=== PATIENT | male | born 1970 | race Caucasian/White ===

== ENCOUNTER 2017-04-26 07:30 | Inpatient (IN) | payer MEDICAID, MEDICARE, OTHER ==
[~2017-04-26] VITALS: Ht 188 cm; Wt 86.2 kg
[~2017-04-26 07:30] MED LIST: RISP1 PO; RISP25P IM
[2017-04-26 07:32] VITALS: BP 121/68; PULSE 83; RESP 14; TEMP 98.2; O2SAT 99
[2017-04-26] MEDS ORDERED: FLUO40CA PO (07:51)
[2017-04-26] MEDS ORDERED: PALI1TAB4 PO (07:51)
[2017-04-26] MEDS ORDERED: BENZ0.5T PO (07:51)
[2017-04-26 08:39] LABS: AUTOMATED NEUTROPHIL # 6.3 TH/MM3 (1.8-7.7); BASOPHIL % 0.3 % (0.0-2.0); EOSINOPHIL # 0.1 TH/MM3 (0-0.4); EOSINOPHIL % 0.9 % (0.0-4.0); HEMATOCRIT 38.8 % (39.0-51.0); HEMO FLAGS DIFF FINAL; LYMPH % 25.2 % (9.0-44.0); LYMPHOCYTE # 2.5 TH/MM3 (1.0-4.8); MEAN CELL VOLUME 86.5 FL (80.0-100.0); MEAN CORPUSCULAR HEMOGLOBIN 29.3 PG (27.0-34.0); MEAN CORPUSCULAR HGB CONC 33.8 % (32.0-36.0); MONO % 10.7 % (0.0-8.0); NEUT % 62.9 % (16.0-70.0); PLATELET COUNT 371 TH/MM3 (150-450); RED BLOOD COUNT 4.49 MIL/MM3 (4.50-5.90); RED CELL DISTRIBUTION WIDTH 12.8 % (11.6-17.2); WHITE BLOOD COUNT 10.1 TH/MM3 (4.0-11.0)
[2017-04-26 08:47] LABS: AMPHETAMINE, URINE NEG (NEG); BARBITURATES, URINE NEG (NEG); COCAINE, URINE NEG (NEG)
[2017-04-26 08:59] LABS: ANION GAP 8 MEQ/L (5-15); AST (GOT) 30 U/L (15-37); BLOOD UREA NITROGEN 22 MG/DL (7-18); CHLORIDE 104 MEQ/L (98-107); GLOMERULAR FILTRATION RATE 102 ML/MIN (>89); SODIUM (NA) 138 MEQ/L (136-145)
[2017-04-26 09:00] LABS: ALT (GPT) 32 U/L (12-78)
[2017-04-26 09:02] LABS: ALKALINE PHOSPHATASE 100 U/L (45-117); TOTAL BILIRUBIN ADULT 0.5 MG/DL (0.2-1.0)
--- NOTE | 2017-04-26 09:02 | PD ---
HPI Chief Complaint: Psychiatric Symptoms Time Seen by Provider: 07:52 Travel History International Travel<30 days: No Contact w/Intl Traveler<30days: No Traveled to known affect area: No History of Present Illness HPI 47yo M with PMH of schizoaffective disorder presents to the ED with c/o feeling depressed. Pt has flat affect. Denies any fever, cough, chest pain, sob, n/v, abdominal pain, focal weakness or numbness. Pt denies any alcohol or drug use. Does appear a little stoic. Denies any suicidal or homicidal ideation. Pt is voluntary. PFSH Past Medical History Anxiety: Yes Depression: Yes Chemotherapy: No Diminished Hearing: No Endocrine: No Gastrointestinal Disorders: No Genitourinary: No Immune Disorder: No Implanted Vascular Access Dvce: No Musculoskeletal: No Neurologic: No Psychiatric: Yes (Paranoid Schizophrenia, See EMR) Reproductive: No Respiratory: No Immunizations Current: Yes Radiation Therapy: No Schizophrenia: Yes Sickle Cell Disease: No Thyroid Disease: No Past Surgical History Abdominal Surgery: No AICD: No Arteriovenous Shunt: No Cardiac Surgery: No Ear Surgery: No Endocrine Surgery: No Eye Surgery: Yes (FOREIGN BODY IN LEFT EYE 1994) Genitourinary Surgery: No Gynecologic Surgery: No Insulin Pump: No Joint Replacement: No Neurologic Surgery: No Oral Surgery: No Pacemaker: No Thoracic Surgery: No Tonsillectomy: Yes Other Surgery: Yes (LEFT THUMB AMPUTATION AT 1ST KNUCKLE) Social History Alcohol Use: Yes (SOCIAL) Tobacco Use: Yes (1PPD) Substance Use: No Allergies-Medications (Allergen,Severity, Reaction): Coded Allergies: Seafood (Verified Allergy, Severe, 07/29/16) Amoxicillin (Verified Allergy, Unknown, 07/29/16) Reported Meds & Prescriptions Reported Meds & Active Scripts Active Reported Paliperidone ER 9 Mg Tab 9 Mg PO DAILY Benztropine (Benztropine Mesylate) 0.5 Mg Tab 1 Mg PO DAILY Fluoxetine (Fluoxetine HCl) 40 Mg Cap 40 Cap PO DAILY Review of Systems Except as stated in HPI: all other systems reviewed are Neg Physical Exam Narrative GENERAL: 47yo M not in distress. SKIN: Focused skin assessment warm/dry. HEAD: Atraumatic. Normocephalic. EYES: Pupils equal and round at 5mm bilaterally. No scleral icterus. No injection or drainage. ENT: No nasal bleeding or discharge. Mucous membranes pink and moist. NECK: Trachea midline. No JVD. CARDIOVASCULAR: Regular rate and rhythm. No murmur appreciated. RESPIRATORY: No accessory muscle use. Clear to auscultation. Breath sounds equal bilaterally. GASTROINTESTINAL: Abdomen soft, non-tender, nondistended. MUSCULOSKELETAL: No obvious deformities. No clubbing. No cyanosis. No edema. NEUROLOGICAL: Awake and alert. No obvious cranial nerve deficits. Motor grossly within normal limits. Normal speech. PSYCHIATRIC: Inappropriate mood and affect; poor insight and judgment. Data Data Last Documented VS Vital Signs Date Time Temp Pulse Resp B/P Pulse Ox O2 Delivery O2 Flow Rate FiO2 04/26/17 12:59 97.9 65 18 108/55 98 Room Air Orders Complete Blood Count With Diff (04/26/17 07:51) Comprehensive Metabolic Panel (04/26/17 07:51) Psych Screen (04/26/17 07:51) Drug Screen, Random Urine (04/26/17 07:51) Alcohol (Ethanol) (04/26/17 07:51) Tylenol (Acetaminophen) (04/26/17 07:51) Salicylates (Aspirin) (04/26/17 07:51) Diet Regular Basic (04/26/17 Lunch) Admit Order (Ed Use Only) (04/26/17 ) Admit To Inpatient Psych (04/26/17 ) Vital Signs (Adult) NORMAN.Q12H.E (04/26/17 17:52) Activity Oob Ad Cara (04/26/17 17:52) Level Of Observation (Psych) (04/26/17 17:52) Aims-Abnormal Invol Move Scale ONCE (04/26/17 17:52) Acetaminophen (Tylenol) (04/26/17 18:00) Magnesium Hydroxide Liq (Milk Of Magnesi (04/26/17 18:00) Al-Mag Hy-Si 40-40-4 Mg/Ml Liq (Mag-Al P (04/26/17 18:00) Basic Metabolic Panel (Bmp) (04/27/17 06:00) Lipid Profile (04/27/17 06:00) Hemoglobin (Hgb) A1c (04/27/17 06:00) Labs Laboratory Tests Test 04/26/17 08:15 White Blood Count 10.1 TH/MM3 Red Blood Count 4.49 MIL/MM3 Hemoglobin 13.1 GM/DL Hematocrit 38.8 % Mean Corpuscular Volume 86.5 FL Mean Corpuscular Hemoglobin 29.3 PG Mean Corpuscular Hemoglobin 33.8 % Concent Red Cell Distribution Width 12.8 % Platelet Count 371 TH/MM3 Mean Platelet Volume 8.4 FL Neutrophils (%) (Auto) 62.9 % Lymphocytes (%) (Auto) 25.2 % Monocytes (%) (Auto) 10.7 % Eosinophils (%) (Auto) 0.9 % Basophils (%) (Auto) 0.3 % Neutrophils # (Auto) 6.3 TH/MM3 Lymphocytes # (Auto) 2.5 TH/MM3 Monocytes # (Auto) 1.1 TH/MM3 Eosinophils # (Auto) 0.1 TH/MM3 Basophils # (Auto) 0.0 TH/MM3 CBC Comment DIFF FINAL Differential Comment Sodium Level 138 MEQ/L Potassium Level 4.0 MEQ/L Chloride Level 104 MEQ/L Carbon Dioxide Level 26.0 MEQ/L Anion Gap 8 MEQ/L Blood Urea Nitrogen 22 MG/DL Creatinine 0.81 MG/DL Estimat Glomerular Filtration 102 ML/MIN Rate Random Glucose 104 MG/DL Calcium Level 9.1 MG/DL Total Bilirubin 0.5 MG/DL Aspartate Amino Transf 30 U/L (AST/SGOT) Alanine Aminotransferase 32 U/L (ALT/SGPT) Alkaline Phosphatase 100 U/L Total Protein 7.8 GM/DL Albumin 3.8 GM/DL Salicylates Level 2.3 MG/DL Urine Opiates Screen NEG Acetaminophen Level LESS THAN 2.0 MCG/ML Urine Barbiturates Screen NEG Urine Amphetamines Screen NEG Urine Benzodiazepines Screen NEG Urine Cocaine Screen NEG Urine Cannabinoids Screen NEG Ethyl Alcohol Level LESS THAN 3 MG/DL [facility] Medical Decision Making Medical Screen Exam Complete: Yes Emergency Medical Condition: Yes Differential Diagnosis Psychosis vs. depression Narrative Course 47yo M with schizoaffective disorder here voluntarily for feeling depressed. No signs of trauma. Denies any other complaints. Labs reviewed, unremarkable. Pt is medically clear for psych evaluation. Diagnosis Primary Impression: Paranoid schizophrenia Diana Flores DO Apr 26, 2017 09:02
[2017-04-26 09:04] LABS: ACETAMINOPHEN LESS THAN 2.0 MCG/ML (10.0-30.0)
[2017-04-26 12:59] VITALS: BP 108/55; PULSE 65; RESP 18; TEMP 97.9; O2SAT 98
--- NOTE | 2017-04-26 17:52 | PD ---
History of Present Illness Chief Complaint: Psychiatric Symptoms Time Seen by Provider: 17:30 Travel History International Travel<30 Days: No Contact w/Intl Traveler<30days: No Known affected area: No Legal Status Legal Status: Voluntary History of Present Illness: History of Present Illness HPI 47yo M with PMH of paranoid schizophrenia who presents to the ED on a voluntary status with c/o feeling depressed. Patient was evasive and presented little information to screener. he was monitored in [facility] and he slept for aproximately 4 hours. he tells me that he was up all night last night siting on a bench. EMR is reviewed. He was last hospitalized at [facility] in March 2016 and prior to that he was here in January. Both time she presented floridly psychotic with delusions that he was part of the [facility]. Current toxicology is negative. Patient is alert and oriented. He is disheveled and malodorous. He appears stated age. He is guarded. He hesitates to answer questions and appears to be internally preoccupied. Affect is blunted. He states that he has been walking for many miles and that he " looking for [facility] care" that he does not feel safe outside the hospital, that he " follows the voices I hear" . He does not elaborate on what the voices tell him. He also tell me that he is suicidal and that " I don't have much hope". Patient states that he is medication compliant and that he was seen at [facility] last week . I suspect he may not be taking his medications since he has been homeless. Today he reports that he took his Prozac and he felt dizzy and weak. He also tells me that his medications were changed last week. PFSH Past Medical History Anxiety: Yes Depression: Yes Chemotherapy: No Diminished Hearing: No Endocrine: No Gastrointestinal Disorders: No Genitourinary: No Immune Disorder: No Implanted Vascular Access Dvce: No Musculoskeletal: No Neurologic: No Psychiatric: Yes (Paranoid Schizophrenia, See EMR) Reproductive: No Respiratory: No Immunizations Current: Yes Radiation Therapy: No Schizophrenia: Yes Sickle Cell Disease: No Thyroid Disease: No Past Surgical History Abdominal Surgery: No AICD: No Arteriovenous Shunt: No Cardiac Surgery: No Ear Surgery: No Endocrine Surgery: No Eye Surgery: Yes (FOREIGN BODY IN LEFT EYE 1994) Genitourinary Surgery: No Gynecologic Surgery: No Insulin Pump: No Joint Replacement: No Neurologic Surgery: No Oral Surgery: No Pacemaker: No Thoracic Surgery: No Tonsillectomy: Yes Other Surgery: Yes (LEFT THUMB AMPUTATION AT 1ST KNUCKLE) Psychiatric History Psychiatric History Hx Psychiatric Treatment: Last admission March 2016 [facility] dx paranoid schizophrenia. History of Inpatient Treatment: Yes Guns or firearms in home: No Social History Single male. Homeless. On disability Hx Alcohol Use: Yes (SOCIAL) Hx Tobacco Use: Yes (1PPD) Hx Substance Use: Yes (Denies) Hx of Substance Use Treatment: No Family Psychiatric History Adopted. he does not maintian contact with his family Allergies-Medications (Allergen,Severity, Reaction): Coded Allergies: Seafood (Verified Allergy, Severe, 07/29/16) Amoxicillin (Verified Allergy, Unknown, 07/29/16) Reported Meds & Prescriptions Reported Meds & Active Scripts Active Reported Paliperidone ER 9 Mg Tab 9 Mg PO DAILY Benztropine (Benztropine Mesylate) 0.5 Mg Tab 1 Mg PO DAILY Fluoxetine (Fluoxetine HCl) 40 Mg Cap 40 Cap PO DAILY Review of Systems ROS Limitations: Uncooperative, Psychotic Exam Alert: Yes [place]: Person (ox4) Mood: Depressed Affect: Blunted Speech: Clear (slowed responses) Eye Contact: Indirect Memory Intact: Comment (not tested) Hallucinations: Auditory Delusions: No Suicidal: Ideation (did not elaborate on plan) Homicidal: Ideation (negative) Insight/Judgement poor. poor MDM Medical Decision Making Medical Record Reviewed: Yes Assessment/Plan 47 year old male with hx of schizophrenia who presents to ed on a voluntary status. he is guarded. reports recent medication changes, auditory hallucinations, feeling hopeless, not sleeping, walking for miles, and suicidal ideation. He is requesting admission as he is wanting terminal manager hospitalization. At this time he will be admitted to [facility] fro further observation as well as for medication stabilization. Orders Complete Blood Count With Diff (04/26/17 07:51) Comprehensive Metabolic Panel (04/26/17 07:51) Electrocardiogram (04/26/17 07:51) Psych Screen (04/26/17 07:51) Drug Screen, Random Urine (04/26/17 07:51) Alcohol (Ethanol) (04/26/17 07:51) Tylenol (Acetaminophen) (04/26/17 07:51) Salicylates (Aspirin) (04/26/17 07:51) Diet Regular Basic (04/26/17 Lunch) Results Vital Signs Date Time Temp Pulse Resp B/P Pulse Ox O2 Delivery O2 Flow Rate FiO2 04/26/17 12:59 97.9 65 18 108/55 98 Room Air 04/26/17 07:32 98.2 83 14 121/68 99 Laboratory Tests Test 04/26/17 08:15 White Blood Count 10.1 Red Blood Count 4.49 Hemoglobin 13.1 Hematocrit 38.8 Mean Corpuscular Volume 86.5 Mean Corpuscular Hemoglobin 29.3 Mean Corpuscular Hemoglobin 33.8 Concent Red Cell Distribution Width 12.8 Platelet Count 371 Mean Platelet Volume 8.4 Neutrophils (%) (Auto) 62.9 Lymphocytes (%) (Auto) 25.2 Monocytes (%) (Auto) 10.7 Eosinophils (%) (Auto) 0.9 Basophils (%) (Auto) 0.3 Neutrophils # (Auto) 6.3 Lymphocytes # (Auto) 2.5 Monocytes # (Auto) 1.1 Eosinophils # (Auto) 0.1 Basophils # (Auto) 0.0 CBC Comment DIFF FINAL Differential Comment Sodium Level 138 Potassium Level 4.0 Chloride Level 104 Carbon Dioxide Level 26.0 Anion Gap 8 Blood Urea Nitrogen 22 Creatinine 0.81 Estimat Glomerular Filtration 102 Rate Random Glucose 104 Calcium Level 9.1 Total Bilirubin 0.5 Aspartate Amino Transf 30 (AST/SGOT) Alanine Aminotransferase 32 (ALT/SGPT) Alkaline Phosphatase 100 Total Protein 7.8 Albumin 3.8 Salicylates Level 2.3 Urine Opiates Screen NEG Acetaminophen Level LESS THAN 2.0 Urine Barbiturates Screen NEG Urine Amphetamines Screen NEG Urine Benzodiazepines Screen NEG Urine Cocaine Screen NEG Urine Cannabinoids Screen NEG Ethyl Alcohol Level LESS THAN 3 Diagnosis Primary Impression: Paranoid schizophrenia Admitting Information Admitting Physician Requests: Admit Padmini Mac Apr 26, 2017 17:52
[2017-04-26] MEDS ORDERED: ALUMINUM/MAGNESIUM/SIMETH 30 ML CUP PO PRN (18:00)
[2017-04-26] MEDS ORDERED: ACETAMINOPHEN 325 MG TAB PO PRN (18:00)
[2017-04-26] MEDS ORDERED: MAGNESIUM HYDROXIDE SUSP 30 ML CUP PO PRN (18:00)
[2017-04-26 18:19] VITALS: BP 108/55; PULSE 65; RESP 18; O2SAT 98
[2017-04-26 18:31] VITALS: BP 105/54; PULSE 93; RESP 18; O2SAT 96
[2017-04-26 19:15] VITALS: BP 90/50; PULSE 75; RESP 18; TEMP 98.4; O2SAT 97
--- NOTE | 2017-04-27 12:25 | HHI.HP ---
Provisional Diagnosis Admission Date Apr 26, 2017 at 17:55 Robbins I. 1. Schizophrenia, paranoid type, acute exacerbation Rule out comorbid depressive disorder or perhaps schizoaffective disorder, depressive type Robbins II. Deferred Robbins V. GAF is 35 presently Certification of Person's Competence To Provide Express and Informed Consent I have personally examined Inderjit Byers , a person being served at [facility] on, Apr 27, 2017 12:25. Express and informed consent means consent voluntarily given in writing, by a competent person, after sufficient explanation and disclosure of the subject matter involved to enable the person to make a knowing and willful decision without any element of force, fraud, deceit, duress, or other form of constraint or coercion. This person is 18 years of age or older, is not now known to be incompetent to consent to treatment with a guardian advocate, and does not have a health care surrogate or proxy currently making medical treatment decisions. I have found this person to be one of the following: [x] Competent to provide express and informed consent, as defined above, for voluntary admission to this facility and is competent to provide express and informed consent for treatment. He/she has the consistent capacity to make well reasoned, willful, and knowing decisions concerning his or her medical or mental health treatment. The person fully and consistently understands the purpose of the admission for examination/placement and is fully capable of personally exercising all rights [place] Incompetent to provide express and informed consent to voluntary admission, and this is incompetent to provide express and informed consent to treatment. The person must be transferred to involuntary status and a petition for a guardian advocate filed with the Circuit Court. [] Refusing to provide express and informed consent to voluntary admission but is competent to provide express and informed consent for treatment. The person must be discharged or transferred to involuntary status. Form shall be completed within 24 hours of a person's arrival at the receiving facility and filed in the clinical record of each person: 1. Admitted on a voluntary basis 2. Permitted to provide express and informed consent to his/her own treatment 3. Allowed to transfer from involuntary to voluntary status 4. Prior to permitting a person to consent to his or her own treatment after having been previously found incompetent to consent to treatment. History of Present Illness Capacity: Has Capacity HPI Mr. Byers is a 47-year-old male with a history of schizophrenia who presents voluntarily with complaints of depression. Reviewing the electronic medical record, I note the patient was admitted approximately one year ago here under Dr. Montoya. He was on Risperdal at that time and was also started on Risperdal Consta, which he apparently tolerated well. Patient seen and examined with counselor and nurse. Chart reviewed. Case discussed with nursing staff. On my examination today, the patient presents as fairly tearful and dysphoric. He explains that he has been stressed out because of family issues and feelings of loneliness. He says that he has been off of his psychotropic medications for the last 2 months secondary to being homeless. He does report issues with taking oral medications as a consequence of his homelessness in the past. He endorses auditory hallucinations in the setting of this medication nonadherence. He says that these are chiefly deprecatory but have also been command in the past. He denies any command auditory hallucinations now. He endorses vague suicidal ideation. He is fairly hopeless and anhedonic. Sleep and appetite are reportedly fair. No hypomanic or manic symptoms. No delusional material to me, although he had apparently been making statements regarding the [employer] to nursing staff. The remainder of the psychiatric ROS is negative. Reports some chronic leg and back pain but otherwise no physical complaints at this time. Patient agrees that he did well with the Risperdal and tolerated this medication well without side effects. Past psychiatric history: The patient has a history of schizophrenia. He has followed with [facility] in the past. His most recent psychiatric admission was apparently here under Dr. Montoya. He denies a history of suicide attempts. Family history: The patient reports that he is unsure of his family psychiatric history. Chemical dependency history: The patient reports that he occasionally drinks alcohol but otherwise denies any other substance use. Social history: The patient is homeless. He is single with no children. He is college educated. He collects disability and makes about $1100 a month. He denies any legal history. Denies any history. Denies any access to guns or firearms. Review of Systems Except as stated in HPI: all other systems reviewed are Neg Past Psych History Psychological trauma history No reported trauma history Violence risk - others (6 mos) Lower imminent risk. No homicidal ideation. No known history of violence. Violence risk - self (6 mos) Elevated. Suicidal ideation without specific plan or intent. Psychotic and unpredictable. Substance Abuse History Drugs/Alcohol past 12 months See above Past Family Social History Coded Allergies: Seafood (Verified Allergy, Severe, 07/29/16) Amoxicillin (Verified Allergy, Unknown, 07/29/16) Past Medical History See electronic medical record Reported Medications Paliperidone ER 9 Mg Tab9 Mg PO DAILY #30 TAB Ref 0 04/26/17 Benztropine 0.5 Mg Tab1 Mg PO DAILY #60 TAB Ref 0 04/26/17 Fluoxetine 40 Mg Cap40 Cap PO DAILY #30 CAP Ref 0 04/26/17 Current Medications Medications (Trade) Dose Ordered Sig/Gen Route Start Time Stop Time Status Last Admin (Tylenol) 650 mg Q4H PRN PO 04/26/17 18:00 (Milk Of Magnesia Liq) 30 ml DAILY PRN PO 04/26/17 18:00 (Mag-Al Plus Susp Liq) 30 ml Q6H PRN PO 04/26/17 18:00 Family History See above Social History See above Patient's Strengths (min. 2) In a monitored setting. Verbally fluent. Physical Exam Physical examination completed by ED provider. On my examination today, the patient appears to be fairly well-nourished and well-developed and in no acute physical distress. No abnormal motor movements noted. Laboratories and vital signs reviewed: Vital Signs Vital Signs Date Time Temp Pulse Resp B/P Pulse Ox O2 Delivery O2 Flow Rate FiO2 04/26/17 19:15 98.4 75 18 90/50 97 04/26/17 18:31 Room Air Lab Results Item Value Date Time White Blood Count 10.1 TH/MM3 04/26/17 0815 Hemoglobin 13.1 GM/DL 04/26/17 0815 Platelet Count 371 TH/MM3 04/26/17 0815 Sodium Level 138 MEQ/L 04/26/17 0815 Potassium Level 4.0 MEQ/L 04/26/17 0815 Chloride Level 104 MEQ/L 04/26/17 0815 Carbon Dioxide Level 26.0 MEQ/L 04/26/17 0815 Blood Urea Nitrogen 22 MG/DL H 04/26/17 0815 Creatinine 0.81 MG/DL 04/26/17 0815 Random Glucose 104 MG/DL 04/26/17 0815 Aspartate Amino Transf (AST/SGOT) 30 U/L 04/26/17 0815 Alanine Aminotransferase (ALT/SGPT) 32 U/L 04/26/17 0815 Total Protein 7.8 GM/DL 04/26/17 0815 Alkaline Phosphatase 100 U/L 04/26/17 0815 Albumin 3.8 GM/DL 04/26/17 0815 Mental Status Examination Patient is in hospital attire. He is fairly well groomed. He is awake and alert and oriented to person and hospital at least. No evidence of delirium. No abnormal motor movements noted. Speech is within normal limits for rate, tone and volume. Language and fund of knowledge seem average. Focus and concentration somewhat scattered. Memory seems grossly intact on clinical exam. Mood is depressed and affect is restricted, tearful and dysphoric. Thought process linear. No loosening of associations. No delusional material elicited by me. Endorses deprecatory but not command auditory hallucinations at this time. No other hallucinatory material. Endorses vague suicidal ideation without specific plan or intent. No reported urge to hurt himself on the inpatient psychiatric unit. No homicidal ideation. Insight and judgment are fair. Assessment & Plan Problem List: (1) Paranoid schizophrenia ICD Code: F20.0 Assessment & Plan This is a 47-year-old male with psychiatric history as detailed above who presents on a voluntary basis with psychiatric complaints. On my examination today, the patient reports what sounds like a psychotic decompensation in the setting of medication nonadherence, albeit unintentional apparently. Patient is presently homeless and has difficulty taking his medications in the setting. He previously did well with Risperdal. After discussion of his various options with regards to pharmacotherapy for his condition, we settle on a trial of Invega Sustenna as this agent does not require oral supplementation. Patient is also interested in assisted living placement. Patient requires psychiatric hospitalization at this time for safety , observation and stabilization. Admit inpatient. Voluntary status. Initiate Invega Sustenna 234 mg IM with plans for booster dose later this week. I will also start a small dose of oral Risperdal to temporarily supplement the Invega Sustenna. Ativan as needed for anxiety, Cogentin as needed for EPS, Ambien as needed for sleep. Vitals every shift. Counselor to see. Disposition planning. Estimated length of stay: 7-9 days. Discharge Planning Pending stabilization Request HC Surrog/Guard Advoc?: No Johnny Miller MD Apr 27, 2017 12:25
[2017-04-27] MEDS ORDERED: ZOLPIDEM TARTRATE 5 MG TAB PO PRN (13:45)
[2017-04-27] MEDS ORDERED: BENZTROPINE MESYLATE 1 MG TAB PO PRN (13:45)
[2017-04-27] MEDS ORDERED: BENZTROPINE MESYLATE 2 MG/2 ML VIAL IM PRN (13:45)
[2017-04-27] MEDS ORDERED: LORazepam 2 MG/ML VIAL IM PRN (13:45)
[2017-04-27] MEDS ORDERED: PALIPERIDONE PALMITATE 234 MG/1.5 ML SYRINGE IM ONE (13:45)
[2017-04-27 17:24] VITALS: BP 106/50; PULSE 60; RESP 17; TEMP 98.6; O2SAT 97
[2017-04-27] MEDS: risperiDONE 1 MG TAB PO SCH (21:09)
[2017-04-28] MEDS: LORazepam 1 MG TAB PO PRN (03:24)
[2017-04-28 06:04] VITALS: BP 108/55; PULSE 59; RESP 18; TEMP 98.5; O2SAT 95
--- NOTE | 2017-04-28 07:49 | EKG ---
Date Performed: 04/26/2017 Time Performed: 20:58:51 PTAGE: 47 years EKG: Sinus rhythm NORMAL ECG NO PREVIOUS TRACING DOCTOR: Penny Ovalle Interpretating Date/Time 04/28/2017 07:49:16
[2017-04-28] MEDS: risperiDONE 1 MG TAB PO SCH ×2 (08:42→20:31)
--- NOTE | 2017-04-28 13:45 | HHI.PYPN ---
Subjective Remarks Patient seen and examined with counselor. Chart reviewed. Refused breakfast this morning but accepted lunch. Case discussed with nursing staff who reports patient refused laboratories this morning and was somewhat oppositional generally. He articulated ongoing depression to the nursing staff. Case discussed in treatment team. On my examination today, the patient remains dysphoric. He says that he is dwelling on "thoughts from the past" and "real strange thoughts" but is reluctant to discuss these in any more detail saying " I really rather not be specific." He tells me that these thoughts are not regarding suicide or violence, and he denies suicidal or homicidal ideation at this time. He describes auditory hallucinations but does not verbalize any command auditory hallucinations. He denies side effects from medications. Tolerating Invega Sustenna well. I discussed the option of titrating his oral Risperdal temporarily to manage psychotic symptoms, but he is reluctant to titrate this medication at this time. No physical complaints. Review of Systems ROS Limitations: Psychotic, Poor Historian Except as stated in HPI: all other systems reviewed are Neg Objective Alert: Yes [place]: Person (O x 3) Mood: Depressed Affect: Restricted Memory Intact: Comment (intact on clinical exam) Hallucinations: Auditory (vague) Delusions: No Delusion Type: Other (No delusions) Suicidal: Ideation (Denies SI) Homicidal: Ideation (Denies HI) Insight/Judgment Fair Remarks No motor abnormalities noted. No hand tremor, no dystonia, no dyskinesia. Thought process linear. Grooming and hygiene fair. Labs Labs reviewed. No new labs. Patient refused laboratories this morning. Vitals/IOs Vital Signs Date Time Temp Pulse Resp B/P Pulse Ox O2 Delivery O2 Flow Rate FiO2 04/28/17 06:04 98.5 59 18 108/55 95 04/26/17 18:31 Room Air Assessment & Plan Problem List: (1) Paranoid schizophrenia Assessment & Plan: Rule out schizoaffective disorder, depressive type ICD Code: F20.0 Assessment & Plan Continue oral Risperdal as ordered per patient preference supplementing Invega Sustenna. Plan for booster dose of Invega Sustenna later this week. To consider adding an antidepressant as the patient does remain fairly dysphoric. Continue to monitor on the inpatient unit. Continue other medications and care as ordered. Justification for Cont. Inpt. High risk for decompensation in a less restrictive environment Discharge Planning Patient remains interested an assisted living placement, and the counselor will begin making referrals. Request HC Surrog/Guard Advoc?: No Johnny Miller MD Apr 28, 2017 13:45
--- NOTE | 2017-04-28 15:21 | PD.TTN ---
Present for Treatment Team Treatment Team Staff: Provider (Angela), Nurse (Ashley), Psych Therapist ( Concepción ), Occupational Therapist (Brendon) Patient Problems 1. Discharge planning 2. Medication compliance 3. Knowledge deficit 4. Lack of coping skills Progress Toward Goals Provider Input: Is starting pt on different medication pt is open to get Invega shot Nurse Input: refused labs refused to eat is irritated and states he is really depressed Psych Therapist Input: is very seclusive and is still not feeling well he wants to get better and is still wanting help [facility] Occupational Therapist Input: does not come to groups Concepción Sanchez [facility] Apr 28, 2017 15:21
[2017-04-28 15:23] VITALS: BP 99/50; PULSE 65; RESP 18; TEMP 97.9; O2SAT 99
[2017-04-28 15:25] VITALS: BP 113/64; PULSE 80; RESP 18; TEMP 98.7; O2SAT 95
[2017-04-29 05:55] VITALS: BP 103/59; PULSE 58; RESP 16; TEMP 97.2; O2SAT 99
[2017-04-29] MEDS: risperiDONE 1 MG TAB PO SCH ×2 (09:07→20:20)
[2017-04-29 09:19] LABS: ANION GAP 6 MEQ/L (5-15); BICARBONATE 27.4 MEQ/L (21.0-32.0); BLOOD UREA NITROGEN 13 MG/DL (7-18); CHLORIDE 107 MEQ/L (98-107); GLOMERULAR FILTRATION RATE 115 ML/MIN (>89); POTASSIUM 4.1 MEQ/L (3.5-5.1); SODIUM (NA) 140 MEQ/L (136-145)
[2017-04-29 09:27] LABS: HDL CHOLESTEROL 34.3 MG/DL (40.0-60.0); LDL CHOLESTEROL 102 MG/DL (0-99)
--- NOTE | 2017-04-29 09:50 | HHI.PYPN ---
Subjective Remarks Patient seen and examined with counselor. Chart reviewed. Case discussed with nursing staff. On my examination today, the patient remains fairly dysphoric and anhedonic. He is secluding in his room. He is somewhat hyperverbal and flat. Sleep reportedly somewhat poor. He denies audiovisual hallucinations today. No delusional material. Denies suicidal or homicidal ideation. Denies side effects from medications. No physical complaints. He remains agreeable to assisted living placement, and the counselor informs us both that a loan representative from an assisted living facility, [facility], will be around today to evaluate the patient for possible admission there. Review of Systems ROS Limitations: Poor Historian Except as stated in HPI: all other systems reviewed are Neg Objective Alert: Yes [place]: Person, Place (at least) Mood: Depressed Affect: Restricted Memory Intact: Comment (remains intact) Hallucinations: Other (denies audiovisual hallucinations) Delusions: No Delusion Type: Other (no delusions elicited) Suicidal: Ideation (denies suicidal ideation) Homicidal: Ideation (denies homicidal ideation) Insight/Judgment Fair Remarks No motor abnormalities noted. Thought process linear but slow. Grooming and hygiene fair. Labs Test 04/29/17 07:18 Sodium Level 140 MEQ/L Potassium Level 4.1 MEQ/L Chloride Level 107 MEQ/L Carbon Dioxide Level 27.4 MEQ/L Anion Gap 6 MEQ/L Blood Urea Nitrogen 13 MG/DL Creatinine 0.73 MG/DL Estimat Glomerular Filtration 115 ML/MIN Rate Random Glucose 85 MG/DL Calcium Level 8.9 MG/DL Triglycerides Level 101 MG/DL Cholesterol Level 156 MG/DL LDL Cholesterol 102 MG/DL HDL Cholesterol 34.3 MG/DL Cholesterol/HDL Ratio 4.54 RATIO Labs reviewed. Vitals/IOs Vital Signs Date Time Temp Pulse Resp B/P Pulse Ox O2 Delivery O2 Flow Rate FiO2 04/29/17 05:55 97.2 58 16 103/59 99 04/26/17 18:31 Room Air Assessment & Plan Problem List: (1) Paranoid schizophrenia ICD Code: F20.0 Assessment & Plan Add Remeron 15 mg at bedtime to manage dysphoria. Continue oral Risperdal as ordered. Plan for booster dose of Invega Sustenna later this week. Continue to monitor on the inpatient unit. Continue other medications and care as ordered. Justification for Cont. Inpt. Medication changes in process. Discharge Planning [facility] placement Request HC Surrog/Guard Advoc?: No Johnny Miller MD Apr 29, 2017 09:50
[2017-04-29 18:00] VITALS: BP 99/54; PULSE 52; RESP 16; TEMP 97.6; O2SAT 99
[2017-04-29] MEDS: LORazepam 1 MG TAB PO PRN (20:20)
[2017-04-29] MEDS ORDERED: MIRTAZAPINE 15 MG TAB PO SCH (21:00)
[2017-04-29 21:26] LABS: HEMOGLOBIN A1a 1.1 %; HEMOGLOBIN A1b 1.6 %; HEMOGLOBIN LA1C 1.8 %; HEMOGLOBIN P3 3.5 %
[2017-04-30 05:46] VITALS: BP 93/54; PULSE 64; RESP 16; TEMP 97.3; O2SAT 98
[2017-04-30] MEDS: risperiDONE 1 MG TAB PO SCH ×2 (08:48→21:41)
--- NOTE | 2017-04-30 11:49 | HHI.PYPN ---
Subjective Remarks Patient seen and examined with nurse. Chart reviewed. Case discussed with nursing staff. Patient reportedly complaining to nurse of poor sleep. On my examination today, the patient says "I don't know about the Remeron." He doesn' t really think that he needs an antidepressant and doesn't feel that he is particularly depressed. He describes his mood as "okay." Affect is fairly flat. He denies any audiovisual hallucinations saying "everything is quiet." He does complain of poor sleep and says that he has done well with trazodone in the past and would like to take this medication instead of the Remeron or Ambien. He denies side effects from medications. No physical complaints. Review of Systems ROS Limitations: Poor Historian Except as stated in HPI: all other systems reviewed are Neg Objective Alert: Yes [place]: Person, Place (at least) Mood: Calm Affect: Flat Memory Intact: Comment (intact) Hallucinations: Other (denies AVH) Delusions: No Delusion Type: Other (no delusions) Suicidal: Ideation (no SI) Homicidal: Ideation (no HI) Insight/Judgment Fair Remarks No motor abnormalities noted. Thought processes linear. Grooming and hygiene fair. Labs Labs reviewed. No new labs. Vitals/IOs Vital Signs Date Time Temp Pulse Resp B/P Pulse Ox O2 Delivery O2 Flow Rate FiO2 04/30/17 05:46 97.3 64 16 93/54 98 04/26/17 18:31 Room Air Intake and Output 04/29/17 04/29/17 04/30/17 08:00 16:00 00:00 Intake Total 360 ml Balance 360 ml Assessment & Plan Problem List: (1) Paranoid schizophrenia ICD Code: F20.0 Assessment & Plan Plan to administer booster dose of Invega Sustenna tomorrow, Thursday. It is possible I interpreted negative symptoms of his psychotic illness as depressive symptoms; the patient does not perceive himself as depressed. I will discontinue the Remeron and add the trazodone for sleep as he asks. Continue to monitor on the inpatient unit. Continue other medications and care as ordered. Justification for Cont. Inpt. Medication changes planned. Discharge Planning Patient has been accepted at [facility]. We will plan to transfer him there once we have made medication adjustments. Request HC Surrog/Guard Advoc?: No Johnny Miller MD Apr 30, 2017 11:49
[2017-04-30 18:14] VITALS: BP 106/50; PULSE 60; RESP 17; TEMP 97.5; O2SAT 97
[2017-04-30] MEDS: traZODone HCL 50 MG TAB PO SCH (21:41)
[2017-05-01 05:58] VITALS: BP 97/58; PULSE 73; RESP 16; TEMP 98.5; O2SAT 97
[2017-05-01] MEDS: risperiDONE 1 MG TAB PO SCH ×2 (08:45→20:16)
[2017-05-01] MEDS ORDERED: PALIPERIDONE PALMITATE 156 MG/ML SYRINGE IM ONE (09:00)
--- NOTE | 2017-05-01 12:33 | HHI.PYPN ---
Subjective Remarks Patient seen and examined with counselor. Chart reviewed. Case discussed with nursing staff who reports the patient received a booster dose of Invega Sustenna. He remains seclusive to room with a flat affect. On my examination today, the patient is indeed secluding in his room. He denies any suicidal or homicidal ideation. Denies any audiovisual hallucinations. No evident delusional material. Affect does remain quite flat, and the patient seems to have a lot of negative symptoms from his psychotic illness. Denies side effects from medications. No physical complaints. Remains agreeable to assisted living placement. Counselor and I have called over to his [facility] assisted living, and the patient can go there on Thursday. Review of Systems Except as stated in HPI: all other systems reviewed are Neg Objective Alert: Yes [place]: Person, Place Mood: Calm Affect: Flat (remains flat) Memory Intact: Comment (intact) Hallucinations: Other (denies hallucinations) Delusions: No Delusion Type: Other (no delusions) Suicidal: Ideation (denies SI) Homicidal: Ideation (denies HI) Insight/Judgment Fair Remarks No motor abnormalities noted. Labs Labs reviewed. No new labs. Vitals/IOs Vital Signs Date Time Temp Pulse Resp B/P Pulse Ox O2 Delivery O2 Flow Rate FiO2 05/01/17 05:58 98.5 73 16 97/58 97 Assessment & Plan Problem List: (1) Paranoid schizophrenia ICD Code: F20.0 Assessment & Plan Continue oral Risperdal supplementing Invega Sustenna. Oral Risperdal can likely be discontinued on discharge. Next dose of Invega Sustenna is due . Continue to monitor on the inpatient unit. Continue other medications and care as ordered. Justification for Cont. Inpt. Risk for decompensation in less restrictive environment. Discharge Planning Discharge to assisted living Thursday barring some clinical deterioration. Request HC Surrog/Guard Advoc?: No Johnny Miller MD May 01, 2017 12:33
[2017-05-01 18:00] VITALS: BP 99/56; PULSE 66; RESP 18; TEMP 98.4; O2SAT 95
[2017-05-01] MEDS: traZODone HCL 50 MG TAB PO SCH (20:16)
[2017-05-02 06:05] VITALS: BP 102/58; PULSE 78; RESP 18; TEMP 98; O2SAT 96
[2017-05-02] MEDS: risperiDONE 1 MG TAB PO SCH ×2 (08:31→20:35)
--- NOTE | 2017-05-02 14:00 | HHI.PYPN ---
Subjective Remarks Patient was seen and case discussed with nursing. Objective Alert: Yes [place]: Person, Place Mood: Calm Affect: Flat (remains flat) Memory Intact: Comment (intact) Hallucinations: Other (denies hallucinations) Delusions: No Delusion Type: Other (no delusions) Suicidal: Ideation (denies SI) Homicidal: Ideation (denies HI) Vitals/IOs Vital Signs Date Time Temp Pulse Resp B/P Pulse Ox O2 Delivery O2 Flow Rate FiO2 05/02/17 06:05 98.0 78 18 102/58 96 Assessment & Plan Problem List: (1) Paranoid schizophrenia ICD Code: F20.0 Assessment & Plan Estimated LOS: days Request HC Surrog/Guard Advoc?: No Kenji Ch DO May 02, 2017 14:00
--- NOTE | 2017-05-02 14:47 | HHI.PYPN ---
Subjective Remarks Please ignore the other note from today. It is in draft mode and staff/myself was not able to delete it. Patient was seen and case discussed with nursing. Patient is pleasant and cooperative with exam. Flat affect, disheveled, delayed thought process. Notices an improvement compared to when he came in. Denies auditory or visual hallucinations. Objective Alert: Yes [place]: Person, Place Mood: Calm Affect: Flat (remains flat) Memory Intact: Comment (intact) Hallucinations: Other (denies hallucinations) Delusions: No Delusion Type: Other (no delusions) Suicidal: Ideation (denies SI) Homicidal: Ideation (denies HI) Insight/Judgment poor Vitals/IOs Vital Signs Date Time Temp Pulse Resp B/P Pulse Ox O2 Delivery O2 Flow Rate FiO2 05/02/17 06:05 98.0 78 18 102/58 96 Assessment & Plan Problem List: (1) Paranoid schizophrenia ICD Code: F20.0 Assessment & Plan Continue current treatment plan Justification for Cont. Inpt. Continue current treatment plan, patient would decompensate in a less restrictive setting. Request HC Surrog/Guard Advoc?: No Kenji Ch DO May 02, 2017 14:47
[2017-05-02] MEDS: LORazepam 1 MG TAB PO PRN (17:20)
[2017-05-02 18:12] VITALS: BP 92/50; PULSE 97; RESP 18; TEMP 98.1; O2SAT 99
[2017-05-02] MEDS: traZODone HCL 50 MG TAB PO SCH (20:34)
[2017-05-03 05:52] VITALS: BP 103/53; PULSE 57; RESP 18; TEMP 97.3; O2SAT 98
[2017-05-03] MEDS: risperiDONE 1 MG TAB PO SCH ×2 (08:52→20:48)
--- NOTE | 2017-05-03 13:36 | HHI.PYPN ---
Subjective Remarks Patient was seen and case discussed with nursing. Per nursing, at 5 PM last night patient began screaming his room. When nursing asked him what was wrong, patient said he was screaming at the voices. Today, patient minimizes this episode and claims she is not having auditory hallucinations. He remains seclusive to self but didn't go outside. Remains vigilance and blunted Objective Alert: Yes [place]: Person, Place, Date Mood: Anxious Affect: Blunted Memory Intact: Comment (intact) Hallucinations: Auditory (yesterday per nursing) Delusions: No Delusion Type: Other (no delusions) Suicidal: Ideation (denies SI) Homicidal: Ideation (denies HI) Insight/Judgment Poor Vitals/IOs Vital Signs Date Time Temp Pulse Resp B/P Pulse Ox O2 Delivery O2 Flow Rate FiO2 05/03/17 05:52 97.3 57 18 103/53 98 Assessment & Plan Problem List: (1) Paranoid schizophrenia ICD Code: F20.0 Assessment & Plan Continue current treatment plan Justification for Cont. Inpt. Patient will decompensate in a less restrictive setting Request HC Surrog/Guard Advoc?: No Kenji Ch DO May 03, 2017 13:36
[2017-05-03 17:22] VITALS: BP 115/59; PULSE 82; RESP 18; TEMP 97.8; O2SAT 96
[2017-05-03] MEDS: traZODone HCL 50 MG TAB PO SCH (20:48)
[2017-05-04 06:01] VITALS: BP 125/58; PULSE 96; RESP 18; TEMP 97.6; O2SAT 96
[2017-05-04] MEDS: risperiDONE 1 MG TAB PO SCH (08:06)
--- NOTE | 2017-05-04 13:49 | HHI.DS ---
Psychiatry Discharge Summary Inpatient Psychiatric care?: Yes Advance Directive: No Reason Not Provided: declined Mental Health AdvanceDirective: No Health Care Proxy: No Admission Admission Date Apr 26, 2017 at 17:55 Admission Diagnosis: (1) Paranoid schizophrenia ICD Code: F20.0 Brief History Mr. Byers is a 47-year-old male with a history of schizophrenia who presents voluntarily with complaints of depression. Reviewing the electronic medical record, I note the patient was admitted approximately one year ago here under Dr. Montoya. He was on Risperdal at that time and was also started on Risperdal Consta, which he apparently tolerated well. Patient seen and examined with counselor and nurse. Chart reviewed. Case discussed with nursing staff. On my examination today, the patient presents as fairly tearful and dysphoric. He explains that he has been stressed out because of family issues and feelings of loneliness. He says that he has been off of his psychotropic medications for the last 2 months secondary to being homeless. He does report issues with taking oral medications as a consequence of his homelessness in the past. He endorses auditory hallucinations in the setting of this medication nonadherence. He says that these are chiefly deprecatory but have also been command in the past. He denies any command auditory hallucinations now. He endorses vague suicidal ideation. He is fairly hopeless and anhedonic. Sleep and appetite are reportedly fair. No hypomanic or manic symptoms. No delusional material to me, although he had apparently been making statements regarding the FBI to nursing staff. The remainder of the psychiatric ROS is negative. Reports some chronic leg and back pain but otherwise no physical complaints at this time. Patient agrees that he did well with the Risperdal and tolerated this medication well without side effects. Past psychiatric history: The patient has a history of schizophrenia. He has followed with [facility] in the past. His most recent psychiatric admission was apparently here under Dr. Montoya. He denies a history of suicide attempts. Family history: The patient reports that he is unsure of his family psychiatric history. Chemical dependency history: The patient reports that he occasionally drinks alcohol but otherwise denies any other substance use. Social history: The patient is homeless. He is single with no children. He is college educated. He collects disability and makes about $1100 a month. He denies any legal history. Denies any history. Denies any access to guns or firearms. Tobacco Use In Past 30 Days: No Tobacco Past 30 Days Alcohol Use: Never Hospital Course Participated in individual and group therapies. Compliant with medicines. Reached maximum benefit from this hospitalization. Results Blood Pressure 125 / 58 Vital Signs Date Time Temp Pulse Resp B/P Pulse Ox O2 Delivery O2 Flow Rate FiO2 05/04/17 06:01 97.6 96 18 125/58 96 None. Summary of Procedures None Pending results at discharge: No Medications # of Antipsychotic meds at D/C: 1 Appropriate >1 Antipsych meds?: 1 Approp Antipsych med options 1 - Minimum of three failed multiple trials of monotherapy. 2 - Documented plan to taper to monotherapy due to previous use of multiple meds OR cross-taper in progress at D/C. 3 - Documentation of augmentation of Clozapine. 4 - Justification other than those listed in allowable values 1-3, document here : Discharge Discharge Date: May 04, 2017 Discharge Diagnosis: (1) Paranoid schizophrenia Diagnosis: Principal ICD Code: F20.0 Mental Status Exam at Disch Cognition intact. Verbally efraín for safety. No psychotic symptoms. Patient calm and appropriate. Pt Condition on Discharge: Stable Discharge Disposition: Discharge Home Discharge Instructions Diet Instructions: As Tolerated, No Restrictions Activities you can perform: Regular-No Restrictions Scheduled Appointment: Karan Hernandez Appointment Date: May 06, 2017 Appointment Time: 7:30am Discharge Time <= 30 minutes Discharge/Advance Care Plan Health Problems: (1) Paranoid schizophrenia Goals to promote your health * To prevent worsening of your condition and complications * To maintain your health at the optimal level Directions to meet your goals Take your medications as prescribed Follow your dietary instruction Follow activity as directed Keep your appointments as scheduled Take your immunizations and boosters as scheduled If your symptoms worsen call your PCP, if no PCP go to Urgent Care Center or Emergency Room For 25/05 questions related to your inpatient stay or results of tests pending at discharge, please contact Dr. Bill Rose at Smoking is Dangerous to Your Health. Avoid second hand smoking Bill Rose MD May 04, 2017 13:49
[2017-05-04] MEDS ORDERED: RISP1 PO (13:51)
[2017-05-04] MEDS ORDERED: TRAZ50TA12 PO (13:51)
== END 2017-05-04 15:55 | disposition home or self-care (01) | DRG 885 ==
LOC: NEPE 07:30 → NEDA 17:55 → H260 19:14
PROVIDERS: ADMIT Psychiatry & Neurology Psychiatry; ATTEND Psychiatry & Neurology Psychiatry
DX: F20.0 Paranoid schizophrenia (principal); Z59.0 Homelessness; R45.851 Suicidal ideations; F41.9 Anxiety disorder, unspecified; F17.210 Nicotine dependence, cigarettes, uncomplicated
CPT/HCPCS: 80048; 80053; 80061; 80307; 83036; 85025; 93005; J2426

== ENCOUNTER 2017-08-27 04:10 | Emergency (ER) | payer MEDICARE ==
[~2017-08-27 04:10] MED LIST changes: +BENZ0.5T PO; +FLUO40CA PO; +PALI1TAB4 PO; -RISP25P IM; +TRAZ50TA12 PO
[2017-08-27 04:12] VITALS: BP 136/69; PULSE 92; RESP 16; TEMP 98; O2SAT 98
[2017-08-27] MEDS ORDERED: TETANUS/DIPHTHERIA TOXOID ADULT 0.5 ML VIAL IM ONE ×2 (04:45)
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
[2017-08-27] MEDS: OFLOXACIN 0.3% OPTH SOLN 5 ML BTL LEFT EYE SCH ×16 (06:00→11:51)
[2017-08-27 09:00] VITALS: BP 106/57; PULSE 63; RESP 14; O2SAT 98
[2017-08-31] MEDS ORDERED: RISP25P IM ×2 (02:07)
[2017-09-09] MEDS ORDERED: RISP1 PO ×2 (21:52)
[2017-09-09] MEDS ORDERED: RISP2TAB37 PO ×2 (21:52)
[2017-09-09] MEDS ORDERED: ZOLO50TA PO ×2 (21:53)
== END 2017-08-27 12:11 | disposition left against medical advice (07) ==
LOC: NEPD 04:10
DX: H16.012 Central corneal ulcer, left eye (principal); F17.210 Nicotine dependence, cigarettes, uncomplicated; F20.0 Paranoid schizophrenia; Z23 Encounter for immunization
CPT/HCPCS: 90471; 90714

== ENCOUNTER 2017-08-31 01:40 | Emergency (ER) | payer MEDICARE ==
[~2017-08-31] VITALS: Ht 190.5 cm; Wt 89.0 kg
[~2017-08-31 01:40] MED LIST changes: -FLUO40CA PO; -PALI1TAB4 PO
[2017-08-31 01:42] VITALS: BP 131/75; PULSE 70; RESP 16; TEMP 97.6; O2SAT 95
[2017-08-31] MEDS ORDERED: RISP25P IM (02:07)
[2017-08-31 02:08] VITALS: BP 107/59; PULSE 62; RESP 20; O2SAT 99
--- NOTE | 2017-08-31 03:01 | PD ---
HPI Chief Complaint: Psychiatric Symptoms Time Seen by Provider: 01:58 Travel History International Travel<30 days: No Contact w/Intl Traveler<30days: No Traveled to known affect area: No History of Present Illness HPI 47-year-old white male presents to emergency department on a voluntary basis for psychological evaluation. He states that he is depressed and having suicidal thoughts. He attempted to kill himself by overexerting himself today. He states that when he was running he stumbled and injured his right great toe. He denies syncope. No neck or back pain. He denies any toxic ingestions. No homicidal ideation. PFSH Past Medical History Anxiety: Yes Depression: Yes Cardiovascular Problems: Yes (LOW BP) Chemotherapy: No Diminished Hearing: No Endocrine: No Gastrointestinal Disorders: No Genitourinary: No Immune Disorder: No Implanted Vascular Access Dvce: No Musculoskeletal: No Neurologic: No Psychiatric: Yes (Paranoid Schizophrenia, See EMR) Reproductive: No Respiratory: No Immunizations Current: Yes Radiation Therapy: No Schizophrenia: Yes Sickle Cell Disease: No Thyroid Disease: No Past Surgical History Abdominal Surgery: No AICD: No Arteriovenous Shunt: No Cardiac Surgery: No Ear Surgery: No Endocrine Surgery: No Eye Surgery: Yes (FOREIGN BODY IN LEFT EYE 1994) Genitourinary Surgery: No Gynecologic Surgery: No Insulin Pump: No Joint Replacement: No Neurologic Surgery: No Oral Surgery: No Pacemaker: No Thoracic Surgery: No Tonsillectomy: Yes Other Surgery: Yes (LEFT THUMB AMPUTATION AT 1ST KNUCKLE) Social History Alcohol Use: Yes (OCC.) Tobacco Use: Yes (1PPD) Substance Use: No Allergies-Medications (Allergen,Severity, Reaction): Coded Allergies: Fish Containing Products (Unverified Allergy, Severe, 08/27/17) amoxicillin (Unverified Allergy, Unknown, 08/27/17) Reported Meds & Prescriptions Reported Meds & Active Scripts Active Reported Risperdal Consta Inj (Risperidone) 25 Mg/2 Ml Inj 25 Mg IM Q14D Review of Systems Except as stated in HPI: all other systems reviewed are Neg Psychiatric: Positive: Depression, Suicidal Ideations, Mood Disorder, No: Anxiety, Disorder of Thought, Substance Abuse, Homicidal Ideation Physical Exam Narrative GENERAL: Well-nourished, well-developed patient. SKIN: Warm and dry. HEAD: Normocephalic and atraumatic. EYES: No scleral icterus. Mild injection in the left eye or drainage. Left corneal defect consistent with a posterior ENT: No nasal drainage noted. Mucous membranes pink. Airway patent. NECK: Supple, trachea midline. Moves head freely without obvious discomfort. CARDIOVASCULAR: Regular rate and rhythm without murmurs, gallops, or rubs. RESPIRATORY: Breath sounds equal bilaterally. No accessory muscle use. GASTROINTESTINAL: Abdomen soft, non-tender, nondistended. EXTREMITIES: No cyanosis or edema. BACK: Nontender without obvious deformity. No CVA tenderness. NEURO: Patient is alert and oriented. no sensorimotor deficits. Nonfocal. Normal speech. PSYCH: No delusions. No auditory or visual hallucinations. Data Data Last Documented VS Vital Signs Date Time Temp Pulse Resp B/P (MAP) Pulse Ox O2 Delivery O2 Flow Rate FiO2 08/31/17 02:08 62 20 107/59 (75) 99 Room Air 08/31/17 01:42 97.6 Orders Orders Psych Screen (08/31/17 02:16) MDM Medical Decision Making Medical Screen Exam Complete: Yes Emergency Medical Condition: Yes Medical Record Reviewed: Yes Differential Diagnosis MDM: High Differential diagnoses: Schizophrenia, schizoaffective disorder, bipolar, anxiety, depression, adjustment reaction, mood disorder NOS, ODD, depressive disorder NOS, dementia, dementia with agitation, psychosis NOS, substance induced mood disorder, DMDD, Asperger syndrome, infection,electrolyte abnormality, malingering. Narrative Course Mental health screening discussed with the patient. Psychiatric screen ordered. The patient been medically cleared. Diagnosis Primary Impression: Medical clearance for psychiatric admission Additional Impressions: Central corneal ulcer, left eye Paranoid schizophrenia Noncompliance with medications Condition: Stable Dominic Sanon Aug 31, 2017 03:01
[2017-09-07] MEDS ORDERED: ZOLO50TA PO (10:43)
[2017-09-07] MEDS ORDERED: RISP2TAB2 PO (10:43)
[2017-09-07] MEDS ORDERED: RISP1 PO (10:43)
== END 2017-08-31 12:15 | disposition left against medical advice (07) ==
LOC: NEPD 01:40
DX: Z02.89 Encounter for other administrative examinations (principal); H16.012 Central corneal ulcer, left eye; F20.0 Paranoid schizophrenia; Z91.14 Patient's other noncompliance with medication regimen; R45.851 Suicidal ideations; F32.9 Major depressive disorder, single episode, unspecified; S99.921A Unspecified injury of right foot, initial encounter; Z86.79 Personal history of other diseases of the circulatory system; Z86.59 Personal history of other mental and behavioral disorders; F17.200 Nicotine dependence, unspecified, uncomplicated; W18.40XA Slipping, tripping and stumbling without falling, unspecified, initial encounter; Y93.02 Activity, running
CPT/HCPCS: 99281

== ENCOUNTER 2017-08-31 20:24 | Inpatient (IN) | payer MEDICARE ==
[~2017-08-31] VITALS: Ht 190.5 cm; Wt 82.9 kg
[~2017-08-31 20:24] MED LIST changes: +FLUO40CA PO; +PALI1TAB4 PO; +RISP25P IM
[2017-08-31 20:25] VITALS: BP 121/67; PULSE 91; RESP 16; TEMP 98.2; O2SAT 95
--- NOTE | 2017-08-31 21:10 | PD ---
Physical Exam Date Seen by Provider: Aug 31, 2017 Time Seen by Provider: 21:08 Narrative 47-year-old white male presents to emergency department stating that there is no beds at the [facility]. He states the [facility] has been closer some time. He was notified by the staff earlier this morning when he was being evaluated that he could follow up as stated [facility] and follow-up with [facility] as an outpatient. Patient states he has nowhere to go. He presents the ER because he does not feel safe on the streets. Patient admits to auditory hallucinations. He denies any toxic ingestions. No recent illness. Vital signs reviewed. Pt waiting for bed placement. Data Data Last Documented VS Vital Signs Date Time Temp Pulse Resp B/P (MAP) Pulse Ox O2 Delivery O2 Flow Rate FiO2 08/31/17 20:25 98.2 91 16 121/67 (85) 95 Room Air [facility] Medical Record Reviewed: No Supervised Visit with REENA: Dominic Carrillo Aug 31, 2017 21:10
--- NOTE | 2017-08-31 21:10 | PD ---
Physical Exam Date Seen by Provider: Aug 31, 2017 Time Seen by Provider: 21:08 Narrative 47-year-old white male presents to emergency department stating that there is no beds at the [facility]. He states the [facility] has been closer some time. He was notified by the staff earlier this morning when he was being evaluated that he could follow up as stated [facility] and follow-up with [facility] as an outpatient. Patient states he has nowhere to go. He presents the ER because he does not feel safe on the streets. Patient admits to auditory hallucinations. He denies any toxic ingestions. No recent illness. Vital signs reviewed. Pt waiting for bed placement. Data Data Last Documented VS Vital Signs Date Time Temp Pulse Resp B/P (MAP) Pulse Ox O2 Delivery O2 Flow Rate FiO2 08/31/17 20:25 98.2 91 16 121/67 (85) 95 Room Air [facility] Medical Record Reviewed: No Supervised Visit with REENA: Dominic Carrillo Aug 31, 2017 21:10
--- NOTE | 2017-08-31 21:10 | PD ---
Physical Exam Date Seen by Provider: Aug 31, 2017 Time Seen by Provider: 21:08 Narrative 47-year-old white male presents to emergency department stating that there is no beds at the [facility]. He states the [facility] has been closer some time. He was notified by the staff earlier this morning when he was being evaluated that he could follow up as stated [facility] and follow-up with [facility] as an outpatient. Patient states he has nowhere to go. He presents the ER because he does not feel safe on the streets. Patient admits to auditory hallucinations. He denies any toxic ingestions. No recent illness. Vital signs reviewed. Pt waiting for bed placement. Data Data Last Documented VS Vital Signs Date Time Temp Pulse Resp B/P (MAP) Pulse Ox O2 Delivery O2 Flow Rate FiO2 08/31/17 20:25 98.2 91 16 121/67 (85) 95 Room Air [facility] Medical Record Reviewed: No Supervised Visit with REENA: Dominic Carrillo Aug 31, 2017 21:10
--- NOTE | 2017-08-31 22:05 | PD ---
HPI Chief Complaint: Psychiatric Symptoms Time Seen by Provider: 22:03 Travel History International Travel<30 days: No Contact w/Intl Traveler<30days: No Traveled to known affect area: No History of Present Illness HPI 47-year-old male with history of schizophrenia here because he states he needs psychiatric evaluation. He states he is having visual and auditory hallucinations. He states the voices are telling him to hurt other people. He denies suicidal ideation. He denies alcohol or illicit drug use. No physical complaints other than visual and auditory hallucinations. He is compliant with his Risperdal. PFSH Past Medical History Anxiety: Yes Depression: Yes Cardiovascular Problems: Yes (LOW BP) Chemotherapy: No Diminished Hearing: No Endocrine: No Gastrointestinal Disorders: No Genitourinary: No Immune Disorder: No Implanted Vascular Access Dvce: No Musculoskeletal: No Neurologic: No Psychiatric: Yes (Paranoid Schizophrenia, See EMR) Reproductive: No Respiratory: No Immunizations Current: Yes Radiation Therapy: No Schizophrenia: Yes Sickle Cell Disease: No Thyroid Disease: No Past Surgical History Abdominal Surgery: No AICD: No Arteriovenous Shunt: No Cardiac Surgery: No Ear Surgery: No Endocrine Surgery: No Eye Surgery: Yes (FOREIGN BODY IN LEFT EYE 1994) Genitourinary Surgery: No Gynecologic Surgery: No Insulin Pump: No Joint Replacement: No Neurologic Surgery: No Oral Surgery: No Pacemaker: No Thoracic Surgery: No Tonsillectomy: Yes Other Surgery: Yes (LEFT THUMB AMPUTATION AT 1ST KNUCKLE) Social History Alcohol Use: Yes (OCC.) Tobacco Use: Yes (1 PPD) Substance Use: No Allergies-Medications (Allergen,Severity, Reaction): Coded Allergies: Fish Containing Products (Unverified Allergy, Severe, 08/31/17) amoxicillin (Unverified Allergy, Unknown, 08/31/17) Reported Meds & Prescriptions Reported Meds & Active Scripts Active Reported Risperdal Consta Inj (Risperidone) 25 Mg/2 Ml Inj 25 Mg IM Q14D Review of Systems Except as stated in HPI: all other systems reviewed are Neg Physical Exam Narrative GENERAL: Well-developed, well-nourished, comfortable, no apparent distress. SKIN: Focused skin assessment warm/dry. HEAD: Atraumatic. Normocephalic. EYES: Pupils equal and round. No scleral icterus. No injection or drainage. ENT: Mucous membranes pink and moist. NECK: Trachea midline. No JVD. CARDIOVASCULAR: Regular rate and rhythm. No murmur appreciated. RESPIRATORY: No accessory muscle use. Clear to auscultation. Breath sounds equal bilaterally. GASTROINTESTINAL: Abdomen soft, non-tender, nondistended. MUSCULOSKELETAL: No obvious deformities. No clubbing. No cyanosis. No edema. NEUROLOGICAL: Awake and alert. No obvious cranial nerve deficits. Motor grossly within normal limits. Normal speech. PSYCHIATRIC: Tangential/paranoid thoughts. Data Data Last Documented VS Vital Signs Date Time Temp Pulse Resp B/P (MAP) Pulse Ox O2 Delivery O2 Flow Rate FiO2 08/31/17 20:25 98.2 91 16 121/67 (85) 95 Room Air Orders Orders Complete Blood Count With Diff (08/31/17 22:03) Comprehensive Metabolic Panel (08/31/17 22:03) Psych Screen (08/31/17 22:03) Drug Screen, Random Urine (08/31/17 22:03) Alcohol (Ethanol) (08/31/17 22:03) Labs Laboratory Tests Test 08/31/17 21:40 08/31/17 23:00 White Blood Count 9.7 TH/MM3 Red Blood Count 4.25 MIL/MM3 Hemoglobin 12.8 GM/DL Hematocrit 37.0 % Mean Corpuscular Volume 87.2 FL Mean Corpuscular Hemoglobin 30.1 PG Mean Corpuscular Hemoglobin Concent 34.5 % Red Cell Distribution Width 13.4 % Platelet Count 305 TH/MM3 Mean Platelet Volume 7.7 FL Neutrophils (%) (Auto) 54.8 % Lymphocytes (%) (Auto) 36.3 % Monocytes (%) (Auto) 7.7 % Eosinophils (%) (Auto) 0.8 % Basophils (%) (Auto) 0.4 % Neutrophils # (Auto) 5.3 TH/MM3 Lymphocytes # (Auto) 3.5 TH/MM3 Monocytes # (Auto) 0.8 TH/MM3 Eosinophils # (Auto) 0.1 TH/MM3 Basophils # (Auto) 0.0 TH/MM3 CBC Comment DIFF FINAL Differential Comment Blood Urea Nitrogen 12 MG/DL Creatinine 0.89 MG/DL Random Glucose 88 MG/DL Total Protein 7.4 GM/DL Albumin 3.7 GM/DL Calcium Level 8.8 MG/DL Alkaline Phosphatase 84 U/L Aspartate Amino Transf (AST/SGOT) 9 U/L Alanine Aminotransferase (ALT/SGPT) 23 U/L Total Bilirubin 0.3 MG/DL Sodium Level 138 MEQ/L Potassium Level 3.4 MEQ/L Chloride Level 106 MEQ/L Carbon Dioxide Level 27.6 MEQ/L Anion Gap 4 MEQ/L Estimat Glomerular Filtration Rate 92 ML/MIN Ethyl Alcohol Level LESS THAN 3 MG/DL Urine Opiates Screen NEG Urine Barbiturates Screen NEG Urine Amphetamines Screen NEG Urine Benzodiazepines Screen NEG Urine Cocaine Screen NEG Urine Cannabinoids Screen NEG MDM Medical Decision Making Medical Screen Exam Complete: Yes Emergency Medical Condition: Yes Medical Record Reviewed: Yes Differential Diagnosis Schizophrenia, acute psychosis, paranoia, malingering Narrative Course Vitals and labs reviewed. The patient is medically cleared for psychiatric evaluation and disposition by them. Diagnosis Primary Impression: Medical clearance for psychiatric admission Matthew Hwang MD Aug 31, 2017 22:05
[2017-08-31 22:29] LABS: AUTOMATED NEUTROPHIL # 5.3 TH/MM3 (1.8-7.7); BASOPHIL % 0.4 % (0.0-2.0); EOSINOPHIL # 0.1 TH/MM3 (0-0.4); EOSINOPHIL % 0.8 % (0.0-4.0); HEMOGLOBIN 12.8 GM/DL (13.0-17.0); LYMPH % 36.3 % (9.0-44.0); LYMPHOCYTE # 3.5 TH/MM3 (1.0-4.8); MEAN CELL VOLUME 87.2 FL (80.0-100.0); MEAN CORPUSCULAR HEMOGLOBIN 30.1 PG (27.0-34.0); MEAN CORPUSCULAR HGB CONC 34.5 % (32.0-36.0); MEAN PLATELET VOLUME 7.7 FL (7.0-11.0); MONO % 7.7 % (0.0-8.0); MONOCYTE # 0.8 TH/MM3 (0-0.9); NEUT % 54.8 % (16.0-70.0); PLATELET COUNT 305 TH/MM3 (150-450); RED BLOOD COUNT 4.25 MIL/MM3 (4.50-5.90); RED CELL DISTRIBUTION WIDTH 13.4 % (11.6-17.2); WHITE BLOOD COUNT 9.7 TH/MM3 (4.0-11.0)
[2017-08-31 22:47] LABS: ALBUMIN 3.7 GM/DL (3.4-5.0); ALT (GPT) 23 U/L (12-78); AST (GOT) 9 U/L (15-37); BICARBONATE 27.6 MEQ/L (21.0-32.0); BLOOD UREA NITROGEN 12 MG/DL (7-18); CALCIUM 8.8 MG/DL (8.5-10.1); CHLORIDE 106 MEQ/L (98-107); CREATININE 0.89 MG/DL (0.60-1.30); GLOMERULAR FILTRATION RATE 92 ML/MIN (>89); GLUCOSE,RANDOM 88 MG/DL (74-106); SODIUM (NA) 138 MEQ/L (136-145)
[2017-08-31 22:50] LABS: ALKALINE PHOSPHATASE 84 U/L (45-117); TOTAL BILIRUBIN ADULT 0.3 MG/DL (0.2-1.0); TOTAL PROTEIN 7.4 GM/DL (6.4-8.2)
[2017-09-01 06:11] VITALS: BP 98/56; PULSE 62; RESP 18
[2017-09-01] MEDS ORDERED: LORazepam 1 MG TAB PO PRN ×2 (11:00)
[2017-09-01] MEDS ORDERED: diphenhydrAMINE HCL 50 MG/ML VIAL IM PRN ×2 (11:00)
[2017-09-01] MEDS ORDERED: ALUMINUM/MAGNESIUM/SIMETH 30 ML CUP PO PRN ×2 (11:00)
[2017-09-01] MEDS ORDERED: LORazepam 2 MG/ML VIAL IM PRN ×2 (11:00)
[2017-09-01] MEDS ORDERED: MAGNESIUM HYDROXIDE SUSP 30 ML CUP PO PRN ×2 (11:00)
--- NOTE | 2017-09-01 11:12 | HHI.HP ---
Provisional Diagnosis Admission Date [place]. schizophrenia Certification of Person's Competence To Provide Express and Informed Consent I have personally examined Inderjit Byers , a person being served at [facility] on, Sep 01, 2017 11:05. Express and informed consent means consent voluntarily given in writing, by a competent person, after sufficient explanation and disclosure of the subject matter involved to enable the person to make a knowing and willful decision without any element of force, fraud, deceit, duress, or other form of constraint or coercion. This person is 18 years of age or older, is not now known to be incompetent to consent to treatment with a guardian advocate, and does not have a health care surrogate or proxy currently making medical treatment decisions. I have found this person to be one of the following: [x] Competent to provide express and informed consent, as defined above, for voluntary admission to this facility and is competent to provide express and informed consent for treatment. He/she has the consistent capacity to make well reasoned, willful, and knowing decisions concerning his or her medical or mental health treatment. The person fully and consistently understands the purpose of the admission for examination/placement and is fully capable of personally exercising all rights [place] Incompetent to provide express and informed consent to voluntary admission, and this is incompetent to provide express and informed consent to treatment. The person must be transferred to involuntary status and a petition for a guardian advocate filed with the Circuit Court. [] Refusing to provide express and informed consent to voluntary admission but is competent to provide express and informed consent for treatment. The person must be discharged or transferred to involuntary status. Form shall be completed within 24 hours of a person's arrival at the receiving facility and filed in the clinical record of each person: 1. Admitted on a voluntary basis 2. Permitted to provide express and informed consent to his/her own treatment 3. Allowed to transfer from involuntary to voluntary status 4. Prior to permitting a person to consent to his or her own treatment after having been previously found incompetent to consent to treatment. History of Present Illness Capacity: Has Capacity HPI 47-year-old male with a long history of schizophrenia, presents voluntarily for the third time in the last week, complaining of homicidal ideation at this point. Patient left yesterday after complaining of suicidal ideation. At this point, he states he is hearing voices telling him to hurt other people. He is denying suicidal ideation and his toxicology screen is negative. However, the patient obviously vacillates widely and frequently with regard to both his psychotic symptom complaints and his suicidal/homicidal symptom complaints. Patient has reportedly been compliant with his Risperdal according to the current screening assessment. Yesterday's assessment, however indicated he had been noncompliant with his psychotropic medicines. At this time, the patient states he is willing to be hospitalized voluntarily. Patient does not identify a person that he is feeling homicidal towards. Review of Systems Except as stated in HPI: all other systems reviewed are Neg Past Psych History Psychological trauma history Unknown. Violence risk - others (6 mos) high Violence risk - self (6 mos) high Substance Abuse History Drugs/Alcohol past 12 months negative tox screen and pt. denies. Past Family Social History Coded Allergies: Fish Containing Products (Unverified Allergy, Severe, 08/31/17) amoxicillin (Unverified Allergy, Unknown, 08/31/17) Reported Medications Risperidone Inj (Risperdal Consta Inj) 25 Mg/2 Ml Inj, 25 MG IM Q14D, #2 VIAL 0 Refills 08/31/17 Discontinued Reported Medications Benztropine (Benztropine) 0.5 Mg Tab, 1 MG PO DAILY, #60 TAB 0 Refills 04/26/17 Paliperidone ER (Paliperidone ER) 9 Mg Tab, 9 MG PO DAILY for Schizophrenia, # 30 TAB 0 Refills 04/26/17 Fluoxetine (Fluoxetine) 40 Mg Cap, 40 CAP PO DAILY, #30 CAP 0 Refills 04/26/17 Discontinued Scripts Trazodone (Trazodone) 50 Mg Tab, 50 MG PO HS, #30 TAB Prov:Bill Rose MD 05/04/17 Risperidone (Risperdal) 1 Mg Tab, 1 MG PO Q12HR, #60 TAB Prov:Bill Rose MD 05/04/17 Family Psych History unkonwn patient poor historian Social History Denies alcohol or substance abuse. Unemployed. Minimal family support. Patient's Strengths (min. 2) Verbal and has access to healthcare. Physical Exam GENERAL: SKIN: Warm and dry. HEAD: Normocephalic. EYES: No scleral icterus. No injection or drainage. NECK: Supple, trachea midline. No JVD or lymphadenopathy. CARDIOVASCULAR: Regular rate and rhythm without murmurs, gallops, or rubs. RESPIRATORY: Breath sounds equal bilaterally. No accessory muscle use. GASTROINTESTINAL: Abdomen soft, non-tender, nondistended. MUSCULOSKELETAL: No cyanosis, or edema. BACK: Nontender without obvious deformity. No CVA tenderness. Vital Signs Vital Signs Date Time Temp Pulse Resp B/P (MAP) Pulse Ox O2 Delivery O2 Flow Rate FiO2 09/01/17 06:11 62 18 98/56 (70) 08/31/17 20:25 98.2 95 Room Air Lab Results Test 08/31/17 21:40 08/31/17 23:00 White Blood Count 9.7 TH/MM3 Red Blood Count 4.25 MIL/MM3 Hemoglobin 12.8 GM/DL Hematocrit 37.0 % Mean Corpuscular Volume 87.2 FL Mean Corpuscular Hemoglobin 30.1 PG Mean Corpuscular Hemoglobin Concent 34.5 % Red Cell Distribution Width 13.4 % Platelet Count 305 TH/MM3 Mean Platelet Volume 7.7 FL Neutrophils (%) (Auto) 54.8 % Lymphocytes (%) (Auto) 36.3 % Monocytes (%) (Auto) 7.7 % Eosinophils (%) (Auto) 0.8 % Basophils (%) (Auto) 0.4 % Neutrophils # (Auto) 5.3 TH/MM3 Lymphocytes # (Auto) 3.5 TH/MM3 Monocytes # (Auto) 0.8 TH/MM3 Eosinophils # (Auto) 0.1 TH/MM3 Basophils # (Auto) 0.0 TH/MM3 CBC Comment DIFF FINAL Differential Comment Blood Urea Nitrogen 12 MG/DL Creatinine 0.89 MG/DL Random Glucose 88 MG/DL Total Protein 7.4 GM/DL Albumin 3.7 GM/DL Calcium Level 8.8 MG/DL Alkaline Phosphatase 84 U/L Aspartate Amino Transf (AST/SGOT) 9 U/L Alanine Aminotransferase (ALT/SGPT) 23 U/L Total Bilirubin 0.3 MG/DL Sodium Level 138 MEQ/L Potassium Level 3.4 MEQ/L Chloride Level 106 MEQ/L Carbon Dioxide Level 27.6 MEQ/L Anion Gap 4 MEQ/L Estimat Glomerular Filtration Rate 92 ML/MIN Ethyl Alcohol Level LESS THAN 3 MG/DL Urine Opiates Screen NEG Urine Barbiturates Screen NEG Urine Amphetamines Screen NEG Urine Benzodiazepines Screen NEG Urine Cocaine Screen NEG Urine Cannabinoids Screen NEG Mental Status Examination Appearance: Appropriate Consciousness: Alert Orientation: x4 Motor Activity: Normal gait Speech: Unremarkable Language: Adequate Fund of Knowledge: Adequate Attention and Concentration: Easily Distracted Memory: Impaired Mood: Sad, Anxious Affect: Flat Thought Process & Associations: Loose associations, Circumstantial, Disorganized Thought Content: Bizarre thinking, Delusional Hallucination Type: Auditory, Command Delusion Type: Paranoid Suicidal Ideation: No Suicidal Plan: No Suicidal Intention: No Homicidal Ideation: Yes Homicidal Plan: Yes Homicidal Intention: No Insight: Adequate Judgment: Adequate Assessment & Plan Problem List: (1) Paranoid schizophrenia ICD Codes: F20.0 - Paranoid schizophrenia Status: Acute Assessment & Plan Estimated LOS: days. 47-year-old male came in voluntarily with multiyear history of schizophrenia. Patient was seen recently on 2 previous occasions, both voluntary. He has repeatedly come in with suicidal and/or homicidal ideation as well as psychotic symptoms and a history of previous suicide attempts. On this occasion he is reporting command auditory hallucinations telling him to kill someone else. Although his hallucinations are directing him to kill a random person, they are nevertheless invoking anxiety and dysphoria in him. This physician feels he is at great risk of harm to self and/ or others and he is therefore being admitted voluntarily. This physician has ordered a CBC and comprehensive metabolic panel to determine if any infectious process or metabolic process is causing or contributing to his psychosis. Additionally, the patient is receiving a thyroid-stimulating hormone level, vitamin B-12 level and vitamin D level to determine if deficiencies in these areas are causing or contributing to his psychosis. This physician has also ordered an occupational therapy consult to determine the patient's functionality and ability to live alone or in a senior living setting. This physician has ordered a EKG to determine the patient's cardiac conduction status as this may be altered by psychotropic medicines. Finally, this physician spoke with the patient's nurse, Jean, regarding his recent behavior. Case management will also be involved to assist with further information gathering and disposition planning. Bill Rose MD Sep 01, 2017 11:12
[2017-09-01 14:03] VITALS: BP 108/59; PULSE 84; RESP 18; TEMP 97.5; O2SAT 96
[2017-09-01] MEDS: ACETAMINOPHEN 325 MG TAB PO PRN ×2 (17:54)
[2017-09-02 06:47] VITALS: BP 96/55; PULSE 59; RESP 18; TEMP 98.1; O2SAT 97
[2017-09-02 11:51] LABS: AUTOMATED NEUTROPHIL # 5.4 TH/MM3 (1.8-7.7); BASOPHIL % 0.5 % (0.0-2.0); EOSINOPHIL # 0.1 TH/MM3 (0-0.4); EOSINOPHIL % 0.8 % (0.0-4.0); HEMATOCRIT 39.2 % (39.0-51.0); LYMPHOCYTE # 2.3 TH/MM3 (1.0-4.8); MEAN CELL VOLUME 87.7 FL (80.0-100.0); MEAN CORPUSCULAR HEMOGLOBIN 29.1 PG (27.0-34.0); MEAN CORPUSCULAR HGB CONC 33.2 % (32.0-36.0); MONO % 6.7 % (0.0-8.0); MONOCYTE # 0.6 TH/MM3 (0-0.9); PLATELET COUNT 322 TH/MM3 (150-450); RED BLOOD COUNT 4.47 MIL/MM3 (4.50-5.90); RED CELL DISTRIBUTION WIDTH 13.5 % (11.6-17.2); WHITE BLOOD COUNT 8.3 TH/MM3 (4.0-11.0)
[2017-09-02 12:00] LABS: ALBUMIN 3.2 GM/DL (3.4-5.0); ALT (GPT) 22 U/L (12-78); AST (GOT) 8 U/L (15-37); BICARBONATE 24.6 MEQ/L (21.0-32.0); BLOOD UREA NITROGEN 16 MG/DL (7-18); CALCIUM 8.5 MG/DL (8.5-10.1); CHLORIDE 108 MEQ/L (98-107); CHOLESTEROL 158 MG/DL (120-200); CREATININE 0.67 MG/DL (0.60-1.30); GLOMERULAR FILTRATION RATE 127 ML/MIN (>89); GLUCOSE,RANDOM 92 MG/DL (74-106); SODIUM (NA) 140 MEQ/L (136-145); TRIGLYCERIDES 90 MG/DL (42-150)
[2017-09-02 12:26] LABS: ALKALINE PHOSPHATASE 80 U/L (45-117); CHOLESTEROL/ HDL RATIO 3.39 RATIO; HDL CHOLESTEROL 46.6 MG/DL (40.0-60.0); LDL CHOLESTEROL 93 MG/DL (0-99); TOTAL BILIRUBIN ADULT 0.2 MG/DL (0.2-1.0); TOTAL PROTEIN 7.1 GM/DL (6.4-8.2)
[2017-09-02] MEDS: ACETAMINOPHEN 325 MG TAB PO PRN ×2 (12:51)
[2017-09-02] MEDS: NICOTINE 14 MG/24 HR PATCH T-DERMAL SCH ×2 (15:00)
[2017-09-02] MEDS: risperiDONE 1 MG TAB PO SCH ×4 (15:00→20:20)
--- NOTE | 2017-09-02 15:21 | EKG ---
Date Performed: 09/02/2017 Time Performed: 06:57:55 PTAGE: 47 years EKG: SINUS BRADYCARDIA EARLY REPOLARIZATION BORDERLINE ECG PREVIOUS TRACING : 04/26/2017 20.58 Compared to prior tracing no significant change DOCTOR: Joslyn Haywood Interpretating Date/Time 09/02/2017 15:19:52
[2017-09-02 16:33] LABS: HEMOGLOBIN A1C 5.5 % (4.3-6.0)
--- NOTE | 2017-09-02 16:39 | HHI.PYPN ---
Subjective Remarks Patient is a 47-year-old man, single, no children, homeless, unemployed on disability, with a past psychiatric history of schizophrenia, depression, previous psychiatric hospitalizations no previous suicide attempt or self-injurious behavior who had visited the emergency room 3 times earlier this week voluntarily and most recently due to homicidal ideations and command auditory hallucinations herself and others in the context of noncompliance with medications and was subsequently admitted to the inpatient psychiatry for further evaluation and management. Patient was found lying in hospital bed, superficially cooperative and guarded. Patient states that he had a heart attack earlier this month was discharged to the streets which had upset him, made her feel depressed and sad and reports feeling depressed for the past month with decreased sleep, no change in appetite , decreased energy along with suicide ideations for the past week. Patient states that he also was having homicidal ideations for the past week toward any specific person or persons. Patient reports he was slow last experiencing auditory hallucinations yesterday but none today. When asked about command auditory hallucination he states that he's had had them in the past which didn' t tell him to "eat, not eat, go someplace". Patient denies any command auditory hallucinations aren't himself or others. Patient denies any visual disturbances. He does endorse paranoid ideations and states that it is toward certain people but that would not elaborate who. Patient is a feel safe in the hospital, his mood at this time is "okay" denies any SI or HI or any perceptual disturbances at time of interview but continues to endorse paranoid ideations. Patient reports that he was previously treated with risperidone which she felt was very helpful but has stopped taking the medications 2 months ago. Patient reports he doesn't have an outpatient at the health provider and was last seen at [facility] ago. Review of Systems Except as stated in HPI: all other systems reviewed are Neg Mental Status Examination Appearance: Disheveled, Other (poor eye contact) Consciousness: Alert, Somnolent (slightly) Orientation: x4 Motor Activity: Normal gait Speech: Unremarkable Language: Adequate Fund of Knowledge: Adequate Attention and Concentration: Easily Distracted Memory: Impaired Mood: Oppositional (somewhat), Other Affect: Flat, Other (guarded) Thought Process & Associations: Linear Thought Content: Bizarre thinking, Delusional Hallucination Type: Auditory (denies at this time) Delusion Type: Paranoid Suicidal Ideation: No Suicidal Plan: No Suicidal Intention: No Homicidal Ideation: Yes (denies at this time) Homicidal Plan: Yes (denies at this time) Homicidal Intention: No Insight: Fair Judgment: Impulsive Results Labs Labs reviewed. Test 09/02/17 10:11 09/02/17 10:16 Blood Urea Nitrogen 16 MG/DL Creatinine 0.67 MG/DL Random Glucose 92 MG/DL Total Protein 7.1 GM/DL Albumin 3.2 GM/DL Calcium Level 8.5 MG/DL Alkaline Phosphatase 80 U/L Aspartate Amino Transf (AST/SGOT) 8 U/L Alanine Aminotransferase (ALT/SGPT) 22 U/L Total Bilirubin 0.2 MG/DL Sodium Level 140 MEQ/L Potassium Level 3.9 MEQ/L Chloride Level 108 MEQ/L Carbon Dioxide Level 24.6 MEQ/L Anion Gap 7 MEQ/L Estimat Glomerular Filtration Rate 127 ML/MIN Triglycerides Level 90 MG/DL Cholesterol Level 158 MG/DL LDL Cholesterol 93 MG/DL HDL Cholesterol 46.6 MG/DL Cholesterol/HDL Ratio 3.39 RATIO Vitamin B12 Level 416 PG/ML 25-Hydroxy Vitamin D Total 26.7 ng/ML Thyroid Stimulating Hormone 3rd Gen 0.625 uIU/ML White Blood Count 8.3 TH/MM3 Red Blood Count 4.47 MIL/MM3 Hemoglobin 13.0 GM/DL Hematocrit 39.2 % Mean Corpuscular Volume 87.7 FL Mean Corpuscular Hemoglobin 29.1 PG Mean Corpuscular Hemoglobin Concent 33.2 % Red Cell Distribution Width 13.5 % Platelet Count 322 TH/MM3 Mean Platelet Volume 8.0 FL Neutrophils (%) (Auto) 65.0 % Lymphocytes (%) (Auto) 27.0 % Monocytes (%) (Auto) 6.7 % Eosinophils (%) (Auto) 0.8 % Basophils (%) (Auto) 0.5 % Neutrophils # (Auto) 5.4 TH/MM3 Lymphocytes # (Auto) 2.3 TH/MM3 Monocytes # (Auto) 0.6 TH/MM3 Eosinophils # (Auto) 0.1 TH/MM3 Basophils # (Auto) 0.0 TH/MM3 CBC Comment DIFF FINAL Differential Comment Vitals/IOs Vital Signs Date Time Temp Pulse Resp B/P (MAP) Pulse Ox O2 Delivery O2 Flow Rate FiO2 09/02/17 06:47 98.1 59 18 96/55 (69) 97 08/31/17 20:25 Room Air Assessment & Plan Problem List: (1) Paranoid schizophrenia ICD Codes: F20.0 - Paranoid schizophrenia Status: Acute Assessment & Plan Patient noted to be guarded and suppression cooperative interview today. Patient continues to endorse depressed mood along with perceptual disturbances or paranoid ideations in the context of patient currently homeless and stated that he has run out of his money this month which she has spent previously on staying at hotels. Will start risperidone 1 mg by mouth twice a day with upper titration as needed. Continue to monitor mood and behavior. Discharge planning in progress Justification for Cont. Inpt. At risk for further decompensation if at lower level of care Discharge Planning Patient may be discharged to a homeless [place] [facility] once psychiatrically stable Momo Viveros MD Sep 02, 2017 16:39
[2017-09-02 17:41] VITALS: BP 98/56; PULSE 72; RESP 18; TEMP 97.8; O2SAT 95
[2017-09-03 06:20] VITALS: BP 110/56; PULSE 66; RESP 18; TEMP 97.5; O2SAT 96
[2017-09-03] MEDS: REMOVE OLD PATCH T-DERMAL SCH ×2 (09:00)
[2017-09-03] MEDS: NICOTINE 14 MG/24 HR PATCH T-DERMAL SCH ×2 (09:08)
[2017-09-03] MEDS: risperiDONE 1 MG TAB PO SCH ×2 (09:08)
--- NOTE | 2017-09-03 14:16 | HHI.PYPN ---
Subjective Remarks Patient seen follow, chart review. Patient found lying in hospital bed, cooperative. Patient states that his mood hasn't "down", and but denies any suicide ideations at this time. Patient states that he feels that someone is after him but was unable to specify anyone and specific. Patient states that auditory hallucinations continue to be there but did not elaborate. Patient denies any homicidal ideations at this time patient later approach sql report writer and was asking possible discharge date for a as he states his money from his income will be deposited in his back on the first divorce. Patient states that he plans on returning to [place] to visit his mother after discharge and unclear whether he will return back to [place] to live. Review of Systems Except as stated in HPI: all other systems reviewed are Neg Mental Status Examination Appearance: Disheveled, Other (poor eye contact) Consciousness: Alert Orientation: x4 Motor Activity: Normal gait Speech: Unremarkable Language: Adequate Fund of Knowledge: Adequate Attention and Concentration: Adequate Memory: Impaired Mood: Other ("down") Affect: Flat, Other (guarded) Thought Process & Associations: Linear Thought Content: Delusional Hallucination Type: Auditory Delusion Type: Paranoid Suicidal Ideation: No Suicidal Plan: No Suicidal Intention: No Homicidal Ideation: No Homicidal Plan: No Homicidal Intention: No Insight: Fair Judgment: Impulsive Results Vitals/IOs Vital Signs Date Time Temp Pulse Resp B/P (MAP) Pulse Ox O2 Delivery O2 Flow Rate FiO2 09/03/17 06:20 97.5 66 18 110/56 (74) 96 08/31/17 20:25 Room Air Assessment & Plan Problem List: (1) Paranoid schizophrenia ICD Codes: F20.0 - Paranoid schizophrenia Status: Acute Assessment & Plan Patient at this time endorsing depressive mood, he continued auditory hallucinations but denies any suicidal homicidal ideations. We'll increase risperidone to 1 mg a.m. and 2 mg at bedtime, start sertraline 50 mg by mouth daily for depression. Discharge planning in progress Justification for Cont. Inpt. At risk for further decompensation if at lower level of care Discharge Planning Unclear with the patient will be [facility] to homeless [facility] or he is planning to return back to [place]. Momo Viveros MD Sep 03, 2017 14:15
--- NOTE | 2017-09-03 14:16 | HHI.PYPN ---
Subjective Remarks Patient seen follow, chart review. Patient found lying in hospital bed, cooperative. Patient states that his mood hasn't "down", and but denies any suicide ideations at this time. Patient states that he feels that someone is after him but was unable to specify anyone and specific. Patient states that auditory hallucinations continue to be there but did not elaborate. Patient denies any homicidal ideations at this time patient later approach advertising copy writer and was asking possible discharge date for a as he states his money from his income will be deposited in his back on the first divorce. Patient states that he plans on returning to [place] to visit his mother after discharge and unclear whether he will return back to [place] to live. Review of Systems Except as stated in HPI: all other systems reviewed are Neg Mental Status Examination Appearance: Disheveled, Other (poor eye contact) Consciousness: Alert Orientation: x4 Motor Activity: Normal gait Speech: Unremarkable Language: Adequate Fund of Knowledge: Adequate Attention and Concentration: Adequate Memory: Impaired Mood: Other ("down") Affect: Flat, Other (guarded) Thought Process & Associations: Linear Thought Content: Delusional Hallucination Type: Auditory Delusion Type: Paranoid Suicidal Ideation: No Suicidal Plan: No Suicidal Intention: No Homicidal Ideation: No Homicidal Plan: No Homicidal Intention: No Insight: Fair Judgment: Impulsive Results Vitals/IOs Vital Signs Date Time Temp Pulse Resp B/P (MAP) Pulse Ox O2 Delivery O2 Flow Rate FiO2 09/03/17 06:20 97.5 66 18 110/56 (74) 96 08/31/17 20:25 Room Air Assessment & Plan Problem List: (1) Paranoid schizophrenia ICD Codes: F20.0 - Paranoid schizophrenia Status: Acute Assessment & Plan Patient at this time endorsing depressive mood, he continued auditory hallucinations but denies any suicidal homicidal ideations. We'll increase risperidone to 1 mg a.m. and 2 mg at bedtime, start sertraline 50 mg by mouth daily for depression. Discharge planning in progress Justification for Cont. Inpt. At risk for further decompensation if at lower level of care Discharge Planning Unclear with the patient will be discharged to homeless [facility] or he is planning to return back to [place]. Momo Viveros MD Sep 03, 2017 14:15
--- NOTE | 2017-09-03 14:16 | HHI.PYPN ---
Subjective Remarks Patient seen follow, chart review. Patient found lying in hospital bed, cooperative. Patient states that his mood hasn't "down", and but denies any suicide ideations at this time. Patient states that he feels that someone is after him but was unable to specify anyone and specific. Patient states that auditory hallucinations continue to be there but did not elaborate. Patient denies any homicidal ideations at this time patient later approach lead technical writer and was asking possible discharge date for a as he states his money from his income will be deposited in his back on the first divorce. Patient states that he plans on returning to [place] to visit his mother after discharge and unclear whether he will return back to [place] to live. Review of Systems Except as stated in HPI: all other systems reviewed are Neg Mental Status Examination Appearance: Disheveled, Other (poor eye contact) Consciousness: Alert Orientation: x4 Motor Activity: Normal gait Speech: Unremarkable Language: Adequate Fund of Knowledge: Adequate Attention and Concentration: Adequate Memory: Impaired Mood: Other ("down") Affect: Flat, Other (guarded) Thought Process & Associations: Linear Thought Content: Delusional Hallucination Type: Auditory Delusion Type: Paranoid Suicidal Ideation: No Suicidal Plan: No Suicidal Intention: No Homicidal Ideation: No Homicidal Plan: No Homicidal Intention: No Insight: Fair Judgment: Impulsive Results Vitals/IOs Vital Signs Date Time Temp Pulse Resp B/P (MAP) Pulse Ox O2 Delivery O2 Flow Rate FiO2 09/03/17 06:20 97.5 66 18 110/56 (74) 96 08/31/17 20:25 Room Air Assessment & Plan Problem List: (1) Paranoid schizophrenia ICD Codes: F20.0 - Paranoid schizophrenia Status: Acute Assessment & Plan Patient at this time endorsing depressive mood, he continued auditory hallucinations but denies any suicidal homicidal ideations. We'll increase risperidone to 1 mg a.m. and 2 mg at bedtime, start sertraline 50 mg by mouth daily for depression. Discharge planning in progress Justification for Cont. Inpt. At risk for further decompensation if at lower level of care Discharge Planning Unclear with the [facility] or he is planning to return back to [place]. Momo Viveros MD Sep 03, 2017 14:15
[2017-09-03] MEDS: SERTRALINE HCL 50 MG TAB PO SCH ×2 (15:06)
[2017-09-03 16:13] VITALS: BP 101/50; PULSE 17; RESP 17; TEMP 98.4; O2SAT 99
[2017-09-03] MEDS: risperiDONE 3 MG TAB PO SCH ×2 (21:20)
[2017-09-04 06:26] VITALS: BP 105/60; PULSE 67; RESP 17; TEMP 97; O2SAT 99
[2017-09-04] MEDS: REMOVE OLD PATCH T-DERMAL SCH ×2 (09:34)
[2017-09-04] MEDS: risperiDONE 1 MG TAB PO SCH ×2 (09:34)
[2017-09-04] MEDS: NICOTINE 14 MG/24 HR PATCH T-DERMAL SCH ×2 (09:34)
[2017-09-04] MEDS: SERTRALINE HCL 50 MG TAB PO SCH ×2 (09:34)
--- NOTE | 2017-09-04 16:13 | HHI.PYPN ---
Subjective Remarks Patient seen follow, chart review. Patient states that he's been feeling "good ", reports having slept well, denies any suicidal ideation today. Patient states that he had been feeling still depressed but better than yesterday stated that he thinks about having fallen short in his life had his failures. Patient states that he did not want to go to [place] to visit his mother any more incidents considering stay in [facility] for now. He states that his sister is currently helping him call several places for him to find a place that he can rent to live in. Patient states that his auditory hallucination is have been quite and last time and experienced them a couple of days ago. Patient reports that is considering calling sober living [place] this and accepts being given a package so that he can make phone calls to explore this possibility. Review of Systems Except as stated in HPI: all other systems reviewed are Neg Mental Status Examination Appearance: Disheveled, Other (poor eye contact) Consciousness: Alert Orientation: x4 Motor Activity: Normal gait Speech: Unremarkable Language: Adequate Fund of Knowledge: Adequate Attention and Concentration: Adequate Memory: Impaired Mood: Other ("good") Affect: Other (guarded) Thought Process & Associations: Logical, Goal directed, Linear Thought Content: Appropriate Hallucination Type: Auditory (denied at this time) Delusion Type: Paranoid Suicidal Ideation: No Suicidal Plan: No Suicidal Intention: No Homicidal Ideation: No Homicidal Plan: No Homicidal Intention: No Insight: Fair Judgment: Impulsive Results Vitals/IOs Vital Signs Date Time Temp Pulse Resp B/P (MAP) Pulse Ox O2 Delivery O2 Flow Rate FiO2 09/04/17 06:26 97.0 67 17 105/60 (75) 99 08/31/17 20:25 Room Air Assessment & Plan Problem List: (1) Paranoid schizophrenia ICD Codes: F20.0 - Paranoid schizophrenia Status: Acute Assessment & Plan Patient at this time noted to have improvement in mood, cessation of auditory hallucinations for now continues to have some paranoid delusions. Patient appears goal directed now and is agreeable to call sober living facilities for placement postdischarge. Patient was given resource package by treatment team. Continue current treatment for now. Continue to encourage improvement of hygiene and participate in addition in groups and activities while on the unit. Discharge planning in progress Justification for Cont. Inpt. At risk for further decompensation if at lower level of care Discharge Planning Possible the patient may be discharged to a sober living facility or homicidal to her upon discharge. Momo Viveros MD Sep 04, 2017 16:13
[2017-09-04 18:08] VITALS: BP 103/55; PULSE 61; RESP 17; TEMP 98.8; O2SAT 98
[2017-09-04] MEDS: risperiDONE 3 MG TAB PO SCH ×2 (20:42)
[2017-09-05 06:07] VITALS: BP 110/54; PULSE 54; RESP 16; TEMP 98; O2SAT 98
[2017-09-05] MEDS: NICOTINE 14 MG/24 HR PATCH T-DERMAL SCH ×2 (08:49)
[2017-09-05] MEDS: REMOVE OLD PATCH T-DERMAL SCH ×2 (08:49)
[2017-09-05] MEDS: risperiDONE 1 MG TAB PO SCH ×2 (08:49)
[2017-09-05] MEDS: SERTRALINE HCL 50 MG TAB PO SCH ×2 (08:49)
--- NOTE | 2017-09-05 14:27 | HHI.PYPN ---
Subjective Remarks Pt seen and discussed with staff. He remains isolative to his room with minimal interactions. He continues to c/o of AH that tell him to hurt others. He is compliant [facility] medications. No aggression or agitation on unit. Mental Status Examination Appearance: Disheveled, Malodorous, Other (poor eye contact) Consciousness: Alert Orientation: x4 Motor Activity: Normal gait Speech: Unremarkable Language: Adequate Fund of Knowledge: Adequate Attention and Concentration: Adequate Memory: Impaired Mood: Other ("good") Affect: Other (guarded) Thought Process & Associations: Logical, Goal directed, Linear Thought Content: Appropriate Hallucination Type: Auditory (denied at this time) Delusion Type: Paranoid Suicidal Ideation: No Suicidal Plan: No Suicidal Intention: No Homicidal Ideation: No Homicidal Plan: No Homicidal Intention: No Insight: Fair Judgment: Impulsive Results Vitals/IOs Vital Signs Date Time Temp Pulse Resp B/P (MAP) Pulse Ox O2 Delivery O2 Flow Rate FiO2 09/05/17 06:07 98.0 54 16 110/54 (72) 98 Assessment & Plan Problem List: (1) Paranoid schizophrenia ICD Codes: F20.0 - Paranoid schizophrenia Status: Acute Assessment & Plan Continue current tx plan. Estimated LOS: days Justification for Cont. Inpt. poor self care, risk of decompensation Belen Merrill MD Sep 05, 2017 14:27
--- NOTE | 2017-09-05 14:27 | HHI.PYPN ---
Subjective Remarks Pt seen and discussed with staff. He remains isolative to his room with minimal interactions. He continues to c/o of AH that tell him to hurt others. He is compliant [facility] medications. No aggression or agitation on unit. Mental Status Examination Appearance: Disheveled, Malodorous, Other (poor eye contact) Consciousness: Alert Orientation: x4 Motor Activity: Normal gait Speech: Unremarkable Language: Adequate Fund of Knowledge: Adequate Attention and Concentration: Adequate Memory: Impaired Mood: Other ("good") Affect: Other (guarded) Thought Process & Associations: Logical, Goal directed, Linear Thought Content: Appropriate Hallucination Type: Auditory (denied at this time) Delusion Type: Paranoid Suicidal Ideation: No Suicidal Plan: No Suicidal Intention: No Homicidal Ideation: No Homicidal Plan: No Homicidal Intention: No Insight: Fair Judgment: Impulsive Results Vitals/IOs Vital Signs Date Time Temp Pulse Resp B/P (MAP) Pulse Ox O2 Delivery O2 Flow Rate FiO2 09/05/17 06:07 98.0 54 16 110/54 (72) 98 Assessment & Plan Problem List: (1) Paranoid schizophrenia ICD Codes: F20.0 - Paranoid schizophrenia Status: Acute Assessment & Plan Continue current tx plan. Estimated LOS: days Justification for Cont. Inpt. poor self care, risk of decompensation Belen Merrill MD Sep 05, 2017 14:27
--- NOTE | 2017-09-05 14:27 | HHI.PYPN ---
Subjective Remarks Pt seen and discussed with staff. He remains isolative to his room with minimal interactions. He continues to c/o of AH that tell him to hurt others. He is compliant [facility] medications. No aggression or agitation on unit. Mental Status Examination Appearance: Disheveled, Malodorous, Other (poor eye contact) Consciousness: Alert Orientation: x4 Motor Activity: Normal gait Speech: Unremarkable Language: Adequate Fund of Knowledge: Adequate Attention and Concentration: Adequate Memory: Impaired Mood: Other ("good") Affect: Other (guarded) Thought Process & Associations: Logical, Goal directed, Linear Thought Content: Appropriate Hallucination Type: Auditory (denied at this time) Delusion Type: Paranoid Suicidal Ideation: No Suicidal Plan: No Suicidal Intention: No Homicidal Ideation: No Homicidal Plan: No Homicidal Intention: No Insight: Fair Judgment: Impulsive Results Vitals/IOs Vital Signs Date Time Temp Pulse Resp B/P (MAP) Pulse Ox O2 Delivery O2 Flow Rate FiO2 09/05/17 06:07 98.0 54 16 110/54 (72) 98 Assessment & Plan Problem List: (1) Paranoid schizophrenia ICD Codes: F20.0 - Paranoid schizophrenia Status: Acute Assessment & Plan Continue current tx plan. Estimated LOS: days Justification for Cont. Inpt. poor self care, risk of decompensation Belen Merrill MD Sep 05, 2017 14:27
[2017-09-05 18:28] VITALS: BP 93/54; PULSE 62; RESP 18; TEMP 97.9; O2SAT 97
[2017-09-05] MEDS: risperiDONE 3 MG TAB PO SCH ×2 (20:45)
[2017-09-05] MEDS: diphenhydrAMINE HCL 50 MG CAP PO PRN ×2 (21:00)
[2017-09-06 06:00] VITALS: BP 100/58; PULSE 60; RESP 17; TEMP 97.4; O2SAT 97
[2017-09-06] MEDS: NICOTINE 14 MG/24 HR PATCH T-DERMAL SCH ×2 (09:00)
[2017-09-06] MEDS: risperiDONE 1 MG TAB PO SCH ×2 (09:00)
[2017-09-06] MEDS: SERTRALINE HCL 50 MG TAB PO SCH ×2 (09:00)
[2017-09-06] MEDS: REMOVE OLD PATCH T-DERMAL SCH ×2 (09:00)
--- NOTE | 2017-09-06 14:09 | HHI.PYPN ---
Subjective Remarks Pt seen and discussed with staff. He showered and shaved today. He remains flat and depressed , but has been out of room more today. No SI/HI. No behavioral problems on unit. Mental Status Examination Appearance: Appropriate, Other (poor eye contact) Consciousness: Alert Orientation: x4 Motor Activity: Normal gait Speech: Unremarkable Language: Adequate Fund of Knowledge: Adequate Attention and Concentration: Adequate Memory: Impaired Mood: Sad Affect: Flat Thought Process & Associations: Logical, Goal directed, Linear Thought Content: Appropriate Hallucination Type: Auditory (denied at this time) Delusion Type: Paranoid Suicidal Ideation: No Suicidal Plan: No Suicidal Intention: No Homicidal Ideation: No Homicidal Plan: No Homicidal Intention: No Insight: Fair Judgment: Impulsive Results Vitals/IOs Vital Signs Date Time Temp Pulse Resp B/P (MAP) Pulse Ox O2 Delivery O2 Flow Rate FiO2 09/06/17 06:00 97.4 60 17 100/58 (72) 97 Assessment & Plan Problem List: (1) Paranoid schizophrenia ICD Codes: F20.0 - Paranoid schizophrenia Status: Acute Assessment & Plan Pt improving. Continue current tx plan. Estimated LOS: days Justification for Cont. Inpt. risk of decompensation Belen Merrill MD Sep 06, 2017 14:09
[2017-09-06 17:35] VITALS: BP 120/58; PULSE 64; RESP 16; TEMP 98; O2SAT 98
[2017-09-06] MEDS: risperiDONE 3 MG TAB PO SCH ×2 (20:08)
[2017-09-06] MEDS: diphenhydrAMINE HCL 50 MG CAP PO PRN ×2 (20:08)
[2017-09-07 06:30] VITALS: BP 102/54; PULSE 59; RESP 16; TEMP 97.7; O2SAT 96
[2017-09-07] MEDS: REMOVE OLD PATCH T-DERMAL SCH ×2 (09:00)
[2017-09-07] MEDS: SERTRALINE HCL 50 MG TAB PO SCH ×2 (09:04)
[2017-09-07] MEDS: risperiDONE 1 MG TAB PO SCH ×2 (09:04)
[2017-09-07] MEDS: NICOTINE 14 MG/24 HR PATCH T-DERMAL SCH ×2 (09:04)
[2017-09-07] MEDS ORDERED: RISP2TAB2 PO ×2 (10:43)
[2017-09-07] MEDS ORDERED: RISP1 PO ×2 (10:43)
[2017-09-07] MEDS ORDERED: ZOLO50TA PO ×2 (10:43)
--- NOTE | 2017-09-07 11:32 | PD.TTN ---
Patient Problems 1. Discharge planning 2. Medication compliance 3. Knowledge deficit 4. Lack of coping skills Progress Toward Goals Provider Present: Dr. Evelyn Viveros Provider Input: Dr. Viveros's [facility] team met to discuss patient's treatment plan, medication and discharge plan. Patient is doing better . Patient is ready to leave. Nurse(s) Input: Patient's nurse Anh reports patient is to be discharged today. Patient states he is going to a hotel. Affect flat, takes his medication, no behaviorial problem on unit. Psychiatric Counselors Present: SUSAN KramerShiav Psych Therapist Input: Patient presents clear, cooperative, good eye contact. Patient's speech is clear, organized. Patient's short and rn long term care memory appear to be in tact. Patient does not present internally stimulated or with any delusional content. Patient denies suicidal and homicidal ideation. Patient is medication compliant, has been no behavioral problem on unit. Patient is being discharged today. Patient will be staying at [facility]. Patient has a follow up appointment with [facility]. Group Spec/RT/OT/HERNANDEZ Present: Misha Dorsey OT Group Spec/RT/OT/HERNANDEZ Input: No attendance to groups Gissel Bhardwaj [facility] Sep 07, 2017 11:32
--- NOTE | 2017-09-07 11:32 | PD.TTN ---
Patient Problems 1. Discharge planning 2. Medication compliance 3. Knowledge deficit 4. Lack of coping skills Progress Toward Goals Provider Present: Dr. Evelyn Viveros Provider Input: Dr. Viveros's [facility] team met to discuss patient's treatment plan, medication and discharge plan. Patient is doing better . Patient is ready to leave. Nurse(s) Input: Patient's nurse Anh reports patient is to be discharged today. Patient states he is going to a hotel. Affect flat, takes his medication, no behaviorial problem on unit. Psychiatric Counselors Present: SUSAN KramerShiva Psych Therapist Input: Patient presents clear, cooperative, good eye contact. Patient's speech is clear, organized. Patient's short and termite treater helper memory appear to be in tact. Patient does not present internally stimulated or with any delusional content. Patient denies suicidal and homicidal ideation. Patient is medication compliant, has been no behavioral problem on unit. Patient is being discharged today. Patient will be staying at [facility]. Patient has a follow up appointment with [facility]. Group Spec/RT/OT/HERNANDEZ Present: Misha Dorsey OT Group Spec/RT/OT/HERNANDEZ Input: No attendance to groups Gissel Bhardwaj [facility] Sep 07, 2017 11:32
--- NOTE | 2017-09-07 11:32 | PD.TTN ---
Patient Problems 1. Discharge planning 2. Medication compliance 3. Knowledge deficit 4. Lack of coping skills Progress Toward Goals Provider Present: Dr. Evelyn Viveros Provider Input: Dr. Viveros's [facility] team met to discuss patient's treatment plan, medication and discharge plan. Patient is doing better . Patient is ready to leave. Nurse(s) Input: Patient's nurse Anh reports patient is to be discharged today. Patient states he is going to a hotel. Affect flat, takes his medication, no behaviorial problem on unit. Psychiatric Counselors Present: SUSAN KramerShiva Psych Therapist Input: Patient presents clear, cooperative, good eye contact. Patient's speech is clear, organized. Patient's short and long term care social worker memory appear to be in tact. Patient does not present internally stimulated or with any delusional content. Patient denies suicidal and homicidal ideation. Patient is medication compliant, has been no behavioral problem on unit. Patient is being discharged today. Patient will be staying at [facility]. Patient has a follow up appointment with [facility]. Group Spec/RT/OT/HERNANDEZ Present: Misha Dorsey OT Group Spec/RT/OT/HERNANDEZ Input: No attendance to groups Gissel Bhardwaj [facility] Sep 07, 2017 11:32
--- NOTE | 2017-09-07 15:31 | HHI.DS ---
Psychiatry Discharge Summary Inpatient Psychiatric care?: Yes Advance Directive: No Reason Not Provided: Due to Patient Condition Mental Health AdvanceDirective: No Health Care Proxy: No Admission Admission Date Sep 01, 2017 at 10:58 Admission Diagnosis: (1) Paranoid schizophrenia ICD Code: F20.0 - Paranoid schizophrenia Brief History 47-year-old male with a long history of schizophrenia, presents voluntarily for the third time in the last week, complaining of homicidal ideation at this point. Patient left yesterday after complaining of suicidal ideation. At this point, he states he is hearing voices telling him to hurt other people. He is denying suicidal ideation and his toxicology screen is negative. However, the patient obviously vacillates widely and frequently with regard to both his psychotic symptom complaints and his suicidal/homicidal symptom complaints. Patient has reportedly been compliant with his Risperdal according to the current screening assessment. Yesterday's assessment, however indicated he had been noncompliant with his psychotropic medicines. At this time, the patient states he is willing to be hospitalized voluntarily. Patient does not identify a person that he is feeling homicidal towards. Tobacco Use In Past 30 Days: No Tobacco Past 30 Days Alcohol Use: Never Hospital Course Patient is a 47-year-old man, single, no children, homeless, unemployed on disability, with a past psychiatric history of schizophrenia, depression, previous psychiatric hospitalizations no previous suicide attempt or self-injurious behavior who had visited the emergency room 3 times earlier this week voluntarily and most recently due to homicidal ideations and command auditory hallucinations herself and others in the context of noncompliance with medications and was subsequently admitted to the inpatient psychiatry for further evaluation and management. Patient was admitted to the inpatient psychiatry unit where he was started on risperidone 1mg PO BID and increased to 1mg AM/2mg HS along with sertraline 50mg PO daily for depression which he tolerated well. Patient noted to have improved mood, denied any perceptual disturbances nor suicidal or homicidal ideations since admission. He continued to report improved mood, feeling hopeful, future oriented with plans on continuing to pursue sober living housing and/or substance rehabilitation program. Upon discharge patient reported planning on staying at an extended stay hotel until he finds a more stable living place with the help from his sister. Upon discharge, patient reports feeling well, denies any suicidal ideations and states wanting to live for her family and for herself. Patient stated feeling motivated to continue treatment as well as outpatient follow up appointments for continuity of care. Patient denies SI, HI, AVH or delusions. Supportive psychotherapy provided. Patient advised to return to ED or call 911 in case of emergency. Patient agrees with plan. Results Blood Pressure 102 / 54 Vital Signs Date Time Temp Pulse Resp B/P (MAP) Pulse Ox O2 Delivery O2 Flow Rate FiO2 09/07/17 06:30 97.7 59 16 102/54 (70) 96 Laboratory Results Test 09/02/17 10:11 Cholesterol Level 158 MG/DL (120-200) HDL Cholesterol 46.6 MG/DL (40.0-60.0) Hemoglobin A1c 5.5 % (4.3-6.0) LDL Cholesterol 93 MG/DL (0-99) Triglycerides Level 90 MG/DL (42-150) Summary of Procedures none Pending results at discharge: No Medications # of Antipsychotic meds at D/C: 1 Approp Antipsych med options 1 - Minimum of three failed multiple trials of monotherapy. 2 - Documented plan to taper to monotherapy due to previous use of multiple meds OR cross-taper in progress at D/C. 3 - Documentation of augmentation of Clozapine. 4 - Justification other than those listed in allowable values 1-3, document here : Discharge Discharge Date: Sep 07, 2017 Discharge Diagnosis: (1) Paranoid schizophrenia ICD Code: F20.0 - Paranoid schizophrenia Status: Acute Pt Condition on Discharge: Stable Discharge Disposition: Discharge Home Discharge Instructions Diet Instructions: Heart Healthy Diet Activities you can perform: Regular-No Restrictions Scheduled Appointment: Karan Hernandez Appointment Date: Sep 09, 2017 Appointment Time: 7:30am Discharge Time > 30 minutes Mental Status Examination Appearance: Appropriate, Other (poor eye contact) Consciousness: Alert Orientation: x4 Motor Activity: Normal gait Speech: Unremarkable Language: Adequate Fund of Knowledge: Adequate Attention and Concentration: Adequate Memory: Unremarkable Mood: Appropriate Affect: Appropriate Thought Process & Associations: Logical, Goal directed, Linear Thought Content: Appropriate Hallucination Type: None Delusion Type: None Suicidal Ideation: No Suicidal Plan: No Suicidal Intention: No Homicidal Ideation: No Homicidal Plan: No Homicidal Intention: No Insight: Adequate Judgment: Adequate Discharge/Advance Care Plan Health Problems: (1) Paranoid schizophrenia Goals to promote your health * To prevent worsening of your condition and complications * To maintain your health at the optimal level Directions to meet your goals Take your medications as prescribed Follow your dietary instruction Follow activity as directed Keep your appointments as scheduled Take your immunizations and boosters as scheduled If your symptoms worsen call your PCP, if no PCP go to Urgent Care Center or Emergency Room For 25/05 questions related to your inpatient stay or results of tests pending at discharge, please contact Dr. Momo Viveros at Smoking is Dangerous to Your Health. Avoid second hand smoking Momo Viveros MD Sep 07, 2017 15:31
[2017-09-09] MEDS ORDERED: RISP1 PO ×2 (21:52)
[2017-09-09] MEDS ORDERED: RISP2TAB37 PO ×2 (21:52)
[2017-09-09] MEDS ORDERED: ZOLO50TA PO ×2 (21:53)
== END 2017-09-07 11:45 | disposition home or self-care (01) | DRG 885 ==
LOC: NEPD 20:24 → NEDA 09-01 10:58 → H260 09-01 13:00
PROVIDERS: ADMIT Student in an Organized Health Care Education/Training Program; ATTEND Student in an Organized Health Care Education/Training Program
DX: F20.0 Paranoid schizophrenia (principal); Z91.14 Patient's other noncompliance with medication regimen; R45.851 Suicidal ideations; F17.210 Nicotine dependence, cigarettes, uncomplicated; Z88.0 Allergy status to penicillin; H16.012 Central corneal ulcer, left eye; F32.9 Major depressive disorder, single episode, unspecified; S99.921A Unspecified injury of right foot, initial encounter; Z86.79 Personal history of other diseases of the circulatory system; Z86.59 Personal history of other mental and behavioral disorders; W18.40XA Slipping, tripping and stumbling without falling, unspecified, initial encounter; Y93.02 Activity, running
CPT/HCPCS: 80053; 80061; 80307; 82306; 82607; 83036; 84443; 85025; 93005; Q0163

== ENCOUNTER 2017-09-09 20:30 | Emergency (ER) | payer MEDICARE ==
[~2017-09-09] VITALS: Ht 193 cm; Wt 86.8 kg
[~2017-09-09 20:30] MED LIST changes: -BENZ0.5T PO; -FLUO40CA PO; -PALI1TAB4 PO; +RISP2TAB2 PO; -TRAZ50TA12 PO; +ZOLO50TA PO
[2017-09-09 20:32] VITALS: BP 117/68; PULSE 79; RESP 18; TEMP 97.7; O2SAT 96
[2017-09-09] MEDS ORDERED: RISP1 PO (21:52)
[2017-09-09] MEDS ORDERED: RISP2TAB37 PO (21:52)
[2017-09-09] MEDS ORDERED: ZOLO50TA PO (21:53)
[2017-09-09] MEDS ORDERED: risperiDONE 1 MG TAB PO ONE (22:00)
--- NOTE | 2017-09-09 22:00 | PD ---
History of Present Illness Chief Complaint: Psychiatric Symptoms Time Seen by Provider: 21:30 Travel History International Travel<30 Days: No Contact w/Intl Traveler<30days: No Known affected area: No Legal Status Legal Status: Voluntary History of Present Illness: History of Present Illness HPI 47-year-old male with history of schizophrenia that presents to the ED on a voluntary basis. Patient was brought here for evaluation of possible lesion to his leg. Patient states that he has a laceration. He also reported to the ED provider that he felt that his medications were not working well. Patient was discharged from inpatient psychiatry on Thursday, September 07. He tells me that he has not been able to get his medications since Thursday because he lost his prescriptions. He does not verbalize any suicidal or homicidal ideation. Patient is calm and appropriate in stating his needs. He has been staying at a hotel and will be returning to the hotel upon discharge. He has sounds a new prescription for his medications and will follow up with [facility]. [facility] Past Medical History Anxiety: Yes Depression: Yes Cardiovascular Problems: Yes (LOW BP) Chemotherapy: No Diminished Hearing: No Endocrine: No Gastrointestinal Disorders: No Genitourinary: No Immune Disorder: No Implanted Vascular Access Dvce: No Musculoskeletal: No Neurologic: No Psychiatric: Yes Reproductive: No Respiratory: No Immunizations Current: Yes Radiation Therapy: No Schizophrenia: Yes Sickle Cell Disease: No Thyroid Disease: No Past Surgical History Abdominal Surgery: No AICD: No Arteriovenous Shunt: No Cardiac Surgery: No Ear Surgery: No Endocrine Surgery: No Eye Surgery: Yes (FOREIGN BODY IN LEFT EYE 1994) Genitourinary Surgery: No Gynecologic Surgery: No Insulin Pump: No Joint Replacement: No Neurologic Surgery: No Oral Surgery: No Pacemaker: No Thoracic Surgery: No Tonsillectomy: Yes Other Surgery: Yes (LEFT THUMB AMPUTATION AT 1ST KNUCKLE) Psychiatric History Psychiatric History Hx Psychiatric Treatment: Patient with a hx of paranoid schizophrenia. Last [facility] inpatient admission was September 01 until September 07, 2017. Did not feel prescriptions provided to him upon discharge. History of Inpatient Treatment: Yes Guns or firearms in home: No Social History Single male. Living in a hotel room. Unemployed and on disability. Hx Alcohol Use: Yes (OCC.) Hx Tobacco Use: Yes (1 PPD) Hx Substance Use: No Substance Use Type: Nicotine/Cigarettes Other Substances Used: 1 ppd, past alcohol use Hx of Substance Use Treatment: No Family Psychiatric History None reported Allergies-Medications (Allergen,Severity, Reaction): Coded Allergies: Fish Containing Products (Unverified Allergy, Severe, 08/31/17) amoxicillin (Unverified Allergy, Unknown, 08/31/17) Reported Meds & Prescriptions Reported Meds & Active Scripts Active Zoloft (Sertraline HCl) 50 Mg Tab 50 Mg PO DAILY Risperdal (Risperidone) 2 Mg Tab 2 Mg PO HS Risperdal (Risperidone) 1 Mg Tab 1 Mg PO DAILY Risperidone 2 Mg Tab 2 Mg PO HS Risperdal (Risperidone) 1 Mg Tab 1 Mg PO DAILY 30 Days Zoloft (Sertraline HCl) 50 Mg Tab 50 Mg PO DAILY 30 Days Reported Risperdal Consta Inj (Risperidone) 25 Mg/2 Ml Inj 25 Mg IM Q14D Review of Systems Psychiatric: COMPLAINS OF: Hallucinations Except as stated in HPI: all other systems reviewed are Neg Mental Status Examination Appearance: Disheveled Consciousness: Alert Orientation: x4 Motor Activity: Normal gait Speech: Unremarkable Language: Adequate Fund of Knowledge: Adequate (appears adequate) Attention and Concentration: Adequate Memory: Unremarkable Mood: Appropriate Affect: Appropriate Thought Process & Associations: Linear Thought Content: Hallucinations (reported that he believes he hears voices) Hallucination Type: Auditory Delusion Type: Paranoid (against the government, [place].) Suicidal Ideation: No Suicidal Plan: No Suicidal Intention: No Homicidal Ideation: No Homicidal Plan: No Homicidal Intention: No Insight: Poor Judgment: Adequate MDM Medical Decision Making Medical Record Reviewed: Yes Assessment/Plan 47-year-old male with history of schizophrenia that presents to the ED on a voluntary basis for evaluation of pain in his leg and suspected laceration. He also reported that he did not get his prescriptions filled upon discharge on Thursday. Patient is not presenting any suicidal or homicidal ideation intent or plan. Current presentation is possibly at baseline. He accepts prescriptions for his psychiatric medication. Patient will be give a dose of Risperdal 2 mg before discharge. At this time does not meet criteria for Alatorre act or for inpatient psychiatric hospitalization. Psychoeducation is provided. Psychiatrically clear for discharge from ED To follow up with [facility] for outpatient treatment. Orders Orders Risperidone (Risperdal) (09/09/17 22:00) Results Vital Signs Date Time Temp Pulse Resp B/P (MAP) Pulse Ox O2 Delivery O2 Flow Rate FiO2 09/09/17 20:32 97.7 79 18 117/68 (84) 96 Room Air Diagnosis Primary Impression: Paranoid schizophrenia Psychiatrically Cleared: Yes Med/ Other Pt Specific Info: Prescription(s) given Prescriptions Sertraline (Zoloft) 50 Mg Tab 50 MG PO DAILY for Depression Control, #30 TAB 0 Refills Prov: Padmini Mac Teran DRESS OPERATOR 09/09/17 Risperidone (Risperdal) 2 Mg Tab 2 MG PO HS for Psychosis, #30 TAB 0 Refills Prov: Padmini Mac Teran DRESS OPERATOR 09/09/17 Risperidone (Risperdal) 1 Mg Tab 1 MG PO DAILY for Psychosis, #30 TAB 0 Refills Prov: Padmini Maca DRESS OPERATOR 09/09/17 Disposition: 01 DISCHARGE HOME Condition: Stable Padmini Mac Teran DRESS OPERATOR Sep 09, 2017 22:00
--- NOTE | 2017-09-09 22:45 | PD ---
HPI Chief Complaint: Psychiatric Symptoms Time Seen by Provider: 22:33 Travel History International Travel<30 days: No Contact w/Intl Traveler<30days: No Traveled to known affect area: No History of Present Illness HPI 47-year-old male that presents to the ED for evaluation of psych. Patient was brought here for evaluation of possible lesion to his leg. Patient states that he has a laceration. Patient has a chronic history of schizophrenia has been here multiple times for this. He was just released on September 07 for schizophrenia. He was changing some of medications. Per patient he does not feel his medications or not. He appears to have some hallucinations and denies any homicidal or suicidal ideation. Pain only to the left toe. Denies any injuries. History is somewhat limited because of patient's psychosis. Patient is well known to staff who provided most of the information. PFS Past Medical History Anxiety: Yes Depression: Yes Cardiovascular Problems: Yes (LOW BP) Chemotherapy: No Diminished Hearing: No Endocrine: No Gastrointestinal Disorders: No Genitourinary: No Immune Disorder: No Implanted Vascular Access Dvce: No Musculoskeletal: No Neurologic: No Psychiatric: Yes Reproductive: No Respiratory: No Immunizations Current: Yes Radiation Therapy: No Schizophrenia: Yes Sickle Cell Disease: No Thyroid Disease: No Past Surgical History Abdominal Surgery: No AICD: No Arteriovenous Shunt: No Cardiac Surgery: No Ear Surgery: No Endocrine Surgery: No Eye Surgery: Yes (FOREIGN BODY IN LEFT EYE 1994) Genitourinary Surgery: No Gynecologic Surgery: No Insulin Pump: No Joint Replacement: No Neurologic Surgery: No Oral Surgery: No Pacemaker: No Thoracic Surgery: No Tonsillectomy: Yes Other Surgery: Yes (LEFT THUMB AMPUTATION AT 1ST KNUCKLE) Social History Alcohol Use: Yes (OCC.) Tobacco Use: Yes (1 PPD) Substance Use: No Allergies-Medications (Allergen,Severity, Reaction): Coded Allergies: Fish Containing Products (Unverified Allergy, Severe, 08/31/17) amoxicillin (Unverified Allergy, Unknown, 08/31/17) Reported Meds & Prescriptions Reported Meds & Active Scripts Active Zoloft (Sertraline HCl) 50 Mg Tab 50 Mg PO DAILY Risperdal (Risperidone) 2 Mg Tab 2 Mg PO HS Risperdal (Risperidone) 1 Mg Tab 1 Mg PO DAILY Risperidone 2 Mg Tab 2 Mg PO HS Risperdal (Risperidone) 1 Mg Tab 1 Mg PO DAILY 30 Days Zoloft (Sertraline HCl) 50 Mg Tab 50 Mg PO DAILY 30 Days Reported Risperdal Consta Inj (Risperidone) 25 Mg/2 Ml Inj 25 Mg IM Q14D Review of Systems ROS Limitations: Poor Historian Except as stated in HPI: all other systems reviewed are Neg Physical Exam Exam Limitations: Poor Historian Narrative GENERAL: SKIN: Warm and dry. Patient has a superficial callus to the left fifth toe. No laceration noted. No abrasion noted. No injury noted. Good capillary refill. HEAD: Atraumatic. Normocephalic. EYES: Pupils equal and round. No scleral icterus. No injection or drainage. ENT: No nasal bleeding or discharge. Mucous membranes pink and moist. NECK: Trachea midline. No JVD. CARDIOVASCULAR: Regular rate and rhythm. RESPIRATORY: No accessory muscle use. Clear to auscultation. Breath sounds equal bilaterally. GASTROINTESTINAL: Abdomen soft, non-tender, nondistended. Hepatic and splenic margins not palpable. MUSCULOSKELETAL: Extremities without clubbing, cyanosis, or edema. No obvious deformities. NEUROLOGICAL: Awake and alert. No obvious cranial nerve deficits. Motor grossly within normal limits. Five out of 5 muscle strength in the arms and legs. Normal speech. PSYCHIATRIC: Appropriate mood and affect; insight and judgment normal. Data Data Last Documented VS Vital Signs Date Time Temp Pulse Resp B/P (MAP) Pulse Ox O2 Delivery O2 Flow Rate FiO2 09/09/17 20:32 97.7 79 18 117/68 (84) 96 Room Air Orders Orders Risperidone (Risperdal) (09/09/17 22:00) Psych Screen (09/09/17 22:26) Ed Discharge Order (09/09/17 22:34) [facility] Medical Decision Making Medical Screen Exam Complete: Yes Emergency Medical Condition: Yes Medical Record Reviewed: Yes Differential Diagnosis Depression versus suicidal ideation versus anxiety versus adjustment disorder versus mood disorder versus bipolar disorder versus schizophrenia versus paranoid disorder versus psychosis versus substance abuse versus alcohol abuse versus alcohol induced psychosis versus homicidality addition versus cutting versus personality disorder Narrative Course 47-year-old male that presents to the ED for evaluation of psych. Patient was properly examined and was found to have signs and symptoms consistent psychiatric illness. No sign of acute medical distress. No sign of laceration noted. Patient has a small callus other than that no sign of infection. No sign of laceration. Patient was seen by nurse practitioner for psych and his a correct was lifted. Patient at this time is being medically clear and can be released back to home. Patient agrees with this plan. Patient was given a Band -Aid for his callus. Told to follow closely with PCP. See ED worsening symptoms. Take his medications. Diagnosis Primary Impression: Paranoid schizophrenia Patient Instructions: General Instructions Med/Other Pt SpecificInfo: Prescription(s) given Scripts Sertraline (Zoloft) 50 Mg Tab 50 MG PO DAILY for Depression Control, #30 TAB 0 Refills Prov: AmcIdas Margaret Teran DOOR TO DOOR SALES REPRESENTATIVE 09/09/17 Risperidone (Risperdal) 2 Mg Tab 2 MG PO HS for Psychosis, #30 TAB 0 Refills Prov: MacIdas Margaret Teran DOOR TO DOOR SALES REPRESENTATIVE 09/09/17 Risperidone (Risperdal) 1 Mg Tab 1 MG PO DAILY for Psychosis, #30 TAB 0 Refills Prov: Mac,Padmini Margaret Teran DOOR TO DOOR SALES REPRESENTATIVE 09/09/17 Disposition: 01 DISCHARGE HOME Condition: Stable Destin Heaton Sep 09, 2017 22:45
== END 2017-09-09 23:26 | disposition home or self-care (01) ==
LOC: NEPJ 20:30
DX: F20.0 Paranoid schizophrenia (principal); F32.9 Major depressive disorder, single episode, unspecified; F17.210 Nicotine dependence, cigarettes, uncomplicated
CPT/HCPCS: 99283

== ENCOUNTER 2017-09-10 03:31 | Emergency (ER) | payer MEDICARE ==
[~2017-09-10 03:31] MED LIST changes: +RISP2TAB37 PO
[2017-09-10 03:33] VITALS: BP 127/69; PULSE 89; RESP 16; TEMP 97.8; O2SAT 97
--- NOTE | 2017-09-10 04:12 | PD ---
HPI Chief Complaint: Injury Time Seen by Provider: 04:07 Travel History International Travel<30 days: No Contact w/Intl Traveler<30days: No Traveled to known affect area: No History of Present Illness HPI Patient comes back to the emergency department complaining of continued bilateral foot pain. Patient seen here for this several hours ago for the same , treated, and discharged after being evaluated by psych. Patient states his feet still hurt this needing a place to rest even if it is just for an hour. Patient denies any other medical complaints at this time. Denies any chest pain or shortness breath, fevers, nausea, vomiting, homicidal or suicidal ideations, or radiation of the pain. Describes pain as achy like in nature. Pain is worse with walking. Pain improves with rest. History Past Medical Histgory Hx Chemotherapy: No Hx Radiation Therapy: No Social History Alcohol Use: Yes (OCC.) Tobacco Use: Yes (1 PPD) Allergies-Medications (Allergen,Severity, Reaction): Coded Allergies: Fish Containing Products (Unverified Allergy, Severe, 09/10/17) amoxicillin (Unverified Allergy, Unknown, 09/10/17) Reported Meds & Prescriptions Reported Meds & Active Scripts Active Zoloft (Sertraline HCl) 50 Mg Tab 50 Mg PO DAILY Risperdal (Risperidone) 2 Mg Tab 2 Mg PO HS Risperdal (Risperidone) 1 Mg Tab 1 Mg PO DAILY Risperidone 2 Mg Tab 2 Mg PO HS Risperdal (Risperidone) 1 Mg Tab 1 Mg PO DAILY 30 Days Zoloft (Sertraline HCl) 50 Mg Tab 50 Mg PO DAILY 30 Days Reported Risperdal Consta Inj (Risperidone) 25 Mg/2 Ml Inj 25 Mg IM Q14D Review of Systems Except as stated in HPI: all other systems reviewed are Neg Physical Exam Narrative GENERAL: Well-developed, well nourished, in no acute distress, and non-ill appearing. SKIN: Focused skin assessment warm and dry. Small calluses noted bilateral feet. He reports is tender to palpation. There is no signs of infection. HEAD: Atraumatic. Normocephalic. EYES: Pupils equal and round. EOMI. No scleral icterus. No injection or drainage. ENT: No nasal bleeding or discharge. Mucous membranes pink and moist. NECK: Trachea midline. Supple. No nuclear rigidity. RESPIRATORY: No accessory muscle use. No respiratory distress. MUSCULOSKELETAL: No obvious deformities. No clubbing. No cyanosis. No edema. Full range of motion. NEUROLOGICAL: Awake and alert. No obvious cranial nerve deficits. Motor grossly within normal limits. Normal speech. PSYCHIATRIC: Appropriate mood and affect; insight and judgment normal. Data Data Last Documented VS Vital Signs Date Time Temp Pulse Resp B/P (MAP) Pulse Ox O2 Delivery O2 Flow Rate FiO2 09/10/17 03:33 97.8 89 16 127/69 (88) 97 Room Air MDM Medical Screen Exam Complete: Yes Emergency Medical Condition: No Narrative Course History and physical exam findings are not consistent with an emergent medical condition. He was given the option of receiving additional care, but has declined. Therefore the appropriate counseling recommendations were discussed with the patient and he was instructed to follow-up with his primary care physician as soon as possible for reevaluation. Patient was also informed of community resources from which he can obtain additional care. He is agreeable and verbalizes an understanding of the proposed plan. The patient states he will immediately return to the emergency department if his current complaints do not improve, new symptoms arise, or emergent condition develops. Patient ambulated out of the emergency department without difficulty. Primary Impression: Encounter for medical screening examination Disposition: EDGO-ED USE ONLY Condition: Stable Pro Ojeda Sep 10, 2017 04:12
== END 2017-09-10 04:19 | disposition left against medical advice (07) ==
LOC: NEPD 03:31
DX: M79.672 Pain in left foot (principal); M79.671 Pain in right foot; F17.200 Nicotine dependence, unspecified, uncomplicated; Z79.899 Other long term (current) drug therapy
CPT/HCPCS: 99281

== ENCOUNTER 2017-12-15 07:14 | Emergency (ER) | payer MEDICARE ==
[~2017-12-15] VITALS: Ht 190.5 cm; Wt 80.0 kg
[2017-12-15 07:16] VITALS: BP 123/81; PULSE 93; RESP 18; TEMP 98; O2SAT 97
[2017-12-15] MEDS ORDERED: SODIUM CHLOR 0.9% 1000 ML INJ 1,000 ML IV SCH (07:41)
--- NOTE | 2017-12-15 07:43 | PD ---
HPI Chief Complaint: Pain: Acute or Chronic Time Seen by Provider: 07:23 Travel History International Travel<30 days: No Contact w/Intl Traveler<30days: No Traveled to known affect area: No History of Present Illness HPI 47-year-old homeless male presents the emergency department with bilateral feet pain and redness to both lower extremities. Patient denies fever , chills, or other symptoms. Patient has been walking a lot as he is homeless and trying to get work. He states his been ongoing for approximately 1 week. Patient denies fever, chills, or other symptoms. Pain is about an 8 out of 10. Patient allergic to amoxicillin and fish. PFSH Past Medical History Anxiety: Yes Depression: Yes Cardiovascular Problems: Yes Chemotherapy: No Diminished Hearing: No Endocrine: No Gastrointestinal Disorders: No Genitourinary: No Heparin Induced Thrombocytopen: No Immune Disorder: No Implanted Vascular Access Dvce: No Musculoskeletal: No Neurologic: No Psychiatric: Yes Reproductive: No Respiratory: No Immunizations Current: Yes Radiation Therapy: No Schizophrenia: Yes Sickle Cell Disease: No Thyroid Disease: No Past Surgical History Abdominal Surgery: No AICD: No Arteriovenous Shunt: No Cardiac Surgery: No Ear Surgery: No Endocrine Surgery: No Eye Surgery: Yes (FOREIGN BODY IN LEFT EYE 1994) Genitourinary Surgery: No Gynecologic Surgery: No Insulin Pump: No Joint Replacement: No Neurologic Surgery: No Oral Surgery: No Pacemaker: No Thoracic Surgery: No Tonsillectomy: Yes Other Surgery: Yes (LEFT THUMB AMPUTATION AT 1ST KNUCKLE) Social History Alcohol Use: Yes (OCC.) Tobacco Use: Yes (1 PPD) Substance Use: No Allergies-Medications (Allergen,Severity, Reaction): Coded Allergies: Fish Containing Products (Unverified Allergy, Severe, 12/15/17) amoxicillin (Unverified Allergy, Unknown, 12/15/17) Reported Meds & Prescriptions Reported Meds & Active Scripts Active Bactrim DS (Sulfamethoxazole-Trimethoprim) 800-160 Mg Tab 1 Tab PO BID Zoloft (Sertraline HCl) 50 Mg Tab 50 Mg PO DAILY Risperdal (Risperidone) 2 Mg Tab 2 Mg PO HS Risperdal (Risperidone) 1 Mg Tab 1 Mg PO DAILY Reported Risperdal Consta Inj (Risperidone) 25 Mg/2 Ml Inj 25 Mg IM Q14D Review of Systems ROS Limitations: Poor Historian Except as stated in HPI: all other systems reviewed are Neg General / Constitutional: No: Fever, Chills Eyes: No: Visual changes HENT: No: Headaches Cardiovascular: No: Chest Pain or Discomfort Respiratory: No: Shortness of Breath Gastrointestinal: No: Abdominal Pain Genitourinary: No: Dysuria Musculoskeletal: Positive: Myalgias, No: Pain Skin: Positive Lesions, No Rash Neurologic: No: Weakness Psychiatric: No: Depression Endocrine: No: Polydipsia Hematologic/Lymphatic: No: Easy Bruising Physical Exam Narrative GENERAL: Patient appears disheveled and in mild distress. SKIN: Warm and dry. Generally normal color. Normal turgor. Patient has multiple closed blisters to both feet, and what appears to be mild trench foot bilaterally. Both feet appear erythematous but not swollen. Patient has erythema areas to both lower extremities tracking up to the middle inner thighs. There is no lymphangitis or streaking however. I suspect a cellulitis. There is no open wounds or abrasions noted. HEAD: Atraumatic. Normocephalic. EYES: Pupils equal and round. No scleral icterus. No injection or drainage. ENT: No nasal bleeding or discharge. Mucous membranes pink and moist. NECK: Trachea midline. No JVD. CARDIOVASCULAR: Regular rate and rhythm. RESPIRATORY: No accessory muscle use. Clear to auscultation. Breath sounds equal bilaterally. GASTROINTESTINAL: Abdomen soft, non-tender, nondistended. Hepatic and splenic margins not palpable. MUSCULOSKELETAL: Extremities without clubbing, cyanosis, or edema. No obvious deformities. NEUROLOGICAL: Awake and alert. No obvious cranial nerve deficits. Motor grossly within normal limits. Five out of 5 muscle strength in the arms and legs. Normal speech. PSYCHIATRIC: Appropriate mood and affect; insight and judgment normal. Data Data Last Documented VS Vital Signs Date Time Temp Pulse Resp B/P (MAP) Pulse Ox O2 Delivery O2 Flow Rate FiO2 12/15/17 08:11 80 18 98 12/15/17 07:16 98.0 Room Air Orders Orders Sodium Chlor 0.9% 1000 Ml Inj (Ns 1000 M (12/15/17 07:41) Sodium Chloride 0.9% Flush (Ns Flush) (12/15/17 07:45) Clindamycin 600 Mg/Ns Premix (Cleocin 60 (12/15/17 07:45) Ed Discharge Order (12/15/17 07:55) MDM Medical Decision Making Medical Screen Exam Complete: Yes Emergency Medical Condition: Yes Differential Diagnosis Trench foot. Cellulitis. Allergic reaction. Rash. Narrative Course I was going to order labs on this patient and give him IV clindamycin but the patient refused. Patient was going to leave AMA, but I convinced him to try Bactrim DS twice daily 7 days. Patient will follow up with symptoms do not improve Diagnosis Primary Impression: Cellulitis Qualified Codes: L03.119 - Cellulitis of unspecified part of limb Patient Instructions: Cellulitis (ED), General Instructions Additional Instructions: I was going to order labs on this patient and give him IV clindamycin but the patient refused. Patient was going to leave AMA, but I convinced him to try Bactrim DS twice daily 7 days. Patient will follow up with symptoms do not improve Med/Other Pt SpecificInfo: Prescription(s) given Scripts Sulfamethoxazole-Trimethoprim (Bactrim DS) 800-160 Mg Tab 1 TAB PO BID for Infection, #14 TAB 0 Refills Prov: Kyrie Jernigan MD 12/15/17 Disposition: 01 DISCHARGE HOME Condition: Stable Misha Peoples Dec 15, 2017 07:43
[2017-12-15] MEDS ORDERED: SODIUM CHLORIDE 0.9% FLUSH 10 ML FLUSH IV FLUSH PRN (07:45)
[2017-12-15] MEDS ORDERED: CLINDAMYCIN 600 MG/NS PREMIX 50 ML IV ONE (07:45)
[2017-12-15] MEDS ORDERED: BACT800T5 PO (07:53)
== END 2017-12-15 08:13 | disposition home or self-care (01) ==
LOC: NEPD 07:14
DX: L03.116 Cellulitis of left lower limb (principal); L03.115 Cellulitis of right lower limb; Z59.0 Homelessness; Z72.0 Tobacco use; Z76.5 Malingerer [conscious simulation]
CPT/HCPCS: 99283

== ENCOUNTER 2017-12-15 20:20 | Emergency (ER) | payer MEDICARE ==
[~2017-12-15] VITALS: Ht 190.5 cm; Wt 83.2 kg
[~2017-12-15 20:20] MED LIST changes: +BACT800T5 PO
[2017-12-15 20:25] VITALS: BP 115/72; PULSE 69; RESP 20; TEMP 97.9
[2017-12-15 20:43] VITALS: BP 109/59; PULSE 69; RESP 20; TEMP 97.3; O2SAT 98
--- NOTE | 2017-12-15 22:46 | PD ---
HPI Chief Complaint: Psychiatric Symptoms Time Seen by Provider: 22:33 Travel History International Travel<30 days: No Contact w/Intl Traveler<30days: No Traveled to known affect area: No History of Present Illness HPI 47-year-old white male presents to emergency department requesting a place to sleep. He states that is very tired. He is from [facility]. The patient here states that he suffers from mental illness. He states that he feels people are out after him. He is also hungry and would like something to eat. The patient was seen earlier today and was treated for possible cellulitis. He was given a prescription for Bactrim DS which she has gotten filled. He denies any fever or chills. No chest pain or shortness of breath. He initially denies any suicidal or homicidal ideation. He states that if he is discharged he feels unsafe and feels suicidal. PFSH Past Medical History Anxiety: Yes Depression: Yes Cardiovascular Problems: Yes Chemotherapy: No Diminished Hearing: No Endocrine: No Gastrointestinal Disorders: No Genitourinary: No Heparin Induced Thrombocytopen: No Immune Disorder: No Implanted Vascular Access Dvce: No Musculoskeletal: No Neurologic: No Psychiatric: Yes Reproductive: No Respiratory: No Immunizations Current: Yes Radiation Therapy: No Schizophrenia: Yes Sickle Cell Disease: No Thyroid Disease: No Tetanus Vaccination: < 5 Years Influenza Vaccination: Yes Past Surgical History Abdominal Surgery: No AICD: No Arteriovenous Shunt: No Cardiac Surgery: No Ear Surgery: No Endocrine Surgery: No Eye Surgery: Yes (1994) Genitourinary Surgery: No Gynecologic Surgery: No Insulin Pump: No Joint Replacement: No Neurologic Surgery: No Oral Surgery: No Pacemaker: No Thoracic Surgery: No Tonsillectomy: Yes Other Surgery: Yes (LEFT THUMB AMPUTATION AT 1ST KNUCKLE) Social History Alcohol Use: Yes (OCC.) Tobacco Use: Yes (1 PPD) Substance Use: No Allergies-Medications (Allergen,Severity, Reaction): Coded Allergies: Fish Containing Products (Unverified Allergy, Severe, 12/15/17) amoxicillin (Unverified Allergy, Unknown, 12/15/17) Reported Meds & Prescriptions Reported Meds & Active Scripts Active Bactrim DS (Sulfamethoxazole-Trimethoprim) 800-160 Mg Tab 1 Tab PO BID Zoloft (Sertraline HCl) 50 Mg Tab 50 Mg PO DAILY Risperdal (Risperidone) 2 Mg Tab 2 Mg PO HS Risperdal (Risperidone) 1 Mg Tab 1 Mg PO DAILY Reported Risperdal Consta Inj (Risperidone) 25 Mg/2 Ml Inj 25 Mg IM Q14D Review of Systems Except as stated in HPI: all other systems reviewed are Neg (wAS AT WORK REQUESTED TO HAVE A WARM SALINE) General / Constitutional: No: Fever Eyes: No: Visual changes HENT: No: Headaches Cardiovascular: No: Chest Pain or Discomfort Respiratory: No: Shortness of Breath Gastrointestinal: No: Abdominal Pain Genitourinary: No: Dysuria Musculoskeletal: No: Pain Skin: Positive Rash Neurologic: No: Weakness Psychiatric: Positive: Disorder of Thought, Mood Disorder, Substance Abuse, No : Anxiety, Depression, Suicidal Ideations, Homicidal Ideation Endocrine: No: Polydipsia Hematologic/Lymphatic: No: Easy Bruising Physical Exam Narrative GENERAL: Well-nourished, well-developed patient. The patient is sleeping in examination room. He has a sheet pulled up over his head. He has urinated all over the bed SKIN: Warm and dry. Patient has a vasculitic type rash from the ankles to the pretibial region. I do not believe that this is a true cellulitis. HEAD: Normocephalic and atraumatic. EYES: No scleral icterus. No injection or drainage. ENT: No nasal drainage noted. Mucous membranes pink. Airway patent. NECK: Supple, trachea midline. Moves head freely without obvious discomfort. CARDIOVASCULAR: Regular rate and rhythm without murmurs, gallops, or rubs. RESPIRATORY: Breath sounds equal bilaterally. No accessory muscle use. GASTROINTESTINAL: Abdomen soft, non-tender, nondistended. EXTREMITIES: No cyanosis or edema. BACK: Nontender without obvious deformity. No CVA tenderness. NEURO: Patient is alert and oriented. no sensorimotor deficits. Nonfocal. Normal speech. PSYCH: No delusions. No auditory or visual hallucinations. Data Data Last Documented VS Vital Signs Date Time Temp Pulse Resp B/P (MAP) Pulse Ox O2 Delivery O2 Flow Rate FiO2 12/15/17 20:43 97.3 69 20 109/59 (76) 98 Room Air MDM Medical Decision Making Medical Screen Exam Complete: Yes Emergency Medical Condition: Yes Medical Record Reviewed: Yes Differential Diagnosis MDM: High Differential diagnoses: Schizophrenia, schizoaffective disorder, bipolar, anxiety, depression, adjustment reaction, mood disorder NOS, ODD, depressive disorder NOS, dementia, dementia with agitation, psychosis NOS, substance induced mood disorder, DMDD, Asperger syndrome, infection,electrolyte abnormality, malingering. Narrative Course The patient here denies suicidal ideation initially but states that he was discharged he would feel unsafe and would suicidal. I suspect the patient is malingering. I do not believe that he is truly suicidal the patient appears to be more interested in getting something to eat and sleep. He has urinated all over himself. Patient now appears chronically sober. The patient will be given outpatient treatment information and discharged. Diagnosis Primary Impression: Malingering Referrals: [facility] (Out patient) 1 day [facility] day Patient Instructions: General Instructions Additional Instructions: Rest. Increase fluids. Avoid alcohol. Avoid illegal substances. Follow-up with [facility] for detox. Do not operate a car or any heavy machinery under the influence of alcohol or drugs. Follow-up with a medical doctor this week. Return to the ER for emergencies Disposition: 01 DISCHARGE HOME Condition: Stable Dominic Sanon Dec 15, 2017 22:46
== END 2017-12-15 23:28 | disposition home or self-care (01) ==
LOC: NEPD 20:20
DX: Z76.5 Malingerer [conscious simulation] (principal); Z72.0 Tobacco use
CPT/HCPCS: 99283

== ENCOUNTER 2018-02-07 14:36 | Emergency (ER) | payer MEDICARE ==
[~2018-02-07] VITALS: Ht 193 cm; Wt 93.0 kg
[~2018-02-07 14:36] MED LIST changes: -RISP2TAB2 PO
[2018-02-07 14:58] VITALS: BP 120/66; PULSE 76; RESP 18; TEMP 97.5; O2SAT 97
== END 2018-02-07 17:44 | disposition left against medical advice (07) ==
LOC: NED 14:36
DX: Z03.89 Encounter for observation for other suspected diseases and conditions ruled out (principal)
CPT/HCPCS: 99281

== ENCOUNTER 2018-02-18 20:54 | Emergency (ER) | payer MEDICARE ==
[~2018-02-18] VITALS: Ht 193 cm; Wt 92.0 kg
[2018-02-18 21:31] VITALS: BP 144/60; PULSE 103; RESP 16; TEMP 98.1; O2SAT 97
== END 2018-02-18 23:24 | disposition left against medical advice (07) ==
LOC: NED 20:54
DX: Z04.9 Encounter for examination and observation for unspecified reason (principal)
CPT/HCPCS: 99281

== ENCOUNTER 2018-03-17 22:46 | Inpatient (IN) | END 2018-03-24 11:00 | DRG 885 | DX: F20.0 Paranoid schizophrenia (principal); Z59.0 Homelessness; F32.9 Major depressive disorder, single episode, unspecified; F17.210 Nicotine dependence, cigarettes, uncomplicated; F41.9 Anxiety disorder, unspecified ==

== ENCOUNTER 2018-03-28 13:51 | Emergency (ER) | payer MEDICARE, OTHER ==
[~2018-03-28] VITALS: Ht 190.5 cm; Wt 95.0 kg
[~2018-03-28 13:51] MED LIST changes: -BACT800T5 PO; +PALI234P IM; -RISP1 PO; -RISP25P IM; -RISP2TAB37 PO; +RISP4TAB41 PO
[2018-03-28 14:22] VITALS: BP 135/68; PULSE 104; RESP 20; TEMP 97.6; O2SAT 98
[2018-03-28 15:39] LABS: AUTOMATED NEUTROPHIL # 5.3 TH/MM3 (1.8-7.7); BASOPHIL % 0.4 % (0.0-2.0); EOSINOPHIL # 0.1 TH/MM3 (0-0.4); EOSINOPHIL % 0.6 % (0.0-4.0); HEMATOCRIT 41.2 % (39.0-51.0); HEMOGLOBIN 14.1 GM/DL (13.0-17.0); LYMPH % 31.6 % (9.0-44.0); LYMPHOCYTE # 2.9 TH/MM3 (1.0-4.8); MEAN CELL VOLUME 87.4 FL (80.0-100.0); MEAN CORPUSCULAR HGB CONC 34.4 % (32.0-36.0); MEAN PLATELET VOLUME 7.7 FL (7.0-11.0); MONO % 9.1 % (0.0-8.0); MONOCYTE # 0.8 TH/MM3 (0-0.9); NEUT % 58.3 % (16.0-70.0); PLATELET COUNT 344 TH/MM3 (150-450); RED BLOOD COUNT 4.71 MIL/MM3 (4.50-5.90); RED CELL DISTRIBUTION WIDTH 14.1 % (11.6-17.2); WHITE BLOOD COUNT 9.1 TH/MM3 (4.0-11.0)
[2018-03-28 16:04] LABS: ALBUMIN 3.7 GM/DL (3.4-5.0); ALT (GPT) 31 U/L (12-78); AST (GOT) 15 U/L (15-37); BICARBONATE 25.4 MEQ/L (21.0-32.0); BLOOD UREA NITROGEN 12 MG/DL (7-18); CALCIUM 8.8 MG/DL (8.5-10.1); CHLORIDE 107 MEQ/L (98-107); CREATININE 0.82 MG/DL (0.60-1.30); GLOMERULAR FILTRATION RATE 100 ML/MIN (>89); GLUCOSE,RANDOM 93 MG/DL (74-106); SODIUM (NA) 142 MEQ/L (136-145)
[2018-03-28 16:07] LABS: ALKALINE PHOSPHATASE 100 U/L (45-117); TOTAL BILIRUBIN ADULT 0.2 MG/DL (0.2-1.0); TOTAL PROTEIN 7.9 GM/DL (6.4-8.2)
--- NOTE | 2018-03-28 16:27 | PD ---
HPI Chief Complaint: Suicide Ideation/Attempt Time Seen by Provider: 15:44 (Destin Heaton) Time Seen by Provider: 15:44 (Gato Gilbert MD) Travel History International Travel<30 days: No Contact w/Intl Traveler<30days: No Traveled to known affect area: No (Destin Heaton) History of Present Illness HPI 48-year-old male presents to the ED for evaluation of suicidal ideation. Patient came here voluntarily for evaluation of this. Per patient he was feeling suicidal because he has no hope. Apparently per patient he is also drinking and per patient he has been sober for some time. Per patient he apparently started drinking again yesterday and apparently possibly was intoxicated outside with some some andre to his arms and face. He denies any other medical issues. Unclear if he takes any medications. Patient for the most part is not a good historian appears to be somewhat psychotic. He does go into many tangents. He states that he feels suicidal but denies feeling homicidal. States having hallucinations are telling him to do stuff. He does appear to be interacting with internal stimuli when you talk to him. History is somewhat limited. No other medical issues. Allergies to amoxicillin and fish products. Per medical records he does have a history of schizophrenia. Apparently symptoms have been worsening for the past 2 days. Nothing makes them better. (Destin Heaton) [facility] Past Medical History Anxiety: Yes Depression: Yes Heart Rhythm Problems: Yes (heart attack 2016) Cardiovascular Problems: Yes ([place]) Chemotherapy: No Diabetes: No (See EMR) Diminished Hearing: No Endocrine: No Genitourinary: No Immune Disorder: No Musculoskeletal: No Neurologic: No Psychiatric: Yes Reproductive: No Respiratory: No Immunizations Current: No Radiation Therapy: No Schizophrenia: Yes Seizures: No (See EMR) Sickle Cell Disease: No Thyroid Disease: No Influenza Vaccination: No (Destin Heaton) Past Surgical History Surgical History: No Previous Surgery Abdominal Surgery: No AICD: No Arteriovenous Shunt: No Cardiac Surgery: No Ear Surgery: No Endocrine Surgery: No Eye Surgery: Yes (1994 FOREIGN OBJECT REMOVED) Genitourinary Surgery: No Gynecologic Surgery: No Insulin Pump: No Joint Replacement: No Oral Surgery: No Pacemaker: No Thoracic Surgery: No Tonsillectomy: Yes Other Surgery: Yes (LEFT THUMB AMPUTATION AT 1ST KNUCKLE) (Destin Heaton) Social History Alcohol Use: Yes Tobacco Use: Yes Substance Use: No (Destin Heaton) Allergies-Medications (Allergen,Severity, Reaction): Coded Allergies: Fish Containing Products (Unverified Allergy, Severe, 02/18/18) amoxicillin (Unverified Allergy, Unknown, 02/18/18) Reported Meds & Prescriptions Reported Meds & Active Scripts Active Invega Sustenna Inj (Paliperidone Palmitate) 234 Mg/1.5 Ml Inj 234 Mg IM Q28D Next injection due 04/19 Risperdal (Risperidone) 4 Mg Tab 4 Mg PO HS Zoloft (Sertraline HCl) 50 Mg Tab 50 Mg PO DAILY (Gato Gilbert MD) Review of Systems ROS Limitations: Poor Historian Except as stated in HPI: all other systems reviewed are Neg (Destin Heaton) Physical Exam Exam Limitations: Poor Historian Narrative GENERAL: SKIN: Warm and dry. HEAD: Atraumatic. Normocephalic. EYES: Pupils equal and round. No scleral icterus. No injection or drainage. ENT: No nasal bleeding or discharge. Mucous membranes pink and moist. Tongue is midline. No uvula deviation. NECK: Trachea midline. No JVD. CARDIOVASCULAR: Regular rate and rhythm. RESPIRATORY: No accessory muscle use. Clear to auscultation. Breath sounds equal bilaterally. GASTROINTESTINAL: Abdomen soft, non-tender, nondistended. Hepatic and splenic margins not palpable. MUSCULOSKELETAL: Extremities without clubbing, cyanosis, or edema. No obvious deformities. Full range of motion of the upper and lower extremities bilaterally. 2+ pulses bilaterally. NEUROLOGICAL: Awake and alert. No obvious cranial nerve deficits. Motor grossly within normal limits. Five out of 5 muscle strength in the arms and legs. Normal speech. PSYCHIATRIC: Possibly psychotic mood and affect; insight and judgment normal. (Destin Heaton) Data Data Last Documented VS Vital Signs Date Time Temp Pulse Resp B/P (MAP) Pulse Ox O2 Delivery O2 Flow Rate FiO2 03/28/18 18:24 74 18 133/74 (93) 99 03/28/18 14:22 97.6 (Gato Gilbert MD) Orders Orders Complete Blood Count With Diff (03/28/18 14:54) Comprehensive Metabolic Panel (03/28/18 14:54) Psych Screen (03/28/18 14:54) Drug Screen, Random Urine (03/28/18 14:54) Alcohol (Ethanol) (03/28/18 14:54) Diet Regular Basic (03/28/18 Dinner) Risperidone (Risperdal) (03/28/18 18:45) Diphenhydramine (Benadryl) (03/28/18 18:45) (Gato Gilbert MD) Labs Laboratory Tests Test 03/28/18 14:45 White Blood Count 9.1 TH/MM3 Red Blood Count 4.71 MIL/MM3 Hemoglobin 14.1 GM/DL Hematocrit 41.2 % Mean Corpuscular Volume 87.4 FL Mean Corpuscular Hemoglobin 30.0 PG Mean Corpuscular Hemoglobin Concent 34.4 % Red Cell Distribution Width 14.1 % Platelet Count 344 TH/MM3 Mean Platelet Volume 7.7 FL Neutrophils (%) (Auto) 58.3 % Lymphocytes (%) (Auto) 31.6 % Monocytes (%) (Auto) 9.1 % Eosinophils (%) (Auto) 0.6 % Basophils (%) (Auto) 0.4 % Neutrophils # (Auto) 5.3 TH/MM3 Lymphocytes # (Auto) 2.9 TH/MM3 Monocytes # (Auto) 0.8 TH/MM3 Eosinophils # (Auto) 0.1 TH/MM3 Basophils # (Auto) 0.0 TH/MM3 CBC Comment DIFF FINAL Differential Comment Blood Urea Nitrogen 12 MG/DL Creatinine 0.82 MG/DL Random Glucose 93 MG/DL Total Protein 7.9 GM/DL Albumin 3.7 GM/DL Calcium Level 8.8 MG/DL Alkaline Phosphatase 100 U/L Aspartate Amino Transf (AST/SGOT) 15 U/L Alanine Aminotransferase (ALT/SGPT) 31 U/L Total Bilirubin 0.2 MG/DL Sodium Level 142 MEQ/L Potassium Level 3.4 MEQ/L Chloride Level 107 MEQ/L Carbon Dioxide Level 25.4 MEQ/L Anion Gap 10 MEQ/L Estimat Glomerular Filtration Rate 100 ML/MIN Ethyl Alcohol Level LESS THAN 3 MG/DL (Gato Gilbert MD) [facility] Medical Decision Making Medical Screen Exam Complete: Yes Emergency Medical Condition: Yes Medical Record Reviewed: Yes Interpretation(s) CBC & BMP Diagram 03/28/18 14:45 Total Protein 7.9, Albumin 3.7, Calcium Level 8.8, Alkaline Phosphatase 100, Aspartate Amino Transf (AST/SGOT) 15, Alanine Aminotransferase (ALT/SGPT) 31, Total Bilirubin 0.2 Differential Diagnosis Depression versus suicidal ideation versus anxiety versus adjustment disorder versus mood disorder versus bipolar disorder versus schizophrenia versus paranoid disorder versus psychosis versus substance abuse versus alcohol abuse versus alcohol induced psychosis versus homicidality addition versus cutting versus personality disorder Narrative Course 48-year-old male that presents to the ED for evaluation of psych. Patient was properly examined and was found to have signs and symptoms consistent with psychiatric illness been a significant medical distress. Patient was medically clear. Okay to be seen by psych. Mental health screening was discussed with the patient. (Destin Heaton) Diagnosis Primary Impression: Paranoid schizophrenia Destin Heaton March 28, 2018 16:27 Gato Gilbert MD March 28, 2018 20:18
[2018-03-28 18:24] VITALS: BP 133/74; PULSE 74; RESP 18; O2SAT 99
[2018-03-28] MEDS ORDERED: diphenhydrAMINE HCL 50 MG CAP PO ONE (18:45)
[2018-03-28] MEDS ORDERED: risperiDONE 1 MG TAB PO ONE (18:45)
[2018-03-29 00:55] VITALS: BP 117/59; PULSE 71; RESP 20; TEMP 98.2; O2SAT 98
--- NOTE | 2018-03-29 09:43 | PD.PSY.CON ---
Provisional Diagnosis Admission Date Date of consultation 03/29/18 [place]. 1. Adjustment disorder Suspect malingering for half-way/psychosocial rehabilitation counselor 2. History of schizophrenia, presently stable 3. Polysubstance abuse [place] II. Deferred History of Present Illness Service Psychiatry Consult Requested By Emergency department Reason for Consult Psychiatric evaluation Primary Care Physician No Primary Care Physician [facility] Mr. Byers is a 48-year-old male with a history of schizophrenia who presented to the ED voluntarily for psychiatric evaluation complaining of suicidal ideation. The patient was recently discharged to [facility] from the inpatient psychiatric unit. Electronic medical record reviewed. Patient seen and examined. Chart reviewed. Case discussed with nursing staff. No behavioral issues while under observation in the ED. No evidence of suicidality or homicidality. On my examination today, the patient is a vague and fairly manipulative historian. From what I can gather, the patient went to [facility] but decided he did not want to stay because they would take the entirety of his disability check save a small amount. He left and lived homeless for a few days. He has thought about the matter and decided he would like to go to [facility] after all. He is requesting that we facilitate this. He feels comfortable leaving the ED at this time. He denies any suicidal or homicidal ideation, intent or plan and contracts for safety. He says that he was hearing voices at some point but cannot recall what they were saying. He finally does recall and says that the voices were saying "nobody wants me around." He does not have any command auditory hallucinations presently. I can elicit no delusional material. No issues with mood. Remainder of the psychiatric ROS is negative. No acute physical complaints. Past psychiatric history: Patient has a history of schizophrenia. He is not under the care of a psychiatrist. Most recent psychiatric admission was here at [facility]. He denies a history of suicide attempts. Family history: Patient is unsure of family history as he was adopted. Chemical dependency history: Patient uses powder cocaine and also has a couple of beers a day. Denies any other substance use. Social history: High school educated. On disability. Single with no children. Denies history. Denies legal history. Denies access to guns or firearms. Endorses some restorationist beliefs. No reported history of trauma. Spoke with network coordinator from recent admission, lean, and teleconference with sales representative business courses [facility]. Azalea is willing to give patient another chance but emphasizes that if he leaves [facility] again, he will not be welcome back. I have relayed this information to patient, and he is agreeable to stay at [facility] this time. Review of Systems Except as stated in HPI: all other systems reviewed are Neg Past Family Social History Coded Allergies: Fish Containing Products (Unverified Allergy, Severe, 02/18/18) amoxicillin (Unverified Allergy, Unknown, 02/18/18) Past Medical History See EMR. Active Scripts Paliperidone Palmitate Inj (Invega Sustenna Inj) 234 Mg/1.5 Ml Inj, 234 MG IM Q28D for health, #1 INJECTION 0 Refills Next injection due 04/19 Prov:Cody Elder MD 03/24/18 Risperidone (Risperdal) 4 Mg Tab, 4 MG PO HS for health, #30 TAB 0 Refills Prov:Cody Elder MD 03/24/18 Sertraline (Zoloft) 50 Mg Tab, 50 MG PO DAILY for Depression Control, #30 TAB 0 Refills Prov:Cody Elder MD 03/24/18 Patient's Strengths (min. 2) Able to access clinical care. Verbally fluent. Physical Exam Physical exam completed by ED provider. On my examination today, patient appears to be in no acute physical distress. No motor abnormalities noted. No signs of intoxication or withdrawal noted. Labs and vitals reviewed: Vital Signs Vital Signs Date Time Temp Pulse Resp B/P (MAP) Pulse Ox O2 Delivery O2 Flow Rate FiO2 03/29/18 00:55 98.2 71 20 117/59 (78) 98 Room Air Lab Results Test 03/28/18 14:45 03/29/18 06:28 White Blood Count 9.1 TH/MM3 Red Blood Count 4.71 MIL/MM3 Hemoglobin 14.1 GM/DL Hematocrit 41.2 % Mean Corpuscular Volume 87.4 FL Mean Corpuscular Hemoglobin 30.0 PG Mean Corpuscular Hemoglobin Concent 34.4 % Red Cell Distribution Width 14.1 % Platelet Count 344 TH/MM3 Mean Platelet Volume 7.7 FL Neutrophils (%) (Auto) 58.3 % Lymphocytes (%) (Auto) 31.6 % Monocytes (%) (Auto) 9.1 % Eosinophils (%) (Auto) 0.6 % Basophils (%) (Auto) 0.4 % Neutrophils # (Auto) 5.3 TH/MM3 Lymphocytes # (Auto) 2.9 TH/MM3 Monocytes # (Auto) 0.8 TH/MM3 Eosinophils # (Auto) 0.1 TH/MM3 Basophils # (Auto) 0.0 TH/MM3 CBC Comment DIFF FINAL Differential Comment Blood Urea Nitrogen 12 MG/DL Creatinine 0.82 MG/DL Random Glucose 93 MG/DL Total Protein 7.9 GM/DL Albumin 3.7 GM/DL Calcium Level 8.8 MG/DL Alkaline Phosphatase 100 U/L Aspartate Amino Transf (AST/SGOT) 15 U/L Alanine Aminotransferase (ALT/SGPT) 31 U/L Total Bilirubin 0.2 MG/DL Sodium Level 142 MEQ/L Potassium Level 3.4 MEQ/L Chloride Level 107 MEQ/L Carbon Dioxide Level 25.4 MEQ/L Anion Gap 10 MEQ/L Estimat Glomerular Filtration Rate 100 ML/MIN Ethyl Alcohol Level LESS THAN 3 MG/DL Urine Opiates Screen NEG Urine Barbiturates Screen NEG Urine Amphetamines Screen NEG Urine Benzodiazepines Screen NEG Urine Cocaine Screen POS Urine Cannabinoids Screen NEG Mental Status Examination Appearance: Appropriate Consciousness: Alert Orientation: x4 Motor Activity: Other (No motor abnormalities noted) Speech: Unremarkable Language: Adequate Fund of Knowledge: Adequate Attention and Concentration: Adequate Memory: Unremarkable (Grossly intact on clinical exam) Mood: Appropriate Affect: Blunt Thought Process & Associations: Intact Thought Content: Appropriate Hallucination Type: Other (Vague, possibly malingered, noncommand. Does not appear internally stimulated.) Delusion Type: None Suicidal Ideation: No Suicidal Plan: No Suicidal Intention: No Homicidal Ideation: No Homicidal Plan: No Homicidal Intention: No Mental Status Exam Remarks Insight and judgment are perhaps fair. Assessment & Plan Problem List: (1) Adjustment disorder, unspecified ICD Codes: F43.20 - Adjustment disorder, unspecified (2) Paranoid schizophrenia ICD Codes: F20.0 - Paranoid schizophrenia Status: Acute (3) Polysubstance abuse ICD Codes: F19.10 - Other psychoactive substance abuse, uncomplicated Assessment & Plan 48-year-old male with psychiatric history as detailed above who presents voluntarily for psychiatric evaluation. Malingering for half-way/psychosocial rehabilitation counselor is suspected in the present case. The patient wants us to facilitate getting him back to [facility], and I suspect that this was the goal of his presentation all along. He presently denies suicidal or homicidal ideation. No evidence of severely decompensated mental illness as defined under the Alatorre act. No evidence of significant self-care deficit. The patient does not require inpatient psychiatric services at this time nor does he meet Alatorre act criteria. Working with counselor from the inpatient unit as well as Azalea from [facility] and nurse in the J pod, we have arranged for the patient to be given another chance at [facility]. Since this is the holiday, I will provide him with his Risperdal and Zoloft medication for today prior to leaving the J-pod, and patient has scripts from Dr. Elder that he can fill for these medications going forward. I have recommended outpatient psychiatric follow-up and abstinence from substances of abuse. I have counseled the patient regarding warning signs for need to return to the psychiatric emergency room as part of a general safety plan. Patient is otherwise psychiatrically clear for discharge from the ED with plans to transport [facility]. Thank you very much for this consultation. Problem Qualifiers (1) Adjustment disorder, unspecified: Qualified Codes: F43.20 - Adjustment disorder, unspecified Johnny Miller MD March 29, 2018 09:43
[2018-03-29] MEDS ORDERED: risperiDONE 1 MG TAB PO ONE (09:45)
[2018-03-29] MEDS ORDERED: SERTRALINE HCL 50 MG TAB PO ONE (09:45)
--- NOTE | 2018-03-29 12:02 | PD ---
Physical Exam Date Seen by Provider: March 29, 2018 Narrative 48y male with schizophrenia presents to the ED with Suicidal ideations. He was medically cleared to see psych and evaluated. There was an extensive discussion between [facility] and staff here at [facility] to allow him to return to the facility. Pt is cleared to go to [facility]. Discharged from the ED. Data Data Last Documented VS Vital Signs Date Time Temp Pulse Resp B/P (MAP) Pulse Ox O2 Delivery O2 Flow Rate FiO2 03/29/18 11:43 03/29/18 00:55 98.2 71 20 98 Room Air Orders Orders Complete Blood Count With Diff (03/28/18 14:54) Comprehensive Metabolic Panel (03/28/18 14:54) Psych Screen (03/28/18 14:54) Drug Screen, Random Urine (03/28/18 14:54) Alcohol (Ethanol) (03/28/18 14:54) Diet Regular Basic (03/28/18 Dinner) Risperidone (Risperdal) (03/28/18 18:45) Diphenhydramine (Benadryl) (03/28/18 18:45) Diet Regular Basic (03/29/18 Breakfast) Sertraline (Zoloft) (03/29/18 09:45) Risperidone (Risperdal) (03/29/18 09:45) Ed Discharge Order (03/29/18 12:02) Labs Laboratory Tests Test 03/28/18 14:45 03/29/18 06:28 White Blood Count 9.1 TH/MM3 Red Blood Count 4.71 MIL/MM3 Hemoglobin 14.1 GM/DL Hematocrit 41.2 % Mean Corpuscular Volume 87.4 FL Mean Corpuscular Hemoglobin 30.0 PG Mean Corpuscular Hemoglobin Concent 34.4 % Red Cell Distribution Width 14.1 % Platelet Count 344 TH/MM3 Mean Platelet Volume 7.7 FL Neutrophils (%) (Auto) 58.3 % Lymphocytes (%) (Auto) 31.6 % Monocytes (%) (Auto) 9.1 % Eosinophils (%) (Auto) 0.6 % Basophils (%) (Auto) 0.4 % Neutrophils # (Auto) 5.3 TH/MM3 Lymphocytes # (Auto) 2.9 TH/MM3 Monocytes # (Auto) 0.8 TH/MM3 Eosinophils # (Auto) 0.1 TH/MM3 Basophils # (Auto) 0.0 TH/MM3 CBC Comment DIFF FINAL Differential Comment Blood Urea Nitrogen 12 MG/DL Creatinine 0.82 MG/DL Random Glucose 93 MG/DL Total Protein 7.9 GM/DL Albumin 3.7 GM/DL Calcium Level 8.8 MG/DL Alkaline Phosphatase 100 U/L Aspartate Amino Transf (AST/SGOT) 15 U/L Alanine Aminotransferase (ALT/SGPT) 31 U/L Total Bilirubin 0.2 MG/DL Sodium Level 142 MEQ/L Potassium Level 3.4 MEQ/L Chloride Level 107 MEQ/L Carbon Dioxide Level 25.4 MEQ/L Anion Gap 10 MEQ/L Estimat Glomerular Filtration Rate 100 ML/MIN Ethyl Alcohol Level LESS THAN 3 MG/DL Urine Opiates Screen NEG Urine Barbiturates Screen NEG Urine Amphetamines Screen NEG Urine Benzodiazepines Screen NEG Urine Cocaine Screen POS Urine Cannabinoids Screen NEG MDM Supervised Visit with REENA: No Diagnosis Primary Impression: Paranoid schizophrenia Patient Instructions: General Instructions Departure Forms: Tests/Procedures Disposition: 03 DISCHARGE TO SNF Condition: Stable Shanice Mckeon March 29, 2018 12:02
== END 2018-03-29 12:19 ==
LOC: NEPJ 13:51
DX: F20.0 Paranoid schizophrenia (principal)
CPT/HCPCS: 80053; 80307; 85025; 99283; Q0163

== ENCOUNTER 2018-07-10 01:00 | Inpatient (IN) ==
--- NOTE | 2018-07-10 01:40 | ED ---
HPI General Chief complaint: Psychiatric Symptoms Stated complaint: psych eval Time Seen by Provider: 07/10/18 01:39 Source: patient and police Limitations: no limitations History of Present Illness HPI narrative: 48-year-old male presents emergency department for evaluation under [place] act. Patient states that he is having homicidal thoughts. States he has been under a lot of stress lately. He drove against traffic intentionally trying to harm somebody. Patient has no other symptoms to report. Related Data Home Medications Medication Instructions Recorded Confirmed No Known Home Medications 07/01/18 07/10/18 Allergies Allergy/AdvReac Type Severity Reaction Status Date / Time Fish Containing Products Allergy Severe Unverified 02/18/18 21:33 amoxicillin Allergy Unknown Unverified 02/18/18 21:33 Review of Systems ROS: all other systems reviewed are negative PMFSH History History Provided By: Patient Medical History Medical History Depression (Acute) Hx of schizophrenia (Acute) Surgical History Surgical History Hx of heart artery stent (Acute) Social History Social History Substance History: No History of Abuse Smoking Status: Current every day smoker Tobacco Type: Cigarettes How Often Do You Have a Drink Containing Alcohol: Never Recent Travel in [facility] within the Last 8 Weeks: No Recent Out of Country Travel within the Last 8 Weeks: No Exam Narrative Exam Narrative: GENERAL: Well-nourished male patient, in no acute distress SKIN: Focused skin assessment warm/dry. HEAD: Atraumatic. Normocephalic. EYES: Pupils equal and round. No scleral icterus. No injection or drainage. ENT: No nasal bleeding or discharge. Mucous membranes pink and moist. NECK: Trachea midline. No JVD. CARDIOVASCULAR: Regular rate and rhythm. No murmur appreciated. RESPIRATORY: No accessory muscle use. Clear to auscultation. Breath sounds equal bilaterally. GASTROINTESTINAL: Abdomen soft, non-tender, nondistended. Hepatic and splenic margins not palpable. MUSCULOSKELETAL: No obvious deformities. No clubbing. No cyanosis. No edema. NEUROLOGICAL: Awake and alert. No obvious cranial nerve deficits. Motor grossly within normal limits. Normal speech. Course Initial Documented Vital Signs Pulse Rate 83 09/08/18 01:40 Respiratory Rate 16 07/10/18 01:40 Blood Pressure 111/63 07/10/18 01:40 Pulse Oximetry 97 07/10/18 01:40 Last Documented Vital Signs Pulse Rate 83 07/10/18 01:40 Respiratory Rate 16 07/10/18 01:40 Blood Pressure 111/63 07/10/18 01:40 Pulse Oximetry 97 07/10/18 01:40 Medical Decision Making REENA Attestation REENA supervised visit: No MDM Narrative Medical decision making narrative: 48-year-old male presents emergency department for evaluation. Patient appears without distress. Vital signs are stable. He does report wanting to harm other people. Lab work is reviewed and without acute concern. He is medically cleared to undergo psychiatric screening for further evaluation and disposition. Mental health screening discussed with the patient. Psychiatric screen ordered. Medical Screen Exam Complete: Yes Emergency Medical Condition: Yes Differential Diagnosis Differential Diagnosis: Mood disorder versus personality disorder versus adjustment reaction disorder versus substance abuse Lab Data Lab results reviewed: Yes I reviewed the patient's lab results. Result diagrams: 07/10/18 01:50 07/10/18 01:50 Lab Results 07/10/18 07/10/18 Range/Units 01:50 01:50 WBC 8.2 (4.0-11.0) th/mm3 RBC 4.11 L (4.50-5.90) mil/mm3 Hgb 12.8 L (13.0-17.0) gm/dL Hct 35.9 L (39.0-51.0) % MCV 87.3 (80.0-100.0) fL MCH 31.1 (27.0-34.0) pg MCHC 35.7 (32.0-36.0) % RDW 13.6 (11.6-17.2) % Plt Count 311 (150-450) th/mm3 MPV 7.4 (7.0-11.0) fL Neut % (Auto) 44.3 (16.0-70.0) % Lymph % (Auto) 46.3 H (9.0-44.0) % [place] % (Auto) 7.4 (0.0-8.0) % Eos % (Auto) 1.5 (0.0-4.0) % Baso % (Auto) 0.5 (0.0-2.0) % Neut # (Auto) 3.6 (1.8-7.7) th/mm3 Lymph # (Auto) 3.8 (1.0-4.8) th/mm3 [place] # (Auto) 0.6 (0.0-0.9) th/mm3 Eos # (Auto) 0.1 (0.0-0.4) th/mm3 Baso # (Auto) 0.0 (0.0-0.2) th/mm3 WBC Differential . Differential Comment Auto diff final Sodium 143 (136-145) meq/L Potassium 3.7 (3.5-5.1) meq/L Chloride 108 H (98-107) meq/L Carbon Dioxide 25.7 (21.0-32.0) meq/L Anion Gap 9 (5-15) meq/L BUN 14 (7-18) mg/dL Creatinine 0.82 (0.60-1.30) mg/dL Estimated GFR Greater than 89 (>89) mL/min Random Glucose 95 (74-106) mg/dL Calcium 8.7 (8.5-10.1) mg/dL TSH 2.350 (0.358-3.740) uIU/mL Serum Alcohol Less than 3 (0-5) mg/dL Discharge Plan Discharge Disposition Patient Disposition: 30 Still Patient Discharge Condition Condition: Stable Discharge Details Diagnosis: Homicidal thoughts Physicians Team ED Provider: Keyla Scott ED Midlevel Provider: Miriam Arriaga Primary Care Provider: Primary Care Kelsey Pittman Rxs /Orders / Referrals /Forms Prescriptions: No Action No Known Home Medications RF: 0 Status ED Status: Medically Cleared
[2018-07-10 01:56] LABS: Baso % (Auto) 0.5 % (0.0-2.0); Eos # (Auto) 0.1 th/mm3 (0.0-0.4); Eos % (Auto) 1.5 % (0.0-4.0); Hematocrit 35.9 % (39.0-51.0); Hemoglobin 12.8 gm/dL (13.0-17.0); Lymph # (Auto) 3.8 th/mm3 (1.0-4.8); Lymph % (Auto) 46.3 % (9.0-44.0); Mean Corpuscular HGB Conc 35.7 % (32.0-36.0); Mean Corpuscular Hemoglobin 31.1 pg (27.0-34.0); Mean Corpuscular Volume 87.3 fL (80.0-100.0); Mean Platelet Volume 7.4 fL (7.0-11.0); Mono # (Auto) 0.6 th/mm3 (0.0-0.9); Mono % (Auto) 7.4 % (0.0-8.0); Neut # (Auto) 3.6 th/mm3 (1.8-7.7); Neut % (Auto) 44.3 % (16.0-70.0); Platelet Count 311 th/mm3 (150-450); Red Blood Count 4.11 mil/mm3 (4.50-5.90); Red Cell Distribution Width 13.6 % (11.6-17.2); White Blood Count 8.2 th/mm3 (4.0-11.0)
[2018-07-10 02:31] LABS: Anion Gap 9 meq/L (5-15); Blood Urea Nitrogen 14 mg/dL (7-18); Calcium 8.7 mg/dL (8.5-10.1); Carbon Dioxide 25.7 meq/L (21.0-32.0); Chloride 108 meq/L (98-107); Glomerular Filtration Rate Greater Than 89 mL/min (>89); Glucose,Random 95 mg/dL (74-106); Potassium 3.7 meq/L (3.5-5.1); Sodium 143 meq/L (136-145)
[2018-07-10 09:42] LABS: Amphetamine Screen,Urine Neg (Neg); Barbiturate Screen,Urine Neg (Neg); Cannabinoid Screen,Urine Neg (Neg)
[2018-07-10 09:47] LABS: Opiate Screen,Urine Neg (Neg)
[2018-07-10 09:48] LABS: Cocaine Screen,Urine Neg (Neg)
--- NOTE | 2018-07-11 09:57 | ED ---
HPI - Psych - General Source: patient, old records reviewed, police Mode of arrival: ambulatory Limitations: no limitations - History of Present Illness MD complaint: other (Auditory hallucinations) Onset (ago): day(s) Duration: intermittent History of same: Yes Relieving factors: none Exacerbating factors: other Context: not taking psychiatric medications Associated psychiatric symptoms: depression, homicidal ideation, auditory hallucinations Associated symptoms: denies other symptoms Treatments prior to arrival: none - General Chief Complaint: Psychiatric Symptoms Stated Complaint: psych eval Time Seen by Provider: 07/11/18 09:50 - History of Present Illness HPI Narrative: History of Present Illness HPI narrative: 48-year-old, single, homeless male with history of schizophrenia , previous hospitalizations at [facility], no previous suicide attempt, who presents emergency department for evaluation under [place] act initiated by law enforcement. The report alleges that Inderjit advised the police that he wished to hurt others due to how rough life has been recently. He also told firefighters before the police arrived that he was purposely going the wrong way on the roadway with intentions of harming someone. The patient was monitored in J pod. He had episodes of yelling loudly in response to hallucinations. He was medicated in the emergency department with Geodon and Benadryl. Patient reports he has been without any medication for the past month. Patient seen. Nurses notes reviewed. Record review. Patient's toxicology is negative. This morning the patient continues to endorse auditory hallucinations, non command type. Consisting of many different voices telling him many different things. Patient denies suicidal or homicidal ideation at this time. He appears withdrawn, very disheveled and unkempt. He has been without any psychiatric medication for the past month although he does tell me that he was at a treatment facility last month at [facility]. (Padmini Mac) - Related Data Home Medications Medication Instructions Recorded Confirmed No Known Home Medications 07/01/18 07/10/18 Allergies Allergy/AdvReac Type Severity Reaction Status Date / Time Fish Containing Products Allergy Severe Unverified 02/18/18 21:33 amoxicillin Allergy Unknown Unverified 02/18/18 21:33 PMFSH - History History Provided By: Patient - Medical History Medical History: Medical History (Last Reviewed 07/10/18 @ 04:57 by YANELIS Mayes) Depression Hx of schizophrenia - Surgical History Surgical History: Surgical History (Last Reviewed 07/10/18 @ 04:57 by YANELIS Mayes) Hx of heart artery stent - Tobacco History Tobacco Use In Past 30 Days: Yes Smoking Status: Current every day smoker Tobacco Type: Cigarettes - Alcohol History How Often Do You Have a Drink Containing Alcohol: Never - Substance Use History Substance History: No History of Abuse - Travel History Recent Travel in the [place] Within the Last 8 Weeks: No Recent Travel Out of the Country Within the Last 8 Weeks: No - Immunization History Tetanus Immunization: Unsure Hx Influenza Vaccine This Season: No Psychiatric History - Psychiatric History Psychiatric Treatment History: History of Psychiatric Treatment, History of Hospitalization in a Psychiatric Facility, History of Community Mental Health Treatment History of Inpatient Treatment: Yes Firearms in Home: No - Psychiatric History Patient has had multiple hospitalizations at [facility] psychiatry. His last hospitalization here was in 2018. Patient is currently not receiving outpatient psychiatric treatment. (Padmini Mac) Physical Exam - General Limitations: no limitations Mental Status Examination Appearance: Disheveled, Malodorous Consciousness: Alert Orientation: x4 Motor Activity: Normal gait Speech: Unremarkable Language: Adequate Fund of Knowledge: Adequate Attention and Concentration: Inadequate Memory: Unremarkable Mood: Sad Affect: Blunt Thought Process & Associations: Intact Thought Content: Hallucinations Hallucination Type: Auditory (Noncommand type at this time) Delusion Type: Paranoid (Suspicious of staff wanting to fight him) Suicidal Ideation: No Suicidal Plan: No Suicidal Intention: No Homicidal Ideation: No Homicidal Plan: No Homicidal Intention: No Insight: Poor Judgment: Impulsive Initial Documented Vital Signs Pulse Rate 83 07/10/18 01:40 Respiratory Rate 16 07/10/18 01:40 Blood Pressure 111/63 07/10/18 01:40 Pulse Oximetry 97 07/10/18 01:40 Last Documented Vital Signs Temperature 97.8 F 07/11/18 02:39 Pulse Rate 70 07/11/18 02:39 Respiratory Rate 16 07/11/18 02:39 Blood Pressure 97/54 L 07/11/18 02:39 Pulse Oximetry 97 07/11/18 02:39 MDM - Psych - Diagnosis (1) Schizophrenia Status: Acute - Lab Data Result diagrams: 07/10/18 01:50 07/10/18 01:50 - MDM Narrative Medical decision making narrative: 48-year-old male with history of schizophrenia, poor medication compliance, known to [facility] from prior admissions, who presents under Alatorre act, alleging that he was driving down on the wrong side of the roadway with intention of harming people. Patient also reporting increase in auditory hallucinations. Patient has not been caring for himself. At this time the patient meets criteria for inpatient psychiatric hospitalization for further evaluation, safety, and to initiate medications. (Padmini Mac) - Lab Data Lab Results 07/10/18 07/10/18 07/10/18 Range/Units 01:50 01:50 09:05 WBC 8.2 (4.0-11.0) th/mm3 RBC 4.11 L (4.50-5.90) mil/mm3 Hgb 12.8 L (13.0-17.0) gm/dL Hct 35.9 L (39.0-51.0) % MCV 87.3 (80.0-100.0) fL MCH 31.1 (27.0-34.0) pg MCHC 35.7 (32.0-36.0) % RDW 13.6 (11.6-17.2) % Plt Count 311 (150-450) th/mm3 MPV 7.4 (7.0-11.0) fL Neut % (Auto) 44.3 (16.0-70.0) % Lymph % (Auto) 46.3 H (9.0-44.0) % [place] % (Auto) 7.4 (0.0-8.0) % Eos % (Auto) 1.5 (0.0-4.0) % Baso % (Auto) 0.5 (0.0-2.0) % Neut # (Auto) 3.6 (1.8-7.7) th/mm3 Lymph # (Auto) 3.8 (1.0-4.8) th/mm3 [place] # (Auto) 0.6 (0.0-0.9) th/mm3 Eos # (Auto) 0.1 (0.0-0.4) th/mm3 Baso # (Auto) 0.0 (0.0-0.2) th/mm3 WBC Differential . Differential Comment Auto diff final Sodium 143 (136-145) meq/L Potassium 3.7 (3.5-5.1) meq/L Chloride 108 H (98-107) meq/L Carbon Dioxide 25.7 (21.0-32.0) meq/L Anion Gap 9 (5-15) meq/L BUN 14 (7-18) mg/dL Creatinine 0.82 (0.60-1.30) mg/dL Estimated GFR Greater than 89 (>89) mL/min Random Glucose 95 (74-106) mg/dL Calcium 8.7 (8.5-10.1) mg/dL TSH 2.350 (0.358-3.740) uIU/mL Urine Opiates Screen Neg (Neg) Ur Barbiturates Screen Neg (Neg) Ur Amphetamines Screen Neg (Neg) U Benzodiazepines Scrn Neg (Neg) Urine Cocaine Screen Neg (Neg) U Cannabinoids Screen Neg (Neg) Serum Alcohol Less than 3 (0-5) mg/dL
[2018-07-11] MEDS ORDERED: LORazepam 1 MG Tablet PO PRN (10:15)
[2018-07-11] MEDS ORDERED: Aluminum/Magnesium/Simethacone Susp 30 ML UDC PO PRN (10:15)
[2018-07-11] MEDS: Senna/Docusate Sodium 8.6/50 MG Tablet PO SCH (21:00)
[2018-07-12 09:17] LABS: Calcium 8.6 mg/dL (8.5-10.1); Carbon Dioxide 25.8 meq/L (21.0-32.0)
[2018-07-12 09:21] LABS: Chol/HDL Ratio 5.58 Ratio; HDL Cholesterol 37.8 mg/dL (40.0-60.0)
[2018-07-12] MEDS: Senna/Docusate Sodium 8.6/50 MG Tablet PO SCH ×2 (09:27→20:34)
[2018-07-12] MEDS ORDERED: Aluminum/Magnesium/Simethacone Susp 30 ML UDC PO PRN (15:10)
--- NOTE | 2018-07-12 15:17 | P.HPPSY ---
Provisional Diagnosis Admission Date: July 11, 2018 10:14 [place] I.: Schizophrenia chronic paranoid type Competence Certification of Person's Competence To Provide Express and Informed Consent I have personally examined Inderjit Byers, a person being served at [facility] on, July 12, 2018 1515. Express and informed consent means consent voluntarily given in writing, by a competent person, after sufficient explanation and disclosure of the subject matter involved to enable the person to make a knowing and willful decision without any element of force, fraud, deceit, duress, or other form of constraint or coercion. This person is 18 years of age or older, is not now known to be incompetent to consent to treatment with a guardian advocate, and does not have a health care surrogate or proxy currently making medical treatment decisions. I have found this person to be one of the following: [] Competent to provide express and informed consent, as defined above, for voluntary admission to this facility and is competent to provide express and informed consent for treatment. He/she has the consistent capacity to make well reasoned, willful, and knowing decisions concerning his or her medical or mental health treatment. The person fully and consistently understands the purpose of the admission for examination/placement and is fully capable of personally exercising all rights assured under [place] [] Incompetent to provide express and informed consent to voluntary admission, and this is incompetent to provide express and informed consent to treatment. The person must be transferred to involuntary status and a petition for a guardian advocate filed with the Circuit Court. [xx Refusing to provide express and informed consent to voluntary admission but is competent to provide express and informed consent for treatment. The person must be discharged or transferred to involuntary status. Form shall be completed within 24 hours of a person's arrival at the receiving facility and filed in the clinical record of each person: 1. Admitted on a voluntary basis 2. Permitted to provide express and informed consent to his/her own treatment 3. Allowed to transfer from involuntary to voluntary status 4. Prior to permitting a person to consent to his or her own treatment after having been previously found incompetent to consent to treatment. History of Present Illness Capacity: Lacks capacity (Patient lacks capacity for admission patient has capacity for medication) History of Present Illness: Patient is a 48-year-old white male comes here under Alatorre act by the [facility]'s office dated 07/10/2018 at 12:21 AM stating Inderjit advised law enforcement he wishes to hurt others due to his rough life has been recently Inderjit also told firefighters before our arrival that he was purposely going the wrong way on the roadway patient was seen screen in the ED urine toxicology negative. At the present time patient sitting quietly in his room with RN present throughout session. Patient did recognize me from prior contacts. States after he left here a few months ago he went to [facility] for a week or 2 has been homeless since then. Though he states she has been a Karan Marchman is been taking his injections though he is due for one now. He acknowledges increased auditory hallucinations of a command nature telling him to hurt himself and hurt people. He denies any alcohol or drug use related to this at this time patient is quite distracted with significant thought blocking. However he does wish to be compliant with medications. He does wish we could help him find another placement. Less we will restart his Resporal at 3 mg twice daily, and and the in Muhammad sustain a to 34 mg tomorrow - Inpatient Certification I certify that the inpatient services were ordered in accordance with Medicare regulations governing the order. This includes certification that hospital inpatient services are reasonable and necessary and in the case of services not specified as inpatient-only under 42 CFR 419.22(n), that they are appropriately provided as inpatient services in accordance to with the 2-midnight benchmark under 43 CFR 412.3(e) I certify that inpatient psychiatric hospital services are medically necessary. Evaluation and treatment and/or diagnostic testing are expected to improve the patient's condition. The patient needs on a daily basis, active treatment furnished directly by or requiring the supervision of inpatient psychiatric facility personnel. Estimated Total Length of Stay (Days): 5 Plans for Post Hospital Care: Not yet determined Review of Systems All other systems reviewed negative except as stated in HPI [facility] - History History Provided By: Patient - Medical History Medical History: Medical History (Last Reviewed 07/10/18 @ 04:57 by YANELIS Mayes) Depression Hx of schizophrenia - Surgical History Surgical History: Surgical History (Last Reviewed 07/10/18 @ 04:57 by YANELIS Mayes) Hx of heart artery stent - Tobacco History Second Hand Smoke Exposure: No Tobacco Use In Past 30 Days: Yes Smoking Status: Current every day smoker Tobacco Type: Cigarettes - Alcohol History How Often Do You Have a Drink Containing Alcohol: Never - Substance Use History Substance History: No History of Abuse - Travel History Recent Travel in the USA Within the Last 8 Weeks: No Recent Travel Out of the Country Within the Last 8 Weeks: No - Immunization History Tetanus Immunization: Unsure Hx Influenza Vaccine This Season: No Quality Measures - Psychiatric History Psychological trauma history: Patient denies at this time Violence risk to others in the last 6 months: Patient has had thoughts of harming others Violence risk to self in the last 6 months: He has had auditory hallucinations and thoughts of running his bicycle into traffic - Substance Abuse History Drug or alcohol use in the past 12 months: Patient denies - Patient Strengths Patient's strengths (minimum of 2): Patient verbal able access healthcare Medications and Allergies Active Medications: Active Medications Al Hydrox/Mg Hydrox/Simethicone (Mag-Al Plus Susp Liq) 30 ml PO Q6H PRN PRN Reason: DYSPEPSIA Al Hydrox/Mg Hydrox/Simethicone (Mag-Al Plus Susp Liq) 30 ml PO Q6H PRN PRN Reason: DYSPEPSIA Al Hydroxide/Mg Hydroxide (Milk Of Magnesia Liq) 30 ml PO Q12H PRN PRN Reason: Mild Constipation Al Hydroxide/Mg Hydroxide (Milk Of Magnesia Liq) 30 ml PO Q12H PRN PRN Reason: Mild Constipation Hydroxyzine HCl (Atarax) 50 mg PO Q6H PRN PRN Reason: ANXIETY Nicotine (Habitrol 21 Mg Patch.24 Hr) 1 patch T-DERMAL DAILY [facility] Senna/Docusate Sodium (Priti-Colace) 1 tab PO BID [facility] Last Admin: 07/12/18 09:27 Dose: 1 tab Allergies Allergy/AdvReac Type Severity Reaction Status Date / Time Fish Containing Products Allergy Severe Unverified 02/18/18 21:33 amoxicillin Allergy Unknown Unverified 02/18/18 21:33 Home Medications Medication Instructions Recorded Confirmed Type Risperdal 3 mg PO BID 07/11/18 07/11/18 History Results - Labs CBC & Chem 7: 07/10/18 01:50 07/12/18 08:03 Labs: Laboratory Results - last 24 hr 07/12/18 08:03 Sodium 140 Potassium 4.0 Chloride 107 Carbon Dioxide 25.8 Anion Gap 7 BUN 14 Creatinine 0.94 Estimated GFR 86 L Random Glucose 130 H Calcium 8.6 Triglycerides 150 Cholesterol 211 H LDL Cholesterol, Calc 143 H HDL Cholesterol 37.8 L Cholesterol/HDL Ratio 5.58 Exam Vital signs: Vital Signs 07/12/18 06:06 Pulse Rate 86 Respiratory Rate 18 Blood Pressure 110/69 Pulse Oximetry 94 L Intake & Output 07/11/18 07/12/18 07/12/18 18:59 06:59 18:59 Intake Total 360 / 360 Balance 360 / 360 Weight 91.9 kg 91.9 kg Intake: Oral 360 / 360 Other: Weight On Admission 91.9 kg Narrative: Patient seen sitting quietly in his room with nurse Daniella, patient no acute distress, patient no complaints of chest pain or abdominal pain patient in no respiratory distress. Patient moving all 4 extremities without difficulty Mental Status Examination Appearance: Disheveled, Malodorous Consciousness: Alert Orientation: x4 Motor Activity: Normal gait Speech: Unremarkable Language: Adequate Fund of Knowledge: Adequate Attention and Concentration: Inadequate Memory: Unremarkable Mood: Sad Affect: Other (Decreased range and intensity) Thought Process & Associations: Intact Thought Content: Hallucinations Hallucination Type: Auditory (Noncommand type at this time) Delusion Type: Paranoid (Suspicious of staff wanting to fight him) Suicidal Ideation: No Suicidal Plan: No Suicidal Intention: No Homicidal Ideation: No Homicidal Plan: No Homicidal Intention: No Insight: Poor Judgment: Impulsive Assessment and Plan - Assessment (1) Schizophrenia Code(s): F20.9 - Schizophrenia, unspecified Status: Acute - Plan Plan: Estimated LOS: 5 [] days Patient meets criteria for involuntary psychiatric hospitalization of the Alatorre act I will do first opinion request second opinion. I feel he does have capacity low to sign for medication and treatment. We will restart him on his Resporal 3 mg twice daily and offer him in Muhammad sustain a to 34 mg IM tomorrow we will have counselor work with finding this gentleman a placement [facility] Justification for Continued Inpatient Stay: At this time patient would decompensate a place to the lower level of care Discharge Planning: To be determined Request Healthcare Surrogate/Guardian Advocate?: No
[2018-07-12 15:42] LABS: Hemoglobin A1c 5.6 % (4.3-6.0)
--- NOTE | 2018-07-12 16:24 | ECG ---
Date Performed: 07/12/2018 Time Performed: 10:33:08 PTAGE: 48 years EKG: Sinus rhythm NORMAL ECG PREVIOUS TRACING : 09/02/2017 06.57 DOCTOR: Vitaly Meza Interpretating Date/Time 07/12/2018 16:24:20
[2018-07-13] MEDS ORDERED: Paliperidone Inj 234 MG/1.5 ML Syringe IM SCH (08:00)
--- NOTE | 2018-07-13 08:31 | P.CONPSY ---
Provisional Diagnosis Admission Date: July 11, 2018 10:14 [place] I.: 1. Schizophrenia, paranoid type [place] II.: Deferred History of Present Illness Service: Psychiatry Consult date: 07/13/18 Requesting Physician: Cody Elder Reason for Consult: Second opinion for involuntary psychiatric hospitalization Primary Care Provider: No Primary Care Physician History of Present Illness: From Dr. Elder's H&P: Patient is a 48-year-old white male comes here under Alatorre act by the [facility]'s office dated 07/10/2018 at 12:21 AM stating Inderjit advised law enforcement he wishes to hurt others due to his rough life has been recently Inderjit also told firefighters before our arrival that he was purposely going the wrong way on the roadway patient was seen screen in the ED urine toxicology negative. At the present time patient sitting quietly in his room with RN present throughout session. Patient did recognize me from prior contacts. States after he left here a few months ago he went to [facility] for a week or 2 has been homeless since then. Though he states she has been a Karan Marchman is been taking his injections though he is due for one now. He acknowledges increased auditory hallucinations of a command nature telling him to hurt himself and hurt people. He denies any alcohol or drug use related to this at this time patient is quite distracted with significant thought blocking. However he does wish to be compliant with medications. He does wish we could help him find another placement. Less we will restart his Resporal at 3 mg twice daily, and and the in Muhammad sustain a to 34 mg tomorrow On my examination today, 07/13: Patient seen and examined. Chart reviewed. Case discussed with staff. On my examination today, the patient endorses vague suicidal ideation. He says that he is "trying to work through my thoughts." He denies any audiovisual hallucinations. He says that he has been off of his medications for the last week and a half and "everything has been building up." He says that he has not been sleeping well and has been feeling "full of rage." No renaldo delusional material. No hypomanic or manic symptoms. Affect is fairly flat. Remainder of the psychiatric ROS is negative. No acute physical complaints. Past psychiatric history: The patient has a history of schizophrenia. He says that he has not followed up with outpatient psychiatrist because "it is hard to do." Most recent psychiatric admission was reportedly here at [place]. He denies a history of suicide attempts. Family history: The patient reports that he was adopted. Chemical dependency history: Patient denies any abuse of drugs or alcohol. Social history: The patient says that he has been homeless for 4 years. He says that he was "exceptional" when he was in school. He is . He has no children. Denies any history. Denies any access to guns or firearms. Review of Systems All other systems reviewed negative except as stated in HPI [facility] - History History Provided By: Patient - Medical History Medical History: Medical History (Last Reviewed 07/10/18 @ 04:57 by YANELIS Mayes) Depression Hx of schizophrenia - Surgical History Surgical History: Surgical History (Last Reviewed 07/10/18 @ 04:57 by YANELIS Mayes) Hx of heart artery stent - Tobacco History Second Hand Smoke Exposure: No Tobacco Use In Past 30 Days: Yes Smoking Status: Current every day smoker Tobacco Type: Cigarettes - Alcohol History How Often Do You Have a Drink Containing Alcohol: Never - Substance Use History Substance History: No History of Abuse - Travel History Recent Travel in the USA Within the Last 8 Weeks: No Recent Travel Out of the Country Within the Last 8 Weeks: No - Immunization History Tetanus Immunization: Unsure Hx Influenza Vaccine This Season: No Medications and Allergies Active Medications: Active Medications Al Hydrox/Mg Hydrox/Simethicone (Mag-Al Plus Susp Liq) 30 ml PO Q6H PRN PRN Reason: DYSPEPSIA Al Hydroxide/Mg Hydroxide (Milk Of Magnesia Liq) 30 ml PO Q12H PRN PRN Reason: Mild Constipation Hydroxyzine HCl (Atarax) 50 mg PO Q6H PRN PRN Reason: ANXIETY Last Admin: 07/12/18 21:45 Dose: 50 mg Nicotine (Habitrol 21 Mg Patch.24 Hr) 1 patch T-DERMAL DAILY [facility] Last Admin: 07/12/18 15:45 Dose: 1 patch Paliperidone Palmitate (Invega Sustenna Inj) 234 mg IM Q28D [facility] Patch Removal (Remove Old Patch) 0 each T-DERMAL HS [facility] Last Admin: 07/12/18 21:45 Dose: 1 each Risperidone (Risperdal) 3 mg PO BID [facility] Last Admin: 07/12/18 20:34 Dose: 3 mg Senna/Docusate Sodium (Priti-Colace) 1 tab PO BID [facility] Last Admin: 07/12/18 20:34 Dose: 1 tab Allergies Allergy/AdvReac Type Severity Reaction Status Date / Time Fish Containing Products Allergy Severe Hives Verified 07/12/18 20:39 Home Medications Medication Instructions Recorded Confirmed Type Risperdal 3 mg PO BID 07/11/18 07/11/18 History Exam Vital signs: Vital Signs 07/12/18 18:36 07/13/18 06:15 Temperature 88 F L 97.6 F Pulse Rate 88 76 Respiratory Rate 18 16 Blood Pressure 108/51 L 138/62 Pulse Oximetry 94 L 95 Intake & Output 07/12/18 07/13/18 07/13/18 18:59 06:59 18:59 Intake Total 840 / 840 Balance 840 / 840 Intake: Oral 840 / 840 Narrative: Physical examination was completed by the ED provider. On my examination today , the patient appears to be in no acute physical distress. No motor abnormalities noted. Labs and vital signs reviewed: Laboratory Tests 07/10/18 07/10/18 07/10/18 01:50 01:50 09:05 WBC 8.2 Hgb 12.8 L Plt Count 311 Sodium Potassium Chloride Carbon Dioxide BUN Creatinine Estimated GFR Random Glucose Hemoglobin A1c TSH 2.350 Urine Opiates Screen Neg Ur Barbiturates Screen Neg Ur Amphetamines Screen Neg U Benzodiazepines Scrn Neg Urine Cocaine Screen Neg U Cannabinoids Screen Neg Serum Alcohol Less than 3 07/12/18 07/12/18 08:03 08:03 WBC Hgb Plt Count Sodium 140 Potassium 4.0 Chloride 107 Carbon Dioxide 25.8 BUN 14 Creatinine 0.94 Estimated GFR 86 L Random Glucose 130 H Hemoglobin A1c 5.6 TSH Urine Opiates Screen Ur Barbiturates Screen Ur Amphetamines Screen U Benzodiazepines Scrn Urine Cocaine Screen U Cannabinoids Screen Serum Alcohol Mental Status Examination Appearance: Disheveled Consciousness: Alert Orientation: Person, Place (At least) Motor Activity: Other (No motor abnormalities noted) Speech: Unremarkable Language: Adequate Fund of Knowledge: Adequate Attention and Concentration: Adequate Memory: Unremarkable (Grossly intact on clinical exam) Mood: Other (Dysphoric) Affect: Flat Thought Process & Associations: Intact Thought Content: Preoccupations Hallucination Type: None Delusion Type: None Suicidal Ideation: Yes Suicidal Plan: No Suicidal Intention: No Homicidal Ideation: No Homicidal Plan: No Homicidal Intention: No Insight: Poor Judgment: Impulsive Assessment and Plan - Assessment (1) Schizophrenia Code(s): F20.9 - Schizophrenia, unspecified Status: Acute - Plan Plan: Given the circumstances of the patient's presentation here and his presentation on my examination today, I concur with Dr. Elder that the patient meets criteria for involuntary psychiatric hospitalization under the Alatorre act. Main concern here is for potential risk of harm to self. I have completed the second opinion paperwork. Further care as per Dr. Elder. Thank you very much for this consultation. Signing off. Justification for Continued Inpatient Stay: Per Dr. Elder. Request Healthcare Surrogate/Guardian Advocate?: No (1) Schizophrenia Qualifiers: Schizophrenia type: paranoid schizophrenia Qualified Code(s): F20.0 - Paranoid schizophrenia
[2018-07-13] MEDS: Senna/Docusate Sodium 8.6/50 MG Tablet PO SCH ×2 (10:13→20:40)
--- NOTE | 2018-07-13 12:54 | P.PNPSY ---
Subjective Remarks: Patient seen in his room with nurse past, chart reviewed, patient compliant medication. Patient took his Muhammad sustain injection today without difficulty. Patient is appreciative with the efficiency of our getting him medicated and the injection. He denies voices at the present time does deny suicidality at this time. It appears patient does not have a placement at this time we will have her counselor work with the patient to find placement. For now continue treatment Review of Systems All other systems reviewed negative except as stated in HPI Mental Status Examination Appearance: Disheveled, Malodorous Consciousness: Alert Orientation: x4 Motor Activity: Normal gait Speech: Unremarkable Language: Adequate Fund of Knowledge: Adequate Attention and Concentration: Inadequate Memory: Unremarkable Mood: Sad Affect: Other (Decreased range and intensity) Thought Process & Associations: Intact Thought Content: Hallucinations Hallucination Type: Auditory (Noncommand type at this time) Delusion Type: Paranoid (Suspicious of staff wanting to fight him) Suicidal Ideation: No Suicidal Plan: No Suicidal Intention: No Homicidal Ideation: No Homicidal Plan: No Homicidal Intention: No Insight: Poor Judgment: Impulsive Assessment and Plan - Assessment (1) Schizophrenia Code(s): F20.9 - Schizophrenia, unspecified Status: Acute - Plan Plan: Patient remained psychotic though the auditory hallucinations seem to have diminished he is still somewhat vigilant and isolating. For now continue treatment Justification for Continued Inpatient Stay: At this time patient would decompensate if placed in a lower level of care Discharge Planning: To be determined Request Healthcare Surrogate/Guardian Advocate?: No
--- NOTE | 2018-07-13 15:10 | P.TTN ---
- Patient Problems Problems: 1. Discharge planning 2. Medication compliance 3. Knowledge deficit 4. Lack of coping skills - Progress Toward Goals Provider Present: Dr. Marlon Elder Provider Input: medication being titrated , still in need for further stabilization Nurse Input: per charge nurse meets criteria Psychiatric Counselors Present: Concepción Sanchez LCSW Psychiatric Therapist Input: is homeless and needs stable housing, has a long term care phlebotomist Elidia with [facility] [phone] left her VM in reference to patient and update for placement for the patient , faxed notes to [facility] for referral for [facility]. Group Spec/RT/OT/HERNANDEZ Present: MARY Hobson (attends most groups ) - Documentation Teaching Recipient: Patient
[2018-07-14] MEDS: Senna/Docusate Sodium 8.6/50 MG Tablet PO SCH ×2 (09:31→21:03)
--- NOTE | 2018-07-14 09:49 | P.TTN ---
- Patient Problems Problems: 1. Discharge planning 2. Medication compliance 3. Knowledge deficit 4. Lack of coping skills - Progress Toward Goals Provider Present: Dr. Marlon Elder Provider Input: 07/14 still titrating meds, appears getting better. medication being titrated , still in need for further stabilization Nurse Input: per charge nurse meets criteria Psychiatric Counselors Present: Concepción Sanchez LCSW (07/14 still somewhat manic, rapid thoughts, confused and easily overwhelmed, helpless and homeless ) Psychiatric Therapist Input: is homeless and needs stable housing, has a date night caregiver Elidia with [facility] [phone] left her VM in reference to patient and update for placement for the patient , faxed notes to [facility] for referral for [facility]. Group Spec/RT/OT/HERNANDEZ Present: MARY Hobson (attends most groups ) Group Spec/RT/OT/HERNANDEZ Input: 07/14 attends some or most groups and is social at times, at times aggitated - Documentation Teaching Recipient: Patient
--- NOTE | 2018-07-14 15:01 | P.PNPSY ---
Subjective Remarks: Patient seen in his room with floor staff, chart reviewed, patient discussed with nurse. Patient calm cooperative has been compliant with his medication he now denies voices denies suicidality this is feeling better. However he still remains homeless and at times somewhat volatile. For now continue treatment we will work with counselor over the next 1-2 days related to placement Mental Status Examination Appearance: Disheveled Consciousness: Alert Orientation: Person, Place (At least) Motor Activity: Other (No motor abnormalities noted) Speech: Unremarkable Language: Adequate Fund of Knowledge: Adequate Attention and Concentration: Adequate Memory: Unremarkable (Grossly intact on clinical exam) Mood: Other (Dysphoric) Affect: Flat Thought Process & Associations: Intact Thought Content: Preoccupations (Decreased) Hallucination Type: None Delusion Type: None Suicidal Ideation: Yes (Now denies) Suicidal Plan: No Suicidal Intention: No Homicidal Ideation: No Homicidal Plan: No Homicidal Intention: No Insight: Fair Judgment: Impulsive Assessment and Plan - Assessment (1) Schizophrenia Code(s): F20.9 - Schizophrenia, unspecified Status: Acute - Plan Plan: Patient's psychosis is resolving, is becoming compliant with medications. For now will lift Alatorre act low patient signed voluntary Justification for Continued Inpatient Stay: At this time patient would decompensate if placed in a lower level of care Discharge Planning: To be determined Request Healthcare Surrogate/Guardian Advocate?: No (1) Schizophrenia Qualifiers: Schizophrenia type: paranoid schizophrenia Qualified Code(s): F20.0 - Paranoid schizophrenia
[2018-07-14 18:31] VITALS: RESP 16
[2018-07-15] MEDS: Senna/Docusate Sodium 8.6/50 MG Tablet PO SCH ×2 (10:15→21:51)
--- NOTE | 2018-07-15 12:04 | P.PNPSY ---
Subjective Remarks: Patient seen in the oliva with nurse Luba. Chart reviewed. Patient compliant medication. Patient overall calm cooperative. The staff notes that patient initiated brief episode of increased psychosis. The state. It would come from her dream yelling "u not the castañeda urine off the pole" at this time he is calm cooperative and pleasant. Continue to work on placement issues. Review of Systems All other systems reviewed negative except as stated in HPI Mental Status Examination Appearance: Disheveled Consciousness: Alert Orientation: Person, Place (At least) Motor Activity: Other (No motor abnormalities noted) Speech: Unremarkable Language: Adequate Fund of Knowledge: Adequate Attention and Concentration: Adequate Memory: Unremarkable (Grossly intact on clinical exam) Mood: Other (Dysphoric) Affect: Flat Thought Process & Associations: Intact Thought Content: Preoccupations (Decreased) Hallucination Type: None Delusion Type: None Suicidal Ideation: Yes (Now denies) Suicidal Plan: No Suicidal Intention: No Homicidal Ideation: No Homicidal Plan: No Homicidal Intention: No Insight: Fair Judgment: Impulsive Assessment and Plan - Assessment (1) Schizophrenia Code(s): F20.9 - Schizophrenia, unspecified Status: Acute - Plan Plan: Patient continues psychotic paranoid though somewhat softer. Justification for Continued Inpatient Stay: At this time patient would decompensate a place to a lower level of care Discharge Planning: To be determined Request Healthcare Surrogate/Guardian Advocate?: No (1) Schizophrenia Qualifiers: Schizophrenia type: paranoid schizophrenia Qualified Code(s): F20.0 - Paranoid schizophrenia
[2018-07-16 06:09] VITALS: BP 91/41; PULSE 63; TEMP 97.4; O2SAT 92
[2018-07-16] MEDS: Senna/Docusate Sodium 8.6/50 MG Tablet PO SCH (10:17)
--- NOTE | 2018-07-16 14:17 | P.DSPSY ---
Psychiatry Discharge Summary Inpatient Psychiatric care?: Yes Advance Directives: No Mental Health Advance Directive: No Health Care Proxy: No - Admission Admission Date: July 11, 2018 10:14 - Admission Diagnosis (1) Schizophrenia Code(s): F20.9 - Schizophrenia, unspecified Brief History: Patient is a 48-year-old white male comes here under Alatorre act by the [facility]'s office dated 07/10/2018 at 12:21 AM stating Inderjit advised law enforcement he wishes to hurt others due to his rough life has been recently Inderjit also told firefighters before our arrival that he was purposely going the wrong way on the roadway patient was seen screen in the ED urine toxicology negative. At the present time patient sitting quietly in his room with RN present throughout session. Patient did recognize me from prior contacts. States after he left here a few months ago he went to [facility] for a week or 2 has been homeless since then. Though he states she has been a Karan Marchman is been taking his injections though he is due for one now. He acknowledges increased auditory hallucinations of a command nature telling him to hurt himself and hurt people. He denies any alcohol or drug use related to this at this time patient is quite distracted with significant thought blocking. However he does wish to be compliant with medications. He does wish we could help him find another placement. Less we will restart his Resporal at 3 mg twice daily, and and the in Muhammad sustain a to 34 mg tomorrow Tobacco Use In Past 30 Days: Yes How Often Do You Have a Drink Containing Alcohol: Never Hospital Course: Patient's hospital course was uneventful he showed compliance with medication from day 1. He did not interact significantly with the milieu. He spent much time in his room. The voices have now gone. He denies suicidality homicidality voice or visions. Patient has signed an MARY R. Patient is essentially homeless he is aware of this I have offered him to extend his length of stay on a voluntary basis to work with placement issues with him he declined saying that he has his bicycle and he wishes to take care of himself. At this time but there is no indication of indication for an involuntary placement of a Alatorre act. Thus patient will be discharged to himself with Rx 1 month follow-up Karan Randle act - Discharge Discharge Date: 07/16/18 - Discharge Diagnosis (1) Schizophrenia Code(s): F20.9 - Schizophrenia, unspecified Status: Acute Discharge Disposition: Patient discharge Per ROR homeless - Discharge Instructions Discharge Diet: Regular Diet Activities You Can Perform: Regular- No Restrictions - Discharge Time > 30 minutes Mental Status Examination Appearance: Disheveled Consciousness: Alert Orientation: Person, Place (At least) Motor Activity: Other (No motor abnormalities noted) Speech: Unremarkable Language: Adequate Fund of Knowledge: Adequate Attention and Concentration: Adequate Memory: Unremarkable (Grossly intact on clinical exam) Mood: Other (Dysphoric) Affect: Flat Thought Process & Associations: Intact Thought Content: Preoccupations (Decreased) Hallucination Type: None Delusion Type: None Suicidal Ideation: Yes (Now denies) Suicidal Plan: No Suicidal Intention: No Homicidal Ideation: No Homicidal Plan: No Homicidal Intention: No Insight: Fair Judgment: Impulsive Discharge/Advance Care Plan - Results Vital Signs: Last Vital Signs Temp 97.4 F L 07/16/18 06:07 Pulse 63 07/16/18 06:07 Resp 16 07/16/18 06:07 BP 91/41 L 07/16/18 06:07 Pulse Ox 92 L 07/16/18 06:07 Lab Results: Laboratory Results Hemoglobin A1c 5.6 % (4.3-6.0) 07/12/18 08:03 Triglycerides 150 mg/dL (42-150) 07/12/18 08:03 Cholesterol 211 mg/dL (120-200) H 07/12/18 08:03 LDL Cholesterol, Calc 143 mg/dL (0-99) H 07/12/18 08:03 HDL Cholesterol 37.8 mg/dL (40.0-60.0) L 07/12/18 08:03 TSH 2.350 uIU/mL (0.358-3.740) 07/10/18 01:50 Summary of Procedures: None done Pending Results: None - Medications Number of antipsychotic medications at discharge: 1 - Discharge Care Plan Goals to Promote Your Health: * To prevent worsening of your condition and complications * To maintain your health at the optimal level Directions to Meet Your Goals: Take your medications as prescribed Follow your dietary instruction Follow activity as directed Keep your appointments as scheduled Take your immunizations and boosters as scheduled If your symptoms worsen call your PCP, if no PCP go to Urgent Care Center or Emergency Room For 25/05 questions related to your inpatient stay or results of tests pending at discharge, please contact Dr. Cody Elder MD at Smoking is Dangerous to Your Health. Avoid second hand smoking (1) Schizophrenia Qualifiers: Schizophrenia type: paranoid schizophrenia Qualified Code(s): F20.0 - Paranoid schizophrenia (1) Schizophrenia Qualifiers: Schizophrenia type: paranoid schizophrenia Qualified Code(s): F20.0 - Paranoid schizophrenia
== END 2018-07-16 15:30 | disposition home or self-care (01) ==
LOC: NEPD 01:00 → NEDA 07-11 10:14 → H260 07-11 10:59
PROVIDERS: ADMIT Psychiatry & Neurology Psychiatry; ATTEND Psychiatry & Neurology Psychiatry

== ENCOUNTER 2018-07-19 06:45 | Inpatient (IN) ==
--- NOTE | 2018-07-19 07:48 | ED ---
HPI General Chief Complaint: Psychiatric Symptoms Stated Complaint: psych screen/OBPD Time Seen by Provider: 07/19/18 07:29 Source: patient Mode of arrival: other (ELSI) Limitations: no limitations History of Present Illness HPI Narrative: 48y homeless male with history of schizophrenia, well known to this department for similar episodes, presents to the emergency department for evaluation as a Alatorre act for suicidal ideations. He states about 2 hours ago he began feeling "emotional" and started thinking about loved ones. He says that he would lay on the street to be run over in order to kill himself. Patient states he did not start his medication that he was discharged with a couple of days ago because he lost it at the bus stop. He says that he has an appointment with Karan Randle today at 1130 for evaluation and treatment. He denies fevers or chills. Says he is mild headache otherwise no complaints. He denies illicit drug use or alcohol use. MD complaint: suicidal ideation and feels depressed Onset (ago): hour(s) Duration: constant History of same: Yes Relieving factors: medication Associated psychiatric symptoms: auditory hallucinations Associated symptoms: denies other symptoms If self harm: admits thoughts of self harm and has plan Related Data Previous Rx's Medication Instructions Recorded paliperidone palmitate [Invega 234 mg IM Q28D #1 ml 07/16/18 Sustenna] risperidone [Risperdal] 3 mg PO BID #60 tab 07/16/18 Allergies Allergy/AdvReac Type Severity Reaction Status Date / Time Fish Containing Products Allergy Severe Hives Verified 07/12/18 20:39 Review of Systems ROS: all other systems reviewed are negative PMFSH History History Provided By: Patient Medical History Medical History Depression (Acute) Hx of schizophrenia (Acute) Surgical History Surgical History Hx of heart artery stent (Acute) Social History Social History Substance History: No History of Abuse Second Hand Smoke Exposure: Yes Smoking Status: Heavy tobacco smoker Tobacco Type: Cigarettes How Often Do You Have a Drink Containing Alcohol: 4 or more times a week Recent Travel in [place] within the Last 8 Weeks: No Recent Out of Country Travel within the Last 8 Weeks: No Exam Narrative Exam Narrative: GENERAL: Well-developed, well-nourished in no apparent distress , appears sad SKIN: Focused skin assessment warm/dry. HEAD: Atraumatic. Normocephalic. EYES: Pupils equal and round. No scleral icterus. No injection or drainage. ENT: No nasal bleeding or discharge. Mucous membranes pink and moist. NECK: Trachea midline. No JVD. CARDIOVASCULAR: Regular rate and rhythm. No murmur appreciated. RESPIRATORY: No accessory muscle use. Clear to auscultation. Breath sounds equal bilaterally. GASTROINTESTINAL: Abdomen soft, non-tender, nondistended. Hepatic and splenic margins not palpable. no CVAT MUSCULOSKELETAL: No obvious deformities. No clubbing. No cyanosis. No edema. NEUROLOGICAL: Awake and alert. No obvious cranial nerve deficits. Motor grossly within normal limits. Normal speech. PSYCHIATRIC: Depressed mood and flat affect Course Initial Documented Vital Signs Temperature 97.8 F 07/19/18 07:17 Pulse Rate 74 07/19/18 07:17 Respiratory Rate 18 07/19/18 07:17 Blood Pressure 110/60 07/19/18 07:17 Pulse Oximetry 98 07/19/18 07:17 Last Documented Vital Signs Temperature 97.8 F 07/19/18 15:54 Pulse Rate 63 07/20/18 06:34 Respiratory Rate 16 07/20/18 06:34 Blood Pressure 99/60 L 07/20/18 06:34 Pulse Oximetry 100 07/20/18 06:34 Medical Decision Making MDM Narrative Medical decision making narrative: 48-year-old male with a history of schizophrenia and depression presents to the emergency department as a Alatorre act. His vital signs are stable. Physical exam findings unremarkable. Patient was discharged just a couple of days ago after a 3 day admission for psych evaluation. At the time, he chose to be discharged as his hallucinations and suicidal ideations resolved at that time. Upon my evaluation and discussion with the nurses, I believe that patient could be medically cleared without labs. He admits to medication noncompliance as he said he lost the prescription and his bus stop. He said he tried to recover it however, was unsuccessful. He also states he has an appointment with Karan Randle at 1130. I believe his insight and judgment are fairly reasonable at this point given the information he has given me. I do not feel he requires any treatment or further testing from an ED standpoint. He is medically cleared to see psych. Medical Screen Exam Complete: Yes Emergency Medical Condition: Yes Differential Diagnosis Differential Diagnosis: Suicidal ideations, medication noncompliance, adjustment disorder, malingering Lab Data Lab Results 07/19/18 Range/Units 16:10 Urine Opiates Screen Neg (Neg) Ur Barbiturates Screen Neg (Neg) Ur Amphetamines Screen Neg (Neg) U Benzodiazepines Scrn Neg (Neg) Urine Cocaine Screen Neg (Neg) U Cannabinoids Screen Neg (Neg) Discharge Plan Discharge Disposition Patient Disposition: 30 Still Patient Discharge Condition Condition: Stable Discharge Details Diagnosis: Non compliance w medication regimen, Suicidal ideation, Depressed mood Physicians Team ED Provider: Aster Hester ED Midlevel Provider: Shanice Mckeon Primary Care Provider: Primary Care Kelsey Pittman Attending Provider: Cody Elder Other Providers: Cody Elder Status ED Status: Admitted Patient
[2018-07-19 18:10] LABS: Amphetamine Screen,Urine Neg (Neg); Barbiturate Screen,Urine Neg (Neg); Cannabinoid Screen,Urine Neg (Neg); Cocaine Screen,Urine Neg (Neg)
[2018-07-19 18:23] LABS: Opiate Screen,Urine Neg (Neg)
[2018-07-20] MEDS ORDERED: Bisacodyl 10 MG Supp RECTAL PRN (15:09)
[2018-07-20] MEDS ORDERED: Aluminum/Magnesium/Simethacone Susp 30 ML UDC PO PRN (15:09)
--- NOTE | 2018-07-20 15:18 | P.HPPSY ---
Provisional Diagnosis Admission Date: July 19, 2018 06:45 Dunsmuir I.: Schizophrenia Dunsmuir II.: Deferred Dunsmuir III.: Diabetes Competence Certification of Person's Competence To Provide Express and Informed Consent I have personally examined Inderjit Byers, a person being served at [facility] on, July 20, 2018 1517. Express and informed consent means consent voluntarily given in writing, by a competent person, after sufficient explanation and disclosure of the subject matter involved to enable the person to make a knowing and willful decision without any element of force, fraud, deceit, duress, or other form of constraint or coercion. This person is 18 years of age or older, is not now known to be incompetent to consent to treatment with a guardian advocate, and does not have a health care surrogate or proxy currently making medical treatment decisions. I have found this person to be one of the following: [] Competent to provide express and informed consent, as defined above, for voluntary admission to this facility and is competent to provide express and informed consent for treatment. He/she has the consistent capacity to make well reasoned, willful, and knowing decisions concerning his or her medical or mental health treatment. The person fully and consistently understands the purpose of the admission for examination/placement and is fully capable of personally exercising all rights assured [place] Incompetent to provide express and informed consent to voluntary admission, and this is incompetent to provide express and informed consent to treatment. The person must be transferred to involuntary status and a petition for a guardian advocate filed with the Circuit Court. [x] Refusing to provide express and informed consent to voluntary admission but is competent to provide express and informed consent for treatment. The person must be discharged or transferred to involuntary status. Form shall be completed within 24 hours of a person's arrival at the receiving facility and filed in the clinical record of each person: 1. Admitted on a voluntary basis 2. Permitted to provide express and informed consent to his/her own treatment 3. Allowed to transfer from involuntary to voluntary status 4. Prior to permitting a person to consent to his or her own treatment after having been previously found incompetent to consent to treatment. History of Present Illness Capacity: Has capacity History of Present Illness: The patient is a 48-year-old man, homeless, single, unemployed, supported by [facility], with a psychiatric history of schizophrenia, multiple psychiatric hospitalizations, he denies previous suicide attempts, he was just discharged from [facility] about 4 days ago, discharged on Risperdal 2 mg twice daily, he has medical history of diabetes, well known to this department for similar episodes, presents to the emergency department for evaluation as a Alatorre act for suicidal ideations. He states about 2 hours ago he began feeling "emotional" and started thinking about loved ones. He says that he would lay on the street to be run over in order to kill himself. Patient states he did not start his medication that he was discharged with a couple of days ago because he lost it at the bus stop. He says that he has an appointment with Karan Randle today at 1130 for evaluation and treatment. He denies fevers or chills. Says he is mild headache otherwise no complaints. He denies illicit drug use or alcohol use. Chart was reviewed. The patient was seen for psychiatric reviewed. The patient was seen for psychiatric evaluation in the J pod. The patient is found screaming, agitated, very disorganized, poorly cooperative. The patient reports that he has been hearing very loud voices, telling him to kill himself, to kill other people and making derogatory comments about him. Patient difficult to manage, difficult to redirect, but finally verbally de-escalated. He reports that he has not been taking the medications that were prescribed after discharge. He seems to be quite disorganized, irrational. PPHx: Schizophrenia, multiple psychiatric hospitalizations, he denies previous suicide attempts, he was just discharged from [facility] about 4 days ago, discharged on Risperdal 2 mg twice daily, he has medical history of diabetes, well known to this department for similar episodes, presents to the emergency department for evaluation as a Alatorre act for suicidal ideations. PMHx: Diabetes Family psychiatric Hx: No family psychiatric history Substance Hx: The patient denies the use of illegal drugs and alcohol. Social Hx: The patient was born and raised in [place], he lives in [place], single, unemployed, no kids, supported by [facility]. Review of Systems All other systems reviewed negative except as stated in HPI Psychiatric: Reports abnormal sleep pattern, Reports confusion, Reports irritability, Reports mood swings, Reports paranoia (`), Reports sensing things others do not sense PMFSH - History History Provided By: Patient - Medical History Medical History: Medical History (Last Updated 07/19/18 @ 08:10 by Swathi Perea) Depression (Acute) Hx of schizophrenia (Acute) - Surgical History Surgical History: Surgical History (Last Updated 07/19/18 @ 08:10 by Swathi Perea) Hx of heart artery stent (Acute) - Tobacco History Second Hand Smoke Exposure: Yes Tobacco Use In Past 30 Days: Yes Smoking Status: Heavy tobacco smoker Tobacco Type: Cigarettes - Alcohol History How Often Do You Have a Drink Containing Alcohol: 4 or more times a week - Substance Use History Substance History: No History of Abuse - Travel History Recent Travel in the USA Within the Last 8 Weeks: No Recent Travel Out of the Country Within the Last 8 Weeks: No - Immunization History Tetanus Immunization: >5 Years Hx Influenza Vaccine This Season: No Medications and Allergies Active Medications: Active Medications Al Hydrox/Mg Hydrox/Simethicone (Mag-Al Plus Susp Liq) 30 ml PO Q6H PRN PRN Reason: DYSPEPSIA Al Hydroxide/Mg Hydroxide (Milk Of Magnesia Liq) 30 ml PO Q12H PRN PRN Reason: Mild Constipation Bisacodyl (Dulcolax Supp) 10 mg RECTAL DAILY PRN PRN Reason: SEVERE CONSITIPATION Lactulose (Lactulose Liq) 30 ml PO DAILY PRN PRN Reason: SEVERE CONSITIPATION Risperidone (Risperdal) 1 mg PO BID DANNY Senna/Docusate Sodium (Priti-Colace) 1 tab PO BID DANNY Sennosides (Senokot) 17.2 mg PO Q12H PRN PRN Reason: Moderate Constipation Allergies Allergy/AdvReac Type Severity Reaction Status Date / Time Fish Containing Products Allergy Severe Hives Verified 07/12/18 20:39 Results - Labs Labs: Laboratory Results - last 24 hr 07/19/18 16:10 Urine Opiates Screen Neg Ur Barbiturates Screen Neg Ur Amphetamines Screen Neg U Benzodiazepines Scrn Neg Urine Cocaine Screen Neg U Cannabinoids Screen Neg Exam Vital signs: Vital Signs 07/19/18 15:54 07/19/18 18:20 07/19/18 22:41 Temperature 97.8 F Pulse Rate 78 76 75 Respiratory Rate 17 18 18 Blood Pressure 106/58 L 98/53 L 112/56 L Pulse Oximetry 96 97 98 07/20/18 06:34 Temperature Pulse Rate 63 Respiratory Rate 16 Blood Pressure 99/60 L Pulse Oximetry 100 Intake & Output 07/19/18 07/20/18 07/20/18 18:59 06:59 18:59 Weight 95.254 kg Narrative: No tremors, no EPS, psychomotor agitation present, but no catatonia - Constitutional moderate distress - Routine HEENT Exam Head: Present: normocephalic, atraumatic Eye: Present: EOMI, PERRL ENT: Present: mucous membranes moist Mental Status Examination Appearance: Appropriate Consciousness: Alert Orientation: x4 Motor Activity: Normal gait Speech: Unremarkable Language: Adequate Fund of Knowledge: Adequate Attention and Concentration: Adequate Memory: Unremarkable Mood: Appropriate Affect: Appropriate Thought Process & Associations: Loose associations, Disorganized Thought Content: Bizarre thinking, Racing thoughts Hallucination Type: Auditory, Visual Delusion Type: None Suicidal Ideation: No Suicidal Plan: No Suicidal Intention: No Homicidal Ideation: No Homicidal Plan: No Homicidal Intention: No Insight: Poor Judgment: Poor Assessment and Plan - Plan Plan: Estimated LOS: [] days On psychiatric evaluation I find a patient that is agitated, very disorganized, is screaming to the people that are not present, is stating that he is hearing very loud voices telling him to kill himself and to kill other people, also making derogatory comments about him. Patient has been screaming in the J pod, difficult to redirect, he states that he has not been taking his medications. There is a patient with a psychiatric history of schizophrenia, recently discharged from an inpatient unit, noncompliant with medications. Given his level of psychosis he will be admitted in psychiatry for stabilization. I will restart Risperdal 1 mg twice daily. Patient was able to sign consent. I will consult psychiatry for second opinion. Patient will be transferred to 2700 unit. Justification for Continued Inpatient Stay: Patient needs to be admitted in psychiatry for stabilization
[2018-07-20] MEDS: Senna/Docusate Sodium 8.6/50 MG Tablet PO SCH (21:01)
[2018-07-21 07:43] LABS: Anion Gap 8 meq/L (5-15); Blood Urea Nitrogen 13 mg/dL (7-18); Calcium 8.5 mg/dL (8.5-10.1); Chloride 107 meq/L (98-107); Glomerular Filtration Rate Greater Than 89 mL/min (>89); Glucose,Random 87 mg/dL (74-106); Potassium 3.7 meq/L (3.5-5.1); Sodium 141 meq/L (136-145)
[2018-07-21 07:48] LABS: Chol/HDL Ratio 5.43 Ratio; Cholesterol 198 mg/dL (120-200); HDL Cholesterol 36.4 mg/dL (40.0-60.0); LDL Cholesterol,Calculated 136 mg/dL (0-99); Triglycerides 128 mg/dL (42-150)
[2018-07-21] MEDS: Senna/Docusate Sodium 8.6/50 MG Tablet PO SCH (10:05)
--- NOTE | 2018-07-21 10:16 | P.CONPSY ---
Provisional Diagnosis Admission Date: July 20, 2018 16:55 [place] I.: 1. Schizophrenia, paranoid type, acute exacerbation Rule out component of symptom exaggeration or malingering for senior care [place] II.: Deferred History of Present Illness Service: Psychiatry Consult date: 07/21/18 Requesting Physician: Prashanth Roth Reason for Consult: Second opinion for involuntary psychiatric hospitalization Primary Care Provider: No Primary Care Physician Family Provider: No Primary Care Physician History of Present Illness: From Dr. Roth's H&P: The patient is a 48-year-old man, homeless, single, unemployed, supported by [facility], with a psychiatric history of schizophrenia, multiple psychiatric hospitalizations, he denies previous suicide attempts, he was just discharged from [place] [facility] about 4 days ago, discharged on Risperdal 2 mg twice daily, he has medical history of diabetes, well known to this department for similar episodes, presents to the emergency department for evaluation as a [place] act for suicidal ideations. He states about 2 hours ago he began feeling "emotional" and started thinking about loved ones. He says that he would lay on the street to be run over in order to kill himself. Patient states he did not start his medication that he was discharged with a couple of days ago because he lost it at the bus stop. He says that he has an appointment with Karan Randle today at 1130 for evaluation and treatment. He denies fevers or chills. Says he is mild headache otherwise no complaints. He denies illicit drug use or alcohol use. Chart was reviewed. The patient was seen for psychiatric reviewed. The patient was seen for psychiatric evaluation in the J pod. The patient is found screaming, agitated, very disorganized, poorly cooperative. The patient reports that he has been hearing very loud voices, telling him to kill himself, to kill other people and making derogatory comments about him. Patient difficult to manage, difficult to redirect, but finally verbally de-escalated. He reports that he has not been taking the medications that were prescribed after discharge. He seems to be quite disorganized, irrational. PPHx: Schizophrenia, multiple psychiatric hospitalizations, he denies previous suicide attempts, he was just discharged from [facility] about 4 days ago, discharged on Risperdal 2 mg twice daily, he has medical history of diabetes, well known to this department for similar episodes, presents to the emergency department for evaluation as a Alatorre act for suicidal ideations. PMHx: Diabetes Family psychiatric Hx: No family psychiatric history Substance Hx: The patient denies the use of illegal drugs and alcohol. Social Hx: The patient was born and raised in [place], he lives in [place], single, unemployed, no kids, supported by [facility]. On my examination today, 07/21: Patient seen and examined with nurse. Chart reviewed. Case discussed with nursing staff. On my examination today, the patient says that after leaving the hospital last time "I was sleeping outside without medications. Without medications I get weak out there." He says that he is "without survival skills. " He tells me that he was laying on a bench and that it was not the most comfortable and that he was thinking about the loss of someone close to him. When I ask who he was thinking about he says "I do not know." He says he suddenly had a suicidal impulse and lead in the street. He denies any suicidal or homicidal ideation now. He denies any audiovisual hallucinations. He does endorse some mild paranoia as well as feelings of thought manipulation. There is a somewhat manipulative quality to the patient's presentation and secondary gain cannot be ruled out. Remainder of the psychiatric ROS is negative. No acute physical complaints. Patient denies any abuse of substances. He tells me that he did not follow up psychiatrically after being discharged last time and could not fill his medications because he lost them at a bus stop. Review of Systems All other systems reviewed negative except as stated in HPI [facility] - History History Provided By: Patient - Medical History Medical History: Medical History (Last Updated 07/19/18 @ 08:10 by Swathi Perea) Depression (Acute) Hx of schizophrenia (Acute) - Surgical History Surgical History: Surgical History (Last Updated 07/19/18 @ 08:10 by Swathi Perea) Hx of heart artery stent (Acute) - Tobacco History Second Hand Smoke Exposure: No Tobacco Use In Past 30 Days: Yes Smoking Status: Current every day smoker Tobacco Type: Cigarettes - Alcohol History How Often Do You Have a Drink Containing Alcohol: 4 or more times a week - Substance Use History Substance History: No History of Abuse - Travel History Recent Travel in the [facility] Within the Last 8 Weeks: No Recent Travel Out of the Country Within the Last 8 Weeks: No - Immunization History Tetanus Immunization: Unsure Hx Influenza Vaccine This Season: Unable to Assess Medications and Allergies Active Medications: Active Medications Al Hydrox/Mg Hydrox/Simethicone (Mag-Al Plus Susp Liq) 30 ml PO Q6H PRN PRN Reason: DYSPEPSIA Al Hydroxide/Mg Hydroxide (Milk Of Magnesia Liq) 30 ml PO Q12H PRN PRN Reason: Mild Constipation Bisacodyl (Dulcolax Supp) 10 mg RECTAL DAILY PRN PRN Reason: SEVERE CONSITIPATION Lactulose (Lactulose Liq) 30 ml PO DAILY PRN PRN Reason: SEVERE CONSITIPATION Risperidone (Risperdal) 1 mg PO BID [facility] Last Admin: 07/21/18 10:05 Dose: 1 mg Senna/Docusate Sodium (Priti-Colace) 1 tab PO BID [facility] Last Admin: 07/21/18 10:05 Dose: 1 tab Sennosides (Senokot) 17.2 mg PO Q12H PRN PRN Reason: Moderate Constipation Allergies Allergy/AdvReac Type Severity Reaction Status Date / Time Fish Containing Products Allergy Severe Hives Verified 07/12/18 20:39 Exam Vital signs: Vital Signs 07/20/18 18:35 07/21/18 05:58 Temperature 97.7 F 97.2 F L Pulse Rate 82 77 Respiratory Rate 18 18 Blood Pressure 112/58 L 136/70 Pulse Oximetry 98 99 Intake & Output 07/20/18 07/21/18 07/21/18 18:59 06:59 18:59 Weight 91.8 kg Other: Weight On Admission 91.8 kg Narrative: Physical examination was completed by the ED provider. On my examination today , the patient appears to be in no acute physical distress. No motor abnormalities noted. Labs and vitals reviewed. Laboratory Tests 03/28/18 07/10/18 07/19/18 14:45 01:50 16:10 WBC 8.2 Hgb 12.8 L Plt Count 311 Sodium Potassium Chloride Carbon Dioxide BUN Creatinine Estimated GFR AST 15 ALT 31 Alkaline Phosphatase 100 Urine Opiates Screen Neg Ur Barbiturates Screen Neg Ur Amphetamines Screen Neg U Benzodiazepines Scrn Neg Urine Cocaine Screen Neg U Cannabinoids Screen Neg 07/21/18 05:30 WBC Hgb Plt Count Sodium 141 Potassium 3.7 Chloride 107 Carbon Dioxide 26.0 BUN 13 Creatinine 0.73 Estimated GFR Greater than 89 AST ALT Alkaline Phosphatase Urine Opiates Screen Ur Barbiturates Screen Ur Amphetamines Screen U Benzodiazepines Scrn Urine Cocaine Screen U Cannabinoids Screen Mental Status Examination Appearance: Disheveled (Mild) Consciousness: Alert Orientation: x4 Motor Activity: Normal gait Speech: Unremarkable Language: Adequate Fund of Knowledge: Adequate Attention and Concentration: Adequate Memory: Unremarkable Mood: Appropriate Affect: Blunt Thought Process & Associations: Circumstantial Thought Content: Appropriate Hallucination Type: None Delusion Type: Paranoid Suicidal Ideation: No Suicidal Plan: No Suicidal Intention: No Homicidal Ideation: No Homicidal Plan: No Homicidal Intention: No Insight: Poor Judgment: Poor Assessment and Plan - Assessment (1) Schizophrenia Code(s): F20.9 - Schizophrenia, unspecified Status: Acute - Plan Plan: Patient is presently agreeable to signing into the hospital voluntarily, and I ham curer that he is capacitated to do so. Voluntary status. I will be assuming care of the patient's case. Patient reports that he was unable to take medications after discharge last time because he lost the prescriptions. I note that he was given the initial dose of Invega Sustenna but did not receive the booster dose prior to leaving the hospital last time. I will therefore administer the booster dose of Invega Sustenna 156 mg IM today and monitor. This may be adequate for symptomatic control, but if not we might consider augmenting with another antipsychotic or perhaps an antidepressant as there is a dysphoric component to his presentation. I also wonder about some degree of symptom exaggeration or malingering for senior care. I will plan to observe on the inpatient unit for now. Continue other medications and care as ordered. Justification for Continued Inpatient Stay: Monitoring for impairment in safety Discharge Planning: To be determined Request Healthcare Surrogate/Guardian Advocate?: No (1) Schizophrenia Qualifiers: Schizophrenia type: paranoid schizophrenia Qualified Code(s): F20.0 - Paranoid schizophrenia
[2018-07-21] MEDS ORDERED: Acetaminophen 325 MG Tablet PO PRN (10:19)
[2018-07-21] MEDS ORDERED: Paliperidone Inj 156 MG/ML Syringe IM ONE (12:00)
[2018-07-21 12:04] LABS: Hemoglobin A1c 5.6 % (4.3-6.0)
--- NOTE | 2018-07-22 11:26 | P.PNPSY ---
Subjective Remarks: Patient seen and examined with nurse and counselor. Chart reviewed. Case discussed with nursing staff who suspect malingering. Nurse does note that the patient has been complaining of some chest pain this morning. On my examination today, the patient complains of aching chest pain times 1 hour without associated symptoms of ACS. Hospitalist consultation has been requested and EKG read as normal sinus rhythm. Troponin negative. Patient denies auditory hallucinations. Sleep is reportedly poor. Denies SI or HI. Denies side effects from medications. He does verbalize some willingness for assisted living placement, but the counselor informs me that efforts were made to place the patient last time, and he refused to stay at the facility that was arranged for him. [facility] care administrative tech indicates that efforts are being made outpatient to place patient at [facility], although his historical pattern per care administrative tech is to spend his disability check on motels and prostitutes and then have himself hospitalized for the remainder of the month after his money runs out. No other physical complaints. Vital Signs Temp Pulse Resp BP Pulse Ox 07/22/18 05:59 97.5 F L 71 18 108/59 L 97 07/21/18 17:48 97.5 F L 90 18 111/63 96 Intake and Output 07/22/18 07/22/18 07/22/18 06:59 14:59 22:59 Other: Weight 94 kg Laboratory Results - last 24 hr 07/22/18 12:20 Troponin I Less than 0.02 L Labs reviewed. EKG reviewed; NSR. Review of Systems All other systems reviewed negative except as stated in HPI Mental Status Examination Appearance: Disheveled (Mild) Consciousness: Alert Orientation: x4 Motor Activity: Other (No motor abnormalities noted) Speech: Unremarkable Language: Adequate Fund of Knowledge: Adequate Attention and Concentration: Adequate Memory: Unremarkable Mood: Appropriate Affect: Blunt Thought Process & Associations: Intact Thought Content: Appropriate Hallucination Type: None Delusion Type: None Suicidal Ideation: No Suicidal Plan: No Suicidal Intention: No Homicidal Ideation: No Homicidal Plan: No Homicidal Intention: No Insight: Poor Judgment: Poor Assessment and Plan - Assessment (1) Schizophrenia Code(s): F20.9 - Schizophrenia, unspecified Status: Acute - Plan Plan: Patient tolerating Invega Sustenna well. I do suspect there may have been some degree of malingering at presentation, but the patient does likely have underlying psychotic illness and would benefit from placement if willing. Appreciate hospitalist input. Continue to monitor on the inpatient unit. Continue other care as ordered. Justification for Continued Inpatient Stay: Risk for decompensation in less restrictive environment. Discharge Planning: Possible placement. Request Healthcare Surrogate/Guardian Advocate?: No (1) Schizophrenia Qualifiers: Schizophrenia type: paranoid schizophrenia Qualified Code(s): F20.0 - Paranoid schizophrenia
[2018-07-22] MEDS ORDERED: Aspirin 325 MG Tablet PO ONE (11:30)
--- NOTE | 2018-07-22 11:31 | P.CONIM ---
History of Present Illness Service: [place] Consult date: 07/22/18 Requesting Physician: Johnny Miller Reason for Consult: Aching pain in chest Primary Care Provider: No Primary Care Physician Family Provider: No Primary Care Physician Chief Complaint: chest pain History of Present Illness: 48 y/o with a history of schizophrenia, cad, and depression was seen and examined in the psychiatry department. [place] was consulted for a aching pain in his chest. Patient states the pain is an aching 5/10, to the left lateral chest with no radiation to his jaw or arm, no associated symptoms, and nothing makes it worse or better. Patient does not complain of anything other then the aching sensation. Denies any pain with a deep breath, sob, fever or chills. Review of Systems All other systems reviewed negative except as stated in HPI [facility] - History History Provided By: Patient - Medical History Medical History: Medical History (Last Reviewed 07/22/18 @ 11:31 by YANELIS Shepherd) Depression (Acute) Hx of schizophrenia (Acute) - Surgical History Surgical History: Surgical History (Last Reviewed 07/22/18 @ 11:31 by YANELIS Shepherd) Hx of heart artery stent (Acute) - Family History Family History: Family History (Last Reviewed 07/22/18 @ 11:31 by YANELIS Shepherd) Other Family history unknown - Social History I have reviewed the patient's Social History: Yes - Tobacco History Second Hand Smoke Exposure: No Tobacco Use In Past 30 Days: Yes Smoking Status: Current every day smoker Tobacco Type: Cigarettes - Alcohol History How Often Do You Have a Drink Containing Alcohol: 4 or more times a week - Substance Use History Substance History: No History of Abuse - Travel History Recent Travel in the [place] Within the Last 8 Weeks: No Recent Travel Out of the Country Within the Last 8 Weeks: No - Immunization History Tetanus Immunization: Unsure Hx Influenza Vaccine This Season: Unable to Assess Medications and Allergies Active Medications: Active Medications Acetaminophen (Tylenol) 650 mg PO Q4H PRN PRN Reason: PAIN 1-10 AND/OR FEVER >101F Al Hydrox/Mg Hydrox/Simethicone (Mag-Al Plus Susp Liq) 30 ml PO Q6H PRN PRN Reason: DYSPEPSIA Al Hydroxide/Mg Hydroxide (Milk Of Magnesia Liq) 30 ml PO Q12H PRN PRN Reason: Mild Constipation Hydroxyzine HCl (Atarax) 50 mg PO Q6H PRN PRN Reason: ANXIETY Allergies Allergy/AdvReac Type Severity Reaction Status Date / Time Fish Containing Products Allergy Severe Hives Verified 07/12/18 20:39 Exam Vital signs: Vital Signs 07/21/18 17:48 07/22/18 05:59 Temperature 97.5 F L 97.5 F L Pulse Rate 90 71 Respiratory Rate 18 18 Blood Pressure 111/63 108/59 L Pulse Oximetry 96 97 Intake & Output 07/21/18 07/22/18 07/22/18 18:59 06:59 18:59 Weight 94 kg Narrative: GENERAL: This is a well-nourished, well-developed patient, in no apparent distress. CARDIOVASCULAR: Regular rate and rhythm without murmurs, gallops, or rubs. RESPIRATORY: Clear to auscultation. Breath sounds equal bilaterally. No wheezes , rales, or rhonchi. GASTROINTESTINAL: Abdomen soft, non-tender, nondistended. Normal active bowel sounds MUSCULOSKELETAL: Extremities without clubbing, cyanosis, or edema. NEURO: Alert & Oriented x4 to person, place, time, situation. Moves all ext x4 Results - Labs CBC & Chem 7: 07/21/18 05:30 Labs: Laboratory Results - last 24 hr 07/21/18 05:30 Hemoglobin A1c 5.6 Assessment and Plan - Plan Schizophrenia -Managed by psych Chest pain, sounds muscular in general, r/o ACS -Troponin ordered -EKG ordered -chest x ray ordered -Flexeril po for pain -ASA ordered due to history of CAD DVT prophylaxis: Ambulation Discussed Condition With: Patient and rn l and d Planning: per psych
[2018-07-22] MEDS ORDERED: Methocarbamol 500 MG Tablet PO PRN (15:00)
--- NOTE | 2018-07-22 15:37 | XR ---
EXAM DATE: 07/22/2018 3:33 PM EDT AGE/SEX: 48 years / Male INDICATIONS: Infiltrate. Patient states he's had chest pain for 1 day. CLINICAL DATA: This is the patient's initial encounter. Patient reports that signs and symptoms have been present for 1 day and indicates a pain score of 4/10. MEDICAL/SURGICAL HISTORY: . Schizophrenia. . Coronary artery stent. COMPARISON: [facility] [place], CHEST SINGLE AP, 03/23/2018. . FINDINGS: A single AP view of the chest demonstrates the lungs to be symmetrically aerated without evidence of mass, infiltrate or effusion. The cardiomediastinal contours are unremarkable. Osseous structures a re intact. CONCLUSION: Negative examination. Electronically signed by: Vern De La Rosa MD 07/22/2018 3:36 PM EDT
--- NOTE | 2018-07-22 19:10 | ECG ---
Date Performed: 07/22/2018 Time Performed: 11:43:22 PTAGE: 48 years EKG: Sinus rhythm NORMAL ECG PREVIOUS TRACING : 07/12/2018 10.33 Since the previous tracing, no significant change noted DOCTOR: Vitaly Meza Interpretating Date/Time 07/22/2018 19:08:40
--- NOTE | 2018-07-23 10:28 | P.PNPSY ---
Subjective Remarks: Patient seen and examined with counselor and nurse. Chart reviewed. Case discussed with nursing staff who suspected malingering. Case discussed with counselor who reports that the patient remains on the wait list for [facility]. Case discussed in treatment team. On my examination today, the patient denies SI or HI. Denies AVH. No side effects from medications. He continues to complain of some mild chest discomfort. He was evaluated by the hospitalist who suspects musculoskeletal etiology. No other physical complaints. Vital Signs Temp Pulse Resp BP Pulse Ox 07/23/18 10:05 16 07/23/18 06:15 97.5 F L 96 H 102/53 L 07/22/18 17:52 97.7 F 72 18 101/58 L 96 Labs reviewed. Review of Systems All other systems reviewed negative except as stated in HPI Mental Status Examination Appearance: Appropriate (Fair grooming) Consciousness: Alert Orientation: x4 Motor Activity: Other (No abnormal motor movements noted) Speech: Unremarkable Language: Adequate Fund of Knowledge: Adequate Attention and Concentration: Adequate Memory: Unremarkable Mood: Appropriate Affect: Blunt Thought Process & Associations: Intact Thought Content: Appropriate Hallucination Type: None Delusion Type: None Suicidal Ideation: No Suicidal Plan: No Suicidal Intention: No Homicidal Ideation: No Homicidal Plan: No Homicidal Intention: No Insight: Poor Judgment: Poor Assessment and Plan - Assessment (1) Schizophrenia Code(s): F20.9 - Schizophrenia, unspecified Status: Acute - Plan Plan: Patient received booster dose of Invega Sustenna earlier in the week. Continue to monitor on inpatient unit. Continue other medications and care as ordered. Justification for Continued Inpatient Stay: Risk for decompensation in less restrictive environment. Discharge Planning: Placement Request Healthcare Surrogate/Guardian Advocate?: No (1) Schizophrenia Qualifiers: Schizophrenia type: paranoid schizophrenia Qualified Code(s): F20.0 - Paranoid schizophrenia
--- NOTE | 2018-07-23 12:41 | P.TTN ---
- Patient Problems Problems: 1. Discharge planning 2. Medication compliance 3. Knowledge deficit 4. Lack of coping skills - Progress Toward Goals Psychiatric Counselors Present: Nigel Mcdonald Jr., RCSNELSON (Pt. has limited insight. Malingering for [facility].) Group Spec/RT/OT/HERNANDEZ Present: MARY Roberts (Pt. does not attend groups.) - Documentation Teaching Recipient: Patient
--- NOTE | 2018-07-23 13:40 | P.TTN ---
- Patient Problems Problems: 1. Discharge planning 2. Medication compliance 3. Knowledge deficit 4. Lack of coping skills - Progress Toward Goals Provider Present: Dr. Raymond Miller (07/23/2018 - Titrating medications, needs further stabilization) Psychiatric Counselors Present: Nigel Mcdonald Jr., [facility] (Pt. has limited insight. Malingering for longterm. 07/23/2018 - Titrating medications, needs further stabilization, patient reports he is seeking stable housing, counselor checked with [facility] and [facility], both are at capacity and cannot accept new patients at this time. Patient denies any previous history of substance abuse, which rules out any [facility]-based or residential facility, counselor spoke with patient today about the possibility of seeking longterm at the [facility], patient said he would consider over the weekend and check back with counselor and doctor on Thursday.) Group Spec/RT/OT/HERNANDEZ Present: MARY Roberts (Pt. does not attend groups. July 23, 2018 patient does not attend groups) - Documentation Teaching Recipient: Patient
--- NOTE | 2018-07-24 15:06 | P.PNPSY ---
Subjective Remarks: Pt seen and discussed with staff. He has been compliant with medications. Staff report that pt has been yelling in his room and in the bathroom, "shut up! shut Up!" and no one was there. He has been laying in bed all day and has been guarded and irritable. He c/o of AH. He received Invega Sustena Injection and denies side effects. He is paranoid and states that he thinks there may be "sexual things going on. I haven't led anyone on have I?" Mental Status Examination Appearance: Appropriate (Fair grooming) Consciousness: Alert Orientation: x4 Motor Activity: Other (No abnormal motor movements noted) Speech: Unremarkable Language: Adequate Fund of Knowledge: Adequate Attention and Concentration: Adequate Memory: Unremarkable Mood: Appropriate Affect: Blunt Thought Process & Associations: Intact Thought Content: Bizarre thinking Hallucination Type: Auditory (internally stimulated) Delusion Type: Bizarre Suicidal Ideation: No Suicidal Plan: No Suicidal Intention: No Homicidal Ideation: No Homicidal Plan: No Homicidal Intention: No Insight: Poor Judgment: Poor Assessment and Plan - Assessment (1) Schizophrenia Code(s): F20.9 - Schizophrenia, unspecified Status: Acute - Plan Plan: Continue current tx plan Justification for Continued Inpatient Stay: impairments in reality testing Request Healthcare Surrogate/Guardian Advocate?: No (1) Schizophrenia Qualifiers: Schizophrenia type: paranoid schizophrenia Qualified Code(s): F20.0 - Paranoid schizophrenia
--- NOTE | 2018-07-25 14:05 | P.PNPSY ---
Subjective Remarks: Medical record reviewed and discussed with nursing staff. MARISOL Barrera and I met with patient in his room. Patient states that he continues to hear voices, but denies any visual hallucinations. He received Invega Sustenna 234 mg IM on and then Invega Sustenna 156 mg IM on 07/21/18. Patient is seclusive. He does come out of his room for meals. He is conducting hygiene. He is internally stimulated. Review of Systems All other systems reviewed negative except as stated in HPI Mental Status Examination Appearance: Appropriate (Fair grooming) Consciousness: Alert Orientation: x4 Motor Activity: Other (No abnormal motor movements noted) Speech: Unremarkable Language: Adequate Fund of Knowledge: Adequate Attention and Concentration: Adequate Memory: Unremarkable Mood: Appropriate Affect: Blunt Thought Process & Associations: Intact Thought Content: Bizarre thinking Hallucination Type: Auditory (internally stimulated) Delusion Type: Bizarre Suicidal Ideation: No Suicidal Plan: No Suicidal Intention: No Homicidal Ideation: No Homicidal Plan: No Homicidal Intention: No Insight: Poor Judgment: Poor Assessment and Plan - Assessment (1) Schizophrenia Code(s): F20.9 - Schizophrenia, unspecified Status: Acute - Plan Plan: Continue current tx plan Justification for Continued Inpatient Stay: Moving patient to a less restrictive environment may result in his decompensation. Request Healthcare Surrogate/Guardian Advocate?: No (1) Schizophrenia Qualifiers: Schizophrenia type: paranoid schizophrenia Qualified Code(s): F20.0 - Paranoid schizophrenia
--- NOTE | 2018-07-26 10:02 | P.PNPSY ---
Subjective Remarks: Patient seen and examined with counselor and nurse. Chart reviewed. Case discussed with nursing staff who reports patient had several outbursts over the weekend in response to internal stimulation. With nurse asked the patient about this he said that he was hearing voices asking lots of questions. On my examination today, the patient agrees that he continues to struggle with some auditory hallucinations at times, although he denies audiovisual hallucinations presently. No SI or HI. We discuss augmentation of the patient's Invega Sustenna with a second antipsychotic to manage these reported hallucinations. When I inquire about previous medications that the patient has tried he says of Haldol or Prolixin "I like both of those." No side effects from medications. No physical complaints. Vital Signs Temp Pulse Resp BP Pulse Ox 07/26/18 06:00 98.3 F 86 17 99/60 L 97 07/25/18 17:33 97.9 F 68 18 108/65 99 Intake and Output 07/25/18 07/26/18 07/26/18 22:59 06:59 14:59 Other: Weight 94.3 kg Labs reviewed. No new labs. Review of Systems All other systems reviewed negative except as stated in HPI Mental Status Examination Appearance: Appropriate (Fair) Consciousness: Alert Orientation: x4 Motor Activity: Other (No motoric abnormalities noted) Speech: Unremarkable Language: Adequate Fund of Knowledge: Adequate Attention and Concentration: Adequate Memory: Unremarkable Mood: Appropriate Affect: Blunt Thought Process & Associations: Intact Thought Content: Bizarre thinking Hallucination Type: Auditory (internally stimulated) Delusion Type: None Suicidal Ideation: No Homicidal Ideation: No Insight: Poor Judgment: Poor Assessment and Plan - Assessment (1) Schizophrenia Code(s): F20.9 - Schizophrenia, unspecified Status: Acute - Plan Plan: Add Haldol 2 mg twice a day to augment Invega Sustenna with plans to titrate to effect and as tolerated. Continue to monitor on the inpatient unit. Continue other medications and care as ordered. Justification for Continued Inpatient Stay: Medication changes. Impairment in reality construction. Risk for decompensation in less restrictive environment. Discharge Planning: To be determined. Counselor relates to me that [facility] will not accept the patient, and this had been the discharge plan of the patient's outpatient mental health team. Request Healthcare Surrogate/Guardian Advocate?: No (1) Schizophrenia Qualifiers: Schizophrenia type: paranoid schizophrenia Qualified Code(s): F20.0 - Paranoid schizophrenia
--- NOTE | 2018-07-27 10:05 | P.TTN ---
- Patient Problems Problems: 1. Discharge planning 2. Medication compliance 3. Knowledge deficit 4. Lack of coping skills - Progress Toward Goals Provider Present: Dr. Raymond Miller (07/23/2018 - Titrating medications, needs further stabilization. July 27, 2018 Dr. Miller is starting the patient on Haldol. Patient needs to remain for further stabilization.) Psychiatric Counselors Present: Nigel Mcdonald Jr., [facility] (Pt. has limited insight. Malingering for usp. 07/23/2018 - Titrating medications, needs further stabilization, patient reports he is seeking stable housing, counselor checked with [facility] and [facility], both are at capacity and cannot accept new patients at this time. Patient denies any previous history of substance abuse, which rules out any [facility]-based or residential facility, counselor spoke with patient today about the possibility of seeking usp at the [facility], patient said he would consider over the weekend and check back with counselor and doctor on Thursday. July 27, 2018, patient gives conflicting reports about discharge plan. Patient states he is seeking usp in [place] when counselor spoke to the patient about this discharge plan he now says he cannot leave the critical access hospital due to being on probation. Counselor will explore further discharge options.) Group Spec/RT/OT/HERNANDEZ Present: MARY Roberts (Pt. does not attend groups. July 23, 2018 patient does not attend groups thousand 18 patient does not attend groups) - Documentation Teaching Recipient: Patient
--- NOTE | 2018-07-27 11:48 | P.PNPSY ---
Subjective Remarks: Patient seen and examined with nurse and counselor. Chart reviewed. Case discussed with nurse who reports patient refused his Haldol this morning. Case discussed with counselor. Patient is changing his discharge plans frequently. Today he wants to go to a [facility] in [place], although he later says that he wants to go to [facility] instead. Case discussed in treatment team. On my examination today, the patient says that he refused the Haldol because Sustenna "is all I need." I tried to explain the rationale for the addition of the Haldol and explore whether an alternative might be more palatable, but patient does not wish to discuss this. He denies SI/HI. Denies AVH. No side effects from medications. No physical complaints. Vital Signs Temp Pulse Resp BP Pulse Ox 07/27/18 06:10 98.3 F 56 L 16 122/59 L 98 Labs reviewed. No new labs. Review of Systems All other systems reviewed negative except as stated in HPI Mental Status Examination Appearance: Appropriate (Fair) Consciousness: Alert Orientation: x4 Motor Activity: Other (No abnormal motor movements appreciated) Speech: Unremarkable Language: Adequate Fund of Knowledge: Adequate Attention and Concentration: Adequate Memory: Unremarkable Mood: Appropriate Affect: Blunt Thought Process & Associations: Intact Thought Content: Bizarre thinking Hallucination Type: None Delusion Type: None Suicidal Ideation: No Suicidal Plan: No Suicidal Intention: No Homicidal Ideation: No Homicidal Plan: No Homicidal Intention: No Insight: Poor Judgment: Poor Assessment and Plan - Assessment (1) Schizophrenia Code(s): F20.9 - Schizophrenia, unspecified Status: Acute - Plan Plan: Continue to offer oral Haldol as ordered. Continue to monitor on inpatient unit. Continue other care as ordered. Justification for Continued Inpatient Stay: Risk for decompensation in less restrictive environment Discharge Planning: To be determined. Counselor working with patient on discharge planning. Request Healthcare Surrogate/Guardian Advocate?: No (1) Schizophrenia Qualifiers: Schizophrenia type: paranoid schizophrenia Qualified Code(s): F20.0 - Paranoid schizophrenia
[2018-07-28 05:57] VITALS: BP 100/57; PULSE 77; RESP 17; TEMP 97.1; O2SAT 96
--- NOTE | 2018-07-28 08:57 | P.DSPSY ---
Psychiatry Discharge Summary Inpatient Psychiatric care?: Yes Advance Directives: No Mental Health Advance Directive: No Health Care Proxy: No - Admission Admission Date: July 20, 2018 16:55 - Admission Diagnosis (1) Schizophrenia Code(s): F20.9 - Schizophrenia, unspecified Brief History: The patient is a 48-year-old man, homeless, single, unemployed, supported by [facility], with a psychiatric history of schizophrenia, multiple psychiatric hospitalizations, he denies previous suicide attempts, he was just discharged from [facility] about 4 days ago, discharged on Risperdal 2 mg twice daily, he has medical history of diabetes, well known to this department for similar episodes, presents to the emergency department for evaluation as a Alatorre act for suicidal ideations. He states about 2 hours ago he began feeling "emotional" and started thinking about loved ones. He says that he would lay on the street to be run over in order to kill himself. Patient states he did not start his medication that he was discharged with a couple of days ago because he lost it at the bus stop. He says that he has an appointment with Karan ramey at 1130 for evaluation and treatment. He denies fevers or chills. Says he is mild headache otherwise no complaints. He denies illicit drug use or alcohol use. Chart was reviewed. The patient was seen for psychiatric reviewed. The patient was seen for psychiatric evaluation in the [facility]. The patient is found screaming, agitated, very disorganized, poorly cooperative. The patient reports that he has been hearing very loud voices, telling him to kill himself, to kill other people and making derogatory comments about him. Patient difficult to manage, difficult to redirect, but finally verbally de-escalated. He reports that he has not been taking the medications that were prescribed after discharge. He seems to be quite disorganized, irrational. PPHx: Schizophrenia, multiple psychiatric hospitalizations, he denies previous suicide attempts, he was just discharged from [facility] about 4 days ago, discharged on Risperdal 2 mg twice daily, he has medical history of diabetes, well known to this department for similar episodes, presents to the emergency department for evaluation as a Alatorre act for suicidal ideations. PMHx: Diabetes Family psychiatric Hx: No family psychiatric history Substance Hx: The patient denies the use of illegal drugs and alcohol. Social Hx: The patient was born and raised in [place], he lives in [place], single, unemployed, no kids, supported by [facility]. Tobacco Use In Past 30 Days: Yes How Often Do You Have a Drink Containing Alcohol: Monthly or less Hospital Course: Patient was admitted to a locked, inpatient psychiatric unit. A general medical consultation was obtained. Appropriate precautions were in place throughout patient's hospital stay. Patient was seen and examined on the unit by psychiatry and also visited by counselor. Psychotropic medications were adjusted. The patient was administered booster dose of Invega Sustenna and augmentation with additional haloperidol was offered, but the patient ultimately declined at this. There was no evidence of suicidality or homicidality on the inpatient unit. On the day of discharge: Patient seen and examined with nurse. Chart reviewed. Case discussed with nursing staff. No behavioral issues noted overnight. Patient has completed a right of release set to this morning. On my examination today, the patient continues to insist on discharge from the inpatient psychiatric unit today. He denies any suicidal or homicidal ideation, intent or plan. I can elicit no depressive or hypomanic/manic symptoms and the patient describes his mood as "fine." He denies any audiovisual hallucinations and denies any command auditory hallucinations to hurt self/others, although the patient does appears somewhat internally stimulated following our interview. I can elicit no delusional material. He denies side effects from medications. He continues to refuse additional antipsychotic. Education provided regarding need for subsequent Invega Sustenna injections. No acute physical complaints. Weighing the relevant factors and based on the available evidence, I alley worker that the patient does not presently meet criteria for involuntary psychiatric hospitalization. There is no evidence of imminent risk of harm to self or others, nor is there evidence of self-care deficit to substantiate involuntary psychiatric hospitalization. The patient does continue to exhibit some psychotic symptoms, albeit attenuated versus admission, and I have strongly recommended that he remain for further stabilization on the inpatient unit. He has declined, and having no basis to retain the patient involuntarily, I will discharge him AGAINST MEDICAL ADVICE. I have explained to the patient that he is leaving AGAINST MEDICAL ADVICE. Psychiatric follow-up as arranged by counselor. Patient is also to follow up with primary care. I have counseled the patient to return to the psychiatric emergency room for any concerning symptoms as part of a general safety plan. The present case is complex. 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 - Discharge Discharge Date: 07/28/18 - Discharge Diagnosis (1) Schizophrenia Diagnosis: Principal (Improved versus admission) Code(s): F20.9 - Schizophrenia, unspecified Status: Acute Discharge Disposition: As per counselor's notes - Discharge Instructions Discharge Diet: Regular Diet Activities You Can Perform: Weight Bearing As Tolerat - Discharge Time <= 30 minutes Mental Status Examination Appearance: Appropriate Consciousness: Alert Orientation: x4 Motor Activity: Other (No hand tremor, no dystonia, no dyskinesia, no other motor abnormalities noted) Speech: Unremarkable Language: Adequate Fund of Knowledge: Adequate Attention and Concentration: Adequate Memory: Unremarkable Mood: Appropriate Affect: Blunt Thought Process & Associations: Intact, Logical, Linear Thought Content: Appropriate Hallucination Type: None (Denies AVH but does appears somewhat internally preoccupied) Delusion Type: None Suicidal Ideation: No Suicidal Plan: No Suicidal Intention: No Homicidal Ideation: No Homicidal Plan: No Homicidal Intention: No Insight: Poor Judgment: Poor Mental Status Exam Remarks: Insight and judgment are chronically poor Discharge/Advance Care Plan - Results Vital Signs: Last Vital Signs Temp 97.1 F L 07/28/18 05:57 Pulse 77 07/28/18 05:57 Resp 17 07/28/18 05:57 BP 100/57 L 07/28/18 05:57 Pulse Ox 96 07/28/18 05:57 Lab Results: Laboratory Results Hemoglobin A1c 5.6 % (4.3-6.0) 07/21/18 05:30 Triglycerides 128 mg/dL (42-150) 07/21/18 05:30 Cholesterol 198 mg/dL (120-200) 07/21/18 05:30 LDL Cholesterol, Calc 136 mg/dL (0-99) H 07/21/18 05:30 HDL Cholesterol 36.4 mg/dL (40.0-60.0) L 07/21/18 05:30 Summary of Procedures: None done. Imaging: ITS Impressions Chest X-Ray 07/22/18 00:00 CONCLUSION: Negative examination. Pending Results: None - Medications Number of antipsychotic medications at discharge: 1 - Discharge Care Plan Goals to Promote Your Health: * To prevent worsening of your condition and complications * To maintain your health at the optimal level Directions to Meet Your Goals: Take your medications as prescribed Follow your dietary instruction Follow activity as directed Keep your appointments as scheduled Take your immunizations and boosters as scheduled If your symptoms worsen call your PCP, if no PCP go to Urgent Care Center or Emergency Room For 25/05 questions related to your inpatient stay or results of tests pending at discharge, please contact Dr. Johnny Miller MD at Smoking is Dangerous to Your Health. Avoid second hand smoking (1) Schizophrenia Qualifiers: Schizophrenia type: paranoid schizophrenia Qualified Code(s): F20.0 - Paranoid schizophrenia (1) Schizophrenia Qualifiers: Schizophrenia type: paranoid schizophrenia Qualified Code(s): F20.0 - Paranoid schizophrenia
== END 2018-07-28 13:10 | disposition left against medical advice (07) ==
LOC: NEPD 06:45 → NEDA 07-20 16:55 → H270 07-20 17:36
PROVIDERS: ADMIT Psychiatry & Neurology Psychiatry; ATTEND Psychiatry & Neurology Psychiatry

== ENCOUNTER 2018-07-31 21:17 | Inpatient (IN) ==
[2018-07-31 22:07] LABS: Baso # (Auto) 0.1 th/mm3 (0.0-0.2); Baso % (Auto) 0.7 % (0.0-2.0); Eos # (Auto) 0.1 th/mm3 (0.0-0.4); Eos % (Auto) 0.6 % (0.0-4.0); Hematocrit 39.1 % (39.0-51.0); Lymph # (Auto) 3.8 th/mm3 (1.0-4.8); Lymph % (Auto) 39.1 % (9.0-44.0); Mean Corpuscular HGB Conc 35.7 % (32.0-36.0); Mean Corpuscular Hemoglobin 30.8 pg (27.0-34.0); Mean Corpuscular Volume 86.2 fL (80.0-100.0); Mean Platelet Volume 7.6 fL (7.0-11.0); Mono # (Auto) 0.6 th/mm3 (0.0-0.9); Mono % (Auto) 6.4 % (0.0-8.0); Neut # (Auto) 5.1 th/mm3 (1.8-7.7); Neut % (Auto) 53.2 % (16.0-70.0); Platelet Count 316 th/mm3 (150-450); Red Blood Count 4.54 mil/mm3 (4.50-5.90); Red Cell Distribution Width 13.7 % (11.6-17.2); White Blood Count 9.6 th/mm3 (4.0-11.0)
[2018-07-31 22:09] LABS: Amphetamine Screen,Urine Neg (Neg); Barbiturate Screen,Urine Neg (Neg); Cannabinoid Screen,Urine Neg (Neg); Cocaine Screen,Urine Neg (Neg)
[2018-07-31 22:18] LABS: Albumin 3.7 g/dL (3.4-5.0); Anion Gap 8 meq/L (5-15); Aspartate Aminotransferase 15 U/L (15-37); Blood Urea Nitrogen 12 mg/dL (7-18); Calcium 8.4 mg/dL (8.5-10.1); Carbon Dioxide 23.7 meq/L (21.0-32.0); Chloride 109 meq/L (98-107); Glomerular Filtration Rate Greater Than 89 mL/min (>89); Glucose,Random 96 mg/dL (74-106); Potassium 3.5 meq/L (3.5-5.1); Sodium 141 meq/L (136-145)
[2018-07-31 22:20] LABS: Alanine Aminotransferase 34 U/L (12-78)
[2018-07-31 22:21] LABS: Alkaline Phosphatase 92 U/L (45-117); Total Protein 7.8 g/dL (6.4-8.2)
[2018-07-31 22:23] LABS: Opiate Screen,Urine Neg (Neg)
--- NOTE | 2018-07-31 23:53 | ED ---
HPI General Chief Complaint: Psychiatric Symptoms Stated Complaint: psych eval/obpd Time Seen by Provider: 07/31/18 23:42 Source: patient and police Mode of arrival: ambulatory Limitations: no limitations History of Present Illness HPI Narrative: This is a 48-year-old white male who was just discharged earlier today after being evaluated by the psychiatrist. This patient is well-known to the medical staff and myself. The patient has had multiple, multiple evaluations in the ER in the past month. Patient was contacted by police as he was walking down the road in [place] this afternoon. They asked the patient if he had any thoughts of hurting himself or hurting anyone and he had said yes. He states that he gets upset and thinks about hurting himself when he is hungry and when he does not have a place to stay. He also states that sometimes he thinks about hurting people when he does not have his nicotine. Patient admits to being homeless. He is disabled. He reports that people are attempting to find him a place to stay. He denies any active plan on self- harm. No active plan on homicide. He states that he would like to just to lay down and go to sleep for a while. Related Data Previous Rx's Medication Instructions Recorded paliperidone palmitate [Invega 156 mg IM QMONTH #1 syr 07/28/18 Sustenna] Allergies Allergy/AdvReac Type Severity Reaction Status Date / Time Fish Containing Products Allergy Severe Hives Verified 07/12/18 20:39 Review of Systems ROS: all other systems reviewed are negative [facility] Medical History Medical History Depression (Acute) Hx of schizophrenia (Acute) Surgical History Surgical History Hx of heart artery stent (Acute) Family History Family History Other Family history unknown Social History Social History Substance History: No History of Abuse Second Hand Smoke Exposure: Yes Smoking Status: Current every day smoker Tobacco Type: Cigarettes How Often Do You Have a Drink Containing Alcohol: Monthly or less Recent Travel in [facility] within the Last 8 Weeks: No Recent Out of Country Travel within the Last 8 Weeks: No Immunization History Tetanus Immunization: <5 Years Tetanus Immunization Year if Known: 2018 Hx Influenza Vaccine This Season: No Exam Narrative Exam Narrative: GENERAL: Well-nourished, well-developed patient. SKIN: Warm and dry. HEAD: Normocephalic and atraumatic. EYES: No scleral icterus. No injection or drainage. ENT: No nasal drainage noted. Mucous membranes pink. Airway patent. NECK: Supple, trachea midline. Moves head freely without obvious discomfort. CARDIOVASCULAR: Regular rate and rhythm without murmurs, gallops, or rubs. RESPIRATORY: Breath sounds equal bilaterally. No accessory muscle use. GASTROINTESTINAL: Abdomen soft, non-tender, nondistended. EXTREMITIES: No cyanosis or edema. BACK: Nontender without obvious deformity. No CVA tenderness. NEURO: Patient is alert and oriented. no sensorimotor deficits. Nonfocal. Normal speech. PSYCH: No delusions. No auditory or visual hallucinations. Course Initial Documented Vital Signs Temperature 98.4 F 07/31/18 21:30 Pulse Rate 98 H 07/31/18 21:30 Respiratory Rate 18 07/31/18 21:30 Blood Pressure 118/72 07/31/18 21:30 Pulse Oximetry 100 07/31/18 21:30 Last Documented Vital Signs Temperature 98.4 F 07/31/18 21:30 Pulse Rate 98 H 07/31/18 21:30 Respiratory Rate 18 07/31/18 21:30 Blood Pressure 118/72 07/31/18 21:30 Pulse Oximetry 100 07/31/18 21:30 Medical Decision Making MDM Narrative Medical decision making narrative: The nursing staff had performed protocol on this patient. I see no reason at any laboratory tests should have been ordered. The patient is not truly suicidal or homicidal. He was placed under a Alatorre act by police. I believe the patient's Alatorre act will be lifted in the morning. The patient will be allowed to sleep here in the ER. Medical Screen Exam Complete: Yes Emergency Medical Condition: Yes Lab Data Result diagrams: 07/31/18 21:47 07/31/18 21:47 Lab Results 07/31/18 07/31/18 07/31/18 Range/Units 21:47 21:47 21:47 WBC 9.6 (4.0-11.0) th/mm3 RBC 4.54 (4.50-5.90) mil/mm3 Hgb 14.0 (13.0-17.0) gm/dL Hct 39.1 (39.0-51.0) % MCV 86.2 (80.0-100.0) fL MCH 30.8 (27.0-34.0) pg MCHC 35.7 (32.0-36.0) % RDW 13.7 (11.6-17.2) % Plt Count 316 (150-450) th/mm3 MPV 7.6 (7.0-11.0) fL Neut % (Auto) 53.2 (16.0-70.0) % Lymph % (Auto) 39.1 (9.0-44.0) % [facility] % (Auto) 6.4 (0.0-8.0) % Eos % (Auto) 0.6 (0.0-4.0) % Baso % (Auto) 0.7 (0.0-2.0) % Neut # (Auto) 5.1 (1.8-7.7) th/mm3 Lymph # (Auto) 3.8 (1.0-4.8) th/mm3 [facility] # (Auto) 0.6 (0.0-0.9) th/mm3 Eos # (Auto) 0.1 (0.0-0.4) th/mm3 Baso # (Auto) 0.1 (0.0-0.2) th/mm3 WBC Differential . Differential Comment Auto diff final Sodium 141 (136-145) meq/L Potassium 3.5 (3.5-5.1) meq/L Chloride 109 H (98-107) meq/L Carbon Dioxide 23.7 (21.0-32.0) meq/L Anion Gap 8 (5-15) meq/L BUN 12 (7-18) mg/dL Creatinine 0.85 (0.60-1.30) mg/dL Estimated GFR Greater than 89 (>89) mL/min Random Glucose 96 (74-106) mg/dL Calcium 8.4 L (8.5-10.1) mg/dL Total Bilirubin 0.2 (0.2-1.0) mg/dL AST 15 (15-37) U/L ALT 34 (12-78) U/L Alkaline Phosphatase 92 (45-117) U/L Total Protein 7.8 (6.4-8.2) g/dL Albumin 3.7 (3.4-5.0) g/dL Salicylates 2.2 L (2.8-20.0) mg/dL Urine Opiates Screen (Neg) Acetaminophen Less than 2.0 L (10.0-30.0) mcg/mL Ur Barbiturates Screen (Neg) Ur Amphetamines Screen (Neg) U Benzodiazepines Scrn (Neg) Urine Cocaine Screen (Neg) U Cannabinoids Screen (Neg) 07/31/18 Range/Units 21:50 WBC (4.0-11.0) th/mm3 RBC (4.50-5.90) mil/mm3 Hgb (13.0-17.0) gm/dL Hct (39.0-51.0) % MCV (80.0-100.0) fL MCH (27.0-34.0) pg MCHC (32.0-36.0) % RDW (11.6-17.2) % Plt Count (150-450) th/mm3 MPV (7.0-11.0) fL Neut % (Auto) (16.0-70.0) % Lymph % (Auto) (9.0-44.0) % [facility] % (Auto) (0.0-8.0) % Eos % (Auto) (0.0-4.0) % Baso % (Auto) (0.0-2.0) % Neut # (Auto) (1.8-7.7) th/mm3 Lymph # (Auto) (1.0-4.8) th/mm3 [facility] # (Auto) (0.0-0.9) th/mm3 Eos # (Auto) (0.0-0.4) th/mm3 Baso # (Auto) (0.0-0.2) th/mm3 WBC Differential Differential Comment Sodium (136-145) meq/L Potassium (3.5-5.1) meq/L Chloride (98-107) meq/L Carbon Dioxide (21.0-32.0) meq/L Anion Gap (5-15) meq/L BUN (7-18) mg/dL Creatinine (0.60-1.30) mg/dL Estimated GFR (>89) mL/min Random Glucose (74-106) mg/dL Calcium (8.5-10.1) mg/dL Total Bilirubin (0.2-1.0) mg/dL AST (15-37) U/L ALT (12-78) U/L Alkaline Phosphatase (45-117) U/L Total Protein (6.4-8.2) g/dL Albumin (3.4-5.0) g/dL Salicylates (2.8-20.0) mg/dL Urine Opiates Screen Neg (Neg) Acetaminophen (10.0-30.0) mcg/mL Ur Barbiturates Screen Neg (Neg) Ur Amphetamines Screen Neg (Neg) U Benzodiazepines Scrn Neg (Neg) Urine Cocaine Screen Neg (Neg) U Cannabinoids Screen Neg (Neg) Discharge Plan Discharge Disposition Patient Disposition: 30 Still Patient Discharge Condition Condition: Stable Discharge Details Anticipated Discharge Date: 08/01/18 Physicians Team ED Provider: Matthew Hwang ED Midlevel Provider: Dominic Sanon Rxs /Orders / Referrals /Forms Prescriptions: No Action paliperidone palmitate [Invega Sustenna] 156 mg/mL Syringe 156 mg IM QMONTH Qty: 1 RF: 0 Status ED Status: With Doctor
[2018-08-01] MEDS ORDERED: Aluminum/Magnesium/Simethacone Susp 30 ML UDC PO PRN (11:00)
[2018-08-01] MEDS ORDERED: Acetaminophen 325 MG Tablet PO PRN (11:00)
--- NOTE | 2018-08-01 11:24 | P.HPPSY ---
Provisional Diagnosis Admission Date: July 31, 2018 21:17 [place] I.: Schizophrenia chronic paranoid type Competence Certification of Person's Competence To Provide Express and Informed Consent I have personally examined Inderjit Byers, a person being served at [facility] on, August 01, 2018 1111. Express and informed consent means consent voluntarily given in writing, by a competent person, after sufficient explanation and disclosure of the subject matter involved to enable the person to make a knowing and willful decision without any element of force, fraud, deceit, duress, or other form of constraint or coercion. This person is 18 years of age or older, is not now known to be incompetent to consent to treatment with a guardian advocate, and does not have a health care surrogate or proxy currently making medical treatment decisions. I have found this person to be one of the following: [] Competent to provide express and informed consent, as defined above, for voluntary admission to this facility and is competent to provide express and informed consent for treatment. He/she has the consistent capacity to make well reasoned, willful, and knowing decisions concerning his or her medical or mental health treatment. The person fully and consistently understands the purpose of the admission for examination/placement and is fully capable of personally exercising all rights assured under [place] [] Incompetent to provide express and informed consent to voluntary admission, and this is incompetent to provide express and informed consent to treatment. The person must be transferred to involuntary status and a petition for a guardian advocate filed with the Circuit Court. [xxxx] Refusing to provide express and informed consent to voluntary admission but is competent to provide express and informed consent for treatment. The person must be discharged or transferred to involuntary status. Form shall be completed within 24 hours of a person's arrival at the receiving facility and filed in the clinical record of each person: 1. Admitted on a voluntary basis 2. Permitted to provide express and informed consent to his/her own treatment 3. Allowed to transfer from involuntary to voluntary status 4. Prior to permitting a person to consent to his or her own treatment after having been previously found incompetent to consent to treatment. History of Present Illness Capacity: Lacks capacity (Patient lacks capacity to sign for admission, patient has capacity to sign for medication) History of Present Illness: Patient is a 48-year-old white male well known to us from multiple prior contacts. Comes here under Alatorre act by the [place] [employer] dated 07/31/2018 at 20 1:18 PM that document reviewed stating Enriqueonia O stop me to tell me that he is suicidal and how much he will paranoid schizophrenia unemployed SSI homeless single without previous suicide attempts Resporal 2 mg. Of interest this is the patient's third Alatorre act in 48 hours. I have seen them prior. He was able to present appropriately at that time for discharge at his insistence. However further review of the EMR shows this is patient's fifth hospitalization in the past 6 months. Prior to his discharge yesterday from the ED he did receive an in Muhammad sustain a booster injection of 156 mg. Patient is seen today in his room with nurse Yamilet. Patient is quite intensely malodorous. He can recognize his significant body odor as soon as you walk into his room. He is somewhat irritable and angry. Stating he was attempting to walk to [place] from here when the police stopped him. He is vague about suicidality he is vague about voices. However when reviewing his timeline his multiple admissions and his multiple Alatorre acts I feel the patient does meet criteria for involuntary psychiatric hospitalization. I feel we do need to monitor and treat him for more extended period of time to help prevent further recidivism thus I will do first opinion petition supporting Alatorre act. They feel he does have capacity at this time to sign for medications. We will restart him on Resporal 2 mg twice daily we will refrain from any opiates or benzodiazepines at this time and offer him Atarax and Benadryl. We are strongly encouraging him to improve his hygiene. He is a tall strong gentleman also encouraging him to maintain self-control and discipline since will be admitted to the 2600 unit he is verbalizing a cooperation with that. We need to get further specific information about placement issues with this gentleman. Review of Systems All other systems reviewed negative except as stated in HPI [facility] - History History Provided By: Patient - Medical History Medical History: Medical History (Last Reviewed 08/01/18 @ 11:18 by Cody Elder MD) Depression (Acute) Hx of schizophrenia (Acute) - Surgical History Surgical History: Surgical History (Last Reviewed 08/01/18 @ 11:18 by Cody Elder MD) Hx of heart artery stent (Acute) - Family History Family History: Family History (Last Reviewed 08/01/18 @ 11:18 by Cody Elder MD) Other Family history unknown - Social History I have reviewed the patient's Social History: Yes - Tobacco History Second Hand Smoke Exposure: Yes Tobacco Use In Past 30 Days: Yes Smoking Status: Current every day smoker Tobacco Type: Cigarettes - Alcohol History How Often Do You Have a Drink Containing Alcohol: Monthly or less - Substance Use History Substance History: No History of Abuse - Travel History Recent Travel in the USA Within the Last 8 Weeks: No Recent Travel Out of the Country Within the Last 8 Weeks: No - Immunization History Tetanus Immunization: <5 Years Tetanus Immunization Year if Known: 2017 Hx Influenza Vaccine This Season: No Quality Measures - Psychiatric History Psychological trauma history: Patient denies at this time Violence risk to others in the last 6 months: Low the patient does have a somewhat volatile temper at times Violence risk to self in the last 6 months: Low to moderate - Substance Abuse History Drug or alcohol use in the past 12 months: Denies at this time - Patient Strengths Patient's strengths (minimum of 2): Patient verbal able access healthcare Medications and Allergies Allergies Allergy/AdvReac Type Severity Reaction Status Date / Time Fish Containing Products Allergy Severe Hives Verified 07/12/18 20:39 Results - Labs CBC & Chem 7: 07/31/18 21:47 07/31/18 21:47 Labs: Laboratory Results - last 24 hr 07/31/18 07/31/18 07/31/18 21:47 21:47 21:47 WBC 9.6 RBC 4.54 Hgb 14.0 Hct 39.1 MCV 86.2 MCH 30.8 MCHC 35.7 RDW 13.7 Plt Count 316 MPV 7.6 Neut % (Auto) 53.2 Lymph % (Auto) 39.1 [place] % (Auto) 6.4 Eos % (Auto) 0.6 Baso % (Auto) 0.7 Neut # (Auto) 5.1 Lymph # (Auto) 3.8 [place] # (Auto) 0.6 Eos # (Auto) 0.1 Baso # (Auto) 0.1 WBC Differential . Differential Comment Auto diff final Sodium 141 Potassium 3.5 Chloride 109 H Carbon Dioxide 23.7 Anion Gap 8 BUN 12 Creatinine 0.85 Estimated GFR Greater than 89 Random Glucose 96 Calcium 8.4 L Total Bilirubin 0.2 AST 15 ALT 34 Alkaline Phosphatase 92 Total Protein 7.8 Albumin 3.7 Salicylates 2.2 L Urine Opiates Screen Acetaminophen Less than 2.0 L Ur Barbiturates Screen Ur Amphetamines Screen U Benzodiazepines Scrn Urine Cocaine Screen U Cannabinoids Screen 07/31/18 21:50 WBC RBC Hgb Hct MCV MCH MCHC RDW Plt Count MPV Neut % (Auto) Lymph % (Auto) [place] % (Auto) Eos % (Auto) Baso % (Auto) Neut # (Auto) Lymph # (Auto) [place] # (Auto) Eos # (Auto) Baso # (Auto) WBC Differential Differential Comment Sodium Potassium Chloride Carbon Dioxide Anion Gap BUN Creatinine Estimated GFR Random Glucose Calcium Total Bilirubin AST ALT Alkaline Phosphatase Total Protein Albumin Salicylates Urine Opiates Screen Neg Acetaminophen Ur Barbiturates Screen Neg Ur Amphetamines Screen Neg U Benzodiazepines Scrn Neg Urine Cocaine Screen Neg U Cannabinoids Screen Neg Exam Vital signs: Vital Signs 07/31/18 21:30 08/01/18 00:23 08/01/18 03:03 Temperature 98.4 F 98.2 F 98.2 F Pulse Rate 98 H 71 51 L Respiratory Rate 18 18 18 Blood Pressure 118/72 126/63 99/52 L Pulse Oximetry 100 98 99 Intake & Output 07/31/18 08/01/18 08/01/18 18:59 06:59 18:59 Output Total 650 / 650 Balance -650 / -650 Weight 83.915 kg Output: Urine 650 / 650 Narrative: Patient seen in his room and J pod laying quietly in his bed covers to his chin , he is markedly disheveled with very poor hygiene and very prominent body odor , he is markedly malodorous. He states he did also urinate on himself last night in bed. Though he is laying quietly he is in no acute distress, he is in no respiratory distress, no complaints of chest pain or abdominal pain. Patient moving all 4 extremities without difficulty Mental Status Examination Appearance: Disheveled, Malodorous (Significantly) Consciousness: Alert Orientation: Person, Place Motor Activity: Normal gait Speech: Unremarkable Language: Adequate Fund of Knowledge: Poor Attention and Concentration: Adequate (Poor) Memory: Impaired Mood: Anxious, Irritable Affect: Other (Slight increased range and intensity) Thought Content: Ideas of reference Hallucination Type: None (Denies at this time) Delusion Type: Other (Markedly vigilant) Suicidal Ideation: No Suicidal Plan: No Suicidal Intention: No Homicidal Ideation: No Homicidal Plan: No Homicidal Intention: No Assessment and Plan - Plan Plan: Estimated LOS: [] 5-7 days At this time patient meets Alatorre act criteria for inpatient psychiatric hospitalization on an involuntary basis. I will do first opinion request second opinion. I feel he does have capacity at this time to sign for treatment and medication. We will restart him on his Resporal 2 mg twice daily. We will offer him Atarax and Benadryl. Continue patient's significant recidivism we need to focus somewhat on appropriate placements for this gentleman with a length of stay sufficient to give him a better chance of being successful in the community if that is not possible we may need to look at long- term placement Justification for Continued Inpatient Stay: At this time patient would decompensate a place to a lower level of care Discharge Planning: To be determined Request Healthcare Surrogate/Guardian Advocate?: No
--- NOTE | 2018-08-02 12:31 | P.CONPSY ---
Provisional Diagnosis Admission Date: August 01, 2018 11:18 [place] I.: 1. Schizophrenia, paranoid type [place] II.: Deferred History of Present Illness Service: Psychiatry Consult date: 08/02/18 Requesting Physician: Cody Elder Reason for Consult: Second opinion for involuntary psychiatric hospitalization Primary Care Provider: No Primary Care Physician History of Present Illness: From Dr. Elder's H&P: Patient is a 48-year-old white male well known to us from multiple prior contacts. Comes here under Alatorre act by the [place] [employer] dated 07/31/2018 at 20 1:18 PM that document reviewed stating Apollonia O stop me to tell me that he is suicidal and how much he will paranoid schizophrenia unemployed SSI homeless single without previous suicide attempts Resporal 2 mg. Of interest this is the patient's third Alatorre act in 48 hours. I have seen them prior. He was able to present appropriately at that time for discharge at his insistence. However further review of the EMR shows this is patient's fifth hospitalization in the past 6 months. Prior to his discharge yesterday from the ED he did receive an in Muhammad sustain a booster injection of 156 mg. Patient is seen today in his room with nurse Yamilet. Patient is quite intensely malodorous. He can recognize his significant body odor as soon as you walk into his room. He is somewhat irritable and angry. Stating he was attempting to walk to [place] from here when the police stopped him. He is vague about suicidality he is vague about voices. However when reviewing his timeline his multiple admissions and his multiple Alatorre acts I feel the patient does meet criteria for involuntary psychiatric hospitalization. I feel we do need to monitor and treat him for more extended period of time to help prevent further recidivism thus I will do first opinion petition supporting Alatorre act. They feel he does have capacity at this time to sign for medications. We will restart him on Resporal 2 mg twice daily we will refrain from any opiates or benzodiazepines at this time and offer him Atarax and Benadryl. We are strongly encouraging him to improve his hygiene. He is a tall strong gentleman also encouraging him to maintain self-control and discipline since will be admitted to the 2600 unit he is verbalizing a cooperation with that. We need to get further specific information about placement issues with this gentleman. On my exam today, 08/02: Patient seen and examined with nurse. Chart reviewed. Case discussed with nursing staff. On my examination today, the patient says that he was feeling suicidal prior to admission because "I was out of money and had no food." No ongoing suicidal ideation reported. The patient says that he is feeling sad because he has "no mom, no dad." Affect is flat. He endorses auditory hallucinations "about some things from the past." No reported command auditory hallucinations to hurt self/others. No delusional material elicited. Denies side effects from medications. No physical complaints. Past psychiatric, family, chemical dependency and social history previously obtained, e.g. see my consult note from 07/13. Review of Systems All other systems reviewed negative except as stated in [facility] - History History Provided By: Patient - Medical History Medical History: Medical History (Last Reviewed 08/01/18 @ 11:18 by Cody Elder MD) Depression (Acute) Hx of schizophrenia (Acute) - Surgical History Surgical History: Surgical History (Last Reviewed 08/01/18 @ 11:18 by Cody Elder MD) Hx of heart artery stent (Acute) - Family History Family History: Family History (Last Reviewed 08/01/18 @ 11:18 by Cody Elder MD) Other Family history unknown - Tobacco History Second Hand Smoke Exposure: Yes Tobacco Use In Past 30 Days: Yes Smoking Status: Current every day smoker Tobacco Type: Cigarettes - Alcohol History How Often Do You Have a Drink Containing Alcohol: Monthly or less - Substance Use History Substance History: No History of Abuse - Travel History Recent Travel in the USA Within the Last 8 Weeks: No Recent Travel Out of the Country Within the Last 8 Weeks: No - Immunization History Tetanus Immunization: <5 Years Tetanus Immunization Year if Known: 2018 Hx Influenza Vaccine This Season: No Medications and Allergies Active Medications: Active Medications Acetaminophen (Tylenol) 650 mg PO Q4H PRN PRN Reason: Pain 1-5 or Temp >101F Al Hydrox/Mg Hydrox/Simethicone (Mag-Al Plus Susp Liq) 30 ml PO Q6H PRN PRN Reason: DYSPEPSIA Al Hydroxide/Mg Hydroxide (Milk Of Magnesia Liq) 30 ml PO Q12H PRN PRN Reason: Mild Constipation Diphenhydramine HCl (Benadryl) 50 mg PO HS PRN PRN Reason: INSOMNIA Hydroxyzine HCl (Atarax) 50 mg PO Q6H PRN PRN Reason: ANXIETY Paliperidone Palmitate (Invega Sustenna Inj) 156 mg IM Q30D DANNY Risperidone (Risperdal) 1 mg PO BID DANNY Last Admin: 08/02/18 08:27 Dose: 1 mg Allergies Allergy/AdvReac Type Severity Reaction Status Date / Time Fish Containing Products Allergy Severe Hives Verified 07/12/18 20:39 Exam Vital signs: Vital Signs 08/01/18 13:05 08/02/18 05:57 Temperature 98.6 F 97.9 F Pulse Rate 84 61 Respiratory Rate 17 Blood Pressure 109/75 108/58 L Pulse Oximetry 93 L 96 Intake & Output 08/01/18 08/02/18 08/02/18 18:59 06:59 18:59 Output Total 650 / 650 Balance -650 / -650 Weight 93.5 kg Output: Urine 650 / 650 Other: Weight On Admission 93.5 kg Narrative: Physical examination was completed by the ED provider. On my examination today , the patient appears to be in no acute physical distress. No motor abnormalities noted. Labs and vital signs reviewed. Laboratory Tests 07/31/18 07/31/18 07/31/18 21:47 21:47 21:47 WBC 9.6 RBC 4.54 Hgb 14.0 Hct 39.1 MCV 86.2 MCH 30.8 MCHC 35.7 RDW 13.7 Plt Count 316 MPV 7.6 Neut % (Auto) 53.2 Lymph % (Auto) 39.1 [place] % (Auto) 6.4 Eos % (Auto) 0.6 Baso % (Auto) 0.7 Neut # (Auto) 5.1 Lymph # (Auto) 3.8 [place] # (Auto) 0.6 Eos # (Auto) 0.1 Baso # (Auto) 0.1 WBC Differential . Differential Comment Auto diff final Sodium 141 Potassium 3.5 Chloride 109 H Carbon Dioxide 23.7 Anion Gap 8 BUN 12 Creatinine 0.85 Estimated GFR Greater than 89 Random Glucose 96 Calcium 8.4 L Total Bilirubin 0.2 AST 15 ALT 34 Alkaline Phosphatase 92 Total Protein 7.8 Albumin 3.7 Salicylates 2.2 L Urine Opiates Screen Acetaminophen Less than 2.0 L Ur Barbiturates Screen Ur Amphetamines Screen U Benzodiazepines Scrn Urine Cocaine Screen U Cannabinoids Screen 07/31/18 21:50 WBC RBC Hgb Hct MCV MCH MCHC RDW Plt Count MPV Neut % (Auto) Lymph % (Auto) [place] % (Auto) Eos % (Auto) Baso % (Auto) Neut # (Auto) Lymph # (Auto) [place] # (Auto) Eos # (Auto) Baso # (Auto) WBC Differential Differential Comment Sodium Potassium Chloride Carbon Dioxide Anion Gap BUN Creatinine Estimated GFR Random Glucose Calcium Total Bilirubin AST ALT Alkaline Phosphatase Total Protein Albumin Salicylates Urine Opiates Screen Neg Acetaminophen Ur Barbiturates Screen Neg Ur Amphetamines Screen Neg U Benzodiazepines Scrn Neg Urine Cocaine Screen Neg U Cannabinoids Screen Neg Mental Status Examination Appearance: Disheveled Consciousness: Alert Orientation: Person, Place (At least) Motor Activity: Other (No motor abnormalities noted) Speech: Unremarkable Language: Adequate Fund of Knowledge: Poor Attention and Concentration: Easily distracted Memory: Impaired Mood: Sad Affect: Flat Thought Process & Associations: Intact Thought Content: Hallucinations Hallucination Type: Other (Vague, as above) Delusion Type: None Suicidal Ideation: No Suicidal Plan: No Suicidal Intention: No Homicidal Ideation: No Homicidal Plan: No Homicidal Intention: No Insight: Poor Judgment: Poor Assessment and Plan - Assessment (1) Schizophrenia Code(s): F20.9 - Schizophrenia, unspecified Status: Acute - Plan Plan: Given the circumstances of the patient's presentation here and his presentation on my examination today, I concur with Dr. Elder that the patient meets criteria for involuntary psychiatric hospitalization under the [place]atorre act. Main concern here is for self-care deficit and functional impairment in less restrictive environment as evidenced by recurrent re-hospitalizations. I have completed the second opinion paperwork. I will continue augmentation of patient 's Invega Sustenna with oral Risperdal as ordered by Dr. Elder. Continue to monitor on the inpatient unit. Continue other care as ordered. Justification for Continued Inpatient Stay: High risk for decompensation in less restrictive environment. Discharge Planning: Placement versus state hospitalization Request Healthcare Surrogate/Guardian Advocate?: No (1) Schizophrenia Qualifiers: Schizophrenia type: paranoid schizophrenia Qualified Code(s): F20.0 - Paranoid schizophrenia
--- NOTE | 2018-08-03 15:40 | P.PNPSY ---
Subjective Remarks: Reviewed electronic medical records and discussed case with staff. Follow-up was conducted in patient's room. He was found lying in the bed awake, alert, and oriented. He reports feeling "very sad and a little confused". States that he slept okay in spite of scene shifter reporting he was screaming in his room last night. States that his appetite is okay. He denies auditory hallucinations. He is also denying suicidal ideation at this time. Mental Status Examination Appearance: Disheveled Consciousness: Alert Orientation: Person, Place (At least) Motor Activity: Other (No motor abnormalities noted) Speech: Unremarkable Language: Adequate Fund of Knowledge: Poor Attention and Concentration: Easily distracted Memory: Impaired Mood: Sad Affect: Flat Thought Process & Associations: Intact Thought Content: Hallucinations Hallucination Type: Other (Vague, as above) Delusion Type: None Suicidal Ideation: No Suicidal Plan: No Suicidal Intention: No Homicidal Ideation: No Homicidal Plan: No Homicidal Intention: No Insight: Poor Judgment: Poor Assessment and Plan - Assessment (1) Schizophrenia Code(s): F20.9 - Schizophrenia, unspecified Status: Acute - Plan Plan: Patient will be reevaluated tomorrow by the attending psychiatrist. Continue with current treatment plan. Justification for Continued Inpatient Stay: Moving this patient to a less restrictive environment would likely result in decompensation. Request Healthcare Surrogate/Guardian Advocate?: No (1) Schizophrenia Qualifiers: Schizophrenia type: paranoid schizophrenia Qualified Code(s): F20.0 - Paranoid schizophrenia
--- NOTE | 2018-08-04 11:35 | P.TTN ---
- Patient Problems Problems: 1. Discharge planning 2. Medication compliance 3. Knowledge deficit 4. Lack of coping skills - Progress Toward Goals Provider Present: Dr. Marlon Elder, Dr. Evelyn Viveros Nurse Input: Riaz- Patient is homeless,Brought in by Law [employer] for suicidal ideation and paranoia. Denies current hallucinations. Seclusice, guarded and flat. Complient with medication Psychiatric Counselors Present: Nigel Mcdonald Jr., [facility], Other Psychiatric Therapist Input: Shantel- will need placement- homeless Group Spec/RT/OT/HERNANDEZ Present: Jodi York, GPS, Misha Dorsey, OT Clinical Coordinator: Roselia Barrett [facility] - Documentation Teaching Recipient: Patient
--- NOTE | 2018-08-04 12:09 | P.PNPSY ---
Subjective Remarks: Patient seen and examined with nurse. Chart reviewed. Case discussed with nursing staff. Case discussed with counselor. On my examination today, the patient is somewhat more interactive although he remains fairly seclusive to room. He denies any SI, HI or AVH. No side effects from medications. No physical complaints. He has received notice of Alator[place] act court hearing, and we discussed the patient's legal status. Vital Signs Pulse Resp BP Pulse Ox 08/04/18 06:00 67 16 101/50 L 93 L 08/03/18 18:08 88 17 100/52 L 92 L Labs reviewed. No new labs. Review of Systems All other systems reviewed negative except as stated in HPI Mental Status Examination Appearance: Disheveled Consciousness: Alert Orientation: Person, Place (At least) Motor Activity: Other (No motoric abnormalities noted) Speech: Unremarkable Language: Adequate Fund of Knowledge: Poor Attention and Concentration: Easily distracted Memory: Impaired Mood: Appropriate Affect: Flat Thought Process & Associations: Intact Thought Content: Appropriate Hallucination Type: None Delusion Type: None Suicidal Ideation: No Homicidal Ideation: No Insight: Poor Judgment: Poor Assessment and Plan - Assessment (1) Schizophrenia Code(s): F20.9 - Schizophrenia, unspecified Status: Acute - Plan Plan: Continue with oral Risperdal supplementing Invega Sustenna. Continue to monitor on the inpatient unit. Continue other medications and care as ordered. Justification for Continued Inpatient Stay: High risk for decompensation in less restrictive environment Discharge Planning: Pending outcome of [place] court tomorrow. Anticipate need for placement. Case discussed with counselor. Request Healthcare Surrogate/Guardian Advocate?: No (1) Schizophrenia Qualifiers: Schizophrenia type: paranoid schizophrenia Qualified Code(s): F20.0 - Paranoid schizophrenia
[2018-08-05 05:33] VITALS: BP 107/57; PULSE 61; RESP 16; TEMP 98.1; O2SAT 98
--- NOTE | 2018-08-05 10:12 | P.DSPSY ---
Psychiatry Discharge Summary Inpatient Psychiatric care?: Yes Advance Directives: No Reason for Unknown:: Other Mental Health Advance Directive: No Health Care Proxy: No - Admission Admission Date: August 01, 2018 11:18 - Admission Diagnosis (1) Schizophrenia Code(s): F20.9 - Schizophrenia, unspecified Brief History: Patient is a 48-year-old white male well known to us from multiple prior contacts. Comes here under Alatorre act by the [place] [employer] dated 07/31/2018 at 20 1:18 PM that document reviewed stating Apollonia O stop me to tell me that he is suicidal and how much he will paranoid schizophrenia unemployed SSI homeless single without previous suicide attempts Resporal 2 mg. Of interest this is the patient's third Alatorre act in 48 hours. I have seen them prior. He was able to present appropriately at that time for discharge at his insistence. However further review of the EMR shows this is patient's fifth hospitalization in the past 6 months. Prior to his discharge yesterday from the ED he did receive an in Muhammad sustain a booster injection of 156 mg. Patient is seen today in his room with nurse Yamilet. Patient is quite intensely malodorous. He can recognize his significant body odor as soon as you walk into his room. He is somewhat irritable and angry. Stating he was attempting to walk to [place] from here when the police stopped him. He is vague about suicidality he is vague about voices. However when reviewing his timeline his multiple admissions and his multiple Alatorre acts I feel the patient does meet criteria for involuntary psychiatric hospitalization. I feel we do need to monitor and treat him for more extended period of time to help prevent further recidivism thus I will do first opinion petition supporting Alatorre act. They feel he does have capacity at this time to sign for medications. We will restart him on Resporal 2 mg twice daily we will refrain from any opiates or benzodiazepines at this time and offer him Atarax and Benadryl. We are strongly encouraging him to improve his hygiene. He is a tall strong gentleman also encouraging him to maintain self-control and discipline since will be admitted to the 2600 unit he is verbalizing a cooperation with that. We need to get further specific information about placement issues with this gentleman. Tobacco Use In Past 30 Days: Yes How Often Do You Have a Drink Containing Alcohol: Monthly or less Hospital Course: Patient was admitted to a locked, inpatient psychiatric unit. Appropriate precautions were maintained throughout patient's hospital stay. Patient was seen and examined on the unit by psychiatry and also visited by counselor. Psychotropic medications were adjusted. Patient tolerated medication changes well without side effects. Patient's case was presented to the Alatorre act court today, and the educational therapist has ordered his discharge as per the patient's request. As previously noted, patient is suspected of malingering psychiatric symptoms to gain admission to the unit for detention as he is homeless, although he does have a maddie tracie underlying psychotic disorder. As a consequence of this underlying psychotic disorder, patient's judgment is quite poor on a chronic basis. He would benefit from placement in a structured living environment but is refusing this, saying instead that he will go to stay at a detention in [place]. I fear that he will not be able to arrange for this move and will in all likelihood find his way back to the hospital, possibly malingering psychiatric symptoms once again for admission. The patient will be discharged today AGAINST MEDICAL ADVICE. Psychiatric follow-up as arranged by counselor. Patient is also to follow up with primary care. Patient to return to psychiatric emergency room for any concerning symptoms as part of a general safety plan. - Discharge Discharge Date: 08/05/18 - Discharge Diagnosis (1) Schizophrenia Diagnosis: Principal Code(s): F20.9 - Schizophrenia, unspecified Status: Acute Discharge Disposition: AMA - Discharge Instructions Discharge Diet: Regular Diet Activities You Can Perform: Weight Bearing As Tolerat - Discharge Time <= 30 minutes Mental Status Examination Appearance: Appropriate (Fair) Consciousness: Alert Orientation: Person, Place (At least) Motor Activity: Other (No abnormal motor movements noted) Speech: Unremarkable Language: Adequate Fund of Knowledge: Poor Attention and Concentration: Easily distracted Memory: Impaired Mood: Appropriate Affect: Blunt Thought Process & Associations: Intact Thought Content: Appropriate Hallucination Type: None Delusion Type: None Suicidal Ideation: No Suicidal Plan: No Suicidal Intention: No Homicidal Ideation: No Homicidal Plan: No Homicidal Intention: No Insight: Poor Judgment: Poor Discharge/Advance Care Plan - Results Vital Signs: Last Vital Signs Temp 98.1 F 08/05/18 05:32 Pulse 61 08/05/18 05:32 Resp 16 08/05/18 05:32 BP 107/57 L 08/05/18 05:32 Pulse Ox 98 08/05/18 05:32 Lab Results: Laboratory Tests 07/31/18 07/31/18 07/31/18 21:47 21:47 21:50 WBC 9.6 Hgb 14.0 Plt Count 316 Sodium 141 Potassium 3.5 Chloride 109 H Carbon Dioxide 23.7 Anion Gap 8 BUN 12 Creatinine 0.85 Estimated GFR Greater than 89 Random Glucose 96 AST 15 ALT 34 Alkaline Phosphatase 92 Urine Opiates Screen Neg Ur Barbiturates Screen Neg Ur Amphetamines Screen Neg U Benzodiazepines Scrn Neg Urine Cocaine Screen Neg U Cannabinoids Screen Neg Summary of Procedures: None done. Pending Results: None - Medications Number of antipsychotic medications at discharge: 2 (Invega Sustenna + Risperdal PO.) Appropriate use of more than 1 antipsychotic med: Justification other than those in allowable values 1-3, document here: (Multiple antipsychotics required for symptomatic improvement) - Discharge Care Plan Goals to Promote Your Health: * To prevent worsening of your condition and complications * To maintain your health at the optimal level Directions to Meet Your Goals: Take your medications as prescribed Follow your dietary instruction Follow activity as directed Keep your appointments as scheduled Take your immunizations and boosters as scheduled If your symptoms worsen call your PCP, if no PCP go to Urgent Care Center or Emergency Room For 25/05 questions related to your inpatient stay or results of tests pending at discharge, please contact Dr. Johnny Miller MD at [phone] Smoking is Dangerous to Your Health. Avoid second hand smoking (1) Schizophrenia Qualifiers: Schizophrenia type: paranoid schizophrenia Qualified Code(s): F20.0 - Paranoid schizophrenia (1) Schizophrenia Qualifiers: Schizophrenia type: paranoid schizophrenia Qualified Code(s): F20.0 - Paranoid schizophrenia
[2018-08-18] MEDS ORDERED: Paliperidone Inj 156 MG/ML Syringe IM SCH (09:00)
== END 2018-08-05 12:55 | disposition left against medical advice (07) ==
LOC: NEPD 21:17 → NEDA 08-01 11:18 → H260 08-01 13:01
PROVIDERS: ADMIT Psychiatry & Neurology Psychiatry; ATTEND Psychiatry & Neurology Psychiatry

== ENCOUNTER 2018-09-21 04:44 | Inpatient (IN) ==
--- NOTE | 2018-09-21 05:22 | ED ---
HPI General Chief Complaint: Psychiatric Symptoms Stated Complaint: Psy/OBPD Time Seen by Provider: 09/21/18 05:05 Source: patient and police Mode of arrival: ambulatory Limitations: no limitations History of Present Illness HPI Narrative: Patient presents to our ED under a Alatorre act by police. Currently ran to the police and told him that he wanted to kill himself. Patient placed was placed under a Alatorre act and brought to our hospital immediately. Patient states that he has not been on his depression medication for years and he is homeless. MD complaint: Reports feels depressed Duration: constant History of same: Yes Relieving factors: none Exacerbating factors: none Context: Reports not taking psychiatric medications; Denies recent alcohol abuse and recent drug abuse Associated psychiatric symptoms: Reports depression, suicidal ideation and racing thoughts Associated symptoms: Denies confusion, headache, shortness of breath, nausea and vomiting Treatments prior to arrival: Reports placed on mental health hold Related Data Home Medications Medication Instructions Recorded Confirmed No Known Home Medications 09/21/18 09/21/18 Allergies Allergy/AdvReac Type Severity Reaction Status Date / Time Fish Containing Products Allergy Severe Hives Verified 07/12/18 20:39 Review of Systems ROS: all other systems reviewed are negative [facility] Social History Social History Substance History: No History of Abuse Second Hand Smoke Exposure: Yes Smoking Status: Heavy tobacco smoker Tobacco Type: Cigarettes How Often Do You Have a Drink Containing Alcohol: Never Recent Travel in [facility] within the Last 8 Weeks: No Recent Out of Country Travel within the Last 8 Weeks: No Immunization History Tetanus Immunization Year if Known: 2018 Exam [facility] Head: normocephalic and atraumatic Nose: no nasal discharge and no epistaxis Mouth: moist mucous membranes Eyes Sclera: normal sclerae Pupils: PERRL Neck Neck: trachea midline and no JVD Resp Effort & Inspection: no use of accessory muscles Auscultation: clear to auscultation bilaterally Cardio Rate: regular rate Rhythm: regular rhythm Heart Sounds: no murmurs GI Inspection: non-distended Palpation: soft, no hepatosplenomegaly and nontender Skin General: dry skin (warm) Neuro General: alert and awake Cranial Nerves: other Speech: speech normal Motor: no movement abnormalities noted Extrem General: normal to inspection, no clubbing, no cyanosis and no edema Psych Mood: congruent mood Affect: normal affect Judgment: judgment good Course Initial Documented Vital Signs Temperature 97.9 F 09/21/18 04:51 Pulse Rate 102 H 09/21/18 04:51 Respiratory Rate 18 09/21/18 04:51 Blood Pressure 136/69 09/21/18 04:51 Pulse Oximetry 96 09/21/18 04:51 Last Documented Vital Signs Temperature 97.4 F L 09/22/18 05:35 Pulse Rate 62 09/22/18 05:35 Respiratory Rate 18 09/22/18 05:35 Blood Pressure 94/52 L 09/22/18 05:35 Pulse Oximetry 96 09/22/18 05:35 Medical Decision Making MDM Narrative Medical decision making narrative: Patient presents to our ED under a Alatorre act by police. Currently ran up to the police and told him that he wanted to kill himself. Patient placed was placed under a Alatorre act and brought to our hospital immediately. Patient states that he has not been on his depression medication for years and he is homeless. Patient is no complaints at this time. Vital signs are normal. Blood pressure is 136/69. Pulse is 102 patient's O2 sat is 96 on room air Lab work does show an elevated white count of 20.9 MEdically cleared 0530 awaits psychiatry clearance Medical Screen Exam Complete: Yes Emergency Medical Condition: Yes Lab Data Lab results reviewed: Yes I reviewed the patient's lab results. Result diagrams: 09/21/18 05:14 09/21/18 05:14 Lab Results 09/21/18 09/21/18 09/21/18 Range/Units 05:14 05:14 09:15 WBC 20.9 H (4.0-11.0) th/mm3 RBC 4.41 L (4.50-5.90) mil/mm3 Hgb 13.4 (13.0-17.0) gm/dL Hct 38.5 L (39.0-51.0) % MCV 87.3 (80.0-100.0) fL MCH 30.5 (27.0-34.0) pg MCHC 34.9 (32.0-36.0) % RDW 13.5 (11.6-17.2) % Plt Count 353 (150-450) th/mm3 MPV 7.6 (7.0-11.0) fL Neut % (Auto) 78.9 H (16.0-70.0) % Lymph % (Auto) 12.4 (9.0-44.0) % Mcminn % (Auto) 8.2 H (0.0-8.0) % Eos % (Auto) 0.2 (0.0-4.0) % Baso % (Auto) 0.3 (0.0-2.0) % Neut # (Auto) 16.5 H (1.8-7.7) th/mm3 Lymph # (Auto) 2.6 (1.0-4.8) th/mm3 Mcminn # (Auto) 1.7 H (0.0-0.9) th/mm3 Eos # (Auto) 0.1 (0.0-0.4) th/mm3 Baso # (Auto) 0.1 (0.0-0.2) th/mm3 WBC Differential . Differential Comment Auto diff final Sodium 141 (136-145) meq/L Potassium 3.8 (3.5-5.1) meq/L Chloride 106 (98-107) meq/L Carbon Dioxide 24.6 (21.0-32.0) meq/L Anion Gap 10 (5-15) meq/L BUN 14 (7-18) mg/dL Creatinine 0.99 (0.60-1.30) mg/dL Estimated GFR 81 L (>89) mL/min Random Glucose 107 H (74-106) mg/dL Calcium 8.8 (8.5-10.1) mg/dL Total Bilirubin 0.3 (0.2-1.0) mg/dL AST 20 (15-37) U/L ALT 40 (12-78) U/L Alkaline Phosphatase 95 (45-117) U/L Total Protein 8.2 (6.4-8.2) g/dL Albumin 4.2 (3.4-5.0) g/dL TSH 2.960 (0.358-3.740) uIU/mL Urine Color (Yellw/Straw) Urine Clarity (Clear) Urine pH (5.0-8.5) Ur Specific [place] (1.002-1.035) Urine Protein (Neg-Trace) mg/dL Urine Glucose (UA) (Negative) mg/dL Urine Ketones (Negative) mg/dL Urine Occult Blood (Negative) Urine Nitrate (Negative) Urine Bilirubin (Negative) Urine Urobilinogen (Less than 2) mg/dL Ur Leukocyte Esterase (Negative) Urine RBC (0-3) /hpf Urine WBC (0-5) /hpf Hyaline Casts (0-3) /lpf Urine Mucus (Occasional) /lpf Micro UA Comment Ur Microscopic Review Urine Culture Comments Urine Opiates Screen Neg (Neg) Ur Barbiturates Screen Neg (Neg) Ur Amphetamines Screen Neg (Neg) U Benzodiazepines Scrn Neg (Neg) Urine Cocaine Screen Neg (Neg) U Cannabinoids Screen Neg (Neg) Serum Alcohol Less than 3 (0-5) mg/dL 09/21/18 Range/Units 09:15 WBC (4.0-11.0) th/mm3 RBC (4.50-5.90) mil/mm3 Hgb (13.0-17.0) gm/dL Hct (39.0-51.0) % MCV (80.0-100.0) fL MCH (27.0-34.0) pg MCHC (32.0-36.0) % RDW (11.6-17.2) % Plt Count (150-450) th/mm3 MPV (7.0-11.0) fL Neut % (Auto) (16.0-70.0) % Lymph % (Auto) (9.0-44.0) % Mcminn % (Auto) (0.0-8.0) % Eos % (Auto) (0.0-4.0) % Baso % (Auto) (0.0-2.0) % Neut # (Auto) (1.8-7.7) th/mm3 Lymph # (Auto) (1.0-4.8) th/mm3 Mcminn # (Auto) (0.0-0.9) th/mm3 Eos # (Auto) (0.0-0.4) th/mm3 Baso # (Auto) (0.0-0.2) th/mm3 WBC Differential Differential Comment Sodium (136-145) meq/L Potassium (3.5-5.1) meq/L Chloride (98-107) meq/L Carbon Dioxide (21.0-32.0) meq/L Anion Gap (5-15) meq/L BUN (7-18) mg/dL Creatinine (0.60-1.30) mg/dL Estimated GFR (>89) mL/min Random Glucose (74-106) mg/dL Calcium (8.5-10.1) mg/dL Total Bilirubin (0.2-1.0) mg/dL AST (15-37) U/L ALT (12-78) U/L Alkaline Phosphatase (45-117) U/L Total Protein (6.4-8.2) g/dL Albumin (3.4-5.0) g/dL TSH (0.358-3.740) uIU/mL Urine Color Yellow (Yellw/Straw) Urine Clarity Clear (Clear) Urine pH 8.0 (5.0-8.5) Ur Specific [place] 1.009 (1.002-1.035) Urine Protein Negative (Neg-Trace) mg/dL Urine Glucose (UA) Negative (Negative) mg/dL Urine Ketones Negative (Negative) mg/dL Urine Occult Blood Negative (Negative) Urine Nitrate Negative (Negative) Urine Bilirubin Negative (Negative) Urine Urobilinogen Less than 2 (Less than 2) mg/dL Ur Leukocyte Esterase Negative (Negative) Urine RBC Less than 1 (0-3) /hpf Urine WBC 1 (0-5) /hpf Hyaline Casts 3 (0-3) /lpf Urine Mucus Moderate H (Occasional) /lpf Micro UA Comment Culture not ind Ur Microscopic Review Not Reportable Urine Culture Comments Culture not ind Urine Opiates Screen (Neg) Ur Barbiturates Screen (Neg) Ur Amphetamines Screen (Neg) U Benzodiazepines Scrn (Neg) Urine Cocaine Screen (Neg) U Cannabinoids Screen (Neg) Serum Alcohol (0-5) mg/dL Discharge Plan Discharge Disposition Patient Disposition: 30 Still Patient Discharge Condition Condition: Stable Physicians Team ED Provider: Brionna Meza ED Midlevel Provider: Leslie Ocampo Primary Care Provider: Primary Care Kelsey Pittman Attending Provider: Prashanth Roth Status ED Status: Left Department Discharge Information Discharge Date/Time: 09/21/18 14:12
[2018-09-21 05:44] LABS: Baso # (Auto) 0.1 th/mm3 (0.0-0.2); Baso % (Auto) 0.3 % (0.0-2.0); Eos # (Auto) 0.1 th/mm3 (0.0-0.4); Eos % (Auto) 0.2 % (0.0-4.0); Hematocrit 38.5 % (39.0-51.0); Hemoglobin 13.4 gm/dL (13.0-17.0); Lymph # (Auto) 2.6 th/mm3 (1.0-4.8); Lymph % (Auto) 12.4 % (9.0-44.0); Mean Corpuscular HGB Conc 34.9 % (32.0-36.0); Mean Corpuscular Hemoglobin 30.5 pg (27.0-34.0); Mean Corpuscular Volume 87.3 fL (80.0-100.0); Mean Platelet Volume 7.6 fL (7.0-11.0); Mono # (Auto) 1.7 th/mm3 (0.0-0.9); Mono % (Auto) 8.2 % (0.0-8.0); Neut # (Auto) 16.5 th/mm3 (1.8-7.7); Neut % (Auto) 78.9 % (16.0-70.0); Platelet Count 353 th/mm3 (150-450); Red Blood Count 4.41 mil/mm3 (4.50-5.90); Red Cell Distribution Width 13.5 % (11.6-17.2); White Blood Count 20.9 th/mm3 (4.0-11.0)
[2018-09-21 05:54] LABS: Albumin 4.2 g/dL (3.4-5.0); Anion Gap 10 meq/L (5-15); Aspartate Aminotransferase 20 U/L (15-37); Blood Urea Nitrogen 14 mg/dL (7-18); Calcium 8.8 mg/dL (8.5-10.1); Carbon Dioxide 24.6 meq/L (21.0-32.0); Chloride 106 meq/L (98-107); Glomerular Filtration Rate 81 mL/min (>89); Glucose,Random 107 mg/dL (74-106); Potassium 3.8 meq/L (3.5-5.1); Sodium 141 meq/L (136-145)
[2018-09-21 05:56] LABS: Alanine Aminotransferase 40 U/L (12-78)
[2018-09-21 06:05] LABS: Alkaline Phosphatase 95 U/L (45-117); Total Protein 8.2 g/dL (6.4-8.2)
[2018-09-21 09:46] LABS: Amphetamine Screen,Urine Neg (Neg); Barbiturate Screen,Urine Neg (Neg); Cannabinoid Screen,Urine Neg (Neg); Cocaine Screen,Urine Neg (Neg)
[2018-09-21 09:51] LABS: Opiate Screen,Urine Neg (Neg)
[2018-09-21 11:02] LABS: Bilirubin,Urine Negative (Negative); Clarity,Urine Clear (Clear); Color,Urine Yellow (Yellw/Straw); Glucose,Urine (UA) Negative (Negative); Hyaline Casts,Urine 3 /lpf (0-3); Leukocyte Esterase,Urine Negative (Negative); Mucus,Urine Moderate /lpf (Occasional); Nitrite,Urine Negative (Negative); Specific Gravity,Urine 1.009 (1.002-1.035)
--- NOTE | 2018-09-21 13:11 | P.PNPSY ---
Patient is seen at 1255. CC: Alatorre act alleging that "he flagged down police officers and told him that he suffers from depression and anxiety and that he wanted to kill himself." Electronic medical record is reviewed. Case is discussed with Dr. Johnny Miller who has treated the patient during his last psychiatric admission. Patient is a 48-year-old, , homeless male, with history of schizophrenia, known to this service from multiple visits to the ED. As of the beginning of this year the patient has had 11 visits to the ED and has been admitted to our inpatient unit 4 times. He was discharged on August 052017 and his plan was to relocate to [place], after he refused placement in a structured living environment. However he did not make it there and instead tells me that he went to [place]. Things did not work out for him there he finds himself back here in [place]. The patient is seen. He is asleep but awakens with verbal prompting. His affect is blunted. His speech is of a low tone. Minimal eye contact. Patient states he was not feeling good about his life and that he was thinking about suicide. He also reports he has been experiencing increased symptoms of depression since his discharge from the hospital. He denies current hallucinations. He has not been compliant with his medications. Patient continues to endorse suicidal ideation and time with no verbalized plan. In view of patient's presentation here with continued verbalization of suicidal ideation, inability to care for himself out in the community, noncompliance with psychiatric medication, the patient will be admitted to inpatient psychiatry for stabilization and possible placement upon discharge.
--- NOTE | 2018-09-22 09:17 | P.HPPSY ---
Provisional Diagnosis Admission Date: September 21, 2018 13:28 [place] I.: 1. Schizophrenia, paranoid type 2. Suspect component of malingering for longterm [place] II.: Deferred Competence Certification of Person's Competence To Provide Express and Informed Consent I have personally examined Inderjit Byers, a person being served at [facility] on, September 22, 2018 0917. Express and informed consent means consent voluntarily given in writing, by a competent person, after sufficient explanation and disclosure of the subject matter involved to enable the person to make a knowing and willful decision without any element of force, fraud, deceit, duress, or other form of constraint or coercion. This person is 18 years of age or older, is not now known to be incompetent to consent to treatment with a guardian advocate, and does not have a health care surrogate or proxy currently making medical treatment decisions. I have found this person to be one of the following: [] Competent to provide express and informed consent, as defined above, for voluntary admission to this facility and is competent to provide express and informed consent for treatment. He/she has the consistent capacity to make well reasoned, willful, and knowing decisions concerning his or her medical or mental health treatment. The person fully and consistently understands the purpose of the admission for examination/placement and is fully capable of personally exercising all rights assured under [place] [] Incompetent to provide express and informed consent to voluntary admission, and this is incompetent to provide express and informed consent to treatment. The person must be transferred to involuntary status and a petition for a guardian advocate filed with the Circuit Court. [X] Refusing to provide express and informed consent to voluntary admission but is competent to provide express and informed consent for treatment. The person must be discharged or transferred to involuntary status. Form shall be completed within 24 hours of a person's arrival at the receiving facility and filed in the clinical record of each person: 1. Admitted on a voluntary basis 2. Permitted to provide express and informed consent to his/her own treatment 3. Allowed to transfer from involuntary to voluntary status 4. Prior to permitting a person to consent to his or her own treatment after having been previously found incompetent to consent to treatment. History of Present Illness Capacity: Has capacity (To consent for medications) Chief Complaint: Alatorre act History of Present Illness: Mr. Byers is a 48-year-old male with a history of schizophrenia who presents under a Alatorre act by law enforcement alleging that the patient was having suicidal ideation. He was screened by the psychiatric nurse practitioner in the ED. Patient is well-known to the psychiatric service here from multiple previous ER visits and psychiatric hospitalizations. Reviewing the electronic medical record, I note that the patient was most recently psychiatrically hospitalized under my care in July/August of this year. Patient seen and examined with nurse. Chart reviewed. Case discussed with nursing staff. On my examination today, the patient presents as somewhat dysphoric and withdrawn. He says that after leaving the hospital last time AGAINST MEDICAL ADVICE he went to [place] to look for shelters but found all of the shelters to be "real temporary." He says that there was no long-term housing. He says that he went back to [place] "but they did not want me on the street and so they sent me to [facility] and [facility] sent me here."Presently, the patient endorses vague suicidal ideation with no specific plan or intent. No reported urge to hurt himself on the inpatient unit. No homicidal ideation. Denies audiovisual hallucinations. Some vague paranoia. Mood is depressed and the patient says "life is really pits. It really stinks." No hypomanic or manic symptoms. Remainder of the psychiatric ROS is negative. No physical complaints, although nurse does point out that patient has lesion on right forehead. Past psychiatric history: History of schizophrenia. Patient did not follow up with outpatient mental health provider after discharge from the hospital last time. He reports that he was psychiatrically hospitalized most recently in August of this year at [facility]. He denies any interval suicide attempts. Family history: Patient is unsure of his family psychiatric history. Chemical dependency history: The patient denies any abuse of drugs or alcohol. Social history: Unchanged from previous assessments. Patient denies any access to guns or firearms. - Inpatient Certification I certify that the inpatient services were ordered in accordance with Medicare regulations governing the order. This includes certification that hospital inpatient services are reasonable and necessary and in the case of services not specified as inpatient-only under 42 CFR 419.22(n), that they are appropriately provided as inpatient services in accordance to with the 2-midnight benchmark under 43 CFR 412.3(e) I certify that inpatient psychiatric hospital services are medically necessary. Evaluation and treatment and/or diagnostic testing are expected to improve the patient's condition. The patient needs on a daily basis, active treatment furnished directly by or requiring the supervision of inpatient psychiatric facility personnel. Estimated Total Length of Stay (Days): 14 (10-14) Plans for Post Hospital Care: Not yet determined Review of Systems All other systems reviewed negative except as stated in HPI [facility] - History History Provided By: Patient - Medical History Medical History: Medical History (Last Reviewed 09/21/18 @ 04:56 by Ruel Hector) Depression (Acute) Hx of schizophrenia (Acute) - Surgical History Surgical History: Surgical History (Last Reviewed 09/21/18 @ 04:56 by Ruel Hector) Hx of heart artery stent (Acute) - Family History Family History: Family History (Last Reviewed 08/04/18 @ 10:17 by Vanda Vivas) Other Family history unknown - Tobacco History Second Hand Smoke Exposure: Yes Tobacco Use In Past 30 Days: Yes Smoking Status: Heavy tobacco smoker Tobacco Type: Cigarettes - Alcohol History How Often Do You Have a Drink Containing Alcohol: Never - Substance Use History Substance History: No History of Abuse - Travel History Recent Travel in the USA Within the Last 8 Weeks: No Recent Travel Out of the Country Within the Last 8 Weeks: No - Immunization History Tetanus Immunization: Unable to Assess Tetanus Immunization Year if Known: 2017 Hx Influenza Vaccine This Season: Unable to Assess Quality Measures - Psychiatric History Psychological trauma history: No reported trauma history to me - Patient Strengths Patient's strengths (minimum of 2): In a monitored setting. Verbally fluent. Medications and Allergies Active Medications: Active Medications Al Hydrox/Mg Hydrox/Simethicone (Mag-Al Plus Susp Liq) 30 ml PO Q6H PRN PRN Reason: DYSPEPSIA Al Hydroxide/Mg Hydroxide (Milk Of Magnesia Liq) 30 ml PO Q12H PRN PRN Reason: Mild Constipation Lactulose (Lactulose Liq) 30 ml PO DAILY PRN PRN Reason: SEVERE CONSITIPATION Lorazepam (Ativan Inj) 1 mg IM Q6H PRN PRN Reason: MODERATE TO SEVERE ANXIETY Sennosides (Senokot) 17.2 mg PO Q12H PRN PRN Reason: Moderate Constipation Ziprasidone (Geodon Inj) 10 mg IM Q12H PRN PRN Reason: SEVERE AGITATION Allergies Allergy/AdvReac Type Severity Reaction Status Date / Time Fish Containing Products Allergy Severe Hives Verified 07/12/18 20:39 Home Medications Medication Instructions Recorded Confirmed Type No Known Home Medications 09/21/18 09/21/18 History Results - Labs CBC & Chem 7: 09/21/18 05:14 09/21/18 05:14 Labs: Laboratory Results - last 24 hr 09/21/18 09/21/18 09:15 09:15 Urine Color Yellow Urine Clarity Clear Urine pH 8.0 Ur Specific [place] 1.009 Urine Protein Negative Urine Glucose (UA) Negative Urine Ketones Negative Urine Occult Blood Negative Urine Nitrate Negative Urine Bilirubin Negative Urine Urobilinogen Less than 2 Ur Leukocyte Esterase Negative Urine RBC Less than 1 Urine WBC 1 Hyaline Casts 3 Urine Mucus Moderate H Micro UA Comment Culture not ind Ur Microscopic Review Not Reportable Urine Culture Comments Culture not ind Urine Opiates Screen Neg Ur Barbiturates Screen Neg Ur Amphetamines Screen Neg U Benzodiazepines Scrn Neg Urine Cocaine Screen Neg U Cannabinoids Screen Neg Labs reviewed. Leukocytosis noted. Exam Vital signs: Vital Signs 09/21/18 14:54 09/22/18 05:35 Temperature 97.7 F 97.4 F L Pulse Rate 72 62 Respiratory Rate 18 18 Blood Pressure 99/57 L 94/52 L Pulse Oximetry 95 96 Intake & Output 09/21/18 09/22/18 09/22/18 18:59 06:59 18:59 Weight 94.6 kg Other: Weight On Admission 94.6 kg Narrative: Physical exam completed by ED provider. On my examination today, the patient appears to be in no acute physical distress. No motor abnormalities noted. Labs and vital signs reviewed. Mental Status Examination Appearance: Disheveled Consciousness: Alert Orientation: Person, Place (At least) Motor Activity: Other (No motor abnormalities noted) Speech: Unremarkable Language: Adequate Fund of Knowledge: Adequate Attention and Concentration: Adequate Memory: Unremarkable (Grossly intact on clinical exam) Mood: Sad Affect: Other (Somewhat dysphoric) Thought Process & Associations: Intact Thought Content: Delusional Hallucination Type: None Delusion Type: Paranoid Suicidal Ideation: Yes Suicidal Plan: No Suicidal Intention: No Homicidal Ideation: No Homicidal Plan: No Homicidal Intention: No Insight: Poor Judgment: Poor Assessment and Plan - Assessment (1) Schizophrenia Code(s): F20.9 - Schizophrenia, unspecified Status: Acute - Plan Plan: 48-year-old male with psychiatric history as detailed above who presents under a Alatorre act by law enforcement. On my examination today, the patient endorses vague SI and paranoia. He has been non-adherent with his psychotropic medications. Most recent regimen was Sustenna/Risperdal, but patient remained somewhat symptomatic on this regimen, and so we will pursue an alternative regimen today in hopes of improving symptomatic control. I have discussed options with patient, including clozapine trial, and we settle on a trial of Prolixin. I fear that patient is not functioning well in community setting; he would likely benefit from placement in [facility] (although this has previously proven problematic because of patient refusal) or state hospitalization. Admit inpatient. Involuntary status. I have completed first opinion. Consult for second opinion. Patient retains capacity to consent for medications. Initiate Prolixin 5 mg twice daily with plans to titrate to effect and as tolerated for management of schizophrenia. Atarax as needed for anxiety. Cogentin as needed for EPS. No tenderness needed for sleep. R/B/A for medications discussed with patient. Check CBC to follow-up on leukocytosis. Obtain wound culture of forehead lesion. Obtain hospitalist consultation to follow-up on leukocytosis and forehead lesion. OT evaluation. Vitals every shift. Counselor to see. Disposition planning. Estimated length of stay: 10- 14 days. Justification for Continued Inpatient Stay: High risk for decompensation in less restrictive setting. Medication adjustments. Discharge Planning: Placement versus state hospitalization Request Healthcare Surrogate/Guardian Advocate?: No (1) Schizophrenia Qualifiers: Schizophrenia type: paranoid schizophrenia Qualified Code(s): F20.0 - Paranoid schizophrenia
[2018-09-22] MEDS ORDERED: Benztropine Inj 2 MG/2 ML Ampul IM PRN (12:00)
--- NOTE | 2018-09-22 15:15 | P.CONIM ---
History of Present Illness Reason for Consult: Leukocytosis Primary Care Provider: No Primary Care Physician History of Present Illness: This patient is a 48-year-old male with a diagnosis patient was brought in as a Alatorre act by the police department. There is also documentation the patient was having suicidal ideation. The patient is known to the psychiatric service as he has had multiple previous ER visits and psychiatric hospitalizations. He has a history of leaving the hospital AGAINST MEDICAL ADVICE. The patient was in the hospital being treated for his psychiatric issues. He was found to have a leukocytosis of around 20,000. He also has been having this small boil lateral to his right eyebrow that the nursing staff noticed yesterday. I was consulted to evaluate the patient for leukocytosis. The patient denies any dysuria, no chest pain, no cough. He has slight tenderness of the boil next to his right eyebrow. He does not have any other complaints. Past medical history anxiety, depression Surgical history none Family history noncontributory Social history the patient denies tobacco smoking, alcohol drinking, denies drug use. Review of Systems All other systems reviewed negative except as stated in HPI [facility] - History History Provided By: Patient - Medical History Medical History: Medical History (Last Reviewed 09/21/18 @ 04:56 by Ruel Hector) Depression (Acute) Hx of schizophrenia (Acute) - Surgical History Surgical History: Surgical History (Last Reviewed 09/21/18 @ 04:56 by Ruel Hector) Hx of heart artery stent (Acute) - Family History Family History: Family History (Last Reviewed 08/04/18 @ 10:17 by Vanda Vivas) Other Family history unknown - Tobacco History Second Hand Smoke Exposure: Yes Tobacco Use In Past 30 Days: Yes Smoking Status: Heavy tobacco smoker Tobacco Type: Cigarettes - Alcohol History How Often Do You Have a Drink Containing Alcohol: Never - Substance Use History Substance History: No History of Abuse - Travel History Recent Travel in the [place] Within the Last 8 Weeks: No Recent Travel Out of the Country Within the Last 8 Weeks: No - Immunization History Tetanus Immunization: Unable to Assess Tetanus Immunization Year if Known: 2018 Hx Influenza Vaccine This Season: Unable to Assess Medications and Allergies Active Medications: Active Medications Acetaminophen (Tylenol) 650 mg PO Q4H PRN PRN Reason: PAIN 1-10 AND/OR FEVER >101F Al Hydrox/Mg Hydrox/Simethicone (Mag-Al Plus Susp Liq) 30 ml PO Q6H PRN PRN Reason: DYSPEPSIA Al Hydroxide/Mg Hydroxide (Milk Of Magnesia Liq) 30 ml PO Q12H PRN PRN Reason: Mild Constipation Benztropine Mesylate (Cogentin Inj) 1 mg IM Q12HR PRN PRN Reason: EPS, unable to take PO Benztropine Mesylate (Cogentin) 1 mg PO BID PRN PRN Reason: EXTRA PYRAMIDAL SYMPTOMS Fluphenazine HCl (Prolixin) 5 mg PO BID DANNY Hydroxyzine HCl (Atarax) 50 mg PO Q6H PRN PRN Reason: ANXIETY Melatonin (Melatonin) 5 mg PO HS PRN PRN Reason: INSOMNIA Allergies Allergy/AdvReac Type Severity Reaction Status Date / Time Fish Containing Products Allergy Severe Hives Verified 07/12/18 20:39 Home Medications Medication Instructions Recorded Confirmed Type No Known Home Medications 09/21/18 09/21/18 History Exam Vital signs: Vital Signs 09/22/18 05:35 Temperature 97.4 F L Pulse Rate 62 Respiratory Rate 18 Blood Pressure 94/52 L Pulse Oximetry 96 Intake & Output 09/21/18 09/22/18 09/22/18 18:59 06:59 18:59 Weight 94.6 kg Other: Weight On Admission 94.6 kg Narrative: General patient in no acute distress HEENT extraocular movements are intact, clear oropharyngeal mucosa, P size boil on the lateral aspect of the right eyebrow. Cardiovascular S1-S2 audible, slightly tachycardic Respiratory clear to auscultation bilaterally Abdomen soft, nontender, nondistended, normal bowel sounds Extremities no edema 2+ distal pulses in bilateral upper and lower extremities, no erythema noted in the patient's extremities. Neuro cranial nerves II through XII intact Results - Labs CBC & Chem 7: 09/21/18 05:14 09/21/18 05:14 Assessment and Plan - Plan This patient is a 48-year-old male with a diagnosis patient was brought in as a Alatorre act by the police department. There is also documentation the patient was having suicidal ideation. The patient is known to the psychiatric service as he has had multiple previous ER visits and psychiatric hospitalizations. He has a history of leaving the hospital AGAINST MEDICAL ADVICE. The patient was in the hospital being treated for his psychiatric issues. He was found to have a leukocytosis of around 20,000. He also has been having this small boil lateral to his right eyebrow that the nursing staff noticed yesterday. I was consulted to evaluate the patient for leukocytosis. No complaints of diarrhea. 1. Systemic inflammatory response syndrome The patient has an elevated WBC of 2000 with a left shift. He has been afebrile overnight, the patient was tachycardic earlier today. The source of the patient's leukocytosis is currently unclear. He does have a boil on the lateral aspect of his right eyebrow however I do not believe that this is the cause of the patient's leukocytosis as it does not appear that significant currently. We will continue to monitor the lesion. Blood cultures were drawn, urinalysis, chest x-ray are currently pending. The patient denies any diarrhea. I will follow-up with the imaging as well as the cultures and urinalysis. Patient will be given Rocephin after cultures are drawn and after urinalysis is taken. 2. Psychiatric history Patient is currently in the psych unit. He can continue to follow with care from a psychiatrist. I thank you for this consultation and allowing our hospitalist team part in this patient's care. We will continue to follow the patient.
--- NOTE | 2018-09-22 16:25 | XR ---
EXAM DATE: 09/22/2018 4:18 PM EST AGE/SEX: 48 years / Male INDICATIONS: Left sided chest pain for 24 hours CLINICAL DATA: This is the patient's initial encounter. Patient reports that signs and symptoms have been present for 1 day and indicates a pain score of 5/10. MEDICAL/SURGICAL HISTORY: Cardiovascular disease. Coronary artery stent. COMPARISON: C, CHEST 1V SINGLE AP, 07/22/2018. . FINDINGS: Lungs are hyperaerated with mild diffuse interstitial prominence. There is no evidence of acute airsp moisés disease. There are no suspicious nodular densities or effusions. Heart is normal in size. CONCLUSION: COPD. No evidence of acute cardiopulmonary process. Electronically signed by: Zen Carpenter MD 09/22/2018 4:23 PM EST
[2018-09-22 16:40] LABS: Amorphous Sediment,Urine Rare /hpf; Bacteria,Urine Rare /hpf; Bilirubin,Urine Negative (Negative); Clarity,Urine Cloudy (Clear); Color,Urine Yellow (Yellw/Straw); Glucose,Urine (UA) Negative (Negative); Leukocyte Esterase,Urine Negative (Negative); Mucus,Urine Few /lpf (Occasional); Nitrite,Urine Negative (Negative); Specific Gravity,Urine 1.021 (1.002-1.035)
[2018-09-22 17:14] LABS: Baso # (Auto) 0.1 th/mm3 (0.0-0.2); Baso % (Auto) 0.7 % (0.0-2.0); Eos # (Auto) 0.1 th/mm3 (0.0-0.4); Eos % (Auto) 1.1 % (0.0-4.0); Hematocrit 39.1 % (39.0-51.0); Hemoglobin 13.7 gm/dL (13.0-17.0); Lymph # (Auto) 3.5 th/mm3 (1.0-4.8); Lymph % (Auto) 44.3 % (9.0-44.0); Mean Corpuscular Hemoglobin 31.2 pg (27.0-34.0); Mean Corpuscular Volume 89.2 fL (80.0-100.0); Mean Platelet Volume 7.5 fL (7.0-11.0); Mono # (Auto) 0.5 th/mm3 (0.0-0.9); Mono % (Auto) 6.7 % (0.0-8.0); Neut # (Auto) 3.8 th/mm3 (1.8-7.7); Neut % (Auto) 47.2 % (16.0-70.0); Platelet Count 340 th/mm3 (150-450); Red Blood Count 4.38 mil/mm3 (4.50-5.90); Red Cell Distribution Width 14.1 % (11.6-17.2)
[2018-09-22 17:27] LABS: Calcium 8.5 mg/dL (8.5-10.1); Carbon Dioxide 24.7 meq/L (21.0-32.0)
[2018-09-22 17:29] LABS: Chol/HDL Ratio 5.4 Ratio; HDL Cholesterol 37.9 mg/dL (40.0-60.0)
[2018-09-22 17:39] LABS: Hemoglobin A1c 5.3 % (4.3-6.0)
[2018-09-22] MEDS: Melatonin 5 MG Tablet PO PRN (20:42)
--- NOTE | 2018-09-23 09:24 | P.PNPSY ---
Subjective Chief Complaint: Alatorre act Remarks: Patient seen and examined with nurse. Chart reviewed. Case discussed with nursing staff who reports patient slept well overnight. On my examination today , the patient complains of feeling a little bit tired. He denies audiovisual hallucinations. Denies paranoia. Denies SI or HI. Affect remains blunted. Denies side effects from medications. He has no hand tremor, no cogwheeling, no hypomimia, no dystonia or dyskinesia on exam. No physical complaints. Requesting nicotine patch, which I have ordered. Vital Signs Temp Pulse Resp BP Pulse Ox 09/23/18 06:12 97.7 F 65 17 111/57 L 96 09/22/18 15:46 97.4 F L 58 L 18 109/53 L 98 Intake and Output 09/22/18 09/23/18 09/23/18 22:59 06:59 14:59 Other: Weight 94.9 kg Laboratory Results - last 24 hr 09/22/18 09/22/18 09/22/18 16:10 16:11 16:20 WBC RBC Hgb Hct MCV MCH MCHC RDW Plt Count MPV Neut % (Auto) Lymph % (Auto) Ralls % (Auto) Eos % (Auto) Baso % (Auto) Neut # (Auto) Lymph # (Auto) [place] # (Auto) Eos # (Auto) Baso # (Auto) WBC Differential Differential Comment Sodium 139 Potassium 4.0 Chloride 107 Carbon Dioxide 24.7 Anion Gap 7 BUN 16 Creatinine 0.91 Estimated GFR 89 Random Glucose 95 Hemoglobin A1c 5.3 Calcium 8.5 Triglycerides 194 H Cholesterol 205 H LDL Cholesterol, Calc 128 H HDL Cholesterol 37.9 L Cholesterol/HDL Ratio 5.40 Urine Color Yellow Urine Clarity Cloudy H Urine pH 7.0 Ur Specific [place] 1.021 Urine Protein Negative Urine Glucose (UA) Negative Urine Ketones Negative Urine Occult Blood Negative Urine Nitrate Negative Urine Bilirubin Negative Urine Urobilinogen 2.0 H Ur Leukocyte Esterase Negative Urine RBC 1 Urine WBC Less than 1 Amorphous Sediment Rare H Urine Bacteria Rare H Urine Mucus Few H Micro UA Comment Culture not ind Ur Microscopic Review Not Reportable Urine Culture Comments Culture not ind 09/22/18 16:20 WBC 8.0 RBC 4.38 L Hgb 13.7 Hct 39.1 MCV 89.2 MCH 31.2 MCHC 35.0 RDW 14.1 Plt Count 340 MPV 7.5 Neut % (Auto) 47.2 Lymph % (Auto) 44.3 H Ralls % (Auto) 6.7 Eos % (Auto) 1.1 Baso % (Auto) 0.7 Neut # (Auto) 3.8 Lymph # (Auto) 3.5 [place] # (Auto) 0.5 Eos # (Auto) 0.1 Baso # (Auto) 0.1 WBC Differential . Differential Comment Auto diff final Sodium Potassium Chloride Carbon Dioxide Anion Gap BUN Creatinine Estimated GFR Random Glucose Hemoglobin A1c Calcium Triglycerides Cholesterol LDL Cholesterol, Calc HDL Cholesterol Cholesterol/HDL Ratio Urine Color Urine Clarity Urine pH Ur Specific [place] Urine Protein Urine Glucose (UA) Urine Ketones Urine Occult Blood Urine Nitrate Urine Bilirubin Urine Urobilinogen Ur Leukocyte Esterase Urine RBC Urine WBC Amorphous Sediment Urine Bacteria Urine Mucus Micro UA Comment Ur Microscopic Review Urine Culture Comments Labs reviewed. Leukocytosis resolved. Impressions Chest X-Ray 09/22/18 00:00 CONCLUSION: COPD. No evidence of acute cardiopulmonary process. Microbiology 09/22/18 16:35 Aerobic Blood Culture - Preliminary Blood - Peripheral No growth in 1 day Anaerobic Blood Culture - Preliminary No growth in 1 day 09/22/18 16:20 Aerobic Blood Culture - Preliminary Blood - Peripheral No growth in 1 day Anaerobic Blood Culture - Preliminary No growth in 1 day 09/22/18 15:50 Gram Stain - Final Abscess - Face Review of Systems All other systems reviewed negative except as stated in HPI Mental Status Examination Appearance: Disheveled Consciousness: Alert Orientation: Person, Place (At least) Motor Activity: Other (No abnormal motor movements noted) Speech: Unremarkable Language: Adequate Fund of Knowledge: Adequate Attention and Concentration: Adequate Memory: Unremarkable (Grossly intact on clinical exam) Mood: Other (Calm) Affect: Blunt Thought Process & Associations: Intact Thought Content: Appropriate Hallucination Type: None Delusion Type: None Suicidal Ideation: No Suicidal Plan: No Suicidal Intention: No Homicidal Ideation: No Homicidal Plan: No Homicidal Intention: No Insight: Poor Judgment: Poor Assessment and Plan - Assessment (1) Schizophrenia Code(s): F20.9 - Schizophrenia, unspecified Status: Acute - Plan Plan: Continue Prolixin as ordered. Add nicotine patch. Hospitalist input noted and appreciated. Continue to monitor on the inpatient unit. Continue other medications and care as ordered. Justification for Continued Inpatient Stay: Risk for decompensation and less restrictive environment. Discharge Planning: To be determined. Lik[facility]. Request Healthcare Surrogate/Guardian Advocate?: No (1) Schizophrenia Qualifiers: Schizophrenia type: paranoid schizophrenia Qualified Code(s): F20.0 - Paranoid schizophrenia
--- NOTE | 2018-09-23 12:16 | P.CONPSY ---
Provisional Diagnosis Admission Date: September 21, 2018 13:28 [place] I.: 1. Schizophrenia, paranoid type 2. Suspect component of malingering for alf [place] II.: Deferred History of Present Illness Service: Psychiatry Primary Care Provider: No Primary Care Physician History of Present Illness: The patient is a is a 48-year-old man, well-known by the department, with a psychiatric history of schizophrenia, previous hospitalizations, last hospitalization here in [place] in August, no significant medical history, who presents under a Alatorre act by law enforcement alleging that the patient was having suicidal ideation. He was screened by the psychiatric nurse practitioner in the ED. patient consulted to me for second opinion. On my psychiatric evaluation the patient is found sleeping. He reports feeling very sleepy at this moment. He says that he is very depressed," but I am taking my medications, I want to get better". Patient states that he is not suicidal anymore, that he has been trying to avoid those negative thoughts. He is fully oriented x3, no attention deficit, no filtration of consciousness, no agitation , no aggressive behavior, no prominent paranoia at the moment. [facility] - History History Provided By: Patient - Medical History Medical History: Medical History (Last Reviewed 09/21/18 @ 04:56 by Ruel Hector) Depression (Acute) Hx of schizophrenia (Acute) - Surgical History Surgical History: Surgical History (Last Reviewed 09/21/18 @ 04:56 by Ruel Hector) Hx of heart artery stent (Acute) - Family History Family History: Family History (Last Reviewed 08/04/18 @ 10:17 by Vanda Vivas) Other Family history unknown - Tobacco History Second Hand Smoke Exposure: Yes Tobacco Use In Past 30 Days: Yes Smoking Status: Heavy tobacco smoker Tobacco Type: Cigarettes - Alcohol History How Often Do You Have a Drink Containing Alcohol: Never - Substance Use History Substance History: No History of Abuse - Travel History Recent Travel in the [place] Within the Last 8 Weeks: No Recent Travel Out of the Country Within the Last 8 Weeks: No - Immunization History Tetanus Immunization: Unable to Assess Tetanus Immunization Year if Known: 2017 Hx Influenza Vaccine This Season: Unable to Assess Medications and Allergies Active Medications: Active Medications Acetaminophen (Tylenol) 650 mg PO Q4H PRN PRN Reason: PAIN 1-10 AND/OR FEVER >101F Al Hydrox/Mg Hydrox/Simethicone (Mag-Al Plus Susp Liq) 30 ml PO Q6H PRN PRN Reason: DYSPEPSIA Al Hydroxide/Mg Hydroxide (Milk Of Magnesia Liq) 30 ml PO Q12H PRN PRN Reason: Mild Constipation Benztropine Mesylate (Cogentin Inj) 1 mg IM Q12HR PRN PRN Reason: EPS, unable to take PO Benztropine Mesylate (Cogentin) 1 mg PO BID PRN PRN Reason: EXTRA PYRAMIDAL SYMPTOMS Doxycycline Hyclate (Vibramycin) 100 mg PO BID [facility] Last Admin: 09/23/18 09:31 Dose: 100 mg Fluphenazine HCl (Prolixin) 5 mg PO BID [facility] Last Admin: 09/23/18 09:31 Dose: 5 mg Hydroxyzine HCl (Atarax) 50 mg PO Q6H PRN PRN Reason: ANXIETY Melatonin (Melatonin) 5 mg PO HS PRN PRN Reason: INSOMNIA Last Admin: 09/22/18 20:42 Dose: 5 mg Nicotine (Habitrol 21 Mg Patch.24 Hr) 1 patch T-DERMAL DAILY [facility] Last Admin: 09/23/18 09:33 Dose: 1 patch Patch Removal (Remove Old Patch) 1 each T-DERMAL DAILY [facility] Allergies Allergy/AdvReac Type Severity Reaction Status Date / Time Fish Containing Products Allergy Severe Hives Verified 07/12/18 20:39 Home Medications Medication Instructions Recorded Confirmed Type No Known Home Medications 09/21/18 09/21/18 History Exam Vital signs: Vital Signs 09/22/18 15:46 09/23/18 06:12 Temperature 97.4 F L 97.7 F Pulse Rate 58 L 65 Respiratory Rate 18 17 Blood Pressure 109/53 L 111/57 L Pulse Oximetry 98 96 Intake & Output 09/22/18 09/23/18 09/23/18 18:59 06:59 18:59 Weight 94.9 kg Mental Status Examination Appearance: Disheveled Consciousness: Alert Orientation: x4 Motor Activity: Other (No abnormal motor movements noted) Speech: Unremarkable Language: Adequate Fund of Knowledge: Adequate Attention and Concentration: Adequate Memory: Unremarkable (Grossly intact on clinical exam) Mood: Other (Calm) Affect: Blunt Thought Process & Associations: Intact Thought Content: Appropriate Hallucination Type: None Delusion Type: None Suicidal Ideation: No Suicidal Plan: No Suicidal Intention: No Homicidal Ideation: No Homicidal Plan: No Homicidal Intention: No Insight: Fair Judgment: Impulsive Assessment and Plan - Assessment (1) Schizophrenia Code(s): F20.9 - Schizophrenia, unspecified Status: Acute - Plan Plan: I have seen and examined this patient, reviewed documentation, I completely agree and concur with Dr. Miller assessment and plan. Consult appreciated. Justification for Continued Inpatient Stay: Continue psychiatric admission. Request Healthcare Surrogate/Guardian Advocate?: No (1) Schizophrenia Qualifiers: Schizophrenia type: paranoid schizophrenia Qualified Code(s): F20.0 - Paranoid schizophrenia
--- NOTE | 2018-09-23 15:02 | P.PNIM ---
Subjective Interval history: Follow up boil next to right eyebrow, leukocytosis Patient is resting in bed. He states he didn't eat much for lunch as he did not like what was being offered. He states he feels well overall. Denies abdominal discomfort, nausea or vomiting. Boil improved to right voodoo/eyebrow area. Patient denies cough, fever or chills. No chest pain or shortness of breath. Physical Exam Vital signs: Last Vital Signs Temp 97.7 F 09/23/18 06:12 Pulse 65 09/23/18 06:12 Resp 17 09/23/18 06:12 BP 111/57 L 09/23/18 06:12 Pulse Ox 96 09/23/18 06:12 Intake & Output 09/21/18 09/22/18 09/23/18 09/24/18 06:59 06:59 06:59 06:59 Weight 90.718 kg 94.6 kg 94.9 kg Narrative: General: patient in no acute distress HEENT: extraocular movements are intact, clear oropharyngeal mucosa, pea size boil on the lateral aspect of the right eyebrow. Cardiovascular: S1-S2 audible, heart regular rate and rhythm Respiratory: clear to auscultation bilaterally, no accessory muscle use Abdomen soft, nontender, nondistended Extremities: no edema, no erythema noted in the patient's extremities. Neuro: cranial nerves II through XII intact Results Labs CBC & Chem 7: 09/22/18 16:20 09/22/18 16:10 Labs: Microbiology 09/22/18 15:50 Abscess - Face Gram Stain - Final 09/22/18 15:50 Abscess - Face Wound Culture - Preliminary 09/22/18 16:35 Blood - Peripheral Aerobic Blood Culture - Preliminary No growth in 1 day 09/22/18 16:35 Blood - Peripheral Anaerobic Blood Culture - Preliminary No growth in 1 day 09/22/18 16:20 Blood - Peripheral Aerobic Blood Culture - Preliminary No growth in 1 day 09/22/18 16:20 Blood - Peripheral Anaerobic Blood Culture - Preliminary No growth in 1 day Imaging Imaging: Impressions Chest X-Ray 09/22/18 00:00 CONCLUSION: COPD. No evidence of acute cardiopulmonary process. Assessment and Plan Plan Patient is a 48-year-old male with a psychiatric diagnosis. He was brought in as a Alatorre act by the police department. There is also documentation the patient was having suicidal ideation. The patient is known to the psychiatric service as he has had multiple previous ER visits and psychiatric hospitalizations. He has a history of leaving the hospital AGAINST MEDICAL ADVICE. The patient was in the hospital being treated for his psychiatric issues. He was found to have a leukocytosis of around 20,000. He also has been having this small boil lateral to his right eyebrow that the nursing staff noticed yesterday. I was consulted to evaluate the patient for leukocytosis. No complaints of diarrhea. Systemic inflammatory response syndrome - evaluated 09/23/18, resolved - WBC 20K w/ left shift yesterday, today WBC 8 - afebrile overnight - BCX w/ NGTD after 1 day, UA w/ no evidence of UTI, CXR -> no evidence of acute cardiopulmonary process Leukocytosis, unspecified - reviewed 09/23/18, resolved - repeat CBC in am Boil lateral aspect of his right eyebrow - reviewed 09/23/18, improved - continue to monitor the lesion. - wound cx pending - Doxycycline 100 mg PO BID Psychiatric history - primary mgmt per psych team Patient is currently in the psych unit Progress Note: Quality VTE Deep Vein Thrombosis/Pulmonary Embolism Present on Admission: No
[2018-09-23] MEDS: Melatonin 5 MG Tablet PO PRN (20:46)
--- NOTE | 2018-09-24 07:24 | ECG ---
Date Performed: 09/22/2018 Time Performed: 13:58:37 PTAGE: 48 years EKG: SINUS BRADYCARDIA BORDERLINE ECG PREVIOUS TRACING : 07/22/2018 11.43 Since the previous tracing, no significant change noted DOCTOR: Markus Calderon Interpretating Date/Time 09/24/2018 07:23:49
--- NOTE | 2018-09-24 09:08 | P.TTN ---
- Patient Problems Problems: 1. Discharge planning 2. Medication compliance 3. Knowledge deficit 4. Lack of coping skills - Progress Toward Goals Provider Present: Dr. Raymond Miller (Patient remains for further stabilization.) Psychiatric Counselors Present: Nigel Mcdonald Jr., [facility] (Dr. Miller is seeking [facility] [address] on next week with the discharge plan of state hospitalization. Treatment team will discuss the possibility of patient being transferred to [facility] to await state hospitalization.) Group Spec/RT/OT/HERNANDEZ Present: LYN Weber (Patient does not attend groups at this time.) - Documentation Teaching Recipient: Patient
--- NOTE | 2018-09-24 10:04 | P.PNPSY ---
Subjective Chief Complaint: Alatorre act Remarks: Patient seen and examined with nurse. Chart reviewed. Case discussed with nursing staff. No behavioral issues noted overnight. There was one episode of enuresis. Case discussed in treatment team. On my examination to day, the patient is laying calmly in bed. He reports that he slept poorly overnight secondary to another disruptive patient. No psychotic material. No SI or HI. No side effects from medications. No physical complaints. In particular no urinary complaints. Vital Signs Temp Pulse Resp BP Pulse Ox 09/24/18 05:27 97.7 F 62 18 97/55 L 98 09/23/18 17:22 97.6 F 18 110/66 97 Intake and Output 09/23/18 09/24/18 09/24/18 22:59 06:59 14:59 Intake Total 240 / 240 Balance 240 / 240 Intake: Oral 240 / 240 Labs reviewed. No new labs. Urinalysis was recently checked and was bland. Review of Systems All other systems reviewed negative except as stated in HPI Mental Status Examination Appearance: Disheveled Consciousness: Alert Orientation: x4 Motor Activity: Other (No abnormal motor movements noted) Speech: Unremarkable Language: Adequate Fund of Knowledge: Adequate Attention and Concentration: Adequate Memory: Unremarkable (Grossly intact on clinical exam) Mood: Other (Remains calm) Affect: Blunt Thought Process & Associations: Intact Thought Content: Appropriate Hallucination Type: None Delusion Type: None Suicidal Ideation: No Homicidal Ideation: No Insight: Fair Judgment: Impulsive Assessment and Plan - Assessment (1) Schizophrenia Code(s): F20.9 - Schizophrenia, unspecified Status: Acute - Plan Plan: Continue oral Prolixin as ordered. Continue to monitor on the inpatient unit. Monitor for further episodes of enuresis. Hospitalist input noted and appreciated. Continue other medications and care as ordered. Justification for Continued Inpatient Stay: Patient remains at high risk for decompensation and rehospitalization in a less restrictive setting. Discharge Planning: Likely placement versus state hospitalization. Request Healthcare Surrogate/Guardian Advocate?: No (1) Schizophrenia Qualifiers: Schizophrenia type: paranoid schizophrenia Qualified Code(s): F20.0 - Paranoid schizophrenia
[2018-09-24 16:50] LABS: Baso # (Auto) 0.1 th/mm3 (0.0-0.2); Baso % (Auto) 0.7 % (0.0-2.0); Eos # (Auto) 0.1 th/mm3 (0.0-0.4); Eos % (Auto) 1.2 % (0.0-4.0); Hemoglobin 14.5 gm/dL (13.0-17.0); Lymph # (Auto) 3.9 th/mm3 (1.0-4.8); Lymph % (Auto) 47.2 % (9.0-44.0); Mean Corpuscular HGB Conc 37.3 % (32.0-36.0); Mean Corpuscular Hemoglobin 32.5 pg (27.0-34.0); Mean Corpuscular Volume 87.1 fL (80.0-100.0); Mean Platelet Volume 7.3 fL (7.0-11.0); Mono # (Auto) 0.6 th/mm3 (0.0-0.9); Neut # (Auto) 3.6 th/mm3 (1.8-7.7); Neut % (Auto) 43.9 % (16.0-70.0); Platelet Count 348 th/mm3 (150-450); Red Blood Count 4.47 mil/mm3 (4.50-5.90); Red Cell Distribution Width 13.6 % (11.6-17.2); White Blood Count 8.3 th/mm3 (4.0-11.0)
--- NOTE | 2018-09-24 17:13 | P.PNIM ---
Subjective Interval history: follow up SIRS, leukocytosis Patient reports feeling a "popping" sensation in his chest earlier today. According to staff mechanical engineer symptoms lasted a few seconds to a minute and vital signs were stable. No fevers or chills. Denies shortness of breath or palpitations. Physical Exam Vital signs: Last Vital Signs Temp 98.2 F 09/24/18 16:55 Pulse 78 09/24/18 16:55 Resp 17 09/24/18 16:55 BP 107/65 09/24/18 16:55 Pulse Ox 98 09/24/18 16:55 Intake & Output 09/22/18 09/23/18 09/24/18 09/25/18 06:59 06:59 06:59 06:59 Intake Total 600 / 600 Balance 600 / 600 Weight 94.6 kg 94.9 kg Narrative: General: patient in no acute distress HEENT: extraocular movements are intact, clear oropharyngeal mucosa, pea size boil on the lateral aspect of the right eyebrow. Cardiovascular: S1-S2 audible, heart regular rate and rhythm Respiratory: clear to auscultation bilaterally, no accessory muscle use Abdomen soft, nontender, nondistended Extremities: no edema, no erythema noted in the patient's extremities. Neuro: cranial nerves II through XII intact Results Labs CBC & Chem 7: 09/24/18 16:45 09/22/18 16:10 Labs: Microbiology 09/22/18 15:50 Abscess - Face Gram Stain - Final 09/22/18 15:50 Abscess - Face Wound Culture - Final anaerobic gram pos cocci 09/22/18 16:35 Blood - Peripheral Aerobic Blood Culture - Preliminary No growth in 2 days 09/22/18 16:35 Blood - Peripheral Anaerobic Blood Culture - Preliminary No growth in 2 days 09/22/18 16:20 Blood - Peripheral Aerobic Blood Culture - Preliminary No growth in 2 days 09/22/18 16:20 Blood - Peripheral Anaerobic Blood Culture - Preliminary No growth in 2 days Assessment and Plan (1) Schizophrenia: Code(s): F20.9 - Schizophrenia, unspecified Status: Acute Plan Patient is a 48-year-old male with a psychiatric diagnosis. He was brought in as a Alatorre act by the police department. There is also documentation the patient was having suicidal ideation. The patient is known to the psychiatric service as he has had multiple previous ER visits and psychiatric hospitalizations. He has a history of leaving the hospital AGAINST MEDICAL ADVICE. The patient was in the hospital being treated for his psychiatric issues. He was found to have a leukocytosis of around 20,000. He also has been having this small boil lateral to his right eyebrow that the nursing staff noticed yesterday. I was consulted to evaluate the patient for leukocytosis. No complaints of diarrhea. Systemic inflammatory response syndrome - evaluated 09/24/18, resolved - WBC 20K w/ left shift, now improved - afebrile overnight - BCX w/ NGTD after 1 day, UA w/ no evidence of UTI, CXR -> no evidence of acute cardiopulmonary process Leukocytosis, unspecified - reviewed 09/24/18, resolved - repeat CBC in am Boil lateral aspect of his right eyebrow - reviewed 09/24/18, improved - continue to monitor the lesion. - wound cx, rare growth normal skin livan and moderate growth anaerobic gram pos cocci - Doxycycline 100 mg PO BID x 7 days Psychiatric history - primary mgmt per psych team Patient is currently in the psych unit Progress Note: Quality VTE Deep Vein Thrombosis/Pulmonary Embolism Present on Admission: No _ (1) Schizophrenia Qualifiers: Schizophrenia type: paranoid schizophrenia Qualified Code(s): F20.0 - Paranoid schizophrenia
[2018-09-24 17:14] LABS: Anion Gap 6 meq/L (5-15); Blood Urea Nitrogen 13 mg/dL (7-18); Calcium 8.8 mg/dL (8.5-10.1); Carbon Dioxide 28.3 meq/L (21.0-32.0); Chloride 106 meq/L (98-107); Glomerular Filtration Rate Greater Than 89 mL/min (>89); Glucose,Random 108 mg/dL (74-106); Magnesium 2.2 mg/dL (1.5-2.5); Potassium 3.8 meq/L (3.5-5.1); Sodium 140 meq/L (136-145)
[2018-09-24] MEDS: Melatonin 5 MG Tablet PO PRN (20:23)
--- NOTE | 2018-09-25 16:40 | P.PNPSY ---
Subjective Chief Complaint: Alatorre act Remarks: Reviewed electronic medical records and discussed case with staff. Follow-up was conducted in the day room. His nurse reports that he had a rough night last night. She states that shift supervisor film processing reported he was heard screaming and yelling in his room he initially thought that he was having a fight with his roommate. However, when he entered the room he was found screaming out and yelling to himself. When the topic was broached the patient denied that the events had occurred. His nurse reports he has been compliant with his meds but very seclusive today. Mental Status Examination Appearance: Disheveled Consciousness: Alert Orientation: x4 Motor Activity: Other (No abnormal motor movements noted) Speech: Unremarkable Language: Adequate Fund of Knowledge: Adequate Attention and Concentration: Adequate Memory: Unremarkable (Grossly intact on clinical exam) Mood: Other (Remains calm) Affect: Blunt Thought Process & Associations: Intact Thought Content: Appropriate Hallucination Type: None Delusion Type: None Suicidal Ideation: No Suicidal Plan: No Suicidal Intention: No Homicidal Ideation: No Homicidal Plan: No Homicidal Intention: No Insight: Fair Judgment: Impulsive Assessment and Plan - Assessment (1) Schizophrenia Code(s): F20.9 - Schizophrenia, unspecified Status: Acute - Plan Plan: Patient will be reevaluated by the attending psychiatrist. Continue with current treatment plan. Justification for Continued Inpatient Stay: Moving this patient to a less restrictive environment would likely result in decompensation. Request Healthcare Surrogate/Guardian Advocate?: No (1) Schizophrenia Qualifiers: Schizophrenia type: paranoid schizophrenia Qualified Code(s): F20.0 - Paranoid schizophrenia
--- NOTE | 2018-09-25 17:29 | P.PNIM ---
Subjective Interval history: Follow up SIRS, Leukocytosis Patient resting in bed. He recently took a shower. Boil lateral aspect of eyebrow healing and decreasing in size. No fever, chills. Leukocytosis resolved. No chest "popping" sensation. Physical Exam Vital signs: Last Vital Signs Temp 98.5 F 09/25/18 17:04 Pulse 78 09/25/18 17:04 Resp 17 09/25/18 17:04 BP 113/54 L 09/25/18 17:04 Pulse Ox 99 09/25/18 17:04 Intake & Output 09/23/18 09/24/18 09/25/18 09/26/18 06:59 06:59 06:59 06:59 Intake Total 600 / 600 Balance 600 / 600 Weight 94.9 kg Narrative: General: patient in no acute distress HEENT: extraocular movements are intact, clear oropharyngeal mucosa, pea size boil on the lateral aspect of the right eyebrow. Cardiovascular: S1-S2 audible, heart regular rate and rhythm Respiratory: clear to auscultation bilaterally, no accessory muscle use Abdomen soft, nontender, nondistended Extremities: no edema, no erythema noted in the patient's extremities. Neuro: cranial nerves II through XII intact Results Labs CBC & Chem 7: 09/24/18 16:45 09/24/18 16:45 Labs: Microbiology 09/22/18 16:35 Blood - Peripheral Aerobic Blood Culture - Preliminary No growth in 3 days 09/22/18 16:35 Blood - Peripheral Anaerobic Blood Culture - Preliminary No growth in 3 days 09/22/18 16:20 Blood - Peripheral Aerobic Blood Culture - Preliminary No growth in 3 days 09/22/18 16:20 Blood - Peripheral Anaerobic Blood Culture - Preliminary No growth in 3 days 09/22/18 15:50 Abscess - Face Gram Stain - Final 09/22/18 15:50 Abscess - Face Wound Culture - Final anaerobic gram pos cocci Assessment and Plan Plan Patient is a 48-year-old male with a psychiatric diagnosis. He was brought in as a Alatorre act by the police department. There is also documentation the patient was having suicidal ideation. The patient is known to the psychiatric service as he has had multiple previous ER visits and psychiatric hospitalizations. He has a history of leaving the hospital AGAINST MEDICAL ADVICE. The patient was in the hospital being treated for his psychiatric issues. He was found to have a leukocytosis of around 20,000. He also has been having this small boil lateral to his right eyebrow that the nursing staff noticed yesterday. I was consulted to evaluate the patient for leukocytosis. No complaints of diarrhea. Systemic inflammatory response syndrome - evaluated 09/25/18, resolved - WBC 20K w/ left shift, now improved - afebrile overnight - BCX w/ NGTD, UA w/ no evidence of UTI, CXR -> no evidence of acute cardiopulmonary process Leukocytosis, unspecified - reviewed 09/25/18, resolved Boil lateral aspect of his right eyebrow - reviewed 09/25/18, improving - continue to monitor the lesion. - wound cx, rare growth normal skin livan and moderate growth anaerobic gram pos cocci - Doxycycline 100 mg PO BID x 7 days (stop date ordered) Psychiatric history - schizophrenia - primary mgmt per psych team Patient is medically optimized. We will sign off. Please re-consult if needed. Progress Note: Quality VTE Deep Vein Thrombosis/Pulmonary Embolism Present on Admission: No
[2018-09-25] MEDS: Melatonin 5 MG Tablet PO PRN (20:21)
--- NOTE | 2018-09-26 10:09 | P.PNPSY ---
Subjective Chief Complaint: Alatorre act Remarks: Reviewed electronic medical records and discussed case with staff. Follow-up was conducted in the patient's room. Nursing report patient is seclusive and cooperative. Patient currently denies auditory hallucinations. He is sad with a flat and blunted affect. Patient is asking to shave today. Denies SI/HI. Review of Systems All other systems reviewed negative except as stated in HPI Mental Status Examination Appearance: Disheveled Consciousness: Alert Orientation: x4 Motor Activity: Other (No abnormal motor movements noted) Speech: Unremarkable Language: Adequate Fund of Knowledge: Adequate Attention and Concentration: Adequate Memory: Unremarkable (Grossly intact on clinical exam) Mood: Sad, Other (Remains calm) Affect: Flat, Blunt Thought Process & Associations: Intact Thought Content: Appropriate Hallucination Type: None Delusion Type: None Suicidal Ideation: No Suicidal Plan: No Suicidal Intention: No Homicidal Ideation: No Homicidal Plan: No Homicidal Intention: No Insight: Fair Judgment: Impulsive Assessment and Plan - Assessment (1) Schizophrenia Code(s): F20.9 - Schizophrenia, unspecified Status: Acute - Plan Plan: Patient will be reevaluated by the attending psychiatrist. Continue with current treatment plan. Justification for Continued Inpatient Stay: Moving patient to less restrictive environment may result in his decompensation. Request Healthcare Surrogate/Guardian Advocate?: No (1) Schizophrenia Qualifiers: Schizophrenia type: paranoid schizophrenia Qualified Code(s): F20.0 - Paranoid schizophrenia
[2018-09-26] MEDS: Aluminum/Magnesium/Simethacone Susp 30 ML UDC PO PRN (11:15)
[2018-09-26] MEDS: Melatonin 5 MG Tablet PO PRN (20:07)
--- NOTE | 2018-09-27 09:06 | P.PNPSY ---
Subjective Chief Complaint: [place] act Remarks: Patient seen and examined with nurse. Chart reviewed. Case discussed with nursing staff. Patient noted to be flat and blunted by nursing staff. On my examination today, the patient is seclusive to room. He says that he slept poorly overnight secondary to disruptive roommate. Affect is somewhat dysphoric. The patient denies subjective issues with mood and declines an antidepressant. He denies SI or HI. Denies hallucinations. Suspect some negative psychotic symptoms. No side effects from medications. No physical complaints. Vital Signs Temp Pulse Resp BP Pulse Ox 09/27/18 06:00 98.1 F 68 17 90/48 L 95 09/26/18 17:03 98.0 F 84 18 104/64 98 Intake and Output 09/26/18 09/27/18 09/27/18 22:59 06:59 14:59 Other: Weight 95.9 kg Labs reviewed. No new labs. Microbiology 09/22/18 16:35 Aerobic Blood Culture - Final Blood - Peripheral No growth in 5 days Anaerobic Blood Culture - Final No growth in 5 days 09/22/18 16:20 Aerobic Blood Culture - Final Blood - Peripheral No growth in 5 days Anaerobic Blood Culture - Final No growth in 5 days 09/22/18 15:50 Gram Stain - Final Abscess - Face Wound Culture - Final anaerobic gram pos cocci Review of Systems All other systems reviewed negative except as stated in HPI Mental Status Examination Appearance: Disheveled Consciousness: Alert Orientation: x4 Motor Activity: Other (No motoric abnormalities noted) Speech: Unremarkable Language: Adequate Fund of Knowledge: Adequate Attention and Concentration: Adequate Memory: Unremarkable (Grossly intact on clinical exam) Mood: Other (Calm) Affect: Blunt, Other (Dysphoric) Thought Process & Associations: Intact Thought Content: Appropriate Hallucination Type: None Delusion Type: None Suicidal Ideation: No Suicidal Plan: No Suicidal Intention: No Homicidal Ideation: No Homicidal Plan: No Homicidal Intention: No Insight: Poor Judgment: Poor Assessment and Plan - Assessment (1) Schizophrenia Code(s): F20.9 - Schizophrenia, unspecified Status: Acute - Plan Plan: Continue Prolixin as ordered. To consider long-acting injectable antipsychotic. Hospitalist input noted and appreciated. Continue other medications and care as ordered. Continue to monitor on the inpatient unit. Justification for Continued Inpatient Stay: Risk for decompensation and less restrictive environment. Discharge Planning: Placement versus [facility] referral. Request Healthcare Surrogate/Guardian Advocate?: No (1) Schizophrenia Qualifiers: Schizophrenia type: paranoid schizophrenia Qualified Code(s): F20.0 - Paranoid schizophrenia
[2018-09-27] MEDS: Melatonin 5 MG Tablet PO PRN (21:03)
[2018-09-28] MEDS: Acetaminophen 325 MG Tablet PO PRN (00:06)
--- NOTE | 2018-09-28 09:51 | P.TTN ---
- Patient Problems Problems: 1. Discharge planning 2. Medication compliance 3. Knowledge deficit 4. Lack of coping skills - Progress Toward Goals Provider Present: Dr. Raymond Miller (Patient needs to remain for further stabilization.) Psychiatric Counselors Present: Nigel Mcdonald Jr., [facility] (Patient will attend [place] on with the intent of obtaining involuntary placement order and subsequently completing state packet for state hospitalization.) Group Spec/RT/OT/HERNANDEZ Present: LYN Weber (Patient isolates and does not attend groups.) - Documentation Teaching Recipient: Patient
--- NOTE | 2018-09-28 11:16 | P.PNPSY ---
Subjective Chief Complaint: [place] act Remarks: Patient seen and examined with nurse. Chart reviewed. Case discussed with nursing staff who reports patient was frankly responding to internal stimuli yesterday afternoon/evening. Case discussed in treatment team where therapists indicate the same. On my examination today, the patient says that he slept poorly overnight. I discuss report from staff of ongoing internal stimulation, although patient is somewhat dismissive of this report. Affect is somewhat dysphoric. He denies SI or HI. No side effects from medications. No physical complaints. Vital Signs Temp Pulse Resp BP Pulse Ox 09/28/18 06:04 98.1 F 100 H 19 103/61 94 L 09/27/18 15:56 98.1 F 63 18 109/67 98 Labs reviewed. No new labs. Review of Systems All other systems reviewed negative except as stated in HPI (Limitation: Poor historian) Mental Status Examination Appearance: Disheveled Consciousness: Alert Orientation: x4 Motor Activity: Other (No abnormal motor movements noted) Speech: Unremarkable Language: Adequate Fund of Knowledge: Adequate Attention and Concentration: Adequate Memory: Unremarkable (Grossly intact on clinical exam) Mood: Other (Somewhat dysphoric) Affect: Blunt, Other (Restricted) Thought Process & Associations: Intact Thought Content: Appropriate Hallucination Type: Other (Some internal stimulation) Delusion Type: None Suicidal Ideation: No Homicidal Ideation: No Insight: Poor Judgment: Poor Assessment and Plan - Assessment (1) Schizophrenia Code(s): F20.9 - Schizophrenia, unspecified Status: Acute - Plan Plan: Titrate Prolixin to 5 mg in the morning and 10 mg at bedtime to target residual psychiatric symptoms. Continue to monitor on the inpatient unit. Continue other medications and care as ordered. Justification for Continued Inpatient Stay: Risk for decompensation and less restrictive environment. Medication changes. Impairment in reality construction. Discharge Planning: Placement versus [facility] Request Healthcare Surrogate/Guardian Advocate?: No (1) Schizophrenia Qualifiers: Schizophrenia type: paranoid schizophrenia Qualified Code(s): F20.0 - Paranoid schizophrenia
--- NOTE | 2018-09-28 13:59 | P.TTN ---
- Patient Problems Problems: 1. Discharge planning 2. Medication compliance 3. Knowledge deficit 4. Lack of coping skills - Progress Toward Goals Provider Present: Dr. Raymond Miller (Patient needs to remain for further stabilization.) Provider Input: 09/28/18: Pt continues to present with behaviors that require titration of his medications. pt is internally stimulated, meeting in-pt criteria. Nigel, counselor agrees that pt will be appropriate to attend court for consideration regarding pt continuation as in-pt or his disposition. Psychiatric Counselors Present: Nigel Mcdonald Jr., [facility] (Patient will attend [place] on with the intent of obtaining involuntary placement order and subsequently completing state packet for state hospitalization.) Group Spec/RT/OT/HERNANDEZ Present: LYN Weber (Patient isolates and does not attend groups.), Misha Dorsey, OT Group Spec/RT/OT/HERNANDEZ Input: 09/28/18: Pt very rarely attends groups Occupational Therapist Input: 09/28/18: OT notes updated, pt remains internally stimulated, distractable, impulsive and exercises limited interactions in social situations. - Discharge Plan 09/28/18: yvonne Manningor agrees that pt will be appropriate to attend court for consideration regarding pt continuation as in-pt or his disposition. - Documentation Teaching Recipient: Patient
--- NOTE | 2018-09-29 10:07 | P.PNPSY ---
Subjective Chief Complaint: [place] act Remarks: Patient seen and examined with nurse. Chart reviewed. Case discussed with nursing staff who reports patient has ongoing struggles with internal stimulation. Prior to the interview, the patient can be overheard on the unit yelling to himself in his room. He is more open regarding his AH in our conversation today. He tells me, "I'm having some problems with voices. These people [i.e. the voices] are very revengeful. They don't want me in [place]." He believes that he is receiving these voices through a police channel monitor. He denies SI/HI. Says that meds are making him feel "more anxious." No reported akathisia symptoms. No physical complaints. Vital Signs Temp Pulse Resp BP Pulse Ox 09/29/18 11:20 91 H 12 114/66 95 09/29/18 05:37 97.3 F L 72 18 91/54 L 96 09/28/18 18:36 98.7 F 82 17 123/61 97 Intake and Output 09/28/18 09/29/18 09/29/18 22:59 06:59 14:59 Other: Date of Last Bowel Movement 09/28/18 Labs reviewed. Review of Systems All other systems reviewed negative except as stated in HPI Mental Status Examination Appearance: Other (Grooming is improved) Consciousness: Alert Orientation: x4 Motor Activity: Other (No motor abnormalities noted) Speech: Unremarkable Language: Adequate Fund of Knowledge: Adequate Attention and Concentration: Adequate Memory: Unremarkable (Grossly intact on clinical exam) Mood: Other (Somewhat dysphoric) Affect: Blunt Thought Process & Associations: Intact Thought Content: Hallucinations, Delusional Hallucination Type: Auditory Delusion Type: Paranoid Suicidal Ideation: No Suicidal Plan: No Suicidal Intention: No Homicidal Ideation: No Homicidal Plan: No Homicidal Intention: No Insight: Poor Judgment: Poor Assessment and Plan - Assessment (1) Schizophrenia Code(s): F20.9 - Schizophrenia, unspecified Status: Acute - Plan Plan: Extensive discussion with patient regarding pharmacotherapeutic options for management of current psychiatric symptoms. We discuss: no change, titration of Prolixin, augmentation of Prolixin with a second antipsychotic, replacement of Prolixin with a different antipsychotic. Patient prefers to titrate Prolixin even though, as noted above, he thinks it is making him feel more anxious. Titrate Prolixin to 5/5/10mg to target psychosis. Continue to monitor on the inpatient unit. Continue other medications and care as ordered. Justification for Continued Inpatient Stay: Medication changes. Impairment in reality construction. Risk for decompensation in less restrictive environment. Discharge Planning: Pending psychiatric stabilization. [place] tomorrow. Possible state hospital referral if retained by the court. Request Healthcare Surrogate/Guardian Advocate?: No (1) Schizophrenia Qualifiers: Schizophrenia type: paranoid schizophrenia Qualified Code(s): F20.0 - Paranoid schizophrenia
--- NOTE | 2018-09-29 12:30 | ECG ---
Date Performed: 09/29/2018 Time Performed: 11:50:50 PTAGE: 48 years EKG: Sinus rhythm NORMAL ECG PREVIOUS TRACING : 09/22/2018 13.58 DOCTOR: Black Ochoa Interpretating Date/Time 09/29/2018 12:29:38
[2018-09-29] MEDS: Melatonin 5 MG Tablet PO PRN (20:54)
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
[2018-09-30] MEDS: Acetaminophen 325 MG Tablet PO PRN ×2 (10:23→15:45)
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
[2018-09-30] MEDS: Melatonin 5 MG Tablet PO PRN (20:12)
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
[2018-10-01] MEDS: Acetaminophen 325 MG Tablet PO PRN ×2 (09:46→20:36)
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
--- NOTE | 2018-10-01 12:04 | P.TTN ---
- Patient Problems Problems: 1. Discharge planning 2. Medication compliance 3. Knowledge deficit 4. Lack of coping skills - Progress Toward Goals Provider Present: Dr. Raymond Miller (Increased patients prolixin.) Provider Input: 09/28/18: Pt continues to present with behaviors that require titration of his medications. pt is internally stimulated, meeting in-pt criteria. Nigel, counselor agrees that pt will be appropriate to attend court for consideration regarding pt continuation as in-pt or his disposition. Psychiatric Counselors Present: Nigel Mcdonald Jr., [facility] (Patient will attend [place] on with the intent of obtaining involuntary placement order and subsequently completing state packet for state hospitalization.) Group Spec/RT/OT/HERNANDEZ Present: LYN Weber (Patient isolates and does not attend groups.), Misha Dorsey, OT, MARY Roberts (Pt. attends select groups) Group Spec/RT/OT/HERNANDEZ Input: 09/28/18: Pt very rarely attends groups Occupational Therapist Input: 09/28/18: OT notes updated, pt remains internally stimulated, distractable, impulsive and exercises limited interactions in social situations. - Discharge Plan 09/28/18: yvonne Manningor agrees that pt will be appropriate to attend court for consideration regarding pt continuation as in-pt or his disposition. - Documentation Teaching Recipient: Patient
[2018-10-02] MEDS: Acetaminophen 325 MG Tablet PO PRN ×2 (15:09→23:29)
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
[2018-10-02] MEDS: Melatonin 5 MG Tablet PO PRN (20:17)
[2018-10-03] MEDS: Aluminum/Magnesium/Simethacone Susp 30 ML UDC PO PRN (11:09)
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
[2018-10-03] MEDS: Acetaminophen 325 MG Tablet PO PRN ×2 (13:25→21:18)
--- NOTE | 2018-10-04 10:33 | P.PNPSY ---
Subjective Chief Complaint: Alatorre act Remarks: Patient seen and examined with nurse. Chart reviewed. Case discussed with nursing staff. No further behavioral incident through the weekend. On my exam , patient is somewhat seclusive to room. He denies any further issues with any peers. No SI or HI. Denies AVH. Denies paranoia. Denies side effects from medications. No physical complaints. Vital Signs Temp Pulse Resp BP Pulse Ox 10/04/18 05:50 97.6 F 65 16 103/55 L 99 10/03/18 17:01 98.0 F 69 18 124/60 100 10/03/18 15:08 0 L Intake and Output 10/03/18 10/04/18 10/04/18 22:59 06:59 14:59 Other: Weight 97.2 kg Labs reviewed. Review of Systems All other systems reviewed negative except as stated in HPI Mental Status Examination Appearance: Appropriate Consciousness: Alert Orientation: x4 Motor Activity: Other (No abnormal motor movements noted) Speech: Unremarkable Language: Adequate Fund of Knowledge: Adequate Attention and Concentration: Adequate Memory: Unremarkable (Grossly intact on clinical exam) Mood: Appropriate Affect: Blunt (Remains blunted) Thought Process & Associations: Intact Thought Content: Appropriate Hallucination Type: None Delusion Type: None Suicidal Ideation: No Homicidal Ideation: No Insight: Poor Judgment: Poor Assessment and Plan - Assessment (1) Schizophrenia Code(s): F20.9 - Schizophrenia, unspecified Status: Acute - Plan Plan: Continue Prolixin as ordered. To consider initiation of Prolixin decanoate. Continue to monitor on the inpatient unit. Continue other medications and care as ordered. Justification for Continued Inpatient Stay: High risk for decompensation in less restrictive environment. Discharge Planning: [facility] Request Healthcare Surrogate/Guardian Advocate?: No (1) Schizophrenia Qualifiers: Schizophrenia type: paranoid schizophrenia Qualified Code(s): F20.0 - Paranoid schizophrenia
[2018-10-04] MEDS: Acetaminophen 325 MG Tablet PO PRN ×2 (14:08→21:00)
[2018-10-04] MEDS: Melatonin 5 MG Tablet PO PRN (21:00)
--- NOTE | 2018-10-05 10:03 | P.PNPSY ---
Subjective Chief Complaint: Alatorre act Remarks: Patient seen and examined with nurse. Chart reviewed. I note that patient was documented to be responding to internal stimuli overnight. Patient also removed splint on right hand, and I have consulted the rn orthopaedic to come replace it. Case discussed with nursing staff. Case discussed in treatment team. On my examination today, the patient admits to ongoing hallucinations. He attributes this to distress at watching the ceremonies for President Panda Mazariegos on television yesterday evening. 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 No SI/HI and patient remains calm and without behavioral incident today. Denies side effects from medications. No physical complaints. Vital Signs Temp Pulse Resp BP Pulse Ox 10/05/18 05:47 98.0 F 73 18 104/55 L 97 10/04/18 17:04 97.5 F L 78 18 112/67 99 10/04/18 15:01 2 L Labs reviewed. Review of Systems All other systems reviewed negative except as stated in HPI Mental Status Examination Appearance: Appropriate Consciousness: Alert Orientation: x4 Motor Activity: Other (No motor abnormalities noted) Speech: Unremarkable Language: Adequate Fund of Knowledge: Adequate Attention and Concentration: Adequate Memory: Unremarkable (Grossly intact on clinical exam) Mood: Appropriate Affect: Blunt Thought Process & Associations: Intact Thought Content: Hallucinations Hallucination Type: Auditory Delusion Type: None Suicidal Ideation: No Homicidal Ideation: No Insight: Poor Judgment: Poor Assessment and Plan - Assessment (1) Schizophrenia Code(s): F20.9 - Schizophrenia, unspecified Status: Acute - Plan Plan: Titrate Prolixin to 10 mg 3 times daily to target residual psychiatric symptoms. Continue to monitor on the high acuity unit. Continue other care as ordered. Justification for Continued Inpatient Stay: Medication changes. Impairment in reality construction. High risk for decompensation in less restrictive environment. Discharge Planning: [facility] referral. Request Healthcare Surrogate/Guardian Advocate?: No (1) Schizophrenia Qualifiers: Schizophrenia type: paranoid schizophrenia Qualified Code(s): F20.0 - Paranoid schizophrenia
[2018-10-05] MEDS: Acetaminophen 325 MG Tablet PO PRN ×2 (16:21→20:49)
[2018-10-05] MEDS: Melatonin 5 MG Tablet PO PRN (20:49)
--- NOTE | 2018-10-06 08:22 | P.PNPSY ---
Subjective Chief Complaint: Alatorre act Remarks: Patient seen and examined with nurse. Chart reviewed. Case discussed with nursing staff. Some ongoing internal preoccupation noted. On my exam, patient insists that this internal preoccupation simply represents him planning or "contemplating my thoughts." However, patient has been noted to be quite animated, even yelling in response to internal stimuli. Patient concedes that he may still be struggling with some degree of AH. Denies side effects from medications. Complains of some nausea and reports 1 episode of emesis yesterday. Also complains of isolated episode of palpitation overnight; we will check EKG. No other physical complaints. Vital Signs Temp Pulse Resp BP Pulse Ox 10/06/18 05:57 97.5 F L 95 H 18 112/78 93 L 10/05/18 18:35 97.3 F L 64 17 108/63 96 Labs reviewed. EKG obtained today read as sinus rhythm with QTc 433ms. No evidence of ectopy or other arrhythmia. Review of Systems All other systems reviewed negative except as stated in HPI Mental Status Examination Appearance: Appropriate Consciousness: Alert Orientation: x4 Motor Activity: Other (No abnormal motor movements noted) Speech: Unremarkable Language: Adequate Fund of Knowledge: Adequate Attention and Concentration: Adequate Memory: Unremarkable (Grossly intact on clinical exam) Mood: Appropriate Affect: Blunt Thought Process & Associations: Intact Thought Content: Hallucinations Hallucination Type: Auditory Delusion Type: None Suicidal Ideation: No Suicidal Plan: No Suicidal Intention: No Homicidal Ideation: No Homicidal Plan: No Homicidal Intention: No Insight: Poor Judgment: Poor Assessment and Plan - Assessment (1) Schizophrenia Code(s): F20.9 - Schizophrenia, unspecified Status: Acute - Plan Plan: Continue Prolixin as ordered for now. EKG results as noted above. Add Zofran as needed for nausea and monitor. Nurse to call [employer] to follow up on my consultation. Continue other medications and care as ordered. Continue to monitor on the inpatient unit. Justification for Continued Inpatient Stay: Impairment in reality construction. High risk for decompensation in less restrictive environment. Discharge Planning[facility] Request Healthcare Surrogate/Guardian Advocate?: No (1) Schizophrenia Qualifiers: Schizophrenia type: paranoid schizophrenia Qualified Code(s): F20.0 - Paranoid schizophrenia
[2018-10-06] MEDS: Acetaminophen 325 MG Tablet PO PRN (15:31)
--- NOTE | 2018-10-06 16:48 | ECG ---
Date Performed: 10/06/2018 Time Performed: 10:06:49 PTAGE: 48 years EKG: SINUS TACHYCARDIA ABNORMAL RHYTHM ECG PREVIOUS TRACING : 09/29/2018 11.50 Compared to previous tracing, rate faster DOCTOR: Joslyn Haywood Interpretating Date/Time 10/06/2018 16:47:23
[2018-10-06 19:56] LABS: Creatine Kinase 51 U/L (39-308)
[2018-10-06] MEDS: Melatonin 5 MG Tablet PO PRN (20:53)
--- NOTE | 2018-10-07 11:50 | P.PNPSY ---
Subjective Chief Complaint: Alatorre act Remarks: Patient seen and examined with nurse. Chart reviewed. Case discussed with nursing staff. Patient complained of episode of chest discomfort overnight and on-call psychiatrist ordered EKG, read as normal sinus rhythm with normal intervals, and cardiac enzymes x1 which were negative. On my examination today , the patient does not complain of any ongoing chest discomfort or palpitation. He does complain of "pissing a lot" and also of ongoing nausea. He attributes these symptoms as well as his chest discomfort overnight to his Prolixin and is now resistant to taking this medication. He did in fact refuse his Prolixin last night. He denies AVH. No SI/HI. No other physical complaints. Vital Signs Temp Pulse Resp BP Pulse Ox 10/07/18 05:57 97.8 F 87 16 109/67 98 10/06/18 21:36 93 H 126/59 L 10/06/18 16:11 98.8 F 125 H 18 98/65 L 96 Intake and Output 10/06/18 10/07/18 10/07/18 22:59 06:59 14:59 Other: Date of Last Bowel Movement 10/06/18 10/06/18 Weight 96.2 kg Laboratory Results - last 24 hr 10/06/18 19:13 Total Creatine Kinase 51 Troponin I Less than 0.02 L Labs reviewed. Review of Systems All other systems reviewed negative except as stated in HPI Mental Status Examination Appearance: Appropriate Consciousness: Alert Orientation: x4 Motor Activity: Other (No motor abnormalities noted) Speech: Unremarkable Language: Adequate Fund of Knowledge: Adequate Attention and Concentration: Adequate Memory: Unremarkable (Grossly intact on clinical exam) Mood: Other (Somewhat dysphoric) Affect: Blunt Thought Process & Associations: Intact Thought Content: Delusional (Possible) Hallucination Type: None Delusion Type: Other (?Somatic) Suicidal Ideation: No Homicidal Ideation: No Insight: Poor Judgment: Poor Assessment and Plan - Assessment (1) Schizophrenia Code(s): F20.9 - Schizophrenia, unspecified Status: Acute - Plan Plan: Unclear if current physical complaints are maddie tracie or reflect somatic preoccupation or simply resistance to treatment. I will request hospitalist consultation to further evaluate patient's physical complaints. I think it is less likely that these symptoms are related to Prolixin as he has tolerated this medication fine up to this point without side effects. I will therefore continue his Prolixin as ordered, but we could consider altering therapy particularly if adherence is threatened by patient's belief that his physical complaints are related to Prolixin therapy. Continue to monitor on inpatient unit. Continue other care as ordered. Justification for Continued Inpatient Stay: Risk for decompensation in less restrictive environment. Discharge Planning: [facility] referral. Request Healthcare Surrogate/Guardian Advocate?: No (1) Schizophrenia Qualifiers: Schizophrenia type: paranoid schizophrenia Qualified Code(s): F20.0 - Paranoid schizophrenia
[2018-10-07 16:12] LABS: Baso % (Auto) 0.4 % (0.0-2.0); Eos # (Auto) 0.1 th/mm3 (0.0-0.4); Eos % (Auto) 1.1 % (0.0-4.0); Hematocrit 38.6 % (39.0-51.0); Hemoglobin 13.6 gm/dL (13.0-17.0); Lymph # (Auto) 2.8 th/mm3 (1.0-4.8); Lymph % (Auto) 35.6 % (9.0-44.0); Mean Corpuscular HGB Conc 35.2 % (32.0-36.0); Mean Corpuscular Hemoglobin 31.1 pg (27.0-34.0); Mean Corpuscular Volume 88.5 fL (80.0-100.0); Mean Platelet Volume 7.5 fL (7.0-11.0); Mono # (Auto) 0.8 th/mm3 (0.0-0.9); Mono % (Auto) 9.9 % (0.0-8.0); Neut # (Auto) 4.2 th/mm3 (1.8-7.7); Platelet Count 302 th/mm3 (150-450); Red Blood Count 4.36 mil/mm3 (4.50-5.90); Red Cell Distribution Width 13.2 % (11.6-17.2)
[2018-10-07 16:26] LABS: Anion Gap 6 meq/L (5-15); Blood Urea Nitrogen 11 mg/dL (7-18); Calcium 8.7 mg/dL (8.5-10.1); Carbon Dioxide 26.4 meq/L (21.0-32.0); Chloride 105 meq/L (98-107); Glomerular Filtration Rate Greater Than 89 mL/min (>89); Glucose,Random 101 mg/dL (74-106); Magnesium 2.5 mg/dL (1.5-2.5); Sodium 137 meq/L (136-145)
--- NOTE | 2018-10-07 17:16 | P.CONIM ---
History of Present Illness Service: [facility] Consult date: 10/07/18 Requesting Physician: Johnny Miller Reason for Consult: palpitations, nausea Primary Care Provider: No Primary Care Physician Chief Complaint: palpitations, shortness of breath, nausea History of Present Illness: Patient is a pleasant 48 year old male with a past medical history significant for schizophrenia and depression. He was brought in by the police department under a Alatorre Act. It was documented that patient exhibited suicidal ideation. Patient has had multiple ER visits in the past for psychiatric related issues. The hospitalist team has evaluated the patient previously for a boil that was located on the lateral aspect of his right eyebrow which is now completely healed status post antibiotics. The hospitalist team has been reconsulted as patient is complaining of intermittent episodes of nausea, palpitations and shortness of breath. Patient denies chest pain, orthopnea, dyspnea with exertion or lower extremity pain/edema. At time of evaluation he denies palpitations or shortness of breath. He states that he does feel anxious whenever he gets short of breath. According to RN patient is awaiting State approval for transfer and may be anxious about having to leave this facility. Patient is asking if examiner can put in a good word for him so that he may be able to get released. Educated patient that he is under the psychiatrist care and he would have to discuss discharge/ transfer with his primary care team. Lab work was ordered and reviewed and grossly unremarkable. An EKG was completed and reviewed and shows normal sinus rhythm. No acute distress noted at present time. Review of Systems ROS Unobtainable: other (except as documented all other systems reviewed and negative) PMFSH History History Provided By: Patient and Medical Record Medical History Medical History Depression (Acute) Hx of schizophrenia (Acute) Surgical History Surgical History Hx of heart artery stent (Acute) Family History Family History Other Family history unknown Social History Social History Substance History: No History of Abuse Second Hand Smoke Exposure: Yes Smoking Status: Heavy tobacco smoker Tobacco Type: Cigarettes How Often Do You Have a Drink Containing Alcohol: Never Recent Travel in [facility] within the Last 8 Weeks: No Recent Out of Country Travel within the Last 8 Weeks: No Immunization History Tetanus Immunization: <5 Years Tetanus Immunization Year if Known: 2017 Hx Influenza Vaccine This Season: No Medications and Allergies Allergies Allergy/AdvReac Type Severity Reaction Status Date / Time Fish Containing Products Allergy Severe Hives Verified 07/12/18 20:39 Home Medications Medication Instructions Recorded Confirmed Type No Known Home Medications 09/21/18 09/21/18 History Active Medications: Active Medications Acetaminophen (Tylenol) 650 mg PO Q4H PRN PRN Reason: PAIN 1-10 AND/OR FEVER >101F Last Admin: 10/06/18 15:31 Dose: 650 mg Al Hydrox/Mg Hydrox/Simethicone (Mag-Al Plus Susp Liq) 30 ml PO Q6H PRN PRN Reason: DYSPEPSIA Last Admin: 10/03/18 11:09 Dose: 30 ml Al Hydroxide/Mg Hydroxide (Milk Of Magnesia Liq) 30 ml PO Q12H PRN PRN Reason: Mild Constipation Benztropine Mesylate (Cogentin Inj) 1 mg IM Q12HR PRN PRN Reason: EPS, unable to take PO Benztropine Mesylate (Cogentin) 1 mg PO BID PRN PRN Reason: EXTRA PYRAMIDAL SYMPTOMS Fluphenazine HCl (Prolixin) 10 mg PO HS [facility] Last Admin: 10/06/18 20:53 Dose: Not Given Fluphenazine HCl (Prolixin) 10 mg PO DAILY@09,15 [facility] Last Admin: 10/07/18 15:20 Dose: Not Given Hydroxyzine HCl (Atarax) 50 mg PO Q6H PRN PRN Reason: ANXIETY Last Admin: 10/01/18 14:29 Dose: 50 mg Melatonin (Melatonin) 5 mg PO HS PRN PRN Reason: INSOMNIA Last Admin: 10/06/18 20:53 Dose: 5 mg Miscellaneous (Pill Splitter) 1 each OTHER UNSCH [facility] Nicotine (Habitrol 21 Mg Patch.24 Hr) 1 patch T-DERMAL DAILY [facility] Last Admin: 10/07/18 08:10 Dose: 1 patch Ondansetron HCl (Zofran Odt) 4 mg PO Q4H PRN PRN Reason: Nausea/vomiting Last Admin: 10/06/18 11:00 Dose: 4 mg Patch Removal (Remove Old Patch) 1 each T-DERMAL DAILY [facility] Last Admin: 10/07/18 08:11 Dose: 1 each Physical Exam Vital signs: Last Vital Signs Temp 97.9 F 10/07/18 16:56 Pulse 73 10/07/18 16:56 Resp 16 10/07/18 16:56 BP 119/69 10/07/18 16:56 Pulse Ox 98 10/07/18 16:56 Intake & Output 10/05/18 10/06/18 10/07/18 10/08/18 06:59 06:59 06:59 06:59 Weight 96.2 kg Narrative: General: patient in no acute distress HEENT: extraocular movements are intact, clear oropharyngeal mucosa, pea size boil on the lateral aspect of the right eyebrow. Cardiovascular: S1-S2 audible, heart regular rate and rhythm Respiratory: clear to auscultation bilaterally, no accessory muscle use Abdomen soft, nontender, nondistended Extremities: no edema, no erythema noted in the patient's extremities. Neuro: cranial nerves II through XII intact Results Labs CBC & Chem 7: 10/07/18 15:45 10/07/18 15:45 Assessment and Plan Plan Patient is a 48-year-old male with a psychiatric diagnosis of schizophrenia. He was brought in as a Alatorre act by the police department. There is also documentation the patient was having suicidal ideation. The patient is known to the psychiatric service as he has had multiple previous ER visits and psychiatric hospitalizations. He has a history of leaving the hospital AGAINST MEDICAL ADVICE. The patient was in the hospital being treated for his psychiatric issues. He was found to have a leukocytosis of around 20,000. He also has been having this small boil lateral to his right eyebrow that the nursing staff noticed yesterday. I was consulted to evaluate the patient for leukocytosis. No complaints of diarrhea. Persistent nausea -pt w/ no symptoms at present time. He completed his dinner and is tolerating this well. -Zofran PRN -CBC & BMP reviewed and unremarkable -may be side effect of Fluphenazine Palpitations, likely secondary to anxiety -EKG shows normal sinus rhythm -HR 70-80's today -continue hydroxyzine PRN for anxiety Psychiatric history - schizophrenia - primary mgmt per psych team We will continue to follow. Thank you for this consultation. Discussed Condition With: RN, patient
--- NOTE | 2018-10-07 17:37 | ECG ---
Date Performed: 10/06/2018 Time Performed: 19:24:59 PTAGE: 48 years EKG: Sinus rhythm NORMAL ECG PREVIOUS TRACING : 10/06/2018 10.06 Since the previous tracing, no significant change noted DOCTOR: Filomena Easton Interpretating Date/Time 10/07/2018 17:35:09
[2018-10-07] MEDS: Melatonin 5 MG Tablet PO PRN (20:33)
--- NOTE | 2018-10-08 09:48 | P.TTN ---
- Patient Problems Problems: 1. Discharge planning 2. Medication compliance 3. Knowledge deficit 4. Lack of coping skills - Progress Toward Goals Provider Present: Dr. Raymond Miller (Patient refused to take his Prolixin, patient needs to remain for further stabilization with the intent of state hospitalization.) Provider Input: 09/28/18: Pt continues to present with behaviors that require titration of his medications. pt is internally stimulated, meeting in-pt criteria. yvonne Manningor agrees that pt will be appropriate to attend court for consideration regarding pt continuation as in-pt or his disposition. Psychiatric Counselors Present: Nigel Mcdonald Jr., [facility] (Counselor completed [facility] packet on Thursday, October 06, 2018, patient will go to the [facility] when accepted.) Group Spec/RT/OT/HERNANDEZ Present: LYN Weber (Patient isolates and does not attend groups.), MARY Hobson (Patient attends select groups and is appropriate.), Misha Dorsey, OT, MARY Roberts (Pt. attends select groups) Group Spec/RT/OT/HERNANDEZ Input: 09/28/18: Pt very rarely attends groups Occupational Therapist Input: 09/28/18: OT notes updated, pt remains internally stimulated, distractable, impulsive and exercises limited interactions in social situations. - Discharge Plan 09/28/18: counselor Nigel agrees that pt will be appropriate to attend court for consideration regarding pt continuation as in-pt or his disposition. - Documentation Teaching Recipient: Patient
--- NOTE | 2018-10-08 10:35 | P.PNPSY ---
Subjective Chief Complaint: Alatorre act Remarks: Patient seen and examined with nurse. Chart reviewed. Case discussed with nursing staff. Patient noted to be seclusive to room. Patient has continued to refuse Prolixin. Case discussed in treatment team. Therapists note that the patient continues to espouse delusional material, such as saying that he is employed by the [employer] and [employer]. On my examination today, the patient reports resolution of nausea and palpitations of which she had previously been complaining. He remains resistant to taking Prolixin. He denies any suicidal ideation. He does say that he had a violent thought in the bathroom yesterday evening but denies any ongoing violent ideation. He says that there was no specific victim as part of this violent ideation. He denies any hallucinations. No physical complaints. Wants to return to [facility]. Vital Signs Temp Pulse Resp BP Pulse Ox 10/08/18 06:00 97.6 F 87 18 113/55 L 96 10/07/18 16:56 97.9 F 73 16 119/69 98 Intake and Output 10/07/18 10/08/18 10/08/18 22:59 06:59 14:59 Other: Date of Last Bowel Movement 10/06/18 Laboratory Results - last 24 hr 10/07/18 10/07/18 15:45 15:45 WBC 8.0 RBC 4.36 L Hgb 13.6 Hct 38.6 L MCV 88.5 MCH 31.1 MCHC 35.2 RDW 13.2 Plt Count 302 MPV 7.5 Neut % (Auto) 53.0 Lymph % (Auto) 35.6 Garden % (Auto) 9.9 H Eos % (Auto) 1.1 Baso % (Auto) 0.4 Neut # (Auto) 4.2 Lymph # (Auto) 2.8 Garden # (Auto) 0.8 Eos # (Auto) 0.1 Baso # (Auto) 0.0 WBC Differential . Differential Comment Auto diff final Sodium 137 Potassium 4.0 Chloride 105 Carbon Dioxide 26.4 Anion Gap 6 BUN 11 Creatinine 0.81 Estimated GFR Greater than 89 Random Glucose 101 Calcium 8.7 Magnesium 2.5 Labs reviewed. CBC unremarkable. BMP unremarkable. Review of Systems All other systems reviewed negative except as stated in HPI Mental Status Examination Appearance: Appropriate Consciousness: Alert Orientation: x4 Motor Activity: Other (No abnormal motor movements noted) Speech: Unremarkable Language: Adequate Fund of Knowledge: Adequate Attention and Concentration: Adequate Memory: Unremarkable (Grossly intact on clinical exam) Mood: Other (Mildly dysphoric) Affect: Blunt Thought Process & Associations: Intact Thought Content: Delusional Hallucination Type: None Delusion Type: Paranoid Suicidal Ideation: No Homicidal Ideation: No (Presently denies violent ideation) Insight: Poor Judgment: Poor Assessment and Plan - Assessment (1) Schizophrenia Code(s): F20.9 - Schizophrenia, unspecified Status: Acute - Plan Plan: Discontinue Prolixin. I have spoken with patient's GA and have obtained consent for Risperdal. Since patient is not naive to this medication, will start Risperdal at dose of 2mg BID with plan to titrate to effect and as tolerated. Hospitalist input appreciated. Continue to monitor on the inpatient unit. Continue other care as ordered. Justification for Continued Inpatient Stay: High risk for decompensation and less restrictive environment. Medication changes. Discharge Planning: [facility] referral Request Healthcare Surrogate/Guardian Advocate?: No (1) Schizophrenia Qualifiers: Schizophrenia type: paranoid schizophrenia Qualified Code(s): F20.0 - Paranoid schizophrenia
--- NOTE | 2018-10-08 17:52 | P.PNIM ---
Subjective Interval history: Follow up palpitations, shortness of breath, nausea Patient states his medication was changed and he is no longer having shortness of breath, palpitations or nausea. Patient denies chest pain. Physical Exam Vital signs: Last Vital Signs Temp 97.6 F 10/08/18 06:00 Pulse 87 10/08/18 06:00 Resp 18 10/08/18 06:00 BP 113/55 L 10/08/18 06:00 Pulse Ox 96 10/08/18 06:00 Intake & Output 10/06/18 10/07/18 10/08/18 10/09/18 06:59 06:59 06:59 06:59 Weight 96.2 kg Narrative: General: patient in no acute distress HEENT: extraocular movements are intact, clear oropharyngeal mucosa, pea size boil on the lateral aspect of the right eyebrow. Cardiovascular: S1-S2 audible, heart regular rate and rhythm Respiratory: clear to auscultation bilaterally, no accessory muscle use Abdomen soft, nontender, nondistended Extremities: no edema, no erythema noted in the patient's extremities. Neuro: cranial nerves II through XII intact Results Labs CBC & Chem 7: 10/07/18 15:45 10/07/18 15:45 Assessment and Plan (1) Schizophrenia: Code(s): F20.9 - Schizophrenia, unspecified Status: Acute Plan Patient is a 48-year-old male with a psychiatric diagnosis of schizophrenia. He was brought in as a Alatorre act by the police department. There is also documentation the patient was having suicidal ideation. The patient is known to the psychiatric service as he has had multiple previous ER visits and psychiatric hospitalizations. He has a history of leaving the hospital AGAINST MEDICAL ADVICE. The patient was in the hospital being treated for his psychiatric issues. He was found to have a leukocytosis of around 20,000. He also has been having this small boil lateral to his right eyebrow that the nursing staff noticed yesterday. I was consulted to evaluate the patient for leukocytosis. No complaints of diarrhea. Persistent nausea - resolved -asymptomatic -Zofran PRN -CBC & BMP reviewed and unremarkable -may be side effect of Fluphenazine, this was discontinued and patient started on risperdal per psych Palpitations, likely secondary to anxiety - resolved -EKG shows normal sinus rhythm -HR 70-80's -continue hydroxyzine PRN for anxiety Psychiatric history - schizophrenia - primary mgmt per psych team Thank you for this consult. Patient appears to be medically stable and no changes to the existing medical plan are needed. Hospitalist service will sign off at this time. please reconsult if there are additional concerns. Progress Note: Quality VTE Deep Vein Thrombosis/Pulmonary Embolism Present on Admission: No _ (1) Schizophrenia Qualifiers: Schizophrenia type: paranoid schizophrenia Qualified Code(s): F20.0 - Paranoid schizophrenia
[2018-10-08] MEDS: Melatonin 5 MG Tablet PO PRN (20:35)
--- NOTE | 2018-10-09 15:28 | P.PNPSY ---
Subjective Chief Complaint: Alatorre act Remarks: Pt seen and discussed with staff. He remains delusional with poor insight into illness. He was restarted on risperidone yesterday and is tolerating medication change without side effects. No SI/HI. He has been actively responding to internal stimuli and having intense conversations with unseen entities. Mental Status Examination Appearance: Appropriate Consciousness: Alert Orientation: x4 Motor Activity: Other (No abnormal motor movements noted) Speech: Unremarkable Language: Adequate Fund of Knowledge: Adequate Attention and Concentration: Adequate Memory: Unremarkable (Grossly intact on clinical exam) Mood: Other (Mildly dysphoric) Affect: Blunt Thought Process & Associations: Intact Thought Content: Delusional Hallucination Type: None Delusion Type: Paranoid Suicidal Ideation: No Suicidal Plan: No Suicidal Intention: No Homicidal Ideation: No (denies) Homicidal Plan: No Homicidal Intention: No Insight: Poor Judgment: Poor Assessment and Plan - Assessment (1) Schizophrenia Code(s): F20.9 - Schizophrenia, unspecified Status: Acute - Plan Plan: Continue current tx plan Justification for Continued Inpatient Stay: psychosis Request Healthcare Surrogate/Guardian Advocate?: No (1) Schizophrenia Qualifiers: Schizophrenia type: paranoid schizophrenia Qualified Code(s): F20.0 - Paranoid schizophrenia
[2018-10-09] MEDS: Melatonin 5 MG Tablet PO PRN (20:33)
[2018-10-09] MEDS: Acetaminophen 325 MG Tablet PO PRN (20:36)
[2018-10-10] MEDS ORDERED: Haloperidol Inj 5 MG/ML Ampul IM ONE (14:00)
--- NOTE | 2018-10-10 14:22 | P.PNPSY ---
Subjective Chief Complaint: Alatorre act Remarks: Reviewed electronic record and discussed with nursing staff. Rounded with MARISOL Cabrera. Patient experiencing severe auditory hallucinations. He is in bed holding he ears and internally stimulated. Escalated when trying to talk to him. Nursing reports that this morning he was yelling in the bathroom and in his room and no one was present. Will order Haldol 5mg x one , IM. Review of Systems All other systems reviewed negative except as stated in HPI Mental Status Examination Appearance: Appropriate Consciousness: Alert Orientation: x4 Motor Activity: Other (No abnormal motor movements noted) Speech: Unremarkable Language: Adequate Fund of Knowledge: Adequate Attention and Concentration: Adequate Memory: Unremarkable (Grossly intact on clinical exam) Mood: Other (Mildly dysphoric) Affect: Blunt Thought Process & Associations: Intact Thought Content: Delusional Hallucination Type: None Delusion Type: Paranoid Suicidal Ideation: No Suicidal Plan: No Suicidal Intention: No Homicidal Ideation: No (denies) Homicidal Plan: No Homicidal Intention: No Insight: Poor Judgment: Poor Assessment and Plan - Assessment (1) Schizophrenia Code(s): F20.9 - Schizophrenia, unspecified Status: Acute - Plan Plan: Continue current tx plan Justification for Continued Inpatient Stay: Moving patient to a less restrictive environment may result in his decompensation. Request Healthcare Surrogate/Guardian Advocate?: No (1) Schizophrenia Qualifiers: Schizophrenia type: paranoid schizophrenia Qualified Code(s): F20.0 - Paranoid schizophrenia
[2018-10-10] MEDS: Acetaminophen 325 MG Tablet PO PRN (21:58)
[2018-10-10] MEDS: Melatonin 5 MG Tablet PO PRN (21:58)
--- NOTE | 2018-10-11 09:38 | P.PNPSY ---
Subjective Chief Complaint: Alatorre act Remarks: Patient seen and examined. Chart reviewed. Patient medicated yesterday with Haldol IM x 1 due to AH. Case discussed with nursing staff. On my exam, patient is seclusive to room. He tells me that he was not hearing voices yesterday but was merely speaking "in a raised voice." He denies AVH now. Denies SI/HI. Denies side effects from scheduled meds. No EPS on exam. Had 1 episode of enuresis overnight, which patient blames on the Haldol. No other physical complaints. Vital Signs Temp Pulse Resp BP Pulse Ox 10/11/18 06:00 97.6 F 62 16 106/46 L 100 10/10/18 17:04 98.6 F 82 18 99/54 L 99 Intake and Output 10/10/18 10/11/18 10/11/18 22:59 06:59 14:59 Other: Date of Last Bowel Movement 10/06/18 Weight 98 kg Labs reviewed. Review of Systems All other systems reviewed negative except as stated in HPI Mental Status Examination Appearance: Appropriate Consciousness: Alert Orientation: x4 Motor Activity: Other (No motor abnormalities noted.) Speech: Unremarkable Language: Adequate Fund of Knowledge: Adequate Attention and Concentration: Adequate Memory: Unremarkable (Grossly intact on clinical exam) Mood: Other (Somewhat dysphoric) Affect: Blunt (tending towards flat.) Thought Process & Associations: Intact Thought Content: Delusional Hallucination Type: None (Denies AVH but may be some ongoing internal stimulation) Delusion Type: Paranoid Suicidal Ideation: No Suicidal Plan: No Suicidal Intention: No Homicidal Ideation: No Homicidal Plan: No Homicidal Intention: No Insight: Poor Judgment: Poor Assessment and Plan - Assessment (1) Schizophrenia Code(s): F20.9 - Schizophrenia, unspecified Status: Acute - Plan Plan: Titrate Risperdal to 3mg BID to target residual psychiatric symptoms. Continue to monitor on inpatient unit. Continue other meds and care as ordered. Justification for Continued Inpatient Stay: Medication changes. Impairment in reality construction. High risk for decompensation in less restrictive environment. Discharge Planning: [facility] referral. Request Healthcare Surrogate/Guardian Advocate?: No (1) Schizophrenia Qualifiers: Schizophrenia type: paranoid schizophrenia Qualified Code(s): F20.0 - Paranoid schizophrenia
[2018-10-11] MEDS: Melatonin 5 MG Tablet PO PRN (20:11)
--- NOTE | 2018-10-12 10:37 | P.PNPSY ---
Subjective Chief Complaint: Alatorre act Remarks: Patient seen and examined with nurse. Chart reviewed. Case discussed with nursing staff who reports patient was perseverative yesterday that the chicken that he was given for dinner was in fact fish, to which he is reportedly allergic, although there is no evidence that the patient was in fact provided with the wrong meal. Case discussed in treatment team. Counselor informs me that the patient has completed a writ of habeas corpus. Patient is attending select groups and is reportedly fairly appropriate in groups. Prior to my evaluation, I observed the patient from the nursing station pacing around the unit frankly responding to internal stimuli in a fairly agitated manner. When I discussed these observations with the patient, he downplays this and says that he was only speaking loudly to himself. He denies any hallucinations but remains somewhat internally preoccupied. He denies any suicidal or homicidal ideation. Denies any side effects from medications and says that the Risperdal makes him "feel wonderful." No physical complaints. No complaints of hand pain. Vital Signs Temp Pulse Resp BP Pulse Ox 10/12/18 05:51 97.1 F L 67 17 103/57 L 96 10/11/18 15:30 98.8 F 119 H 18 127/84 100 Intake and Output 10/11/18 10/12/18 10/12/18 22:59 06:59 14:59 Other: Date of Last Bowel Movement 10/11/18 Labs reviewed. No new labs. Review of Systems All other systems reviewed negative except as stated in HPI Mental Status Examination Appearance: Appropriate Consciousness: Alert Orientation: x4 Motor Activity: Other (No abnormal motor movements noted.) Speech: Unremarkable Language: Adequate Fund of Knowledge: Adequate Attention and Concentration: Adequate Memory: Unremarkable (Grossly intact on clinical exam) Mood: Appropriate (at time of my evaluation) Affect: Blunt (at time of my evaluation. Appeared fairly angry when observed on the unit earlier as noted above.) Thought Process & Associations: Intact Thought Content: Delusional Hallucination Type: None (Denies AVH but noted to be frankly internally stimulated on the unit) Delusion Type: Paranoid Suicidal Ideation: No Suicidal Plan: No Suicidal Intention: No Homicidal Ideation: No Homicidal Plan: No Homicidal Intention: No Insight: Poor Judgment: Poor Assessment and Plan - Assessment (1) Schizophrenia Code(s): F20.9 - Schizophrenia, unspecified Status: Acute - Plan Plan: Titrate Risperdal to 4 mg twice daily for management of psychotic symptoms. I have recommended to the patient that we return to Prolixin as this agent seemed more efficacious or select a different antipsychotic as patient does not appear to be having adequate response to Risperdal. However, the patient is insistent on giving Risperdal a longer trial. Continue to monitor on the high acuity unit. Continue other care as ordered. Justification for Continued Inpatient Stay: Medication changes. Impairment in reality construction. High risk for decompensation in less restrictive environment. Discharge Planning: [facility] referral. Request Healthcare Surrogate/Guardian Advocate?: No (1) Schizophrenia Qualifiers: Schizophrenia type: paranoid schizophrenia Qualified Code(s): F20.0 - Paranoid schizophrenia
--- NOTE | 2018-10-12 11:29 | P.TTN ---
- Patient Problems Problems: 1. Discharge planning 2. Medication compliance 3. Knowledge deficit 4. Lack of coping skills - Progress Toward Goals Provider Present: Dr. Raymond Miller (Patient needs to remain for further stabilization.) Provider Input: 09/28/18: Pt continues to present with behaviors that require titration of his medications. pt is internally stimulated, meeting in-pt criteria. yvonne Manningor agrees that pt will be appropriate to attend court for consideration regarding pt continuation as in-pt or his disposition. Psychiatric Counselors Present: Nigel Mcdonald Jr., [facility] (Patient is a state referral. There are no plans to divert the patient from the [facility] list at this time.) Group Spec/RT/OT/HERNANDEZ Present: LYN Weber (Patient isolates and does not attend groups.), MARY Hobson (Patient attends groups and presents with good insight.), Misha Dorsey, OT, MARY Roberts (Pt. attends select groups) Group Spec/RT/OT/HERNANDEZ Input: 09/28/18: Pt very rarely attends groups Occupational Therapist Input: 09/28/18: OT notes updated, pt remains internally stimulated, distractable, impulsive and exercises limited interactions in social situations. - Discharge Plan 09/28/18: yvonne Manningor agrees that pt will be appropriate to attend court for consideration regarding pt continuation as in-pt or his disposition. - Documentation Teaching Recipient: Patient
[2018-10-12] MEDS: Melatonin 5 MG Tablet PO PRN (20:32)
--- NOTE | 2018-10-13 10:18 | P.PNPSY ---
Subjective Chief Complaint: Alatorre act Remarks: Patient seen and examined. Chart reviewed. Case discussed with nursing staff. On my exam, patient is sleeping in his room. He awakens readily for interview. His affect is quite flat. He denies AVH. No SI/HI. Denies side effects from medications and says that meds have "calmed me down." No physical complaints. Vital Signs Temp Pulse Resp BP Pulse Ox 10/13/18 05:21 97.6 F 84 18 95/56 L 98 10/12/18 18:42 98.7 F 75 19 111/58 L 98 Intake and Output 10/12/18 10/13/18 10/13/18 22:59 06:59 14:59 Other: Date of Last Bowel Movement 10/12/18 Labs reviewed. Review of Systems All other systems reviewed negative except as stated in HPI (Limitation: Poor historian.) Mental Status Examination Appearance: Appropriate Consciousness: Alert Orientation: x4 Motor Activity: Other (No motor abnormalities noted.) Speech: Unremarkable Language: Adequate Fund of Knowledge: Adequate Attention and Concentration: Adequate Memory: Unremarkable (Grossly intact on clinical exam) Mood: Other (Calm) Affect: Flat Thought Process & Associations: Intact Thought Content: Delusional Hallucination Type: None (Denies AVH) Delusion Type: Paranoid (mild today) Suicidal Ideation: No Homicidal Ideation: No Insight: Poor Judgment: Poor Assessment and Plan - Assessment (1) Schizophrenia Code(s): F20.9 - Schizophrenia, unspecified Status: Acute - Plan Plan: Continue Risperdal as ordered for management of psychosis. Continue to monitor on the high acuity unit. Continue other care as ordered. Justification for Continued Inpatient Stay: Risk for decompensation in less restrictive setting. Discharge Planning: [facility] hospital referral. Request Healthcare Surrogate/Guardian Advocate?: No (1) Schizophrenia Qualifiers: Schizophrenia type: paranoid schizophrenia Qualified Code(s): F20.0 - Paranoid schizophrenia
[2018-10-13] MEDS: Melatonin 5 MG Tablet PO PRN (20:32)
--- NOTE | 2018-10-14 10:18 | P.PNPSY ---
Subjective Chief Complaint: Alatorre act Remarks: Patient seen and examined with nurse. Chart reviewed. Case discussed with nursing staff who reports patient continues to have episodes of yelling out. On my exam, patient continues to insist that these episodes are not in response to internal stimulation. Rather, patient notes "I have these thoughts. I raise my voice. I'm talking to myself." Patient says he has a lot on his mind , citing ongoing hospitalization and finances as stressors. He says that he would normally smoke a cigarette to calm down. He finds current nicotine patch insufficient (he is on the 21mg dose), and we discuss strategies for augmentation of the patch for nicotine craving. He says that he struggles with nicotine gum because of his dentition. However, I have checked with the pharmacy, and gum formulation is the only alternative on formulary to the patch. He denies any violent ideation. He has completed another writ of [employer]. He tells me that his family is working on some sort of placement and gives me his sister's number (Demetrio, ); I have forwarded this to the counselor. He denies side effects from medications. He likes how the Risperdal works for him and is resistant to changing this. He is resistant to altering therapy. He has no physical complaints. Vital Signs Temp Pulse Resp BP Pulse Ox 10/14/18 06:20 97.4 F L 71 16 104/53 L 98 10/13/18 17:02 98.0 F 72 18 147/70 H 98 Labs reviewed. Review of Systems All other systems reviewed negative except as stated in HPI Mental Status Examination Appearance: Appropriate Consciousness: Alert Orientation: x4 Motor Activity: Other (None noted) Speech: Unremarkable Language: Adequate Fund of Knowledge: Adequate Attention and Concentration: Adequate Memory: Unremarkable (Grossly intact on clinical exam) Mood: Anxious Affect: Blunt Thought Process & Associations: Intact Thought Content: Hallucinations Hallucination Type: None (Denies AVH but evidence of ongoing internal stimulation noted by staff.) Suicidal Ideation: No Homicidal Ideation: No Insight: Poor Judgment: Poor Assessment and Plan - Assessment (1) Schizophrenia Code(s): F20.9 - Schizophrenia, unspecified Status: Acute - Plan Plan: Continue Risperdal 4mg BID as ordered. This agent does not seem to be as efficacious as the Prolixin, although patient may accrue further benefit from the Risperdal from ongoing treatment. I have encouraged patient to consider a return to Prolixin or a different antipsychotic that might prove more efficacious than the Risperdal. If this is unacceptable, I have encouraged patient to consider augmenting Risperdal with a different antipsychotic. Patient remains resistant to considering any of these options. I feel that any effort on my part to unilaterally adjust regimen without patient buy-in would be deleterious to long-term adherence to therapy. Add nicotine gum to augment nicotine patch with orders to discontinue if evidence of nicotine toxicity. Continue to monitor on inpatient unit. Continue other care as ordered. Justification for Continued Inpatient Stay: High risk for decompensation in less restrictive setting. Discharge Planning: [facility] referral. Request Healthcare Surrogate/Guardian Advocate?: No (1) Schizophrenia Qualifiers: Schizophrenia type: paranoid schizophrenia Qualified Code(s): F20.0 - Paranoid schizophrenia
[2018-10-14] MEDS: Acetaminophen 325 MG Tablet PO PRN (20:11)
[2018-10-14] MEDS: Melatonin 5 MG Tablet PO PRN (20:12)
--- NOTE | 2018-10-15 11:05 | P.PNPSY ---
Subjective Chief Complaint: Alatorre act Remarks: Patient seen and examined with counselor. Chart reviewed. Case discussed with nursing staff. Case discussed with treatment team. Counselor has left a voicemail for patient's sister. On my examination today, the patient reports that he had one episode of calling out yesterday, reportedly in response to something he saw on television. He remains paranoid. He tells me that he was passing by a peer in the [place] and received a static electric shock. He believes that some "alien" force was conveyed through this shock. He also becomes paranoid about his guardian advocate when I explain that I will be reaching out to her to discuss his case. No SI or HI. No side effects from medications. It is patient's preference to begin GALLARDO (either Consta or Sustenna ) and continue oral Risperdal supplementation instead of selecting a different oral agent. No physical complaints. I left [facility] for patient's GA through [facility] with callback number. Vital Signs Temp Pulse Resp BP Pulse Ox 10/15/18 06:00 97.2 F L 70 18 101/56 L 97 10/14/18 16:51 97.5 F L 104 H 18 129/80 96 Labs reviewed. Review of Systems All other systems reviewed negative except as stated in HPI (Limitation: Poor historian) Mental Status Examination Appearance: Appropriate Consciousness: Alert Orientation: x4 Motor Activity: Other (No motor abnormalities noted) Speech: Unremarkable Language: Adequate Fund of Knowledge: Adequate Attention and Concentration: Adequate Memory: Unremarkable (Grossly intact on clinical exam) Mood: Anxious Affect: Blunt Thought Process & Associations: Intact Thought Content: Delusional Hallucination Type: Other (Denies AVH but appears internally stimulated) Delusion Type: Paranoid Suicidal Ideation: No Homicidal Ideation: No Insight: Poor Judgment: Poor Assessment and Plan - Assessment (1) Schizophrenia Code(s): F20.9 - Schizophrenia, unspecified Status: Acute - Plan Plan: Continue oral Risperdal for now pending conversation with healthcare surrogate. We might consider initiation of long-acting injectable as the patient prefers , as oral supplementation of long-acting injectable Risperdal or paliperidone might afford some additional benefit to oral Risperdal alone. Continue to monitor on the inpatient unit. Continue other care as ordered. Justification for Continued Inpatient Stay: Risk for decompensation in less restrictive setting. Impairment in reality construction. Discharge Planning: [facility] referral. Request Healthcare Surrogate/Guardian Advocate?: No (1) Schizophrenia Qualifiers: Schizophrenia type: paranoid schizophrenia Qualified Code(s): F20.0 - Paranoid schizophrenia
--- NOTE | 2018-10-15 14:49 | P.TTN ---
- Patient Problems Problems: 1. Discharge planning 2. Medication compliance 3. Knowledge deficit 4. Lack of coping skills - Progress Toward Goals Provider Present: Dr. Raymond Miller (Patient needs to remain for further stabilization.) Provider Input: 09/28/18: Pt continues to present with behaviors that require titration of his medications. pt is internally stimulated, meeting in-pt criteria. yvonne Manningor agrees that pt will be appropriate to attend court for consideration regarding pt continuation as in-pt or his disposition. Psychiatric Counselors Present: Nigel Mcdonald Jr., [facility] (Patient is a state referral. There are no plans to divert the patient from the [facility] list at this time.), Debi Cano, [facility] Group Spec/RT/OT/HERNANDEZ Present: LYN Weber (Patient isolates and does not attend groups.), MARY Hobson (Patient attends select groups.), Misha Dorsey, OT, MARY Roberts (Pt. attends select groups) Group Spec/RT/OT/HERNANDEZ Input: 09/28/18: Pt very rarely attends groups Occupational Therapist Input: 09/28/18: OT notes updated, pt remains internally stimulated, distractable, impulsive and exercises limited interactions in social situations. - Discharge Plan 09/28/18: counselor Nigel agrees that pt will be appropriate to attend court for consideration regarding pt continuation as in-pt or his disposition. - Documentation Teaching Recipient: Patient
[2018-10-15] MEDS: Melatonin 5 MG Tablet PO PRN (20:40)
[2018-10-15] MEDS: Acetaminophen 325 MG Tablet PO PRN (20:40)
--- NOTE | 2018-10-16 14:40 | P.PNPSY ---
Subjective Chief Complaint: Alatorre act Remarks: Reviewed electronic medical records and discussed case with staff. Follow-up was conducted in the patient's room with MARISOL Cabrera present. His nurse reports he still responding to internal stimuli but has been compliant with his medications and no behavioral issues. He remains on the state list. Patient states that he could be better saying that he is "sad about the holidays". He reports that he is sleeping and eating well and denies having any suicidal ideation he does say that he has racing thoughts and ruminates about his concerns. He goes on to try to explain away his internal stimulation stating, "if you heard me talking to myself I was just trying to work things through". Mental Status Examination Appearance: Appropriate Consciousness: Alert Orientation: x4 Motor Activity: Other (No motor abnormalities noted) Speech: Unremarkable Language: Adequate Fund of Knowledge: Adequate Attention and Concentration: Adequate Memory: Unremarkable (Grossly intact on clinical exam) Mood: Anxious Affect: Blunt Thought Process & Associations: Intact Thought Content: Delusional Hallucination Type: Other (Denies AVH but appears internally stimulated) Delusion Type: Paranoid Suicidal Ideation: No Suicidal Plan: No Suicidal Intention: No Homicidal Ideation: No Homicidal Plan: No Homicidal Intention: No Insight: Poor Judgment: Poor Assessment and Plan - Assessment (1) Schizophrenia Code(s): F20.9 - Schizophrenia, unspecified Status: Acute - Plan Plan: Patient will be reevaluated by the attending psychiatrist. Continue with current treatment plan. Justification for Continued Inpatient Stay: Moving this patient to a less restrictive environment would likely result in decompensation. Request Healthcare Surrogate/Guardian Advocate?: No (1) Schizophrenia Qualifiers: Schizophrenia type: paranoid schizophrenia Qualified Code(s): F20.0 - Paranoid schizophrenia
--- NOTE | 2018-10-17 11:14 | P.PNPSY ---
Subjective Chief Complaint: Alatorre act Remarks: Patient seen and examined with nurse, Ashley. Chart reviewed. Case discussed with nursing staff who reports that SLY guardian will be around to see the patient today. On my examination today, the patient is somewhat more animated and interactive. He complains of some anxiety in the evenings and says that he talks out loud to himself during these times. He denies any suicidal or homicidal ideation side effects from medications. No physical complaints. Vital Signs Temp Pulse Resp BP Pulse Ox 10/17/18 06:00 97.1 F L 99 H 18 124/89 10/16/18 18:07 97.8 F 92 H 17 98/60 L 96 Intake and Output 10/16/18 10/17/18 10/17/18 22:59 06:59 14:59 Other: Date of Last Bowel Movement 10/14/18 Labs reviewed. Review of Systems All other systems reviewed negative except as stated in HPI Mental Status Examination Appearance: Appropriate Consciousness: Alert Orientation: x4 Motor Activity: Other (No abnormal motor movements noted) Speech: Unremarkable Language: Adequate Fund of Knowledge: Adequate Attention and Concentration: Adequate Memory: Unremarkable (Grossly intact on clinical exam) Mood: Anxious Affect: Blunt (More reactive today) Thought Process & Associations: Intact Thought Content: Delusional Hallucination Type: Other (Denies AVH but appears internally stimulated) Delusion Type: Paranoid (Decreased) Suicidal Ideation: No Suicidal Plan: No Suicidal Intention: No Homicidal Ideation: No Homicidal Plan: No Homicidal Intention: No Insight: Poor Judgment: Poor Assessment and Plan - Assessment (1) Schizophrenia Code(s): F20.9 - Schizophrenia, unspecified Status: Acute - Plan Plan: Continue oral Risperdal as ordered. Plan to follow-up with S[facility] guardian after the weekend regarding further medication changes. Continue to monitor on the inpatient unit. Continue other medications and care as ordered. Justification for Continued Inpatient Stay: Risk for decompensation in less restrictive environment. Discharge Planning: [facility] referral Request Healthcare Surrogate/Guardian Advocate?: No (1) Schizophrenia Qualifiers: Schizophrenia type: paranoid schizophrenia Qualified Code(s): F20.0 - Paranoid schizophrenia
[2018-10-17] MEDS: Melatonin 5 MG Tablet PO PRN (20:30)
--- NOTE | 2018-10-18 08:37 | P.PNPSY ---
Subjective Chief Complaint: Alatorre act Remarks: Patient seen and examined. Chart reviewed. Case discussed with nursing staff. One episode of shouting out overnight but otherwise no behavioral disturbance. On my examination today, patient reports that he has met with S[facility] guardian to discuss medications. He is agreeable to taking additional psychotropic medications, although he cannot remember exactly what they discussed. Denies SI/HI. Denies AVH. He reports that he does not recall shouting out last night and so cannot provide any context for this. Tolerating medications well without side effects. No physical complaints. I tried to reach [facility] OR and left [facility] requesting a call back. Vital Signs Temp Pulse Resp BP Pulse Ox 10/18/18 06:00 98.8 F 78 18 129/75 97 10/17/18 15:56 98.7 F 95 H 18 120/72 96 Intake and Output 10/17/18 10/18/18 10/18/18 22:59 06:59 14:59 Other: Weight 100.3 kg Labs reviewed. Review of Systems All other systems reviewed negative except as stated in HPI Mental Status Examination Appearance: Appropriate Consciousness: Alert Orientation: x4 Motor Activity: Other (No motor abnormalities noted.) Speech: Unremarkable Language: Adequate Fund of Knowledge: Adequate Attention and Concentration: Adequate Memory: Unremarkable (Grossly intact on clinical exam) Mood: Appropriate Affect: Blunt Thought Process & Associations: Intact Thought Content: Appropriate Hallucination Type: None (Denies AVH. Some degree of ongoing internal stimulation is suspected.) Delusion Type: None Suicidal Ideation: No Suicidal Plan: No Suicidal Intention: No Homicidal Ideation: No Homicidal Plan: No Homicidal Intention: No Insight: Poor Judgment: Poor Assessment and Plan - Assessment (1) Schizophrenia Code(s): F20.9 - Schizophrenia, unspecified Status: Acute - Plan Plan: Continue oral Risperdal as ordered pending further discussion with patient's S[facility] guardian. Continue to monitor on the inpatient unit. Continue other care as ordered. I have continued my discussion with patient regarding transition of care in advance of this provider's departure 10/19. 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 High risk for decompensation in less restrictive environment. Discharge Planning: Counts include 234 beds at the [facility] referral Request Healthcare Surrogate/Guardian Advocate?: No (1) Schizophrenia Qualifiers: Schizophrenia type: paranoid schizophrenia Qualified Code(s): F20.0 - Paranoid schizophrenia
[2018-10-18] MEDS: QUEtiapine 25 MG Tablet PO SCH (20:11)
--- NOTE | 2018-10-19 09:36 | P.PNPSY ---
Subjective Chief Complaint: Alatorre act Remarks: Patient seen and examined. Chart reviewed. Case discussed with nursing staff who reports patient has not had any yelling outbursts so far today. Case discussed in treatment team. Therapists will encourage groups and suggest transitioning the patient to lower acuity unit to facilitate group participation. I have discussed such as transition with the patient himself, and he has supportive of it. He complains of somewhat poor sleep overnight. Denies any hallucinations. No SI/HI. Affect is blunted. Denies side effects from medications. Complains of mild nausea without emesis. He is moving his bowels regularly. He denies any lightheadedness, dizziness, chest pain or shortness of breath. No other physical complaints. Vital Signs Temp Pulse Resp BP Pulse Ox 10/19/18 06:00 97.1 F L 87 18 99/54 L 94 L 10/18/18 17:11 98.7 F 117 H 18 120/68 95 Intake and Output 10/18/18 10/19/18 10/19/18 22:59 06:59 14:59 Other: Date of Last Bowel Movement 10/14/18 Labs reviewed. Review of Systems All other systems reviewed negative except as stated in HPI Mental Status Examination Appearance: Appropriate Consciousness: Alert Orientation: x4 Motor Activity: Other (No abnormal motor movements noted) Speech: Unremarkable Language: Adequate Fund of Knowledge: Adequate Attention and Concentration: Adequate Memory: Unremarkable (Grossly intact on clinical exam) Mood: Appropriate Affect: Blunt (Remains blunted) Thought Process & Associations: Intact Thought Content: Appropriate Hallucination Type: None Delusion Type: None Suicidal Ideation: No Homicidal Ideation: No Insight: Poor Judgment: Poor Assessment and Plan - Assessment (1) Schizophrenia Code(s): F20.9 - Schizophrenia, unspecified Status: Acute - Plan Plan: Continue Seroquel augmenting Risperdal as ordered. To consider titration of Seroquel if needed to manage psychotic symptoms. Transfer to 2600 unit. Monitor nausea. Continue other medications and care as ordered. I have discussed with patient that this is my last day at [place] and that new psychiatric provider will be assuming care of his case tomorrow. Justification for Continued Inpatient Stay: High risk for decompensation in less restrictive environment. Discharge Planning: Count includes the [facility] referral. Request Healthcare Surrogate/Guardian Advocate?: No (1) Schizophrenia Qualifiers: Schizophrenia type: paranoid schizophrenia Qualified Code(s): F20.0 - Paranoid schizophrenia
--- NOTE | 2018-10-19 09:56 | P.TTN ---
- Patient Problems Problems: 1. Discharge planning 2. Medication compliance 3. Knowledge deficit 4. Lack of coping skills - Progress Toward Goals Provider Present: Dr. Raymond Miller (Dr. Miller is increasing medication Risperdal, patient remains for further stabilization.) Provider Input: 09/28/18: Pt continues to present with behaviors that require titration of his medications. pt is internally stimulated, meeting in-pt criteria. Nigel, counselor agrees that pt will be appropriate to attend court for consideration regarding pt continuation as in-pt or his disposition. Psychiatric Counselors Present: Nigel Mcdonald Jr., [facility] (Patient will be discharged to the [facility] for further stabilization.), Debi Cano, [facility] Group Spec/RT/OT/HERNANDEZ Present: LYN Weber (Patient isolates and does not attend groups.), MARY Hobson (Patient attends select groups.), Misha Dorsey, OT, MARY Roberts (Patient attends select groups.) Group Spec/RT/OT/HERNANDEZ Input: 09/28/18: Pt very rarely attends groups Occupational Therapist Input: 09/28/18: OT notes updated, pt remains internally stimulated, distractable, impulsive and exercises limited interactions in social situations. - Discharge Plan 09/28/18: counselor Nigel agrees that pt will be appropriate to attend court for consideration regarding pt continuation as in-pt or his disposition. - Documentation Teaching Recipient: Patient
[2018-10-19] MEDS: Melatonin 5 MG Tablet PO PRN (20:21)
[2018-10-19] MEDS: QUEtiapine 25 MG Tablet PO SCH (20:21)
--- NOTE | 2018-10-20 15:16 | P.PNPSY ---
Subjective Chief Complaint: Alatorre act Remarks: October 20, 2018 Subjective: Patient seen reviewed chart and discussed patient with nurse. Nursing staff present during the interview. Patient complained that he was ready to go home and appeared apprised that he was on a hold pending transfer to [facility]. He indicated he had absolutely no complaints that he was doing very well and felt that he could survive on his own on discharge with the help of the [facility] he claims gives him usp as he needs it. Mental Status Examination Appearance: Appropriate Consciousness: Alert Orientation: x4 Motor Activity: Other (No abnormal motor movements noted) Speech: Unremarkable Language: Adequate Fund of Knowledge: Adequate Attention and Concentration: Adequate Memory: Unremarkable (Grossly intact on clinical exam) Mood: Appropriate Affect: Blunt (Remains blunted) Thought Process & Associations: Intact Thought Content: Appropriate Hallucination Type: None Delusion Type: None Suicidal Ideation: No Suicidal Plan: No Suicidal Intention: No Homicidal Ideation: No Homicidal Plan: No Homicidal Intention: No Insight: Poor Judgment: Poor Assessment and Plan - Assessment (1) Schizophrenia Code(s): F20.9 - Schizophrenia, unspecified Status: Acute - Plan Plan: Continue Seroquel augmenting Risperdal as ordered. To consider titration of Seroquel if needed to manage psychotic symptoms. Transfer to 2600 unit. Monitor nausea. Continue other medications and care as ordered. I have discussed with patient that this is my last day at [place] and that new psychiatric provider will be assuming care of his case tomorrow. Justification for Continued Inpatient Stay: Patient is on a hold for transfer to the [facility]. Request Healthcare Surrogate/Guardian Advocate?: No (1) Schizophrenia Qualifiers: Schizophrenia type: paranoid schizophrenia Qualified Code(s): F20.0 - Paranoid schizophrenia
[2018-10-20] MEDS: Melatonin 5 MG Tablet PO PRN (20:11)
[2018-10-20] MEDS: QUEtiapine 25 MG Tablet PO SCH (20:11)
[2018-10-20] MEDS: Aluminum/Magnesium/Simethacone Susp 30 ML UDC PO PRN (23:59)
--- NOTE | 2018-10-21 14:13 | P.PNPSY ---
Subjective Chief Complaint: Alatorre act Remarks: October 21, 2018 Subjective: Patient seen chart reviewed discussed with nursing staff. Patient relates a fantastic story of education and some of the major universities in the [place] and insists he has a PhD in theology from [employer]. Without so much as a hesitation he describes his doctorate committee by name. Patient is concerned about being held for transfer to the [facility] and directs most of his efforts at [facility] in the indication of a need for this. Mental Status Examination Appearance: Appropriate Consciousness: Alert Orientation: x4 Motor Activity: Other (No abnormal motor movements noted) Speech: Unremarkable Language: Adequate Fund of Knowledge: Adequate Attention and Concentration: Adequate Memory: Unremarkable (Grossly intact on clinical exam) Mood: Appropriate Affect: Blunt (Remains blunted) Thought Process & Associations: Intact Thought Content: Appropriate Hallucination Type: None Delusion Type: None Suicidal Ideation: No Suicidal Plan: No Suicidal Intention: No Homicidal Ideation: No Homicidal Plan: No Homicidal Intention: No Insight: Poor Judgment: Poor Assessment and Plan - Assessment (1) Schizophrenia Code(s): F20.9 - Schizophrenia, unspecified Status: Acute - Plan Plan: Continue Seroquel augmenting Risperdal as ordered. To consider titration of Seroquel if needed to manage psychotic symptoms. Transfer to 2600 unit. Monitor nausea. Continue other medications and care as ordered. I have discussed with patient that this is my last day at [place] and that new psychiatric provider will be assuming care of his case tomorrow. October 21, 2018 Patient is on wait list for this [facility] psychiatric facility because he has a long history of admissions to inpatient services without any evidence of change in his pattern. Justification for Continued Inpatient Stay: As noted the patient has a long history of deterioration and an outpatient environment and could benefit from state hospitalization with all that they might provide detention houses etc. Request Healthcare Surrogate/Guardian Advocate?: No (1) Schizophrenia Qualifiers: Schizophrenia type: paranoid schizophrenia Qualified Code(s): F20.0 - Paranoid schizophrenia
[2018-10-21] MEDS: QUEtiapine 25 MG Tablet PO SCH (20:48)
[2018-10-21] MEDS: Melatonin 5 MG Tablet PO PRN (20:49)
--- NOTE | 2018-10-22 10:50 | P.PNPSY ---
Subjective Chief Complaint: Alatorre act Remarks: October 22, 2018 Objective: Patient seen record reviewed discussed with nursing staff patient behavior unchanged on the unit. Patient still has manipulating to avoid transfer to the [facility] psychiatric facility. Mental Status Examination Appearance: Appropriate Consciousness: Alert Orientation: x4 Motor Activity: Other (No abnormal motor movements noted) Speech: Unremarkable Language: Adequate Fund of Knowledge: Adequate Attention and Concentration: Adequate Memory: Unremarkable (Grossly intact on clinical exam) Mood: Appropriate Affect: Blunt (Remains blunted) Thought Process & Associations: Intact Thought Content: Appropriate Hallucination Type: None Delusion Type: None Suicidal Ideation: No Suicidal Plan: No Suicidal Intention: No Homicidal Ideation: No Homicidal Plan: No Homicidal Intention: No Insight: Poor Judgment: Poor Assessment and Plan - Assessment (1) Schizophrenia Code(s): F20.9 - Schizophrenia, unspecified Status: Acute - Plan Plan: Continue Seroquel augmenting Risperdal as ordered. To consider titration of Seroquel if needed to manage psychotic symptoms. Transfer to 2600 unit. Monitor nausea. Continue other medications and care as ordered. I have discussed with patient that this is my last day at [place] and that new psychiatric provider will be assuming care of his case tomorrow. October 21, 2018 Patient is on wait list for this [facility] psychiatric facility because he has a long history of admissions to inpatient services without any evidence of change in his pattern. October 22, 2018 Patient facility as noted above. Justification for Continued Inpatient Stay: Patient has demonstrated an inability to function outside an inpatient facility. He is on a waiting list for transfer to the [facility]. Request Healthcare Surrogate/Guardian Advocate?: No (1) Schizophrenia Qualifiers: Schizophrenia type: paranoid schizophrenia Qualified Code(s): F20.0 - Paranoid schizophrenia
[2018-10-22] MEDS: Melatonin 5 MG Tablet PO PRN (21:57)
[2018-10-22] MEDS: Acetaminophen 325 MG Tablet PO PRN (21:57)
[2018-10-22] MEDS: QUEtiapine 25 MG Tablet PO SCH (21:58)
--- NOTE | 2018-10-23 13:16 | P.PNPSY ---
Subjective Chief Complaint: Alatorre act Remarks: Patient seen for follow-up, chart reviewed, patient discussed with nursing staff ; we reviewed the patient's mood, thoughts, and behaviors from overnight and this morning. Nursing reports that the patient slept 9 hours overnight and has been calm and quiet and cooperative on the unit. He denies suicidal ideations. The patient had a pleasant demeanor during interactions with the provider. He reports that he does not want to go to the [facility] and believes he is not a risk to self or others. He denies any auditory or visual hallucinations. 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 He was pleased to share his coloring book projects and reports that it helps him stay calm. He expressed satisfaction with his current medication and denies side effects. Review of Systems All other systems reviewed negative except as stated in HPI Mental Status Examination Appearance: Appropriate Consciousness: Alert Orientation: x4 Motor Activity: Other (No abnormal motor movements noted) Speech: Unremarkable Language: Adequate Fund of Knowledge: Adequate Attention and Concentration: Adequate Memory: Unremarkable (Grossly intact on clinical exam) Mood: Appropriate Affect: Blunt (Remains blunted) Thought Process & Associations: Intact Thought Content: Appropriate Hallucination Type: None Delusion Type: None Suicidal Ideation: No Suicidal Plan: No Suicidal Intention: No Homicidal Ideation: No Homicidal Plan: No Homicidal Intention: No Insight: Poor Judgment: Impulsive Assessment and Plan - Assessment (1) Schizophrenia Code(s): F20.9 - Schizophrenia, unspecified Status: Acute - Plan Plan: Continue Seroquel augmenting Risperdal as ordered. To consider titration of Seroquel if needed to manage psychotic symptoms. Transfer to 2600 unit. Monitor nausea. Continue other medications and care as ordered. I have discussed with patient that this is my last day at [place] and that new psychiatric provider will be assuming care of his case tomorrow. October 21, 2018 Patient is on wait list for this [facility] psychiatric facility because he has a long history of admissions to inpatient services without any evidence of change in his pattern. October 22, 2018 Patient facility as noted above. October 23, 2018 Good response to treatment, the patient is reporting stable mood and nurses reports stable behavior with no signs of internal stimuli. Continue current inpatient treatment plan which includes melatonin 5 mg at bedtime, Seroquel 25 mg at bedtime, and Risperdal 4 mg twice a day. Justification for Continued Inpatient Stay: Patient remains an elevated risk for self-harm by self neglect and will require further inpatient stabilization and preparation of a safe discharge plan. Moving patient to a less restrictive environment at this time may result in decompensation. Request Healthcare Surrogate/Guardian Advocate?: No (1) Schizophrenia Qualifiers: Schizophrenia type: paranoid schizophrenia Qualified Code(s): F20.0 - Paranoid schizophrenia
[2018-10-23] MEDS: QUEtiapine 25 MG Tablet PO SCH (20:27)
[2018-10-23] MEDS: Melatonin 5 MG Tablet PO PRN (20:27)
--- NOTE | 2018-10-24 07:58 | P.PNPSY ---
Subjective Chief Complaint: Alatorre act Remarks: Reviewed electronic medical record and discussed with staff. Rounded with MARISOL Brewer. Patient in his room in bed. He states that he is sleeping well . Staff report that he is medication compliant with a cooperative and calm demeanor. Patient states that he prefers not to go to a state facility and wants to discuss this with the new psychiatrist that has been assigned to him. He states that he went to [facility] ([facility] for adjustment in his medications and they sent him to [facility]. After Daniella and Shiva left the room the patient was talking to himself and very internally stimulated. Denies SI/HI. Sleeping and eating well. Will increase Seroquel from 25 mg to 100 mg qhs due to help manage psychotic symptoms. Review of Systems All other systems reviewed negative except as stated in HPI Mental Status Examination Appearance: Appropriate Consciousness: Alert Orientation: x4 Motor Activity: Other (No abnormal motor movements noted) Speech: Unremarkable Language: Adequate Fund of Knowledge: Adequate Attention and Concentration: Adequate Memory: Unremarkable (Grossly intact on clinical exam) Mood: Appropriate Affect: Blunt (Remains blunted) Thought Process & Associations: Intact Thought Content: Appropriate Hallucination Type: Auditory (internally stimulated, talking to himself. ) Delusion Type: None Suicidal Ideation: No Suicidal Plan: No Suicidal Intention: No Homicidal Ideation: No Homicidal Plan: No Homicidal Intention: No Insight: Poor Judgment: Impulsive Assessment and Plan - Assessment (1) Schizophrenia Code(s): F20.9 - Schizophrenia, unspecified Status: Acute - Plan Plan: Will increase Serquel from 25mg to 100 mg to continue to manage psychotic symptoms. Continue current treatment plan. Justification for Continued Inpatient Stay: Moving patient to a less restrictive environment may result in his decompensation. Request Healthcare Surrogate/Guardian Advocate?: No (1) Schizophrenia Qualifiers: Schizophrenia type: paranoid schizophrenia Qualified Code(s): F20.0 - Paranoid schizophrenia
[2018-10-24] MEDS: Melatonin 5 MG Tablet PO PRN (20:17)
[2018-10-24] MEDS: QUEtiapine 100 MG Tablet PO SCH (20:17)
--- NOTE | 2018-10-25 11:30 | P.PNPSY ---
Subjective Chief Complaint: Alatorre act Remarks: October 25, 2018 Subjective: Patient was sleeping when interviewed with his RN. Record reviewed. Nurse reports the patient has been psychotic at night screaming at a discharge. 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 He continues to minimize his psychotic productions and to ask for discharge. Patient does not appear to be internally directed at this time. Mental Status Examination Appearance: Appropriate Consciousness: Alert Orientation: x4 Motor Activity: Other (No abnormal motor movements noted) Speech: Unremarkable Language: Adequate Fund of Knowledge: Adequate Attention and Concentration: Adequate Memory: Unremarkable (Grossly intact on clinical exam) Mood: Appropriate Affect: Blunt (Remains blunted) Thought Process & Associations: Intact Thought Content: Bizarre thinking Hallucination Type: Auditory (internally stimulated, talking to himself. ) Delusion Type: None Suicidal Ideation: No Suicidal Plan: No Suicidal Intention: No Homicidal Ideation: No Homicidal Plan: No Homicidal Intention: No Insight: Poor Judgment: Poor (Patient has some control over his psychosis to the extent that he can present a more appropriate presentation.) Assessment and Plan - Assessment (1) Schizophrenia Code(s): F20.9 - Schizophrenia, unspecified Status: Acute - Plan Plan: Will increase Serquel from 25mg to 100 mg to continue to manage psychotic symptoms. Continue current treatment plan. Justification for Continued Inpatient Stay: October 25, 2018 Patient remains psychotic and has history of repeated hospitalizations. He is currently awaiting transfer to [facility]. Request Healthcare Surrogate/Guardian Advocate?: No (1) Schizophrenia Qualifiers: Schizophrenia type: paranoid schizophrenia Qualified Code(s): F20.0 - Paranoid schizophrenia
[2018-10-25] MEDS: QUEtiapine 100 MG Tablet PO SCH (20:45)
[2018-10-25] MEDS: Acetaminophen 325 MG Tablet PO PRN (20:45)
[2018-10-25] MEDS: Melatonin 5 MG Tablet PO PRN (20:45)
--- NOTE | 2018-10-26 11:24 | P.PNPSY ---
Subjective Chief Complaint: Alatorre act Remarks: October 26, 2018 Subjective: Patient seen [id number] with the nurse in attendance records reviewed. Nurse reports that the patient has been good all the previous day after the nursing staff had reported his actions of the previous day. Patient told the nurse that she had ratted him out and he was going to be good all day today. Mental Status Examination Appearance: Appropriate Consciousness: Alert Orientation: x4 Motor Activity: Other (No abnormal motor movements noted) Speech: Unremarkable Language: Adequate Fund of Knowledge: Adequate Attention and Concentration: Adequate Memory: Unremarkable (Grossly intact on clinical exam) Mood: Appropriate Affect: Blunt (Remains blunted) Thought Process & Associations: Intact Thought Content: Bizarre thinking Hallucination Type: Auditory (internally stimulated, talking to himself. ) Delusion Type: None Suicidal Ideation: No Suicidal Plan: No Suicidal Intention: No Homicidal Ideation: No Homicidal Plan: No Homicidal Intention: No Insight: Poor Judgment: Poor (Patient has some control over his psychosis to the extent that he can present a more appropriate presentation.) Assessment and Plan - Assessment (1) Schizophrenia Code(s): F20.9 - Schizophrenia, unspecified Status: Acute - Plan Plan: Will increase Serquel from 25mg to 100 mg to continue to manage psychotic symptoms. Continue current treatment plan. Justification for Continued Inpatient Stay: Patient is awaiting transfer to the [facility] for chronic condition that has resulted in multiple admissions with only brief improvements and with the danger of deterioration if placed in the lower level of care Request Healthcare Surrogate/Guardian Advocate?: No (1) Schizophrenia Qualifiers: Schizophrenia type: paranoid schizophrenia Qualified Code(s): F20.0 - Paranoid schizophrenia
[2018-10-26] MEDS: Melatonin 5 MG Tablet PO PRN (20:33)
[2018-10-26] MEDS: QUEtiapine 100 MG Tablet PO SCH (20:33)
--- NOTE | 2018-10-27 11:24 | P.PNPSY ---
Subjective Chief Complaint: Alatorre act Remarks: October 27, 2018 Subjective: Patient continues to spend much of his day sleeping. Discussed with nursing staff and reviewed the record. Patient is awaiting transfer to the [facility]. He has been on his best behavior hoping to dissuade the transfer so that he can resume his homeless life punctuated by monthly admissions to the hospital once his disability check is spent. Mental Status Examination Appearance: Appropriate Consciousness: Alert Orientation: x4 Motor Activity: Other (No abnormal motor movements noted) Speech: Unremarkable Language: Adequate Fund of Knowledge: Adequate Attention and Concentration: Adequate Memory: Unremarkable (Grossly intact on clinical exam) Mood: Appropriate Affect: Blunt (Remains blunted) Thought Process & Associations: Intact Thought Content: Bizarre thinking Hallucination Type: Auditory (internally stimulated, talking to himself. ) Delusion Type: None Suicidal Ideation: No Suicidal Plan: No Suicidal Intention: No Homicidal Ideation: No Homicidal Plan: No Homicidal Intention: No Insight: Poor Judgment: Poor (Patient has some control over his psychosis to the extent that he can present a more appropriate presentation.) Assessment and Plan - Assessment (1) Schizophrenia Code(s): F20.9 - Schizophrenia, unspecified Status: Acute - Plan Plan: Will increase Serquel from 25mg to 100 mg to continue to manage psychotic symptoms. Continue current treatment plan. October 27, 2018: Continue current plan for transfer to [facility]. Justification for Continued Inpatient Stay: October 27, 2018 Patient has the compensated on a monthly basis and required rehospitalization in acute care. The current plan of transfer to [facility] may hopefully resolve some of this recidivism Request Healthcare Surrogate/Guardian Advocate?: No (1) Schizophrenia Qualifiers: Schizophrenia type: paranoid schizophrenia Qualified Code(s): F20.0 - Paranoid schizophrenia
--- NOTE | 2018-10-27 17:12 | P.PN ---
Subjective Interval history: complains of no pain mild stiffness Physical Exam Vital signs: Vital Signs 10/27/18 05:28 Temperature 97.8 F Pulse Rate 79 Respiratory Rate 17 Blood Pressure 93/53 L Pulse Oximetry 95 Intake & Output 10/26/18 10/27/18 10/27/18 18:59 06:59 18:59 Other: Date of Last Bowel Movement 10/14/18 Narrative: right hand: no splint slight prominence over the dorsal aspect of the 5th metacarpal neck able to make a full fist terminal degrees of extension at the MP joint 5th finger limited no tenderness Results - Labs CBC & Chem 7: 10/07/18 15:45 10/07/18 15:45 Assessment and Plan - Assessment (1) Fracture of neck of fifth metacarpal bone of right hand Code(s): S62.336A - Displaced fracture of neck of fifth metacarpal bone, right hand, initial encounter for closed fracture Status: Acute Plan: Patient has been off the splint for the past one week he is almost a month since injury with no tenderness advised regarding range of motion exercises no active management needed at present time follow up as needed (1) Fracture of neck of fifth metacarpal bone of right hand Qualifiers: Encounter type: subsequent encounter Fracture type: closed Fracture alignment: nondisplaced Fracture healing: with routine healing Qualified Code( s): S62.366D - Nondisplaced fracture of neck of fifth metacarpal bone, right hand, subsequent encounter for fracture with routine healing
[2018-10-27] MEDS: Melatonin 5 MG Tablet PO PRN (20:36)
[2018-10-27] MEDS: QUEtiapine 100 MG Tablet PO SCH (20:36)
[2018-10-28] MEDS: Aluminum/Magnesium/Simethacone Susp 30 ML UDC PO PRN (00:39)
--- NOTE | 2018-10-28 13:32 | P.PNPSY ---
Subjective Chief Complaint: Alatorre act Remarks: D October 28, 2018 Subjective: Patient continues interacting as directed with only an occasional scream at night. He does not appear to be preoccupied with internal stimuli. He says he makes it to all meals that he accepts all of his medication and would like us to reconsider his transfer to the [facility]. I explained to the patient is recidivism has reached a point where it is not felt the patient can be adequately treated with the prospect of his not having to return each month. Met with nurse who reports patient has not demonstrated any serious side effects from his medication and has generally been cooperative only crying at briefly last evening. Mental Status Examination Appearance: Appropriate Consciousness: Alert Orientation: x4 Motor Activity: Other (No abnormal motor movements noted) Speech: Unremarkable Language: Adequate Fund of Knowledge: Adequate Attention and Concentration: Adequate Memory: Unremarkable (Grossly intact on clinical exam) Mood: Appropriate Affect: Blunt (Remains blunted) Thought Process & Associations: Intact Thought Content: Bizarre thinking Hallucination Type: Auditory (internally stimulated, talking to himself. ) Delusion Type: None Suicidal Ideation: No Suicidal Plan: No Suicidal Intention: No Homicidal Ideation: No Homicidal Plan: No Homicidal Intention: No Insight: Poor Judgment: Poor (Patient has some control over his psychosis to the extent that he can present a more appropriate presentation.) Assessment and Plan - Assessment (1) Schizophrenia Code(s): F20.9 - Schizophrenia, unspecified Status: Acute - Plan Plan: Will increase Serquel from 25mg to 100 mg to continue to manage psychotic symptoms. Continue current treatment plan. October 27, 2018: Continue current plan for transfer to [facility]. Justification for Continued Inpatient Stay: Patient is waiting transfer to [facility] after multiple monthly admissions secondary to poor compliance with treatment. Request Healthcare Surrogate/Guardian Advocate?: No (1) Schizophrenia Qualifiers: Schizophrenia type: paranoid schizophrenia Qualified Code(s): F20.0 - Paranoid schizophrenia
[2018-10-28] MEDS: QUEtiapine 100 MG Tablet PO SCH (21:11)
[2018-10-28] MEDS: Acetaminophen 325 MG Tablet PO PRN (21:12)
[2018-10-28] MEDS: Melatonin 5 MG Tablet PO PRN (21:12)
--- NOTE | 2018-10-29 13:54 | P.PNPSY ---
Subjective Chief Complaint: Alatorre act Remarks: October 29, 2018 Subjective: Discussed with staff and reviewed the record. Discussed with his aids social worker who may be able to transfer the patient to [facility], pending his transfer to the [facility]. Patient described having tried to make amends with his father but was arrested when he knocked on his father's store because of in [place]. All this information has been communicated previously. Mental Status Examination Appearance: Appropriate Consciousness: Alert Orientation: x4 Motor Activity: Other (No abnormal motor movements noted) Speech: Unremarkable Language: Adequate Fund of Knowledge: Adequate Attention and Concentration: Adequate Memory: Unremarkable (Grossly intact on clinical exam) Mood: Appropriate Affect: Blunt (Remains blunted) Thought Process & Associations: Intact Thought Content: Bizarre thinking Hallucination Type: Auditory (internally stimulated, talking to himself. ) Delusion Type: None Suicidal Ideation: No Suicidal Plan: No Suicidal Intention: No Homicidal Ideation: No Homicidal Plan: No Homicidal Intention: No Insight: Poor Judgment: Poor (Patient has some control over his psychosis to the extent that he can present a more appropriate presentation.) Assessment and Plan - Assessment (1) Schizophrenia Code(s): F20.9 - Schizophrenia, unspecified Status: Acute - Plan Plan: Will increase Serquel from 25mg to 100 mg to continue to manage psychotic symptoms. Continue current treatment plan. October 27, 2018: Continue current plan for transfer to [facility]. October 29, 2018 No real changes patient does spend a lot of time in bed. There being no response from the [facility] at this point. business services manager will help with discharge and the patient to [facility], pending transfer to the [facility]. Justification for Continued Inpatient Stay: October 29, [address] Hopefully the patient can be managed in a less restrictive environment without decompensation. Likelihood is that this might be accomplished if patient is accepted for housing at [facility], pending his transfer to [facility]. Request Healthcare Surrogate/Guardian Advocate?: No (1) Schizophrenia Qualifiers: Schizophrenia type: paranoid schizophrenia Qualified Code(s): F20.0 - Paranoid schizophrenia
[2018-10-29] MEDS: QUEtiapine 100 MG Tablet PO SCH (21:06)
[2018-10-29] MEDS: Melatonin 5 MG Tablet PO PRN (21:07)
--- NOTE | 2018-10-30 12:54 | P.PNPSY ---
Subjective Chief Complaint: Alatorre act Remarks: Reviewed electronic medical records and discussed case with staff. Follow-up was conducted in the patient's room with MARISOL Irby present. The patient is awaiting state placement. His nurse reports he has been seclusive but compliant and cooperative. When asked how he feels the patient states ", it is just another day". States he sleeping okay and his appetite's been good. He reports his mood is up and down stating that he gets and a bit of a "flat mood when I think about going to the [facility]". He is hopeful to avoid that trip. He reports that his medications are "100% I feel much better". Mental Status Examination Appearance: Appropriate Consciousness: Alert Orientation: x4 Motor Activity: Other (No abnormal motor movements noted) Speech: Unremarkable Language: Adequate Fund of Knowledge: Adequate Attention and Concentration: Adequate Memory: Unremarkable (Grossly intact on clinical exam) Mood: Appropriate Affect: Blunt (Remains blunted) Thought Process & Associations: Intact Thought Content: Bizarre thinking Hallucination Type: Auditory (internally stimulated, talking to himself. ) Delusion Type: None Suicidal Ideation: No Suicidal Plan: No Suicidal Intention: No Homicidal Ideation: No Homicidal Plan: No Homicidal Intention: No Insight: Poor Judgment: Poor (Patient has some control over his psychosis to the extent that he can present a more appropriate presentation.) Assessment and Plan - Assessment (1) Schizophrenia Code(s): F20.9 - Schizophrenia, unspecified Status: Acute - Plan Plan: Patient will be reevaluated by the attending psychiatrist. Continue with current treatment plan. Justification for Continued Inpatient Stay: Moving this patient to a less restrictive environment would likely result in decompensation. Request Healthcare Surrogate/Guardian Advocate?: No (1) Schizophrenia Qualifiers: Schizophrenia type: paranoid schizophrenia Qualified Code(s): F20.0 - Paranoid schizophrenia
[2018-10-30] MEDS: QUEtiapine 100 MG Tablet PO SCH (21:38)
[2018-10-30] MEDS: Melatonin 5 MG Tablet PO PRN (21:40)
--- NOTE | 2018-10-31 10:48 | P.PNPSY ---
Subjective Chief Complaint: Alatorre act Remarks: Reviewed electronic medical records and discussed case with staff. Follow-up was conducted in the patient's room with MARISOL Irby present. His nurse reports he has been compliant and cooperative with his treatment plan. The patient states that he is doing good. Reports that he slept well and his appetite's been good. He goes off on a tangent about his recent weight gain stating that he has been unable to exercise and use some of his "coping mechanisms". Although, I did get the distinct impression he was perseverating on this in order to build a case against going to state as that was our primary discussion yesterday. Mental Status Examination Appearance: Appropriate Consciousness: Alert Orientation: x4 Motor Activity: Other (No abnormal motor movements noted) Speech: Unremarkable Language: Adequate Fund of Knowledge: Adequate Attention and Concentration: Adequate Memory: Unremarkable (Grossly intact on clinical exam) Mood: Appropriate Affect: Blunt (Remains blunted) Thought Process & Associations: Intact Thought Content: Bizarre thinking Hallucination Type: Auditory (internally stimulated, talking to himself. ) Delusion Type: None Suicidal Ideation: No Suicidal Plan: No Suicidal Intention: No Homicidal Ideation: No Homicidal Plan: No Homicidal Intention: No Insight: Poor Judgment: Poor (Patient has some control over his psychosis to the extent that he can present a more appropriate presentation.) Assessment and Plan - Assessment (1) Schizophrenia Code(s): F20.9 - Schizophrenia, unspecified Status: Acute - Plan Plan: Patient will be reevaluated by the attending psychiatrist. Continue with current treatment plan. Patient continues to await placement at a state run facility. Justification for Continued Inpatient Stay: Moving this patient to a less restrictive environment would likely result in decompensation. Request Healthcare Surrogate/Guardian Advocate?: No (1) Schizophrenia Qualifiers: Schizophrenia type: paranoid schizophrenia Qualified Code(s): F20.0 - Paranoid schizophrenia
[2018-10-31] MEDS: QUEtiapine 100 MG Tablet PO SCH (20:27)
[2018-10-31] MEDS: Melatonin 5 MG Tablet PO PRN (21:19)
[2018-11-01] MEDS: Acetaminophen 325 MG Tablet PO PRN (00:37)
--- NOTE | 2018-11-01 10:04 | P.PNPSY ---
Subjective Chief Complaint: Alatorre act Remarks: November 01, 2018 Subjective: Patient is very excited about having met with the Castañeda yesterday. He commented he did not probe was a woman but was very excited about the information given by the castañeda and someone who accompanied the castañeda gave him sikhism material. Electronic record review weekend rounds. Patient discussed with nursing staff. I discussed with patient the plan we hope to execute; a plan to allow him to be transferred to [facility] pending transfer to the [facility]. Today was her first day I saw the patient up in about at the time of my visit. There appeared to be no basic changes in his mental status beyond perhaps some increased religiosity associated with attendance since Thursday services. Mental Status Examination Appearance: Appropriate Consciousness: Alert Orientation: x4 Motor Activity: Other (No abnormal motor movements noted) Speech: Unremarkable Language: Adequate Fund of Knowledge: Adequate Attention and Concentration: Adequate Memory: Unremarkable (Grossly intact on clinical exam) Mood: Appropriate Affect: Blunt (Remains blunted) Thought Process & Associations: Intact Thought Content: Bizarre thinking Hallucination Type: Auditory (internally stimulated, talking to himself. ) Delusion Type: None Suicidal Ideation: No Suicidal Plan: No Suicidal Intention: No Homicidal Ideation: No Homicidal Plan: No Homicidal Intention: No Insight: Poor Judgment: Poor (Patient has some control over his psychosis to the extent that he can present a more appropriate presentation.) Assessment and Plan - Assessment (1) Schizophrenia Code(s): F20.9 - Schizophrenia, unspecified Status: Acute - Plan Plan: Patient will be reevaluated by the attending psychiatrist. Continue with current treatment plan. Patient continues to await placement at a [facility] facility. Justification for Continued Inpatient Stay: Patient continues psychotic and awaiting transfer to [facility]. Request Healthcare Surrogate/Guardian Advocate?: No (1) Schizophrenia Qualifiers: Schizophrenia type: paranoid schizophrenia Qualified Code(s): F20.0 - Paranoid schizophrenia
[2018-11-01] MEDS: Melatonin 5 MG Tablet PO PRN (22:45)
[2018-11-01] MEDS: QUEtiapine 100 MG Tablet PO SCH (22:45)
--- NOTE | 2018-11-02 09:50 | P.TTN ---
- Patient Problems Problems: 1. Discharge planning 2. Medication compliance 3. Knowledge deficit 4. Lack of coping skills - Progress Toward Goals Provider Present: Dr. Raymond Miller (Dr. Miller is increasing medication Risperdal, patient remains for further stabilization.), Other (Per Dr. Eason, patient continues to meet criteria for the [facility]. Patient will be transferred to [facility] to await [facility] hospitalization as soon as possible.) Provider Input: 09/28/18: Pt continues to present with behaviors that require titration of his medications. pt is internally stimulated, meeting in-pt criteria. Nigel, yvonneor agrees that pt will be appropriate to attend court for consideration regarding pt continuation as in-pt or his disposition. Psychiatric Counselors Present: Nigel Mcdonald Jr., [facility] (There is no plan to divert the patient from the current discharge plan, which is to place this patient at the [facility] when a bed becomes available.), Debi Cano, [facility] Group Spec/RT/OT/HERNANDEZ Present: LYN Weber (Patient attends select groups and is redirectable), MARY Hobson (Patient attends select groups.), Misha Dorsey, OT, MARY Roberts (Patient attends select groups.) Group Spec/RT/OT/HERNANDEZ Input: 09/28/18: Pt very rarely attends groups Occupational Therapist Input: 09/28/18: OT notes updated, pt remains internally stimulated, distractable, impulsive and exercises limited interactions in social situations. - Discharge Plan 09/28/18: yvonne Manningor agrees that pt will be appropriate to attend court for consideration regarding pt continuation as in-pt or his disposition. - Documentation Teaching Recipient: Patient
--- NOTE | 2018-11-02 12:43 | P.PNPSY ---
Subjective Chief Complaint: Alatorre act Remarks: November 02, 2018 subjective: Patient lying in bed asleep. Awakened and interviewed with nurse. Patient apparently is waking up during the night screaming voices that there are occurring when he is awake or present reaction to dreams Mental Status Examination Appearance: Appropriate Consciousness: Alert Orientation: x4 Motor Activity: Other (No abnormal motor movements noted) Speech: Unremarkable Language: Adequate Fund of Knowledge: Adequate Attention and Concentration: Adequate Memory: Unremarkable (Grossly intact on clinical exam) Mood: Appropriate Affect: Blunt (Remains blunted) Thought Process & Associations: Intact Thought Content: Bizarre thinking Hallucination Type: Auditory (internally stimulated, talking to himself. ) Delusion Type: None Suicidal Ideation: No Suicidal Plan: No Suicidal Intention: No Homicidal Ideation: No Homicidal Plan: No Homicidal Intention: No Insight: Poor Judgment: Poor (Patient has some control over his psychosis to the extent that he can present a more appropriate presentation.) Assessment and Plan - Assessment (1) Schizophrenia Code(s): F20.9 - Schizophrenia, unspecified Status: Acute - Plan Plan: Patient will be reevaluated by the attending psychiatrist. Continue with current treatment plan. Patient continues to await placement at a [facility] facility. Justification for Continued Inpatient Stay: November 02, 2018 Patient at risk for decompensation at a lower level of care. [facility] are [facility] Request Healthcare Surrogate/Guardian Advocate?: No (1) Schizophrenia Qualifiers: Schizophrenia type: paranoid schizophrenia Qualified Code(s): F20.0 - Paranoid schizophrenia
[2018-11-02] MEDS: QUEtiapine 100 MG Tablet PO SCH (22:00)
[2018-11-02] MEDS: Melatonin 5 MG Tablet PO PRN (22:02)
[2018-11-03] MEDS: Aluminum/Magnesium/Simethacone Susp 30 ML UDC PO PRN (04:09)
--- NOTE | 2018-11-03 09:38 | P.PNPSY ---
Subjective Chief Complaint: Alatorre act Remarks: November 03, 2018 Subjective: Patient seen record reviewed discussed patient with the nursing staff. Nursing reports the patient continues internally preoccupied at times and shouting out including both symptoms in the past 24 hours. The patient tells me concerned about his bank account. He fears someone might be taking his money or his disability check. He has been reported to spend his monthly check on prostitutes and motel room is out and then presented himself as needing hospitalization to the ED or to law enforcement. He has asked me the date early in October. At that time, he was concerned about the discharge. Because of his recidivism, it was decided that the patient should be transferred to the [facility]. He can continues to wait for that disposition. Patient continues with the degree of islam preoccupation and talking to himself. Review of Systems November 03, 2018 Review of systems patient denies any complaints. Mental Status Examination Appearance: Appropriate Consciousness: Alert Orientation: x4 Motor Activity: Other (No abnormal motor movements noted) Speech: Unremarkable Language: Adequate Fund of Knowledge: Adequate Attention and Concentration: Adequate Memory: Unremarkable (Grossly intact on clinical exam) Mood: Appropriate Affect: Blunt (Remains blunted) Thought Process & Associations: Intact Thought Content: Bizarre thinking Hallucination Type: Auditory (internally stimulated, talking to himself. ) Delusion Type: None Suicidal Ideation: No Suicidal Plan: No Suicidal Intention: No Homicidal Ideation: No Homicidal Plan: No Homicidal Intention: No Insight: Poor Judgment: Poor (Patient has some control over his psychosis to the extent that he can present a more appropriate presentation.) Assessment and Plan - Assessment (1) Schizophrenia Code(s): F20.9 - Schizophrenia, unspecified Status: Acute - Plan Plan: Patient will be reevaluated by the attending psychiatrist. Continue with current treatment plan. Patient continues to await placement at a state run facility. Justification for Continued Inpatient Stay: November 03, 2018: Patient continues to complain of concerns about his bank account. He also shows some ability to disguise his symptoms and appear ready for discharge when interviewed by interest. At other times patient has demonstrated to the attending staff continued evidence of his psychosis. Without inpatient care the patient would decompensate. Request Healthcare Surrogate/Guardian Advocate?: No (1) Schizophrenia Qualifiers: Schizophrenia type: paranoid schizophrenia Qualified Code(s): F20.0 - Paranoid schizophrenia
--- NOTE | 2018-11-03 12:57 | P.DSPSY ---
Psychiatry Discharge Summary Inpatient Psychiatric care?: Yes Advance Directives: No Reason for Unknown:: Other Mental Health Advance Directive: No Health Care Proxy: No - Admission Admission Date: September 21, 2018 13:28 Brief History: Mr. Byers is a 48-year-old male with a history of schizophrenia who presents under a Alatorre act by law enforcement alleging that the patient was having suicidal ideation. He was screened by the psychiatric nurse practitioner in the ED. Patient is well-known to the psychiatric service here from multiple previous ER visits and psychiatric hospitalizations. Reviewing the electronic medical record, I note that the patient was most recently psychiatrically hospitalized under my care in July/August of this year. Patient seen and examined with nurse. Chart reviewed. Case discussed with nursing staff. On my examination today, the patient presents as somewhat dysphoric and withdrawn. He says that after leaving the hospital last time AGAINST MEDICAL ADVICE he went to [place] to look for shelters but found all of the shelters to be "real temporary." He says that there was no long-term housing. He says that he went back to [place] "but they did not want me on the street and so they sent me to [facility]."Presently, the patient endorses vague suicidal ideation with no specific plan or intent. No reported urge to hurt himself on the inpatient unit. No homicidal ideation. Denies audiovisual hallucinations. Some vague paranoia. Mood is depressed and the patient says "life is really pits. It really stinks." No hypomanic or manic symptoms. Remainder of the psychiatric ROS is negative. No physical complaints, although nurse does point out that patient has lesion on right forehead. Past psychiatric history: History of schizophrenia. Patient did not follow up with outpatient mental health provider after discharge from the hospital last time. He reports that he was psychiatrically hospitalized most recently in August of this year at [facility]. He denies any interval suicide attempts. Family history: Patient is unsure of his family psychiatric history. Chemical dependency history: The patient denies any abuse of drugs or alcohol. Social history: Unchanged from previous assessments. Patient denies any access to guns or firearms. Tobacco Use In Past 30 Days: Yes How Often Do You Have a Drink Containing Alcohol: Never Hospital Course: November 03, 2018 Review of hospitalization: Patient had gradual improvement over the period of time he spent in the hospital but remains active at risk because of repeated noncompliance with medication. At the time of his discharge the patient mental status is improved to the extent that he has some degree of control over his auditory hallucinations and his manic behavior is in good control. - Discharge Discharge Date: 11/03/18 - Discharge Diagnosis (1) Homicidal thoughts Code(s): R45.850 - Homicidal ideations Status: Acute (2) Non compliance w medication regimen Code(s): Z91.14 - Patient's other noncompliance with medication regimen Status : Acute (3) Suicidal ideation Code(s): R45.851 - Suicidal ideations Status: Acute (4) Depressed mood Code(s): F32.9 - Major depressive disorder, single episode, unspecified Status : Acute Discharge Disposition: Psychiatric Facility - Discharge Instructions Discharge Diet: Regular Diet Activities You Can Perform: Regular- No Restrictions - Discharge Time > 30 minutes Mental Status Examination Appearance: Appropriate Consciousness: Alert Orientation: x4 Motor Activity: Other (No abnormal motor movements noted) Speech: Unremarkable Language: Adequate Fund of Knowledge: Adequate Attention and Concentration: Adequate Memory: Unremarkable (Grossly intact on clinical exam) Mood: Appropriate Affect: Blunt (Remains blunted) Thought Process & Associations: Intact Thought Content: Bizarre thinking Hallucination Type: Auditory (internally stimulated, talking to himself. ) Delusion Type: None Suicidal Ideation: No Suicidal Plan: No Suicidal Intention: No Homicidal Ideation: No Homicidal Plan: No Homicidal Intention: No Insight: Poor Judgment: Poor (Patient has some control over his psychosis to the extent that he can present a more appropriate presentation.) Discharge/Advance Care Plan - Results Vital Signs: Last Vital Signs Temp 97.6 F 11/03/18 06:20 Pulse 91 H 11/03/18 06:20 Resp 18 11/03/18 06:20 BP 131/64 11/03/18 06:20 Pulse Ox 92 L 11/03/18 06:20 Lab Results: Laboratory Results Hemoglobin A1c 5.3 % (4.3-6.0) 09/22/18 16:20 Triglycerides 194 mg/dL (42-150) H 09/22/18 16:10 Cholesterol 205 mg/dL (120-200) H 09/22/18 16:10 LDL Cholesterol, Calc 128 mg/dL (0-99) H 09/22/18 16:10 HDL Cholesterol 37.9 mg/dL (40.0-60.0) L 09/22/18 16:10 TSH 2.960 uIU/mL (0.358-3.740) 09/21/18 05:14 Urine Culture Comments Culture not ind 09/22/18 16:11 Summary of Procedures: None Imaging: ITS Impressions Chest X-Ray 09/22/18 00:00 CONCLUSION: COPD. No evidence of acute cardiopulmonary process. Hand X-Ray 09/30/18 00:00 CONCLUSION: Angulated fracture of the distal fifth metacarpal. The remainder the bony structures are intact. Pending Results: None - Medications Number of antipsychotic medications at discharge: 2 - Discharge Care Plan Goals to Promote Your Health: * To prevent worsening of your condition and complications * To maintain your health at the optimal level Directions to Meet Your Goals: Take your medications as prescribed Follow your dietary instruction Follow activity as directed Keep your appointments as scheduled Take your immunizations and boosters as scheduled If your symptoms worsen call your PCP, if no PCP go to Urgent Care Center or Emergency Room For 25/05 questions related to your inpatient stay or results of tests pending at discharge, please contact Dr. Edi Eason MD at Smoking is Dangerous to Your Health. Avoid second hand smoking
== END 2018-11-03 16:05 | disposition short-term general hospital (02) | DRG 885 ==
LOC: NEPD 04:44 → NEDA 13:28 → H270 14:44 → H260 10-19 16:15
PROVIDERS: ADMIT Psychiatry & Neurology Child & Adolescent Psychiatry; ATTEND Psychiatry & Neurology Child & Adolescent Psychiatry
CPT/HCPCS: J1630